=== PATIENT | female | born 1960 | race Caucasian/White ===

== ENCOUNTER 2020-06-23 07:55 | Outpatient (RCR) | payer OTHER, SELFPAY ==
--- NOTE | 2020-06-24 09:29 | MHC.PT.DC ---
[facility] [place] Office [place] Office [place] Office [address] Abelardo Orozco [address] [phone] F: [phone] F: [phone] F: [phone] F: [phone] Physical Therapy Discharge Report Diagnosis: Patellofemoral arthritis of R knee Date of Surgery: NA Date of Evaluation: 04/29/20 Date of Discharge: 06/23/20 Treatments to Date: 9 Cancellations to Date: 1 No Shows to Date: 0 Discharge Status: Achieved Goals Independent with HEP Discharge Summary: 06/23/20- Pt presented with no pain. She has improved and is independent with all HEPS. Pt requested d/c today. As pt has improved and is independent with all HEPS pt discharged today. All her exercises were reviewed with her. Pt educated on continuing with HEP and prevent recurrence of pain. No adverse response noted to any exercise. Please sign and return to therapist. Thank you for your referral.
== END 2020-07-07 15:22 | disposition other institution (70) ==
LOC: HO.PT 07:55
PROVIDERS: PCP Internal Medicine; Visit Provider Physician Assistant
DX: M17.10 Unilateral primary osteoarthritis, unspecified knee (principal)
CPT/HCPCS: 97110

== ENCOUNTER 2020-07-21 14:03 | Outpatient (REF) | payer OTHER, SELFPAY | END 2020-07-21 14:04 | disposition home or self-care (01) | LOC: HO.LAB 14:03 | PROVIDERS: PCP Internal Medicine; Visit Provider Internal Medicine | DX: Z20.828 Contact with and (suspected) exposure to other viral communicable diseases (principal) | CPT/HCPCS: U0003 ==

== ENCOUNTER → 2020-08-22 08:39 | Outpatient (BNVA) | payer OTHER, SELFPAY | PROVIDERS: PCP Internal Medicine; Referring Provider Internal Medicine; Visit Provider Internal Medicine Gastroenterology | DX: Z76.89 Persons encountering health services in other specified circumstances (principal) ==

== ENCOUNTER → 2020-11-28 08:21 | Outpatient (BNVA) | payer OTHER, SELFPAY | PROVIDERS: PCP Internal Medicine; Visit Provider Internal Medicine Gastroenterology ==

== ENCOUNTER 2021-02-03 08:37 | Outpatient (REF) | payer OTHER, SELFPAY ==
[2021-02-03 09:31] LABS: MANUAL DIFF FLAG NO
[2021-02-03 09:42] LABS: Basophils Percent Auto 0.4 % (0-2); Eosinophils Absolute Auto 0.2 X10*3/uL (0.0-0.4); Hematocrit 40.2 % (37-47); Hemoglobin 13.1 g/dl (12.0-16.0); Imm Gran Abs Auto 0.03 X10*3/uL (0.00-0.03); Imm Gran Pct Auto 0.4 % (0.0-0.4); Lymphocytes Absolute Auto 2.8 X10*3/uL (1.2-4.9); Lymphocytes Percent Auto 35.8 % (20-40); Mean Corpuscular HGB Conc 32.6 g/dl (31.0-35.0); Mean Corpuscular Hemoglobin 28.4 pg (27.0-33.0); Mean Platelet Volume 10.2 fL (9.4-12.3); Monocytes Absolute Auto 0.6 X10*3/uL (0.1-1.2); Monocytes Percent Auto 7.7 % (2-11); Neutrophils Absolute Auto 4.1 X10*3/uL (2.0-8.3); Neutrophils Percent Auto 53.7 % (45-73); Platelet Count 240 X10*3/uL (160-400); Red Blood Count 4.62 X10*6/uL (4.20-5.50); Red Cell Distribution Width 13.2 % (11.0-16.0); White Blood Count 7.7 X10*3/uL (4.8-10.8)
[2021-02-03 09:48] LABS: Estimated Average Glucose 137 mg/dL; Hemoglobin A1c % 6.4 %
[2021-02-03 09:54] LABS: Alanine Aminotransferase 22 U/L (0-31); Albumin Level 4.2 g/dL (3.5-5.0); Alkaline Phosphatase 135 U/L (39-117); Anion Gap 14 (12-20); Aspartate Amino Transferase 16 U/L (5-31); Bilirubin Total 0.4 mg/dL (0.0-1.0); Blood Urea Nitrogen 17 mg/dL (9-16); Carbon Dioxide 23 mmol/L (22-29); Chloride 108 mmol/L (96-108); Cholesterol 188 mg/dL; Estimated Glomerular Filt Rate > 60; Glucose Fasting 134 mg/dL (60-99); HDL Cholesterol 65 mg/dL; LDL Cholesterol Calculated 97 mg/dl; Potassium 3.1 mmol/L (3.3-5.1); Sodium 142 mmol/L (135-145); Total Protein 7.3 g/dL (6.5-8.0); Triglycerides 134 mg/dL
[2021-02-03 10:01] LABS: Glucose Urine UA NEG (NEG); Leukocyte Esterase Urine NEG (NEG); Nitrite Urine NEG (NEG); Specific Gravity - Urine 1.025 (1.005-1.025); Urine Blood NEG (NEG); Urine Ketones NEG (NEG); Urine Protein NEG (NEG-TRACE)
[2021-02-03 10:03] LABS: Appearance Urine CLEAR; Color Urine YELLOW
[2021-02-03 10:17] LABS: TSH reflex Free T4 3.22 uIU/mL (0.32-4.0); Vitamin D 25-OH Total 48.5 ng/mL (>30)
[2021-02-03 10:43] LABS: Erythrocyte Sedimentation Rate 22 MM/HR (0-20)
[2021-02-03 10:46] LABS: Microalbum/Creatinine Ratio Ur 4.9 ug/mg cr
[2021-02-03 11:56] LABS: Folate > 20.0 ng/mL (> or = 4.0); Vitamin B12 272 pg/mL (200-900)
== END 2021-02-03 08:38 | disposition home or self-care (01) ==
LOC: HO.LAB 08:37
PROVIDERS: PCP Internal Medicine; Visit Provider Internal Medicine
DX: E11.9 Type 2 diabetes mellitus without complications (principal); E78.00 Pure hypercholesterolemia, unspecified; I10 Essential (primary) hypertension; E53.8 Deficiency of other specified B group vitamins; G40.909 Epilepsy, unspecified, not intractable, without status epilepticus; E66.01 Morbid (severe) obesity due to excess calories; Z68.43 Body mass index [BMI] 50.0-59.9, adult; D64.9 Anemia, unspecified; K21.9 Gastro-esophageal reflux disease without esophagitis; M79.7 Fibromyalgia; E55.9 Vitamin D deficiency, unspecified
CPT/HCPCS: 36415; 80053; 80061; 80184; 81003; 82043; 82306; 82607; 82746; 83036; 84443; 85025; 85652

== ENCOUNTER → 2021-03-30 08:48 | Outpatient (BNVA) | payer OTHER, SELFPAY | PROVIDERS: PCP Internal Medicine; Referring Provider Internal Medicine; Visit Provider Internal Medicine Gastroenterology | DX: K76.0 Fatty (change of) liver, not elsewhere classified (principal) | CPT/HCPCS: 99212 ==

== ENCOUNTER 2021-04-22 09:51 | Outpatient (REF) | payer OTHER, SELFPAY ==
--- NOTE | ~2021-04-22 | US_ITS ---
EXAMINATION: US ABDOMEN LIMITED WITH LIVER ELASTOGRAPHY CLINICAL INFORMATION: Fatty liver COMPARISON: Previous abdominal ultrasound June 2019 TECHNIQUE: Real-time imaging of the abdominal viscera. Noninvasive ultrasound liver fibrosis assessment is performed using Allen ElastPQ point quantification shear wave elastography (pSWE) with a C5-2 MHz transducer. Multiple elastography samples are obtained. FINDINGS: PANCREAS: Normal. LIVER: The liver demonstrates normal size and contour. Liver echotexture is increased.. No focal lesion or intrahepatic biliary duct dilatation. The right lobe measures 18 cm in length. The left lobe measures 12 cm in length. Portal flow is normal/hepatopedal Shear wave liver elastography median stiffness is 1.56 m/s (reference: normal median stiffness is 1.3 m/s or less). IQR/median stiffness to assess sampling precision is 0.32 (reference: good quality data set is IQR/median stiffness of 0.15 or less). GALLBLADDER: The gallbladder is normal in size. There is echogenic material seen dependently in the gallbladder that does not shadow suggestive of sludge. COMMON BILE DUCT: Normal in caliber measuring 0.3 cm in diameter. RIGHT KIDNEY: Normal. No hydronephrosis. No renal calculi or focal parenchymal lesions. The kidney measures 10.2 cm in maximum dimension. FREE FLUID: None. US/US abdomen regalado w elastography IMPRESSION: 1. Impression: Echogenic liver probably representing fatty infiltration. Sludge in the gallbladder. 2. Liver elastography: Slightly limited due to sampling error. In the absence of other known clinical signs, rules out compensated advanced chronic liver disease. REFERENCE: Society of Radiologists in Ultrasound Liver Stiffness Thresholds (2020): LIVER STIFFNESS THRESHOLDS: *Liver Stiffness equal or less than 1.3 m/s: High probability of being normal. *Liver Stiffness less than 1.7 m/s: In the absence of other known clinical signs, rules out compensated advanced chronic liver disease. *Liver Stiffness 1.7-2.1 m/s: Suggestive of compensated advanced chronic liver disease but need further test for confirmation. *Liver Stiffness over 2.1 m/s: Rules in compensated advanced chronic liver disease. *Liver Stiffness over 2.4 m/s: Suggestive of clinically significant portal hypertension. QUALITY OF DATA SET: *IQR/Median value equal or less than 0.15 implies a quality data set. *IQR/Median value over 0.15 implies a poor quality data set. SIGNIFICANT CHANGE FROM PRIOR EXAM: Significant change if liver stiffness measurement is 10% or greater from prior exam. OTHER CONSIDERATIONS: The stage of liver fibrosis may be overestimated in the setting of acute hepatitis, liver inflammation, elevated liver function tests, hepatic vascular congestion, obstructive cholestasis, non-fasting state, and infiltrative diseases such as amyloidosis and lymphoma. In some patients with NAFLD, the liver stiffness thresholds for compensated advanced chronic liver disease may be lower. In causes other than viral hepatitis and NAFLD, liver stiffness thresholds are not well established.
== END 2021-04-22 09:52 | disposition home or self-care (01) ==
LOC: HO.US 09:51
PROVIDERS: Visit Provider Internal Medicine Gastroenterology
DX: K76.0 Fatty (change of) liver, not elsewhere classified (principal)
CPT/HCPCS: 76705; 76981

== ENCOUNTER 2021-06-25 14:47 | Outpatient (REF) | payer OTHER, SELFPAY ==
[2021-06-25 15:55] LABS: MANUAL DIFF FLAG NO
[2021-06-25 17:00] LABS: Basophils Percent Auto 0.4 % (0-2); Eosinophils Absolute Auto 0.1 X10*3/uL (0.0-0.4); Hematocrit 38.2 % (37-47); Hemoglobin 12.6 g/dl (12.0-16.0); Imm Gran Abs Auto 0.03 X10*3/uL (0.00-0.03); Imm Gran Pct Auto 0.4 % (0.0-0.4); Lymphocytes Absolute Auto 2.7 X10*3/uL (1.2-4.9); Lymphocytes Percent Auto 35.2 % (20-40); Mean Platelet Volume 10.7 fL (9.4-12.3); Monocytes Absolute Auto 0.5 X10*3/uL (0.1-1.2); Neutrophils Absolute Auto 4.4 X10*3/uL (2.0-8.3); Platelet Count 271 X10*3/uL (160-400); Red Blood Count 4.34 X10*6/uL (4.20-5.50); Red Cell Distribution Width 13.2 % (11.0-16.0); White Blood Count 7.7 X10*3/uL (4.8-10.8)
== END 2021-06-25 14:48 | disposition home or self-care (01) ==
LOC: HO.LAB 14:47
PROVIDERS: PCP Internal Medicine; Visit Provider Internal Medicine Pulmonary Disease
DX: Z91.09 Other allergy status, other than to drugs and biological substances (principal)
CPT/HCPCS: 36415; 82785; 85025; 86003; 99202

== ENCOUNTER → 2021-07-08 14:09 | Outpatient (BNVA) | payer OTHER, SELFPAY | PROVIDERS: PCP Internal Medicine; Visit Provider Internal Medicine Pulmonary Disease | DX: J45.909 Unspecified asthma, uncomplicated (principal); Z91.09 Other allergy status, other than to drugs and biological substances | CPT/HCPCS: 99212 ==

== ENCOUNTER 2021-07-24 09:27 | Outpatient (REF) | payer OTHER, SELFPAY | END 2021-07-24 09:28 | disposition home or self-care (01) | LOC: HO.MDS 09:27 | PROVIDERS: PCP Internal Medicine; Visit Provider Internal Medicine Pulmonary Disease | DX: J45.50 Severe persistent asthma, uncomplicated (principal) | CPT/HCPCS: 96372; J2357 ==

== ENCOUNTER 2021-08-18 09:57 | Outpatient (REF) | payer OTHER, SELFPAY ==
[2021-08-18 10:27] LABS: MANUAL DIFF FLAG NO
[2021-08-18 10:43] LABS: Basophils Percent Auto 0.3 % (0-2); Eosinophils Absolute Auto 0.1 X10*3/uL (0.0-0.4); Eosinophils Percent Auto 1.4 % (0-4); Hematocrit 42.6 % (37.0-47.0); Hemoglobin 13.7 g/dl (12.0-16.0); Imm Gran Abs Auto 0.03 X10*3/uL (0.00-0.03); Imm Gran Pct Auto 0.5 % (0.0-0.4); Lymphocytes Percent Auto 29.6 % (20-40); Mean Corpuscular HGB Conc 32.2 g/dl (31.0-35.0); Mean Corpuscular Hemoglobin 28.5 pg (27.0-33.0); Mean Corpuscular Volume 88.6 fL (80.0-98.0); Mean Platelet Volume 10.4 fL (9.4-12.3); Monocytes Absolute Auto 0.5 X10*3/uL (0.1-1.2); Monocytes Percent Auto 6.8 % (2-11); Neutrophils Absolute Auto 4.1 x10*3/uL (2.0-8.3); Neutrophils Percent Auto 61.4 % (45-73); Platelet Count 255 X10*3/uL (160-400); Red Blood Count 4.81 X10*6/uL (4.20-5.50); Red Cell Distribution Width 13.4 % (11.0-16.0); White Blood Count 6.7 X10*3/uL (4.8-10.8)
[2021-08-18 10:55] LABS: Estimated Average Glucose 140 mg/dL; Hemoglobin A1c % 6.5 %
[2021-08-18 11:13] LABS: Alanine Aminotransferase 16 U/L (0-31); Albumin Level 4.2 g/dL (3.5-5.0); Alkaline Phosphatase 127 U/L (39-117); Anion Gap 13 (12-20); Aspartate Amino Transferase 14 U/L (5-31); Bilirubin Total 0.3 mg/dL (0.0-1.0); Blood Urea Nitrogen 14 mg/dL (9-16); Calcium 9.4 mg/dL (8.4-10.2); Carbon Dioxide 26 mmol/L (22-29); Chloride 106 mmol/L (96-108); Cholesterol 187 mg/dL; Estimated Glomerular Filt Rate > 60; Glucose Fasting 137 mg/dL (60-99); HDL Cholesterol 65 mg/dL; LDL Cholesterol Calculated 102 mg/dl; Potassium 3.4 mmol/L (3.3-5.1); Sodium 142 mmol/L (135-145); Total Protein 7.2 g/dL (6.5-8.0); Triglycerides 101 mg/dL
[2021-08-18 11:28] LABS: Vitamin D 25-OH Total 44.8 ng/mL (>30)
[2021-08-18 11:46] LABS: Appearance Urine CLEAR; Color Urine YELLOW; Glucose Urine UA NEG (NEG); Leukocyte Esterase Urine NEG (NEG); Nitrite Urine NEG (NEG); PH 6.5 (5.0-8.0); Urine Blood NEG (NEG); Urine Ketones NEG (NEG); Urine Protein NEG (NEG-TRACE)
[2021-08-18 11:59] LABS: Folate > 20.0 ng/mL (> or = 4.0); Vitamin B12 302 pg/mL (200-900)
[2021-08-18 12:11] LABS: Creatinine Urine 110.16 mg/dL; Microalbum/Creatinine Ratio Ur 4.5 ug/mg cr
[2021-08-20 22:46] LABS: Immunoglobulin E 6 kU/L (<OR=114)
== END 2021-08-18 09:58 | disposition home or self-care (01) ==
LOC: HO.LAB 09:57
PROVIDERS: Internal Medicine Pulmonary Disease; PCP Internal Medicine; Visit Provider Internal Medicine
DX: E11.9 Type 2 diabetes mellitus without complications (principal); I10 Essential (primary) hypertension; K21.9 Gastro-esophageal reflux disease without esophagitis; M79.7 Fibromyalgia; D64.9 Anemia, unspecified; E53.8 Deficiency of other specified B group vitamins; E78.00 Pure hypercholesterolemia, unspecified; G40.909 Epilepsy, unspecified, not intractable, without status epilepticus; E55.9 Vitamin D deficiency, unspecified; E66.01 Morbid (severe) obesity due to excess calories; Z68.43 Body mass index [BMI] 50.0-59.9, adult; Z91.09 Other allergy status, other than to drugs and biological substances
CPT/HCPCS: 36415; 80053; 80061; 80184; 81003; 82043; 82306; 82607; 82746; 82785; 83036; 84443; 85025

== ENCOUNTER 2021-08-21 08:53 | Outpatient (REF) | payer OTHER, SELFPAY | END 2021-08-21 08:54 | disposition home or self-care (01) | LOC: HO.MDS 08:53 | PROVIDERS: PCP Internal Medicine; Visit Provider Internal Medicine Pulmonary Disease | DX: J45.50 Severe persistent asthma, uncomplicated (principal) | CPT/HCPCS: 96372; J2357 ==

== ENCOUNTER → 2021-09-03 14:11 | Outpatient (BNVA) | payer OTHER, SELFPAY | PROVIDERS: PCP Internal Medicine; Visit Provider Internal Medicine Pulmonary Disease | DX: J45.909 Unspecified asthma, uncomplicated (principal); Z91.09 Other allergy status, other than to drugs and biological substances | CPT/HCPCS: 99212 ==

== ENCOUNTER → 2021-10-02 09:10 | Outpatient (BNVA) | payer OTHER, SELFPAY | PROVIDERS: PCP Internal Medicine; Visit Provider Internal Medicine Gastroenterology ==

== ENCOUNTER 2021-10-06 08:25 | Outpatient (REF) | payer OTHER, SELFPAY | END 2021-10-06 08:26 | disposition home or self-care (01) | LOC: HO.MDS 08:25 | PROVIDERS: PCP Internal Medicine; Visit Provider Internal Medicine Pulmonary Disease | DX: J45.50 Severe persistent asthma, uncomplicated (principal) | CPT/HCPCS: 96372; J2357 ==

== ENCOUNTER 2021-11-02 08:52 | Outpatient (REF) | payer OTHER, SELFPAY | END 2021-11-02 08:53 | disposition home or self-care (01) | LOC: HO.MDS 08:52 | PROVIDERS: PCP Internal Medicine; Visit Provider Internal Medicine Pulmonary Disease | DX: J45.50 Severe persistent asthma, uncomplicated (principal) | CPT/HCPCS: 96372 ==

== ENCOUNTER 2021-11-20 09:45 | Outpatient (REF) | payer OTHER, SELFPAY ==
--- NOTE | 2021-11-20 15:46 | MHC.AU.AHA ---
Adult Audiological Evaluation Date of Visit: 11/20/21 Reason for Appointment: Ms. Ga was seen for an audiological re-evaluation to monitor the status of her hearing loss. He has a known asymmetrical, mixed hearing loss bilaterally. Patient reports a perceived decline in hearing thresholds and aural fullness bilaterally. She states that she has noticed an increase in tinnitus on the right side. She reports a history of cerumen blockages and has not been able to remove cerumen from her ears in the past month. She notes that her primary care physician recently told her her ears were clear and free of cerumen. Ms. Ga is currently wearing custom CROS hearing aids, right hearing aid and left CROS. Previous Hearing Test Results: [place] 01/29/2015- Right ear: Moderate to moderately severe mixed hearing loss from 250-8000 Hz. Left ear: Profound mixed hearing loss from 250-8000 Hz. Ear History: Previous Ear Surgery: left side in 1989 Ear used on the phone: Right Ear Blocked/Full Sensation in Ear(s): Both Ears Medical History: Medical History: Headache, Seizure Disorder Allergies: Asprin, peanut, tree nut, calcium, magnesium, gabapentin, benadryl, zinc Medication List: Breo, Phenobarbital, Topamax, atorvastatin, amitriptyline, gaspatastin, folic acid, vitamin D, metformin Hearing Instrument History- Right Ear: Chemical Applicator: Phonak Model: Virto V50-312 Serial Number: [id number] Battery Size: 312 Repair Warranty: Loss and Damage Warranty: Dispensed By: [facility] Date of Fitt[place]02/25/2015 Hearing Instrument History- Left Ear: Chemical Applicator: Phonak Model: CROS II-312 custom Serial Number: [id number] Battery Size: 312 Warranty: Loss and Damage Warranty: Dispensed By: [facility] Date of Fitt[place]02/25/2015 Otoscopy: Right Ear: Completely occluding wax. Wax removal performed. Part of TM was visualized. Could not completely remove cerumen due to depth in ear canal. Left Ear: Completely occluding wax. Wax removal performed. Part of TM was visualized. Could not completely remove cerumen due to depth in ear canal. Tympanometry: Tympanometry performed due to: History of allergies/congestion Right Ear: Reduced Middle Ear Compliance (Type As) Left Ear: Normal Middle Ear System (Type A) Hearing Evaluation: Transducer(s) Used: Circumaural Headphones, Bone Conduction Method: Conventional Audiometry Stimuli Used: Pure Tones Right Ear: Description of Hearing: Mild hearing loss at 250 Hz, sloping to a moderately severe mixed hearing loss at 1000 Hz, rising to mild at 4000 Hz, sloping back down to a moderate hearing loss at 8000 Hz. Left Ear: Description of Hearing: Profound mixed hearing loss from 250-8000 Hz. Speech Recognition Threshold (SRT): Method Used: Monitored Live Voice Stimuli Used: Spondee Words Right Ear: 45 dB HL Left Ear: Did not test due to degree of hearing loss. Word Discrimination: Method: Recorded Lists Word Lists Used: NU-6 Right Ear: 92% at 85 dB HL Left Ear: Did not test due to degree of hearing loss. Comparison: Compared to the most recent evaluation: Hearing is stable with no significant changes in hearing when compared to 2015 audiogram. Interpretation of Results: Stable significant mixed hearing loss in the right ear and a profound mixed hearing loss in the left ear. Good word recognition in the right ear when presented at a level to compensate for the hearing loss. Recommendations: Audiological re-evaluation in one year. Based on the age and condition of her current hearing aids, updated amplification is recommended to help facilitate improved communication. Recommend patient returns for a hearing aid evaluation to discuss updated amplification options. Patient was recommended to use ear wax softening drops for the next few weeks, prior to returning for her hearing aid evaluation, to improve ability to clean out residual cerumen in this office. Patient should continue consistent use of amplification. Basic hearing aid maintenance and cleaning was performed at today's appointment as well. Patient should return as needed for hearing aid maintenance in the future. Diagnosis: Primary Diagnosis: H90.6 Mixed Hearing Loss, Bilateral Secondary Diagnosis: H61.23 Impacted Cerumen, Bilateral Services Performed: Comprehensive Audiological Evaluation (CPT 15231) Tympanometry (CPT 05159) Signature: Student/Clinical Fellow: Yes: Kenia Caro B.A., [place] Graduated Student I have reviewed/agreed with student/fellow documentation: Yes Provider: Chandler Duke, [facility]
--- NOTE | 2021-11-20 15:54 | MHC.AU.MED ---
Medical Clearance for Hearing Instrumentation Date: 11/20/21 Patient Name: Brenda Ga Date of : 1960 Referring Provider: Delmar Sylvester MD We have seen your patient on 11/20/21 and have determined that they are a candidate for amplification (See accompanying report). Specifically, they would benefit from: Hearing aid use in both ears - BiCROS hearing aid system There is a statute that addresses Medical Evaluation Requirements prior to fitting a patient with a hearing aid. According to [place] statute 265 CMR:6.03(1), (a) General. Except as provided in 265 CMR 6.03(1)(b), a hearing screen coordinator shall not sell a hearing aid unless the prospective user has presented to the hearing screen coordinator a written statement signed by a licensed physician that states that the patient's hearing loss has been medically evaluated and the patient may be considered a candidate for a hearing aid. The medical evaluation must have taken place within the preceding six months. Please note: Due to the [place] Statute referenced above, we cannot accept a signature other than that of a licensed physician. CLIP BAKER and PA signatures cannot be accepted. I am in agreement with the above recommendation. There is no medical contraindication for hearing instrumentation. Physician Signature Date Physician Name (Printed)
== END 2021-11-20 09:46 | disposition home or self-care (01) ==
LOC: HO.SH 09:45
PROVIDERS: Visit Provider Internal Medicine
DX: Z01.118 Encounter for examination of ears and hearing with other abnormal findings (principal); Z46.1 Encounter for fitting and adjustment of hearing aid; H90.6 Mixed conductive and sensorineural hearing loss, bilateral
CPT/HCPCS: 92557; 92567; 92593

== ENCOUNTER 2021-11-30 09:18 | Outpatient (REF) | payer OTHER, SELFPAY | END 2021-11-30 09:19 | disposition home or self-care (01) | LOC: HO.MDS 09:18 | PROVIDERS: PCP Internal Medicine; Visit Provider Internal Medicine Pulmonary Disease | DX: J45.50 Severe persistent asthma, uncomplicated (principal) | CPT/HCPCS: 96372; J2357 ==

== ENCOUNTER 2021-12-04 13:57 | Outpatient (REF) | payer OTHER, SELFPAY ==
--- NOTE | 2021-12-04 16:01 | MHC.AU.HAS ---
Hearing Aid Evaluation Date of Visit: 12/04/21 Historical Information: Description of Hearing: Mild to moderately-severe mixed hearing loss in the right ear. Severe to profound mixed hearing loss in the left ear. Current personal amplification information, if applicable: 2014 Phonak Virto V50 canal aid and CROS II Summary: Brenda was seen today for cerumen removal and for an HAE. She was found to have occluding wax at her last visit, which was partially removed at that time. She has been using ear wax drops since. Used suction to remove the remaining wax from both ears without incident. Given the age of her current hearing devices, updated amplification is recommended to help facilitate improved communication. She was advised that there are no updated versions of the ITE style CROS system anymore and all the manufacturers we work with have done away with that style for CROS aids. Discussed other options, such as the Silk CROS from [employer] and SLADE style CROS systems. She feels the Silk CROS aids are too small. She is hesitant to try the SLADE style as she tried a BTE style previous to her current aids and did not like them. However, she is interested in the added features of SLADE aids such as Bluetooth connectivity and rechargeability. She chose to go with a Phonak SLADE style CROS hearing aid system coupled with domes. Hearing Aid Prescription: Based on the individual?s shared listening needs, communication environments, dexterity, desire for connectivity, and personal preferences, the following prescription for amplification has been made: Right ear: Harness Placer: PhonThink Gaming Model: Audeo P70-R Battery Size: Rechargeable Color: H0- Beige Merchandiser Retail Representative: Size 1 M Type of Dome: Vented Left ear: Harness Placer: Phonak Model: CROS P-R Battery Size: Rechargeable Color: H0- Beige Merchandiser Retail Representative: Size 1 CROS wire Type of Dome: Open Plan of Care: Medical clearance was already obtained from her PCP Dr. Sylvester. Hearing aids ordered. Patient will be called to schedule a MARTIN fitting when materials arrive. Primary Diagnosis: H90.6 Mixed Hearing Loss, Bilateral, Secondary Diagnosis: H61.23 Impacted Cerumen, Bilateral Signature: Provider: Chandler Duke, CCC-A
== END 2021-12-04 13:58 | disposition home or self-care (01) ==
LOC: HO.HAP 13:57
PROVIDERS: Visit Provider Internal Medicine
DX: Z46.1 Encounter for fitting and adjustment of hearing aid (principal); H90.6 Mixed conductive and sensorineural hearing loss, bilateral
CPT/HCPCS: 92591

== ENCOUNTER 2021-12-08 08:53 | Outpatient (REF) | payer OTHER, SELFPAY ==
[2021-12-08 09:36] LABS: MANUAL DIFF FLAG NO
[2021-12-08 10:02] LABS: Basophils Percent Auto 0.4 % (0-2); Eosinophils Absolute Auto 0.2 X10*3/uL (0.0-0.4); Eosinophils Percent Auto 2.1 % (0-4); Hematocrit 41.1 % (37.0-47.0); Hemoglobin 13.1 g/dl (12.0-16.0); Imm Gran Abs Auto 0.03 X10*3/uL (0.00-0.03); Imm Gran Pct Auto 0.4 % (0.0-0.4); Lymphocytes Absolute Auto 2.7 X10*3/uL (1.2-4.9); Lymphocytes Percent Auto 36.1 % (20-40); Mean Corpuscular HGB Conc 31.9 g/dl (31.0-35.0); Mean Corpuscular Hemoglobin 28.6 pg (27.0-33.0); Mean Corpuscular Volume 89.7 fL (80.0-98.0); Mean Platelet Volume 10.1 fL (9.4-12.3); Monocytes Absolute Auto 0.5 X10*3/uL (0.1-1.2); Neutrophils Absolute Auto 4.1 x10*3/uL (2.0-8.3); Platelet Count 262 X10*3/uL (160-400); Red Blood Count 4.58 X10*6/uL (4.20-5.50); Red Cell Distribution Width 13.4 % (11.0-16.0); White Blood Count 7.5 X10*3/uL (4.8-10.8)
[2021-12-08 10:30] LABS: Estimated Average Glucose 148 mg/dL; Hemoglobin A1c % 6.8 %
[2021-12-08 10:50] LABS: Alanine Aminotransferase 19 U/L (0-31); Albumin Level 4.1 g/dL (3.5-5.0); Alkaline Phosphatase 137 U/L (39-117); Anion Gap 14 (12-20); Aspartate Amino Transferase 14 U/L (5-31); Bilirubin Total 0.4 mg/dL (0.0-1.0); Blood Urea Nitrogen 16 mg/dL (9-16); Calcium 9.4 mg/dL (8.4-10.2); Carbon Dioxide 27 mmol/L (22-29); Chloride 104 mmol/L (96-108); Cholesterol 188 mg/dL; Estimated Glomerular Filt Rate > 60; Glucose Fasting 148 mg/dL (60-99); HDL Cholesterol 62 mg/dL; LDL Cholesterol Calculated 105 mg/dl; Potassium 3.4 mmol/L (3.3-5.1); Sodium 142 mmol/L (135-145); Total Protein 7.1 g/dL (6.5-8.0); Triglycerides 109 mg/dL
[2021-12-08 11:00] LABS: Appearance Urine HAZY; Color Urine YELLOW; Glucose Urine UA NEG (NEG); Leukocyte Esterase Urine NEG (NEG); Nitrite Urine NEG (NEG); Specific Gravity - Urine 1.015 (1.005-1.025); Urine Blood NEG (NEG); Urine Ketones NEG (NEG); Urine Protein NEG (NEG-TRACE)
[2021-12-08 11:16] LABS: TSH reflex Free T4 4.73 uIU/mL (0.32-4.0)
[2021-12-08 11:59] LABS: Free T4 (Free Thyroxine) 1.12 ng/dL (0.71-1.85)
[2021-12-08 12:25] LABS: Creatinine Urine 160.46 mg/dL; Microalbum/Creatinine Ratio Ur 3.7 ug/mg cr
[2021-12-10 14:09] LABS: Vitamin D 25-OH Total 48.3 ng/mL (>30)
== END 2021-12-08 08:54 | disposition home or self-care (01) ==
LOC: HO.LAB 08:53
PROVIDERS: PCP Internal Medicine; Visit Provider Internal Medicine
DX: D64.9 Anemia, unspecified (principal); E78.00 Pure hypercholesterolemia, unspecified; K59.00 Constipation, unspecified; I10 Essential (primary) hypertension; E55.9 Vitamin D deficiency, unspecified; E11.9 Type 2 diabetes mellitus without complications
CPT/HCPCS: 36415; 80053; 80061; 81003; 82043; 82306; 83036; 84439; 84443; 85025

== ENCOUNTER 2021-12-30 14:17 | Outpatient (REF) | payer OTHER, SELFPAY | END 2021-12-30 14:18 | disposition home or self-care (01) | LOC: HO.HAP 14:17 | PROVIDERS: Visit Provider Internal Medicine | DX: Z46.1 Encounter for fitting and adjustment of hearing aid (principal); H90.6 Mixed conductive and sensorineural hearing loss, bilateral | CPT/HCPCS: V5011; V5020; V5221; V5240 ==

== ENCOUNTER 2022-01-08 09:46 | Outpatient (REF) | payer OTHER, SELFPAY | END 2022-01-08 09:47 | disposition home or self-care (01) | LOC: HO.MDS 09:46 | PROVIDERS: Visit Provider Internal Medicine Pulmonary Disease | DX: J45.50 Severe persistent asthma, uncomplicated (principal) | CPT/HCPCS: 96372; J2357 ==

== ENCOUNTER 2022-01-13 13:47 | Outpatient (REF) | payer OTHER, SELFPAY | END 2022-01-13 13:48 | disposition home or self-care (01) | LOC: HO.HAP 13:47 | PROVIDERS: Visit Provider Internal Medicine | DX: Z13.89 Encounter for screening for other disorder (principal) ==

== ENCOUNTER → 2022-01-14 09:20 | Outpatient (BNVA) | payer OTHER, SELFPAY | PROVIDERS: PCP Internal Medicine; Visit Provider Internal Medicine Pulmonary Disease | DX: J45.40 Moderate persistent asthma, uncomplicated (principal); J32.9 Chronic sinusitis, unspecified; Z91.09 Other allergy status, other than to drugs and biological substances; Z79.899 Other long term (current) drug therapy | CPT/HCPCS: 99212 ==

== ENCOUNTER 2022-02-05 09:46 | Outpatient (REF) | payer OTHER, SELFPAY | END 2022-02-05 09:47 | disposition home or self-care (01) | LOC: HO.MDS 09:46 | PROVIDERS: Visit Provider Internal Medicine Pulmonary Disease | DX: J45.50 Severe persistent asthma, uncomplicated (principal) | CPT/HCPCS: 96372; J2357 ==

== ENCOUNTER 2022-03-02 08:37 | Outpatient (REF) | payer OTHER, SELFPAY ==
[2022-03-02 09:15] LABS: MANUAL DIFF FLAG NO
[2022-03-02 09:29] LABS: Basophils Percent Auto 0.4 % (0-2); Eosinophils Absolute Auto 0.2 X10*3/uL (0.0-0.4); Eosinophils Percent Auto 1.9 % (0-4); Hematocrit 41.3 % (37.0-47.0); Hemoglobin 13.4 g/dl (12.0-16.0); Imm Gran Abs Auto 0.04 X10*3/uL (0.00-0.03); Imm Gran Pct Auto 0.5 % (0.0-0.4); Lymphocytes Absolute Auto 2.7 X10*3/uL (1.2-4.9); Lymphocytes Percent Auto 33.5 % (20-40); Mean Corpuscular HGB Conc 32.4 g/dl (31.0-35.0); Mean Corpuscular Volume 89.4 fL (80.0-98.0); Mean Platelet Volume 10.3 fL (9.4-12.3); Monocytes Absolute Auto 0.6 X10*3/uL (0.1-1.2); Neutrophils Absolute Auto 4.6 x10*3/uL (2.0-8.3); Neutrophils Percent Auto 56.7 % (45-73); Platelet Count 260 X10*3/uL (160-400); Red Blood Count 4.62 X10*6/uL (4.20-5.50); Red Cell Distribution Width 13.4 % (11.0-16.0)
[2022-03-02 09:49] LABS: Estimated Average Glucose 154 mg/dL
[2022-03-02 09:59] LABS: Alanine Aminotransferase 17 U/L (0-31); Albumin Level 4.1 g/dL (3.5-5.0); Alkaline Phosphatase 141 U/L (39-117); Anion Gap 13 (12-20); Aspartate Amino Transferase 16 U/L (5-31); Bilirubin Total 0.3 mg/dL (0.0-1.0); Blood Urea Nitrogen 13 mg/dL (9-16); Calcium 8.8 mg/dL (8.4-10.2); Carbon Dioxide 25 mmol/L (22-29); Chloride 106 mmol/L (96-108); Cholesterol 176 mg/dL; Estimated Glomerular Filt Rate > 60; Glucose Fasting 136 mg/dL (60-99); HDL Cholesterol 59 mg/dL; LDL Cholesterol Calculated 92 mg/dl; Potassium 3.2 mmol/L (3.3-5.1); Sodium 141 mmol/L (135-145); Total Protein 7.3 g/dL (6.5-8.0); Triglycerides 127 mg/dL
[2022-03-02 10:19] LABS: TSH reflex Free T4 1.93 uIU/mL (0.32-4.0)
[2022-03-02 10:39] LABS: Appearance Urine HAZY; Color Urine YELLOW; Glucose Urine UA NEG (NEG); Leukocyte Esterase Urine NEG (NEG); Nitrite Urine NEG (NEG); Urine Blood NEG (NEG); Urine Ketones NEG (NEG); Urine Protein NEG (NEG-TRACE)
[2022-03-02 11:32] LABS: Creatinine Urine 122.64 mg/dL; Microalbumin Urine < 5.0 mg/L
[2022-03-04 23:11] LABS: TS Negative Control Passed; TS Panel A 0; TS Panel B 0; TS Positive Control Passed; TSpotTB Negative (Negative)
== END 2022-03-02 08:38 | disposition home or self-care (01) ==
LOC: HO.LAB 08:37
PROVIDERS: PCP Internal Medicine; Visit Provider Internal Medicine
DX: Z01.84 Encounter for antibody response examination (principal); G40.909 Epilepsy, unspecified, not intractable, without status epilepticus; E55.9 Vitamin D deficiency, unspecified; I10 Essential (primary) hypertension; E78.00 Pure hypercholesterolemia, unspecified; E11.9 Type 2 diabetes mellitus without complications; Z11.1 Encounter for screening for respiratory tuberculosis
CPT/HCPCS: 36415; 80053; 80061; 80184; 81003; 82043; 82306; 83036; 84443; 85025; 86481

== ENCOUNTER 2022-03-08 09:28 | Outpatient (REF) | payer OTHER, SELFPAY | END 2022-03-08 09:29 | disposition home or self-care (01) | LOC: HO.MDS 09:28 | PROVIDERS: Visit Provider Internal Medicine Pulmonary Disease | DX: J45.50 Severe persistent asthma, uncomplicated (principal) | CPT/HCPCS: 96372; J2357 ==

== ENCOUNTER → 2022-05-19 08:42 | Outpatient (BNVA) | payer OTHER, SELFPAY | PROVIDERS: PCP Internal Medicine; Visit Provider Internal Medicine Pulmonary Disease | DX: J45.909 Unspecified asthma, uncomplicated (principal); Z91.09 Other allergy status, other than to drugs and biological substances; Z79.899 Other long term (current) drug therapy | CPT/HCPCS: 99212 ==

== ENCOUNTER → 2022-07-14 09:29 | Outpatient (BNVA) | payer OTHER, SELFPAY | PROVIDERS: PCP Internal Medicine; Visit Provider Internal Medicine Pulmonary Disease | DX: J45.909 Unspecified asthma, uncomplicated (principal); Z91.09 Other allergy status, other than to drugs and biological substances | CPT/HCPCS: 99212 ==

== ENCOUNTER → 2022-07-23 12:32 | Outpatient (BNVA) | payer OTHER, SELFPAY | PROVIDERS: PCP Internal Medicine; Referring Provider Internal Medicine; Visit Provider Internal Medicine Gastroenterology | DX: K59.00 Constipation, unspecified (principal) | CPT/HCPCS: 99212 ==

== ENCOUNTER 2022-07-26 09:39 | Outpatient (REF) | payer OTHER, SELFPAY | END 2022-07-26 09:40 | disposition home or self-care (01) | LOC: HO.MDS 09:39 | PROVIDERS: PCP Internal Medicine; Visit Provider Internal Medicine Pulmonary Disease | DX: J45.50 Severe persistent asthma, uncomplicated (principal) | CPT/HCPCS: 96372; J2357 ==

== ENCOUNTER 2022-08-16 08:37 | Outpatient (REF) | payer OTHER, SELFPAY ==
--- NOTE | ~2022-08-16 | MM_ITS ---
EXAMINATION: MM SCREENING DIGITAL BREAST TOMOSYNTHESIS, BILATERAL CLINICAL INFORMATION: Screening. Asymptomatic. The lifetime risk of breast cancer based on the Tyrer-Cuzick Model is 4%. COMPARISON: Mammography: 11/09/2017, 09/15/2016 TECHNIQUE: Digital breast tomosynthesis is performed in both the craniocaudal and mediolateral oblique views along with computer-aided detection (CAD). Synthesized 2D images are generated from the tomosynthesis. Additional left MLO view is provided. FINDINGS: There are scattered areas of fibroglandular density (ACR BI-RADS breast composition Category b). There are no significant masses, abnormal calcifications, or other abnormalities. Minor parenchymal asymmetries are similar to prior exams. No developing density. The axilla and skin contours are unremarkable. MM/MM tomosynthesis screening BI IMPRESSION: No mammographic evidence of malignancy. ASSESSMENT: BI-RADS 1: Negative RECOMMENDATION: Routine annual mammography screening. This patient's information was entered into a reminder system with a target due date for their next mammogram.
== END 2022-08-16 08:38 | disposition home or self-care (01) ==
LOC: HO.MAMMO 08:37
PROVIDERS: PCP Internal Medicine; Visit Provider Internal Medicine
DX: Z12.31 Encounter for screening mammogram for malignant neoplasm of breast (principal)
CPT/HCPCS: 77063; 77067

== ENCOUNTER 2022-08-23 09:34 | Outpatient (REF) | payer OTHER, SELFPAY | END 2022-08-23 09:35 | disposition home or self-care (01) | LOC: HO.MDS 09:34 | PROVIDERS: Visit Provider Internal Medicine Pulmonary Disease | DX: J45.50 Severe persistent asthma, uncomplicated (principal) | CPT/HCPCS: 96372; J2357 ==

== ENCOUNTER 2022-09-20 10:36 | Emergency (ER) | payer OTHER, SELFPAY ==
[2022-09-20 11:07] VITALS: BP 139/69; PULSE 69; RESP 18; TEMP 36.3; O2SAT 100; BMI 42.9
--- NOTE | 2022-09-20 12:13 | ED_ITS ---
HPI - Ear Problem General Chief complaint: Ear Problems Stated complaint: ear pain Time Seen by Provider: 09/20/22 12:01 Source: patient Mode of arrival: ambulatory Limitations: no limitations History of Present Illness HPI Narrative: 61-year-old female with a history of kjk-rpkbewt-ragpzouyb diabetes, fibromyalgia, migraine, anemia, asthma presents with right ear pain, right ear drainage, right ear itching since Tuesday. No fevers, chills, URI symptoms. No hearing change. Patient uses hearing aids at baseline Related Data Home Medications Medication Instructions Recorded Confirmed lansoprazole 30 mg capsule,delayed 30 mg PO DAILY 08/06/20 07/05/22 release phenobarbital 97.2 mg tablet 97.2 mg PO DAILY 08/06/20 07/05/22 topiramate 100 mg tablet 100 mg PO ONCE 08/06/20 07/05/22 amitriptyline 50 mg tablet 50 mg PO BEDTIME 11/25/20 07/05/22 gabapentin 100 mg capsule 100 mg PO DAILY 10/02/21 07/05/22 Previous Rx's Medication Instructions Recorded omalizumab 150 mg subcutaneous 300 mg subcut Q4W 28 days #4 ea 07/09/21 solution (Xolair) lubiprostone 24 mcg capsule 24 mcg PO BID #60 caps 10/02/21 (Amitiza) lancets 28 gauge (FreeStyle #100 ea 03/15/22 Lancets) metformin 500 mg tablet,extended 500 mg PO QPM #30 tabs 04/06/22 release 24 hr [id number]-yngdculfw-omqnrlpdq 3.5 4 drp otic (ears) Q8H #10 mL 04/23/22 mg-10,000 unit/mL-1 % ear drops,susp capsaicin 0.025 % topical cream 1 appl topical TID #50 grams 05/13/22 blood sugar diagnostic (FreeStyle #100 ea 06/14/22 Lite Strips) folic acid 1 mg tablet 1 mg PO DAILY #90 caps 07/11/22 Breo Ellipta 200 mcg-25 mcg/dose 1 ea PO DAILY #60 ea 08/23/22 powder for inhalation (fluticasone furoate-vilanterol) albuterol sulfate 90 mcg/actuation 2 puff inhalation Q6H PRN for 08/23/22 aerosol inhaler (ProAir HFA) wheezing #8.5 ea famotidine 40 mg tablet 40 mg PO BEDTIME #30 tabs 08/24/22 lidocaine 5 % topical ointment 1 appl topical TID skin irritation 08/24/22 #120 grams linaclotide 290 mcg capsule 290 mcg PO DAILY #90 caps 08/24/22 (Linzess) atorvastatin 20 mg tablet 20 mg PO DAILY #90 tabs 09/15/22 cholecalciferol (vitamin D3) 25 25 mcg PO DAILY #90 caps 09/15/22 mcg (1,000 unit) capsule (Vitamin D3) hydrochlorothiazide 25 mg tablet 25 mg PO DAILY #30 tabs 09/15/22 montelukast 10 mg tablet 10 mg PO DAILY #30 tabs 09/15/22 amoxicillin 500 mg capsule 500 mg PO Q12H #20 caps 09/20/22 ofloxacin 0.3 % ear drops 10 drp otic (ears) DAILY 7 days 09/20/22 #10 mL Allergies Allergy/AdvReac Type Severity Reaction Status Date / Time aspirin [Aspirin] Allergy Severe HIVES/SWELL Verified 07/23/22 12:36 ING peanut [PEANUTS] Allergy Severe ITCHING/SWE Verified 07/23/22 12:36 LLING tree nut [TREE NUT] Allergy Severe ITCHING/SWE Verified 07/23/22 12:36 LLING Benadryl Allergy Unknown Unknown Verified 07/23/22 12:36 calcium Allergy Unknown Unknown Verified 07/23/22 12:36 magnesium Allergy Unknown Unknown Verified 07/23/22 12:36 gabapentin AdvReac Intermediate somnolence Verified 07/23/22 12:36 Zinc Allergy Unknown Unknown Uncoded 07/05/22 14:22 Review of Systems Review of Systems: Yes all other systems are reviewed and are negative Constitutional: Constitutional: Reports no additional constitutional complaints, Denies body ache(s), Denies chills, Denies fever(s), Denies headache(s) and Denies weakness Eyes: Eyes: Reports no additional eye complaints and Denies change in vision ENT: Reports system reviewed and no additional complaints, except as documented, Denies dizziness, Reports ear discharge, Reports otalgia, Denies headache(s), Denies hearing loss, Denies nasal congestion, Denies nasal discharge and Denies neck pain Cardiovascular: Cardiovascular: Reports no additional cardiovascular complaints, Denies chest pain, Denies leg edema and Denies dyspnea Respiratory: Respiratory: Reports no additional respiratory complaints, Denies cough and Denies dyspnea Gastrointestinal: Gastrointestinal: Reports no additional gastrointestinal complaints, Denies abdominal pain, Denies diarrhea, Denies nausea and Denies vomiting Genitourinary: Genitourinary: Reports no additional female genitourinary complaints and Denies urinary incontinence Musculoskeletal: Musculoskeletal: Reports no additional musculoskeletal complaints, Denies back pain, Denies arthralgias, Denies joint swelling, Denies neck pain, Denies numbness and Denies tingling Integumentary/Breasts: Skin/Breast: Reports system reviewed and no additional complaints, except as docu and Denies rash Neurologic: Reports system reviewed and no additional complaints, except as documented, Denies Abnormal speech present, Denies dizziness, Denies headache(s ), Denies numbness, Denies tingling and Denies weakness PMFSH Past Medical History Attestation statement: The following information was validated with the patient. Source: old records reviewed and nursing notes reviewed Medical History Anemia, unspecified Benign essential hypertension Constipation, unspecified Fibromyalgia GERD without esophagitis Migraine without status migrainosus, not intractable Moderate persistent asthma without complication Morbid obesity with BMI of 50.0-59.9, adult Nonintractable epilepsy without status epilepticus Pure hypercholesterolemia Type 2 diabetes mellitus without complication, without long-term current use of insulin Vitamin B12 deficiency Vitamin D deficiency Surgical History H/O gastric bypass History of colonoscopy History of removal of laparoscopic gastric banding device Hx of endoscopy Family History Family History Father No problems noted. Mother No problems noted. Social History Social History Household Members: Significant Other and Family Housing: Apartment Alcohol intake: current Alcohol intake frequency: holidays/special occasions only Alcohol type: wine Patient Tobacco Use Status: Never used Tobacco Second Hand Smoke Exposure: Yes Advance Directives: No Advance Directives Information Provided: No service: No Current occupational status: retired Cognitive needs: No Hearing needs: Yes Vision needs: Yes Physical Exam Vital Signs: Vital Signs: Last Vital Signs Temp 97.4 F 09/20/22 11:07 Pulse 69 09/20/22 11:07 Resp 18 09/20/22 11:07 BP 139/69 09/20/22 11:07 Pulse Ox 100 09/20/22 11:07 O2 Del Method 09/20/22 11:07 BMI result Body Mass Index 42.9 Const: General: cooperative, healthy appearing, comfortable and no acute distress Orientation/consciousness: patient oriented x3 Limitations: no limitations HEENT: Head: Yes normal to inspection Ears: hearing grossly normal bilaterally, TM normal on the left, mastoids normal, Abnormal EAC present (Right-side) erythema, edema, EAC tenderness and otic discharge, periauricular adenopathy on the right and TM abnormal bulging and wth effusion; not erythematous General nose exam: Normal external nose present Face and sinus: Yes normal facial exam Mouth: Normal oral and palatal mucosa present Throat: Yes posterior oropharynx normal, Yes tonsils normal and Yes uvula midline Eyes: General: appearance normal, both eyes and all related structures Pupils: Equal, round and reactive pupils present Neck: Neck: Yes normal visual inspection, Yes full ROM, Yes no lymphadenopathy and Yes no meningeal signs Chest: Chest palpation & inspection: normal inspection of the chest Resp: Effort & Inspection: normal respiratory effort Auscultation: clear to auscultation bilaterally Cardio: Rate: regular rate Rhythm: regular rhythm Peripheral pulses: Peripheral pulses 2+ throughout GI: Inspection: Yes normal to inspection Palpation (GI): Soft to palpation and nontender Auscultation: normal bowel sounds Back/Spine/Pelvis: Thoracic/Lumbar Spine: thoracic and lumbar spine normal to inspection Skin: General skin exam: no rashes or lesions noted Neuro: General: patient oriented x3, no meningeal signs, no focal motor deficits and normal sensation to monofilament Cranial nerves: Yes Equal, round and reactive pupils present Cognition (Neuro): normal cognition Speech: No Abnormal speech present Gait exam (Neuro): Normal gait present Motor exam (neuro): 5/5 motor strength present throughout Extrem: General: Yes normal to inspection Medical Decision Making Medical Decision Making MDM Narrative: 61-year-old female here with right ear pain, itching, discharge since Tuesday. Exam consistent with otitis externa and otitis media No evidence of mastoiditis, malignant otitis externa Patient treated with antibiotics drops and oral Differential Diagnosis Differential Diagnoses: The differential diagnosis associated with the presentation includes Mastoiditis, malignant otitis externa Lab Data MDM Lab Attestation statement: I reviewed the patient's lab results. Prescription Management I considered prescription management with: Antibiotic Patient be treated but both oral and drop antibiotic Chronic Conditions Patient?s care impacted by: Diabetes Discharge Plan Discharge Clinical Impression: Otitis externa, Otitis media Patient Disposition: Home, Self-Care Instructions: Otitis Externa (ED), How to Use Ear Drops (ED), Ear Infection (ED) Prescriptions: New ofloxacin 0.3 % drops 10 drp otic (ears) DAILY 7 Days Qty: 10 0RF amoxicillin 500 mg capsule 500 mg PO Q12H Qty: 20 0RF No Action Xolair 150 mg recon soln 300 mg subcut Q4W 28 Days Qty: 4 12RF Rx Instructions: requires multiple injection sites; do not exceed 150 mg per injection site (DME) lancets [FreeStyle Lancets] 28 gauge misc See Rx Instructions .ROUTE .MEDSUPPLY Qty: 100 0RF Rx Instructions: TEST ONCE DAILY metformin 500 mg tablet extended release 24 hr 500 mg PO QPM Qty: 30 5RF capsaicin 0.025 % cream 1 appl topical TID Qty: 50 1RF Rx Instructions: do not wash area for at least 30 min after application (DME) FreeStyle Lite Strips Strip See Rx Instructions .ROUTE .MEDSUPPLY Qty: 100 0RF Rx Instructions: TEST ONCE DAILY folic acid 1 mg tablet 1 mg PO DAILY Qty: 90 3RF albuterol sulfate [ProAir HFA] 90 mcg/actuation HFA aerosol inhaler 2 puff inhalation Q6H PRN (Reason: for wheezing) Qty: 8.5 4RF fluticasone furoate-vilanterol [Breo Ellipta] 200-25 mcg/dose blister with device 1 ea PO DAILY Qty: 60 1RF famotidine 40 mg tablet 40 mg PO BEDTIME Qty: 30 3RF lidocaine 5 % ointment 1 appl topical TID Qty: 120 3RF Linzess 290 mcg capsule 290 mcg PO DAILY Qty: 90 3RF atorvastatin 20 mg tablet 20 mg PO DAILY Qty: 90 0RF cholecalciferol (vitamin D3) [Vitamin D3] 25 mcg (1,000 unit) capsule 25 mcg PO DAILY Qty: 90 3RF hydrochlorothiazide 25 mg tablet 25 mg PO DAILY Qty: 30 0RF montelukast 10 mg tablet 10 mg PO DAILY Qty: 30 3RF phenobarbital 97.2 mg tablet 97.2 mg PO DAILY topiramate 100 mg tablet 100 mg PO ONCE lansoprazole 30 mg capsule,delayed release(DR/EC) 30 mg PO DAILY amitriptyline 50 mg tablet 50 mg PO BEDTIME [id number] 3.5-10,000-1 mg/mL-unit/mL-% drops,suspension 4 drp otic (ears) Q8H Qty: 10 0RF gabapentin 100 mg capsule 100 mg PO DAILY lubiprostone [Amitiza] 24 mcg capsule 24 mcg PO BID Qty: 60 2RF Referrals: Delmar Sylvester MD [Primary Care Provider] - 1 week
== END 2022-09-20 12:38 | disposition home or self-care (01) ==
PROVIDERS: Emergency Provider Student in an Organized Health Care Education/Training Program; PCP Internal Medicine
DX: H66.91 Otitis media, unspecified, right ear (principal); H60.91 Unspecified otitis externa, right ear; E11.9 Type 2 diabetes mellitus without complications; I10 Essential (primary) hypertension; E78.00 Pure hypercholesterolemia, unspecified; E66.9 Obesity, unspecified; Z68.41 Body mass index [BMI] 40.0-44.9, adult; Z79.84 Long term (current) use of oral hypoglycemic drugs; Z79.02 Long term (current) use of antithrombotics/antiplatelets; Z79.899 Other long term (current) drug therapy
CPT/HCPCS: 99282; 99283

== ENCOUNTER 2022-09-22 09:28 | Outpatient (REF) | payer OTHER, SELFPAY | END 2022-09-22 09:29 | disposition home or self-care (01) | LOC: HO.MDS 09:28 | PROVIDERS: Visit Provider Internal Medicine Pulmonary Disease | DX: J45.50 Severe persistent asthma, uncomplicated (principal) | CPT/HCPCS: 96372; J2357 ==

== ENCOUNTER 2022-10-14 08:31 | Outpatient (REF) | payer OTHER, SELFPAY ==
[2022-10-14 08:46] LABS: MANUAL DIFF FLAG NO
[2022-10-14 09:29] LABS: Basophils Percent Auto 0.4 % (0-2); Eosinophils Absolute Auto 0.1 X10*3/uL (0.0-0.4); Eosinophils Percent Auto 1.7 % (0-4); Hematocrit 40.6 % (37.0-47.0); Hemoglobin 12.9 g/dl (12.0-16.0); Imm Gran Abs Auto 0.03 X10*3/uL (0.00-0.03); Imm Gran Pct Auto 0.4 % (0.0-0.4); Lymphocytes Absolute Auto 2.3 X10*3/uL (1.2-4.9); Lymphocytes Percent Auto 32.8 % (20-40); Mean Corpuscular HGB Conc 31.8 g/dl (31.0-35.0); Mean Corpuscular Hemoglobin 28.2 pg (27.0-33.0); Mean Corpuscular Volume 88.8 fL (80.0-98.0); Mean Platelet Volume 10.4 fL (9.4-12.3); Monocytes Absolute Auto 0.5 X10*3/uL (0.1-1.2); Monocytes Percent Auto 7.3 % (2-11); Neutrophils Absolute Auto 4.1 x10*3/uL (2.0-8.3); Neutrophils Percent Auto 57.4 % (45-73); Platelet Count 252 X10*3/uL (160-400); Red Blood Count 4.57 X10*6/uL (4.20-5.50); Red Cell Distribution Width 13.1 % (11.0-16.0); White Blood Count 7.1 X10*3/uL (4.8-10.8)
[2022-10-14 09:33] LABS: Appearance Urine Clear; Color Urine Yellow; Glucose Urine UA Negative (Negative); Leukocyte Esterase Urine Small (1+) (Negative); Nitrite Urine Negative (Negative); Specific Gravity - Urine 1.025 (1.005-1.025); UMIC TRIGGER UACC YES; Urine Blood Negative (Negative); Urine Ketones Trace mg/dL (Negative); Urine Protein Trace mg/dL (Neg-Trace)
[2022-10-14 09:42] LABS: Estimated Average Glucose 154 mg/dL
[2022-10-14 09:44] LABS: Bacteria Urine Trace (None Seen); Hyaline Casts Urine 0-2 /LPF (0-2); RBC Urine 0-2 /HPF (0-2); Squamous Epithelial Cell Urine 0-2 /HPF (0-2); UACC Culture Trigger YES; WBC Urine 0-5 /HPF (0-5)
[2022-10-14 10:20] LABS: Alanine Aminotransferase 21 U/L (0-31); Albumin Level 3.9 g/dL (3.5-5.0); Alkaline Phosphatase 133 U/L (39-117); Anion Gap 14 (12-20); Aspartate Amino Transferase 16 U/L (5-31); Bilirubin Total 0.3 mg/dL (0.0-1.0); Blood Urea Nitrogen 14 mg/dL (9-16); Carbon Dioxide 26 mmol/L (22-29); Chloride 107 mmol/L (96-108); Cholesterol 193 mg/dL; Estimated Glomerular Filt Rate > 60; Glucose Fasting 152 mg/dL (60-99); HDL Cholesterol 55 mg/dL; LDL Cholesterol Calculated 107 mg/dl; Potassium 3.5 mmol/L (3.3-5.1); Sodium 143 mmol/L (135-145); Total Protein 6.9 g/dL (6.5-8.0); Triglycerides 156 mg/dL
[2022-10-14 10:24] LABS: TSH reflex Free T4 4.41 uIU/mL (0.32-4.0); Vitamin D 25-OH Total 42.4 ng/mL (>30)
== END 2022-10-14 08:32 | disposition home or self-care (01) ==
LOC: HO.LAB 08:31
PROVIDERS: PCP Internal Medicine; Visit Provider Internal Medicine
DX: I10 Essential (primary) hypertension (principal); E55.9 Vitamin D deficiency, unspecified; G40.909 Epilepsy, unspecified, not intractable, without status epilepticus; E11.9 Type 2 diabetes mellitus without complications; E78.00 Pure hypercholesterolemia, unspecified; J45.909 Unspecified asthma, uncomplicated; Z91.09 Other allergy status, other than to drugs and biological substances
CPT/HCPCS: 36415; 80053; 80061; 80184; 81001; 82306; 83036; 84443; 85025; 87086; 99212

== ENCOUNTER 2022-10-20 08:52 | Outpatient (REF) | payer OTHER, SELFPAY | END 2022-10-20 08:53 | disposition home or self-care (01) | LOC: HO.MDS 08:52 | PROVIDERS: Visit Provider Internal Medicine Pulmonary Disease | DX: J45.50 Severe persistent asthma, uncomplicated (principal) | CPT/HCPCS: 96372; J2357 ==

== ENCOUNTER 2022-11-26 09:45 | Outpatient (REF) | payer OTHER, SELFPAY | END 2022-11-26 09:46 | disposition home or self-care (01) | LOC: HO.MDS 09:45 | PROVIDERS: Visit Provider Internal Medicine Pulmonary Disease | DX: J45.50 Severe persistent asthma, uncomplicated (principal) | CPT/HCPCS: 96372; J2357 ==

== ENCOUNTER 2023-01-07 08:36 | Outpatient (REF) | payer OTHER, SELFPAY | END 2023-01-07 08:37 | disposition home or self-care (01) | LOC: HO.MDS 08:36 | PROVIDERS: Visit Provider Internal Medicine Pulmonary Disease | DX: J45.50 Severe persistent asthma, uncomplicated (principal) | CPT/HCPCS: 96372; J2357 ==

== ENCOUNTER 2023-03-16 08:32 | Outpatient (REF) | payer OTHER, SELFPAY | END 2023-03-16 08:33 | disposition home or self-care (01) | LOC: HO.MDS 08:32 | PROVIDERS: Visit Provider Internal Medicine Pulmonary Disease | DX: J45.50 Severe persistent asthma, uncomplicated (principal) | CPT/HCPCS: 96372; J2357 ==

== ENCOUNTER 2023-03-30 08:34 | Outpatient (AMB) | payer OTHER, SELFPAY ==
[2023-03-30 08:56] VITALS: BP 128/80; PULSE 76; O2SAT 98; BMI 41.9
--- NOTE | 2023-03-30 08:56 | MHC.OFFVIS ---
Intake Vital Signs 03/30/23 08:56 Height 5 ft 4 in Weight 244 lb BMI 41.9 BP 128/80 Pulse 76 Pulse Oximetry (%) 98 Intake Visit Reasons: Asthma Intake Note: pt says her insurance does not want to cover proair, she feel breo isnt doing much either. pt still continues xolair injections. Allergies aspirin [Aspirin] Allergy (Severe, Verified 03/30/23 08:56) HIVES/SWELLING peanut [PEANUTS] Allergy (Severe, Verified 03/30/23 08:56) ITCHING/SWELLING tree nut [TREE NUT] Allergy (Severe, Verified 03/30/23 08:56) ITCHING/SWELLING Benadryl Allergy (Unknown, Verified 03/30/23 08:56) Unknown calcium Allergy (Unknown, Verified 03/30/23 08:56) Unknown magnesium Allergy (Unknown, Verified 03/30/23 08:56) Unknown gabapentin Adverse Reaction (Intermediate, Verified 03/30/23 08:56) somnolence Zinc Allergy (Unknown, Uncoded 01/17/23 15:06) Unknown HPI Asthma HPI Details 62-year-old lady followed for underlying moderate to severe persistent asthma and environmental allergies.? Patient has been using Xolair, Breo, and albuterol MDI, previously with good control of his symptoms, until hot and humid weather cause her symptoms to get worse. Though, she denies an acute exacerbation. Patient stated she can not tolerate Ventolin secondary to significant shaking, but she does not get this with ProAir. [facility] Medical History Anemia, unspecified Benign essential hypertension Constipation, unspecified Fibromyalgia GERD without esophagitis Migraine without status migrainosus, not intractable Moderate persistent asthma without complication Morbid obesity with BMI of 50.0-59.9, adult Nonintractable epilepsy without status epilepticus Pure hypercholesterolemia Type 2 diabetes mellitus without complication, without long-term current use of insulin Vitamin B12 deficiency Vitamin D deficiency Surgical History H/O gastric bypass History of colonoscopy History of removal of laparoscopic gastric banding device Hx of endoscopy Family History Father No problems noted. Mother No problems noted. Social History Household Members: Significant Other and Family Housing: Apartment Alcohol intake: current Alcohol intake frequency: holidays/special occasions only Alcohol type: wine Patient Tobacco Use Status: Never used Tobacco Second Hand Smoke Exposure: Yes service: No Current occupational status: retired Cognitive needs: No Hearing needs: Yes Vision needs: Yes Review of Systems Const Denies daytime sleepiness, Denies excessive sweating, Denies fatigue, Denies fever(s), Denies lethargy, Denies malaise, Denies night sweats, Denies snoring and Denies weight loss Eyes Denies blurry vision and Denies itchy eyes ENT Denies nasal congestion, Denies post nasal drip, Denies sinus pain, Denies sinus pressure and Denies other ( Thrush) Card Denies chest pain, Denies pedal edema, Denies dyspnea, Reports dyspnea on exertion, Denies orthopnea and Denies paroxysmal nocturnal dyspnea Resp Denies cough, Denies hemoptysis, Denies excessive phlegm production, Denies dyspnea, Reports dyspnea on exertion, Denies snoring and Denies wheezing GI Denies abdominal pain and Denies heartburn Musc Denies myalgias, Denies arthralgias and Denies joint swelling Skin/Breast Denies rash Neuro Denies memory loss and Denies seizure-like activity Psych Denies abnormal sleep pattern, Denies anxiety and Denies memory loss Endo Denies excessive sweating, Denies fatigue and Denies heat intolerance Harsha/Lymph Denies easy bruising Aller/Immun Denies itchy eyes, Denies seasonal rhinorrhea and Denies wheezing Physical Exam Vital Signs: Last Vital Signs Pulse 76 03/30/23 08:56 BP 128/80 03/30/23 08:56 Pulse Ox 98 03/30/23 08:56 BMI result Body Mass Index 41.9 Const General: no acute distress and alert Nutritional Appearance: obese Orientation/consciousness: Other orientation findings ( oriented) HEENT Head: Yes atraumatic Eyes General: appearance normal, both eyes and all related structures Sclerae: sclerae normal EOM: EOMs intact bilaterally Neck Neck: Yes supple Lymphatic: no lymphadenopathy noted Resp Effort & Inspection: normal respiratory effort and no use of accessory muscles Auscultation: clear to auscultation bilaterally Cardio Rate: regular rate Rhythm: regular rhythm Heart sounds: no gallops, no murmurs and no rubs Skin General skin exam: other ( warm) Extrem General: No clubbing, No cyanosis and No edema Assessment & Plan Assessment & Plan (1) Asthma: Code(s): J45.909 - Unspecified asthma, uncomplicated Plan: Previously well controlled on Xolair, Breo, and albuterol MDI. Now with worsening control secondary to him EDT in heat, will switch Breo to Trelegy. (2) Environmental allergies: Code(s): Z91.09 - Other allergy status, other than to drugs and biological substances Plan: Well controlled on Xolair. Continue current regimen. Medications: New nmrpvhhieta-ngnnhyeqo-ucpjaoio 200-62.5-25 mcg (Trelegy Ellipta) 1 inh inhalation DAILY 1 ea 6RF 30 days Discontinued Breo Ellipta 200-25 mcg/dose (fluticasone furoate-vilanterol) Discontinued Reason: Doctor's Order 1 ea PO DAILY 60 ea 1RF NS Z91.09 - Other allergy status, other than to drugs and biological substances Coding Level of Care Code Est Pt Level 4 (87160) Diagnoses Asthma J45.909 Environmental allergies Z91.09
== END 2023-03-30 09:13 | disposition home or self-care (01) ==
PROVIDERS: PCP Internal Medicine; Visit Provider Internal Medicine Pulmonary Disease
DX: J45.909 Unspecified asthma, uncomplicated (principal); Z91.09 Other allergy status, other than to drugs and biological substances
CPT/HCPCS: 99214

== ENCOUNTER → 2023-03-30 08:34 | Outpatient (BNVA) | payer OTHER, SELFPAY | PROVIDERS: PCP Internal Medicine; Visit Provider Internal Medicine Pulmonary Disease | DX: J45.909 Unspecified asthma, uncomplicated (principal); Z91.09 Other allergy status, other than to drugs and biological substances | CPT/HCPCS: 99212 ==

== ENCOUNTER 2023-04-13 08:30 | Outpatient (REF) | payer OTHER, SELFPAY | END 2023-04-13 08:31 | disposition home or self-care (01) | LOC: HO.MDS 08:30 | PROVIDERS: Visit Provider Internal Medicine Pulmonary Disease | DX: J45.50 Severe persistent asthma, uncomplicated (principal) | CPT/HCPCS: 96372; J2357 ==

== ENCOUNTER 2023-04-18 09:24 | Outpatient (REF) | payer OTHER, SELFPAY ==
[2023-04-18 09:41] LABS: MANUAL DIFF FLAG NO
[2023-04-18 10:15] LABS: Basophils Percent Auto 0.4 % (0-2); Eosinophils Absolute Auto 0.1 X10*3/uL (0.0-0.4); Eosinophils Percent Auto 1.2 % (0-4); Hematocrit 41.4 % (37.0-47.0); Hemoglobin 13.3 g/dl (12.0-16.0); Imm Gran Abs Auto 0.05 X10*3/uL (0.00-0.03); Imm Gran Pct Auto 0.5 % (0.0-0.4); Lymphocytes Absolute Auto 2.7 X10*3/uL (1.2-4.9); Lymphocytes Percent Auto 28.7 % (20-40); Mean Corpuscular HGB Conc 32.1 g/dl (31.0-35.0); Mean Corpuscular Hemoglobin 28.6 pg (27.0-33.0); Mean Platelet Volume 10.6 fL (9.4-12.3); Monocytes Absolute Auto 0.6 X10*3/uL (0.1-1.2); Monocytes Percent Auto 5.9 % (2-11); Neutrophils Absolute Auto 5.9 x10*3/uL (2.0-8.3); Neutrophils Percent Auto 63.3 % (45-73); Platelet Count 255 X10*3/uL (160-400); Red Blood Count 4.65 X10*6/uL (4.20-5.50); Red Cell Distribution Width 13.5 % (11.0-16.0); White Blood Count 9.4 X10*3/uL (4.8-10.8)
[2023-04-18 11:10] LABS: Estimated Average Glucose 163 mg/dL; Hemoglobin A1c % 7.3 %
[2023-04-18 11:11] LABS: Alanine Aminotransferase 25 U/L (0-31); Alkaline Phosphatase 131 U/L (39-117); Anion Gap 17 (12-20); Aspartate Amino Transferase 16 U/L (5-31); Bilirubin Total 0.3 mg/dL (0.0-1.0); Blood Urea Nitrogen 15 mg/dL (9-16); Calcium 9.4 mg/dL (8.4-10.2); Carbon Dioxide 22 mmol/L (22-29); Chloride 106 mmol/L (96-108); Cholesterol 177 mg/dL; Estimated Glomerular Filt Rate > 60; Glucose Fasting 165 mg/dL (60-99); HDL Cholesterol 60 mg/dL; LDL Cholesterol Calculated 95 mg/dl; Potassium 3.2 mmol/L (3.3-5.1); Sodium 142 mmol/L (135-145); Total Protein 7.5 g/dL (6.5-8.0); Triglycerides 112 mg/dL; Vitamin D 25-OH Total 60.7 ng/mL (>30)
== END 2023-04-18 09:25 | disposition home or self-care (01) ==
LOC: HO.LAB 09:24
PROVIDERS: PCP Internal Medicine; Visit Provider Internal Medicine
DX: E11.9 Type 2 diabetes mellitus without complications (principal); I10 Essential (primary) hypertension; E78.00 Pure hypercholesterolemia, unspecified; E55.9 Vitamin D deficiency, unspecified; G40.909 Epilepsy, unspecified, not intractable, without status epilepticus; R30.0 Dysuria
CPT/HCPCS: 36415; 80053; 80061; 80184; 82306; 83036; 84439; 84443; 85025

== ENCOUNTER 2023-04-27 14:47 | Outpatient (AMB) | payer OTHER, SELFPAY ==
[2023-04-27 14:44] VITALS: BP 122/78; PULSE 84; O2SAT 96; BMI 42.0
--- NOTE | 2023-04-27 14:44 | MHC.PC.OV ---
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 Accompanied by: Self / Same As Patient Allergies aspirin [Aspirin] Allergy (Severe, Verified 04/27/23 18:33) HIVES/SWELLING peanut [PEANUTS] Allergy (Severe, Verified 04/27/23 18:33) ITCHING/SWELLING tree nut [TREE NUT] Allergy (Severe, Verified 04/27/23 18:33) ITCHING/SWELLING Benadryl Allergy (Unknown, Verified 04/27/23 18:33) Unknown calcium Allergy (Unknown, Verified 04/27/23 18:33) Unknown magnesium Allergy (Unknown, Verified 04/27/23 18:33) Unknown gabapentin Adverse Reaction (Intermediate, Verified 04/27/23 18:33) somnolence Zinc Allergy (Unknown, Uncoded 04/27/23 18:33) Unknown Medication List - Last Reconciled 04/27/23 by Delmar Sylvester MD albuterol sulfate 90 mcg/actuation (ProAir HFA) 2 puffs inhalation Q6H PRN amitriptyline 50 mg PO BEDTIME amoxicillin-pot clavulanate 875-125 mg 1 tab PO BID 10 days atorvastatin 40 mg PO DAILY 90 days blood sugar diagnostic (FreeStyle Lite Strips) TEST ONCE DAILY capsaicin 0.025% 1 appl topical TID cholecalciferol (vitamin D3) (Vitamin D3) 25 mcg PO DAILY famotidine 40 mg PO BEDTIME wrbjllhdewg-otrrarkjm-emzgapjb 200-62.5-25 mcg (Trelegy Ellipta) 1 inh inhalation DAILY 30 days folic acid 1 mg PO DAILY gabapentin 100 mg PO DAILY hydrochlorothiazide 25 mg PO DAILY lancets (FreeStyle Lancets) TEST ONCE DAILY lansoprazole 30 mg PO DAILY lidocaine 5% 1 appl topical TID linaclotide (Linzess) 290 mcg PO DAILY lubiprostone (Amitiza) 24 mcg PO BID metformin ER 500 mg PO QPM 90 days montelukast 10 mg PO DAILY omalizumab (Xolair) 300 mg subcut Q4W 28 days phenobarbital 97.2 mg PO DAILY sertraline 50 mg PO DAILY 30 days sitagliptin phosphate (Januvia) 50 mg PO DAILY 30 days topiramate 100 mg PO ONCE Tobacco use date assessed: 04/27/23 Dental Screening Dental Screen Date: 04/27/23 Did you have a dental visit in the last 12 months?: No Did you have a dental problem in the last 6 months where you did not have access to dental care?: No Was dental information given to patient?: No HPI 3mth f/u HPI Details Patient comes in today for her follow up visit States that she has been experiencing increased pain and discomfort in her right ear for a few weeks now Relates (+) Hx of recurrent ear problems over the years and states that she's had multiple surgeries and procedures done in both ears Is requesting for a referral to see ENT so they can help manage and address her numerous and ongoing ear issues Feels that her current right ear symptoms were brought about when the hearing center cleaned out and irrigated her ear a few weeks ago when they were fitting her for hearing aid, which she is currently using Has tried applying some antibiotic ear drops in her ear for almost a week now with little relief She denies any fever or sore throat; denies any headaches or dizziness Denies any chest pains, no SOB No nausea/vomiting, no abdominal pain No change in bowel habits noted Had her follow up labs done last week - to discuss her results [facility] Medical History Anemia, unspecified Benign essential hypertension Constipation, unspecified Fibromyalgia GERD without esophagitis Migraine without status migrainosus, not intractable Moderate persistent asthma without complication Morbid obesity with BMI of 50.0-59.9, adult Nonintractable epilepsy without status epilepticus Pure hypercholesterolemia Type 2 diabetes mellitus without complication, without long-term current use of insulin Vitamin B12 deficiency Vitamin D deficiency Surgical History H/O gastric bypass History of colonoscopy History of removal of laparoscopic gastric banding device Hx of endoscopy Family History Father No problems noted. Mother No problems noted. Social History Household Members: Significant Other and Family Housing: Apartment Alcohol intake: current Alcohol intake frequency: holidays/special occasions only Alcohol type: wine Patient Tobacco Use Status: Never used Tobacco e-Cigarette/Vaping Use: Never Used Second Hand Smoke Exposure: Yes service: No Current occupational status: retired Cognitive needs: No Hearing needs: Yes Vision needs: Yes Questionnaire PHQ-9 Over the last 2 weeks, how often have you been bothered by any of the following problems? 1. Little interest or pleasure in doing things: not at all 2. Feeling down, depressed, or hopeless: nearly every day 3. Trouble falling or staying asleep, or sleeping too much: nearly every day 4. Feeling tired or having little energy: not at all 5. Poor appetite or overeating: more than half the days 6. Feeling bad about yourself - or that you are a failure or have let yourself or your family down: not at all 7. Trouble concentrating on things, such as reading the newspaper or watching television: not at all 8. Moving or speaking so slowly that other people could have noticed. Or the opposite - being so fidgety or restless that you have been moving around a lot more than usual: not at all 9. Thoughts that you would be better off or of hurting yourself in some way: not at all Total score: 8 Depression Screening Interpretation: Positive Depression Screening Follow-up: Existing condition and In treatment 82000 - PHQ-9 Billing: Yes Source: Developed by Drs. Lázaro Tsai, Lara Madden, Wallace Cornejo and colleagues, with an educational emmett from [employer]. Thrive Questionnaire Date Thrive assessed: 04/27/23 I am a: Patient What is your living situation today?: I have a steady place to live Within the past 12 months, did the food you bought not last and you didn't have the money to get more?: Never true Within the past 12 months, did you worry whether your food would run out before you got money to buy more?: Never true Do you have trouble paying for medicines?: No Do you have trouble getting transportation to medical appointments?: No Do you have trouble paying your heating and electricity bill?: No Do you have trouble taking care of your child, family member or friend?: No Do you have trouble with day-to-day activities such as bathing, preparing meals, shopping, managing finances, etc.?: No Are you currently unemployed and looking for a job?: No Are you interested in more education?: No Please select the resources that you would like help with: None Currently or been in a relationship where the following occur: no concerns reported AUDIT C Alcohol Use Questionnaire (AUDIT-C) 1. How often do you have a drink containing alcohol?: Monthly or less 2. How many drinks containing alcohol do you have on a typical day when you are drinking?: 1 or 2 3. How often do you have six or more drinks on one occasion?: Never Total Score: 1 Score Reviewed/Action Taken: Yes ABHINAV-7 AMB Questionnaire ABHINAV-7 Date ABHINAV - 7 assessed: 04/27/23 Feeling nervous, anxious, or on edge: 0 = Not at all Not being able to stop or control worryin = Not at all Worrying too much about different things: 0 = Not at all Trouble relaxin = Not at all Being so restless that it is hard to sit still: 0 = Not at all Becoming easily annoyed or irritable: 0 = Not at all Feeling afraid as if something awful might happen: 0 = Not at all Total ABHINAV-7 score (0-4 normal; 5-9 mild; 10-14 moderate; 15-21 severe): 0 Source: Developed by Drs. Lázaro Tsai, Lara Madden, Wallace Cornejo and colleagues, with an educational emmett from [employer]. Review of Systems Const Reports difficulty sleeping, Reports fatigue, Denies fever(s) and Denies headache(s) ENT Denies dysphagia, Denies dizziness, Reports ear discharge (right ear), Reports otalgia (on and off in both ears but increased in the right ear lately), Denies headache(s), Denies nasal congestion, Denies neck pain, Denies odynophagia and Denies sore throat Card Denies chest pain, Denies palpitations and Denies dyspnea Resp Denies cough, Denies dyspnea and Denies wheezing GI Denies abdominal pain, Denies constipation, Denies dysphagia, Denies heartburn, Denies diarrhea, Denies nausea, Denies odynophagia and Denies vomiting Denies difficulty voiding, Denies nocturia and Denies dysuria Musc Denies neck pain Neuro Denies dizziness and Denies headache(s) Psych Reports anxiety and Reports depression (Rx helping now) Endo Reports fatigue and Denies palpitations Aller/Immun Denies wheezing Physical exam (Primary Care) Vital Signs: Last Vital Signs Pulse 84 04/27/23 14:44 BP 122/78 04/27/23 14:44 Pulse Ox 96 04/27/23 14:44 Oxygen Delivery Method Room Air 04/27/23 14:44 BMI result Body Mass Index 42.0 Tobacco/Smoking Status: Tobacco use Status Tobacco use date assessed 04/27/23 04/27/23 14:55 Patient Tobacco Use Status Never used Tobacco 04/27/23 14:45 e-Cigarette/Vaping Use Never Used 04/27/23 14:55 PHQ-9: PHQ-9 Score PHQ-9: Total score 8 04/27/23 14:55 Depression Screening Interpretation: Positive Depression Screening Follow-up: Existing condition and In treatment Thrive Assessment: Date of Thrive Assessment Date Thrive assessed 04/27/23 04/27/23 14:55 Currently or been in a relationship where the following occur: no concerns reported Const General: no acute distress and alert HENMT Ears: TM normal on the left, EAC's normal (in the left ear), Abnormal EAC present erythema, EAC tenderness and otic discharge clear on the right and TM abnormal wth effusion serous on the right Throat: Yes posterior oropharynx normal and Yes tonsils normal (no TP congestion noted) Neck Neck: Yes no lymphadenopathy and Yes supple Resp Auscultation: clear to auscultation bilaterally, no rales and no wheezes Cardio Rate: regular rate Rhythm: regular rhythm Heart sounds: no murmurs GI Palpation (GI): Soft to palpation and nontender Auscultation: normal bowel sounds Skin Rashes: no rashes Extrem General: Yes no clubbing, cyanosis or edema Results Reviewed Results Reviewed: Laboratory Tests 04/18/23 04/18/23 04/18/23 09:39 09:39 09:39 WBC 9.4 Hgb 13.3 Hct 41.4 Plt Count 255 Sodium 142 Potassium 3.2 L Creatinine 0.88 Estimated GFR > 60 Fasting Glucose 165 H Hemoglobin A1c % 7.3 Calcium 9.4 AST 16 ALT 25 Triglycerides 112 Cholesterol 177 LDL Cholesterol, Calc 95 HDL Cholesterol 60 25-OH Vitamin D Total 60.7 TSH 8.40 H Free T4 0.90 Assessment and Plan Assessment & Plan (1) Type 2 diabetes mellitus without complication, without long-term current use of insulin: Code(s): E11.9 - Type 2 diabetes mellitus without complications Plan: HgbA1c was at 7.3% on her labs done last week (in-office HgbA1c was at 7.0% a few months ago) - goal is <7.0% Reinforced diabetic diet Continue Metformin 500 mg QD; will add Januvia 50 mg QD now (2) Pure hypercholesterolemia: Code(s): E78.00 - Pure hypercholesterolemia, unspecified Plan: Results of her labs done last week reviewed and discussed with patient Reinforced low cholesterol diet Continue Atorvastatin 40 mg QD Will recheck her labs in 3 months for follow-up (3) Benign essential hypertension: Code(s): I10 - Essential (primary) hypertension Plan: Reinforced low-sodium diet -? goal is systolic BP of around 120 mm or less Continue Hydrochlorothiazide 25 mg QD in AM (4) Moderate persistent asthma without complication: Code(s): J45.40 - Moderate persistent asthma, uncomplicated Plan: Symptoms appear well-controlled on present meds - continue Breo Ellipta 200 mcg QD, Montelukast 10 mg QD, ProAir HFA 1 to 2 puffs every 6 hours as needed and Xolair 300 mg SQ every 4 weeks Follow up with pulmonary as scheduled (5) Nonintractable epilepsy without status epilepticus: Code(s): G40.909 - Epilepsy, unspecified, not intractable, without status epilepticus Qualifiers: Epilepsy type: unspecified Qualified Code(s): G40.909 - Epilepsy, unspecified, not intractable, without status epilepticus Plan: Stable with no recent seizures Continue Phenobarbital 97.2 mg 1 tablet twice a day Will continue to monitor serum phenobarbital level Follow-up with neurology as scheduled (6) Migraine without status migrainosus, not intractable: Code(s): G43.909 - Migraine, unspecified, not intractable, without status migrainosus Qualifiers: Migraine type: unspecified Qualified Code(s): G43.909 - Migraine, unspecified, not intractable, without status migrainosus Plan: Stable on prophylactic Rx Continue Topiramate 100 mg Q HS Follow-up with neurology as scheduled (7) GERD without esophagitis: Code(s): K21.9 - Gastro-esophageal reflux disease without esophagitis Plan: Dietary restrictions reinforced Continue Prevacid 30 mg once a day (8) Constipation, unspecified: Code(s): K59.00 - Constipation, unspecified Qualifiers: Constipation type: unspecified constipation type Qualified Code(s): K59.00 - Constipation, unspecified Plan: Encouraged increased oral fluids and dietary fiber Continue Linzess capsule 290 mcg 1 capsule once a day 30 minutes before the 1st meal of the day on an empty stomach (9) Acute otitis media: Code(s): H66.90 - Otitis media, unspecified, unspecified ear Qualifiers: Otitis media type: serous Laterality: right Recurrence: non-recurrent Qualified Code(s): H65.01 - Acute serous otitis media, right ear Plan: Will start her on Augmentin 875 mg BID x 10 days Per request, will also refer her to ENT (Dr. Naidu) for further evaluation and management of her recurrent ear issues (10) Fibromyalgia: Code(s): M79.7 - Fibromyalgia Plan: Patient encouraged again on regular exercise and physical activity to help manage her fibromyalgia symptoms Continue Amitriptyline 50 mg once a day at bedtime (11) Elevated TSH: Code(s): R79.89 - Other specified abnormal findings of blood chemistry Plan: Advised that her serum TSH was elevated on her recent labs; free T4 level was normal Discussed that this may indicate the possibility of evolving hypothyroidism although patient is currently still clinically euthyroid Will recheck her TFTs in 3 months for follow up (12) Vitamin D deficiency: Code(s): E55.9 - Vitamin D deficiency, unspecified Plan: Corrected -?continue Vitamin D3 1000 units QD Will continue to monitor her vitamin D level regularly (13) Anemia, unspecified: Code(s): D64.9 - Anemia, unspecified Qualifiers: Anemia type: unspecified type Qualified Code(s): D64.9 - Anemia, unspecified Plan: Corrected on her recent labs done in September 2022 and her H/H have remained normal since Will continue to monitor her CBC regularly (14) Vitamin B12 deficiency: Code(s): E53.8 - Deficiency of other specified B group vitamins Plan: Corrected - will continue to monitor B12 level regularly (15) Depression: Code(s): F32.A - Depression, unspecified Qualifiers: Depression Type: reactive depression Qualified Code(s): F32.9 - Major depressive disorder, single episode, unspecified Plan: Is most likely grief reaction / reactive depression, which should ease up over time Continue Sertraline 50 mg QD (16) Morbid obesity with BMI of 50.0-59.9, adult: Comment: S/P gastric bypass surgery in 2016 Code(s): E66.01 - Morbid (severe) obesity due to excess calories; Z68.43 - Body mass index [BMI] 50.0-59.9, adult Plan: Reinforced diet/exercise as tolerated/lose weight Plan Follow up in 3 months Orders: Orders Hemoglobin A1c 3 Months E11.9 - Type 2 diabetes mellitus without complications Lipid Panel 3 Months E78.00 - Pure hypercholesterolemia, unspecified Complete Blood Count Auto Diff 3 Months I10 - Essential (primary) hypertension Comprehensive [place]. Panel Fast 3 Months E78.00 - Pure hypercholesterolemia, unspecified Microalbumin, Random (w Creat) 3 Months E11.9 - Type 2 diabetes mellitus without complications Vitamin B12 and Folate 3 Months E53.8 - Deficiency of other specified B group vitamins Vitamin D 25-OH Total 3 Months E55.9 - Vitamin D deficiency, unspecified UA CC w/rflx Micro + Cult 3 Months R30.0 - Dysuria Phenobarbital 3 Months G40.909 - Epilepsy, unspecified, not intractable, without status epilepticus Free T4 (Free Thyroxine) 3 Months R79.89 - Other specified abnormal findings of blood chemistry Thyroid Stimulating Hormone 3 Months R79.89 - Other specified abnormal findings of blood chemistry Referrals Ear/Nose/Throat Referral H92.09 - Otalgia, unspecified ear Medications: New amoxicillin-pot clavulanate 875-125 mg 1 tab PO BID 10 days 20 tabs 0RF sitagliptin phosphate (Januvia) 50 mg PO DAILY 30 days 30 tabs 3RF Discontinued ofloxacin 0.3% Discontinued Reason: Patient Completed Course 10 drps otic (ears) DAILY 7 days 10 mL 0RF flyrcrdz-cmpzbmbvx-SB 3.5-10,000-1 mg/mL-unit/mL-% Discontinued Reason: Patient Completed Course 4 drps otic (ears) Q8H 10 mL 0RF Coding Level of Care Code Est Pt Level 4 (24236) Diagnoses Type 2 diabetes mellitus without complication, without long-term current use of insulin E11.9 Pure hypercholesterolemia E78.00 Benign essential hypertension I10 Moderate persistent asthma without complication J45.40 Nonintractable epilepsy without status epilepticus G40.909 Epilepsy type: unspecified Migraine without status migrainosus, not intractable G43.909 Migraine type: unspecified GERD without esophagitis K21.9 Constipation, unspecified K59.00 Constipation type: unspecified constipation type Acute otitis media H65.01 Otitis media type: serous Laterality: right Recurrence: non-recurrent Fibromyalgia M79.7 Elevated TSH R79.89 Vitamin D deficiency E55.9 Anemia, unspecified D64.9 Anemia type: unspecified type Vitamin B12 deficiency E53.8 Depression F32.9 Depression Type: reactive depression Morbid obesity with BMI of 50.0-59.9, adult E66.01; Z68.43
== END 2023-04-27 15:41 | disposition home or self-care (01) ==
LOC: HO.HMGH 14:47
PROVIDERS: PCP Internal Medicine; Visit Provider Internal Medicine
DX: E11.9 Type 2 diabetes mellitus without complications (principal); I10 Essential (primary) hypertension; J45.40 Moderate persistent asthma, uncomplicated; G40.909 Epilepsy, unspecified, not intractable, without status epilepticus; E78.00 Pure hypercholesterolemia, unspecified; G43.909 Migraine, unspecified, not intractable, without status migrainosus; K21.9 Gastro-esophageal reflux disease without esophagitis; K59.00 Constipation, unspecified; H65.01 Acute serous otitis media, right ear; M79.7 Fibromyalgia; R79.89 Other specified abnormal findings of blood chemistry; E55.9 Vitamin D deficiency, unspecified
CPT/HCPCS: 99214

== ENCOUNTER 2023-05-11 08:28 | Outpatient (REF) | payer OTHER, SELFPAY | END 2023-05-11 08:29 | disposition home or self-care (01) | LOC: HO.MDS 08:28 | PROVIDERS: Visit Provider Internal Medicine Pulmonary Disease | DX: J45.50 Severe persistent asthma, uncomplicated (principal) | CPT/HCPCS: 96372; J2357 ==

== ENCOUNTER 2023-06-02 16:45 | Emergency (ER) | payer OTHER, SELFPAY ==
--- NOTE | ~2023-06-02 | CT_ITS ---
EXAMINATION: CT INNER EAR TEMPORAL BONES CLINICAL INFORMATION: Mastoid pain. COMPARISON: None. TECHNIQUE: Multidetector helical was performed in the axial plane with generation of oblique axial and coronal reformatted projections. This CT examination was performed using dose optimization techniques as appropriate, variously including the following: *Automated exposure control *Adjustment of mA and/or kV according to patient size (this includes techniques or standardized protocols for targeted exams where dose is matched to indication/reason for exam; i.e. extremities or head) *Use of iterative reconstruction technique DLP: 322 mGy-cm. FINDINGS: Right: There is soft tissue thickening within the deep aspect of the internal auditory canal is associated thickening of the tympanic membrane. The middle ear cavity is well-aerated. The scutum is sharp. Prussak's space is clear. The tegmen is intact. The ossicular chain is intact. The facial nerve has a normal course. The inner ear structures are normally formed. The internal auditory canal is normal in size. The mastoid air cells are normally pneumatized and well-aerated. The carotid canal and jugular bulb appear normal. No bony erosion or destruction is seen. Left: A minimal amount of cerumen is seen within the external auditory canal. The tympanic membrane is not thickened. The middle ear cavity is well-aerated. The scutum is sharp. Prussak's space is clear. The tegmen is intact. The ossicular chain is intact. The facial nerve has a normal course. The inner ear structures are normally formed. The internal auditory canal is normal in size. The mastoid air cells are normally pneumatized and well-aerated. The carotid canal and jugular bulb appear normal. No bony erosion or destruction is seen. Additional findings: The imaged intracranial contents are unremarkable. The paranasal sinuses are clear. No inflammatory stranding is seen within the soft tissues. CT/CT mastoid IMPRESSION: Bilateral mastoids and middle ear cavities are clear. No inflammation is seen adjacent to the mastoid bones. Soft tissue attenuation opacifies the right external auditory canal, likely cerumen.
[2023-06-02 17:51] VITALS: BP 151/83; PULSE 73; TEMP 36.4; O2SAT 100; BMI 42.0
--- NOTE | 2023-06-02 17:54 | ED_ITS ---
HPI - General Adult General Chief complaint: Ear Problems Stated complaint: Right ear bleeding Time Seen by Provider: 06/02/23 20:32 Source: patient Mode of arrival: ambulatory History of Present Illness HPI narrative: 62-year-old female who is had chronic right ear difficulties since July and has been on multiple courses of antibiotics but states that she continues to have ear pain with purulence drainage. Patient is currently on a course of antibiotics. She is frustrated though because she continues to have loss of hearing and she is tired of being on the courses of antibiotics. Related Data Home Medications Medication Instructions Recorded Confirmed lansoprazole 30 mg capsule,delayed 30 mg PO DAILY 08/06/20 04/27/23 release phenobarbital 97.2 mg tablet 97.2 mg PO DAILY 08/06/20 04/27/23 topiramate 100 mg tablet 100 mg PO ONCE 08/06/20 04/27/23 amitriptyline 50 mg tablet 50 mg PO BEDTIME 11/25/20 04/27/23 gabapentin 100 mg capsule 100 mg PO DAILY 10/02/21 04/27/23 Previous Rx's Medication Instructions Recorded omalizumab 150 mg subcutaneous 300 mg subcut Q4W 28 days #4 ea 07/09/21 solution (Xolair) lubiprostone 24 mcg capsule 24 mcg PO BID #60 caps 10/02/21 (Amitiza) capsaicin 0.025 % topical cream 1 appl topical TID #50 grams 05/13/22 albuterol sulfate 90 mcg/actuation 2 puff inhalation Q6H PRN for 08/23/22 aerosol inhaler (ProAir HFA) wheezing #8.5 ea cholecalciferol (vitamin D3) 25 25 mcg PO DAILY #90 caps 09/15/22 mcg (1,000 unit) capsule (Vitamin D3) folic acid 1 mg tablet 1 mg PO DAILY #90 caps 11/16/22 linaclotide 290 mcg capsule 290 mcg PO DAILY #90 caps 01/11/23 (Linzess) hydrochlorothiazide 25 mg tablet 25 mg PO DAILY #90 tabs 02/15/23 montelukast 10 mg tablet 10 mg PO DAILY #30 tabs 02/16/23 fluticasone fur. 200 mcg-umeclid 1 inh inhalation DAILY 30 days #1 03/30/23 62.5 mcg-vilant 25 mcg ea inhalat.powder (Trelegy Ellipta) amoxicillin 875 mg-potassium 1 tab PO BID 10 days #20 tabs 04/27/23 clavulanate 125 mg tablet sitagliptin phosphate 50 mg tablet 50 mg PO DAILY 30 days #30 tabs 04/27/23 (Januvia) famotidine 40 mg tablet 40 mg PO BEDTIME #30 tabs 05/06/23 amoxicillin 875 mg-potassium 1 tab PO BID 10 days #20 tabs 05/11/23 clavulanate 125 mg tablet atorvastatin 40 mg tablet 40 mg PO DAILY 90 days #90 tabs 05/11/23 metformin 500 mg tablet,extended 500 mg PO QPM 90 days #90 tabs 05/11/23 release 24 hr blood sugar diagnostic (FreeStyle #100 ea 05/16/23 Lite Strips) lancets 28 gauge (FreeStyle #100 ea 05/16/23 Lancets) sertraline 50 mg tablet 50 mg PO DAILY 30 days #30 tabs 05/16/23 lidocaine 5 % topical ointment 1 appl topical TID skin irritation 05/20/23 #120 grams Allergies Allergy/AdvReac Type Severity Reaction Status Date / Time aspirin [Aspirin] Allergy Severe HIVES/SWELL Verified 04/27/23 18:33 ING peanut [PEANUTS] Allergy Severe ITCHING/SWE Verified 04/27/23 18:33 LLING tree nut [TREE NUT] Allergy Severe ITCHING/SWE Verified 04/27/23 18:33 LLING Benadryl Allergy Unknown Unknown Verified 04/27/23 18:33 calcium Allergy Unknown Unknown Verified 04/27/23 18:33 magnesium Allergy Unknown Unknown Verified 04/27/23 18:33 gabapentin AdvReac Intermediate somnolence Verified 04/27/23 18:33 Zinc Allergy Unknown Unknown Uncoded 04/27/23 18:33 Review of Systems 2 Review of Systems: Pertinent positives and negatives as stated in HPI [facility] Past Medical History Source: nursing notes reviewed Medical History Anemia, unspecified Benign essential hypertension Constipation, unspecified Fibromyalgia GERD without esophagitis Migraine without status migrainosus, not intractable Moderate persistent asthma without complication Morbid obesity with BMI of 50.0-59.9, adult Nonintractable epilepsy without status epilepticus Pure hypercholesterolemia Type 2 diabetes mellitus without complication, without long-term current use of insulin Vitamin B12 deficiency Vitamin D deficiency Surgical History H/O gastric bypass History of colonoscopy History of removal of laparoscopic gastric banding device Hx of endoscopy Family History Family History Father No problems noted. Mother No problems noted. Social History Social History Household Members: Significant Other and Family Housing: Apartment Alcohol intake: current Alcohol intake frequency: holidays/special occasions only Alcohol type: wine Patient Tobacco Use Status: Never used Tobacco e-Cigarette/Vaping Use: Never Used Second Hand Smoke Exposure: Yes Advance Directives: No Advance Directives Information Provided: No service: No Current occupational status: retired Cognitive needs: No Hearing needs: Yes Vision needs: Yes Physical Exam ED Vital Signs: Vital Signs - 24 hr 06/02/23 17:51 06/02/23 20:37 06/02/23 21:52 Temperature 97.6 F 97.9 F 98.2 F Pulse Rate 73 66 62 Respiratory Rate 16 16 Blood Pressure 151/83 H 165/89 H 145/76 H Pulse Oximetry 100 96 98 Oxygen Delivery Method Room Air Room Air BMI result Body Mass Index 42.0 VITAL SIGNS: Reviewed. GENERAL: Well developed, well nourished, in no acute distress. HEAD: Normocephalic/atraumatic EYES: PERRLA, EOMI EARS: RIGHT: There is a hearing aid in place, Ext canals with serous fluid in the ear canal, TMs opaque and thickened, LEFT: Ext canal without abnormality but narrowed, TMs non-bulging and non-erythematous NOSE: Nares patent bilateral OROPHARYNX: no oral lesions noted, posterior pharynx clear NECK: Supple, no adenopathy LUNGS: Normal breath sounds. No adventitious sounds or accessory muscle use. SpO2<98> CARDIOVASCULAR: Regular rate and rhythm without noted murmurs ABDOMEN: Soft, non-tender, non-distended with bowel sounds. MUSCULOSKELETAL: No tenderness, deformities, or effusions noted on gross inspection. EXTREMITIES: No cyanosis, clubbing or edema. SKIN: Inspection of the skin reveals no rashes NEUROLOGIC: Alert and oriented x 4. Strength and sensation to light touch were grossly intact x 4. Course Course Course Narrative: This is an RME: Additional HPI, ROS, PE not included below will be deferred to primary provider. This is a 62-year-old female, who is hard of hearing, presenting to the emergency department with complaints of right ear pain. Patient states that over the last year she has had intermittent right ear infections. She states that she has been on multiple doses of antibiotics, states that she was on 2 courses of antibiotics in April for ear infections. She states that today while she was cleaning her right ear she noticed blood on the Q-tip. She states that she has pain behind her ear, and radiating into her face. Endorsing subjective fevers and chills. Also reporting headaches. She is very careful as she is unable to hear from her left ear is at baseline and now her right ear is causing her problems. Right TM is exudative, with canal erythema noted. Patient has exquisite tenderness to the mastoid bone. Plan: Labs, mastoid CT Medications Administered Discontinued Medications Generic Name Dose Route Start Last Admin Trade Name Aidee PRN Reason Stop Dose Admin Acetaminophen 975 mg 06/02/23 21:50 06/02/23 21:57 Acetaminophen 325 Mg Tablet PO 06/02/23 21:51 975 mg ONCE ONE Administration Medical Decision Making Medical Decision Making [facility] Narrative: This is a 62-year-old female with progressive hearing loss and requiring multiple courses of antibiotics for what she reports is continued your infections on the right side after several surgeries in the for which she now has to wear a hearing aid. She denies any fevers or chills, I did review all previous lab work and documentation, she also reports some jaw discomfort and I do consider that this patient may suffer from TMJ or grinding her teeth at night that may be contributing to the underlying otalgia. I did review previous ESR which is not in the range to suggest a giant cell arteritis. I reviewed all investigations, hematologic indices are grossly within normal limits without leukocytosis/left shift, there is no anemia or thrombocytopenia. Chemistry indices are stable without SAMANTHA, no electrolyte abnormalities. I reviewed head/mastoid CT which was negative for any evidence to suggest mastoiditis or middle ear abnormalities. There was no inflammation appreciated adjacent to the mastoid bones. I did give patient's some pain medication and she will reach out her primary care doctor in the morning for more pain medication and also contact the your specialist. She is otherwise discharged home in stable condition. Differential Diagnosis Differential Diagnoses: The differential diagnosis associated with the presentation includes Please see the discussion above Admission/Observation Consideration of admission/observation: Escalation of care including admission/observation considered Please see the discussion above Lab Data MDM Lab Attestation statement: I reviewed the patient's lab results. Please see the discussion above 06/02/23 18:14 06/02/23 18:14 Labs: Lab Results 06/02/23 Range/Units 18:14 WBC 8.4 (4.8-10.8) X10*3/uL RBC 4.51 (4.20-5.50) X10*6/uL Hgb 13.3 (12.0-16.0) g/dl Hct 40.0 (37.0-47.0) % MCV 88.7 (80.0-98.0) fL MCH 29.5 (27.0-33.0) pg MCHC 33.3 (31.0-35.0) g/dl RDW 13.2 (11.0-16.0) % Plt Count 240 (160-400) X10*3/uL MPV 10.5 (9.4-12.3) fL Immature Gran % (Auto) 0.4 (0.0-0.4) % Neut % (Auto) 56.3 (45-73) % Lymph % (Auto) 34.3 (20-40) % Brooks % (Auto) 6.8 (2-11) % Eos % (Auto) 1.6 (0-4) % Baso % (Auto) 0.6 (0-2) % Lymph # (Auto) 2.9 (1.2-4.9) X10*3/uL Brooks # (Auto) 0.6 (0.1-1.2) X10*3/uL Eos # (Auto) 0.1 (0.0-0.4) X10*3/uL Baso # (Auto) 0.1 (0.0-0.2) X10*3/uL Abs Immat Gran (auto) 0.03 (0.00-0.03) X10*3/uL Absolute Neuts (auto) 4.7 (2.0-8.3) x10*3/uL Absolute Nucleated RBC 0.000 (0.0-0.012) X10*3/uL Nucleated RBC % (auto) 0.0 (0.0-0.2) /100WBC Sodium 143 (135-145) mmol/L Potassium 4.0 D (3.3-5.1) mmol/L Chloride 109 H (96-108) mmol/L Carbon Dioxide 24 (22-29) mmol/L Anion Gap 14 (12-20) BUN 15 (9-16) mg/dL Creatinine 0.77 (0.5-1.4) mg/dL Estim Creat Clear Calc 94.8 Estimated GFR > 60 Random Glucose 95 (60-115) mg/dL Calcium 9.5 (8.4-10.2) mg/dL Radiology Impression Discussion of test interpretation with radiology: I have reviewed the radiologist's reading. Radiologist Impression: Please see the discussion above External Record Review External record reviewed: Outpatient record, Prior outpatient labs and Prior outpatient radiology Chronic Conditions Patient?s care impacted by: Diabetes Discharge Plan Discharge Clinical Impression: Chronic left ear pain Patient Disposition: Home, Self-Care Instructions: Earache (ED), Atypical Facial Pain (ED) Additional Instructions: 1. Please keep your appointment with your current your doctor, but I highly recommend that you call them 1st thing in the morning and see if they can move your appointment up. 2. Please complete the entire course of antibiotics that you have been prescribed. 3. I have provided you with a referral to our Ear, Nose, and Throat specialist locally. Return to the ER for any worsening symptoms. Prescriptions: No Action Xolair 150 mg recon soln 300 mg subcut Q4W 28 Days Qty: 4 12RF Rx Instructions: requires multiple injection sites; do not exceed 150 mg per injection site capsaicin 0.025 % cream 1 appl topical TID Qty: 50 1RF Rx Instructions: do not wash area for at least 30 min after application albuterol sulfate [ProAir HFA] 90 mcg/actuation HFA aerosol inhaler 2 puff inhalation Q6H PRN (Reason: for wheezing) Qty: 8.5 4RF cholecalciferol (vitamin D3) [Vitamin D3] 25 mcg (1,000 unit) capsule 25 mcg PO DAILY Qty: 90 3RF folic acid 1 mg tablet 1 mg PO DAILY Qty: 90 3RF Linzess 290 mcg capsule 290 mcg PO DAILY Qty: 90 3RF hydrochlorothiazide 25 mg tablet 25 mg PO DAILY Qty: 90 0RF montelukast 10 mg tablet 10 mg PO DAILY Qty: 30 3RF famotidine 40 mg tablet 40 mg PO BEDTIME Qty: 30 3RF atorvastatin 40 mg tablet 40 mg PO DAILY 90 Days Qty: 90 1RF metformin 500 mg tablet extended release 24 hr 500 mg PO QPM 90 Days Qty: 90 1RF amoxicillin-pot clavulanate 875-125 mg tablet 1 tab PO BID 10 Days Qty: 20 0RF (DME) FreeStyle Lite Strips Strip See Rx Instructions .ROUTE .MEDSUPPLY Qty: 100 0RF Rx Instructions: TEST ONCE DAILY (DME) lancets [FreeStyle Lancets] 28 gauge misc See Rx Instructions .ROUTE .MEDSUPPLY Qty: 100 0RF Rx Instructions: TEST ONCE DAILY sertraline 50 mg tablet 50 mg PO DAILY 30 Days Qty: 30 3RF lidocaine 5 % ointment 1 appl topical TID Qty: 120 3RF phenobarbital 97.2 mg tablet 97.2 mg PO DAILY topiramate 100 mg tablet 100 mg PO ONCE lansoprazole 30 mg capsule,delayed release(DR/EC) 30 mg PO DAILY amitriptyline 50 mg tablet 50 mg PO BEDTIME amoxicillin-pot clavulanate 875-125 mg tablet 1 tab PO BID 10 Days Qty: 20 0RF Januvia 50 mg tablet 50 mg PO DAILY 30 Days Qty: 30 3RF gabapentin 100 mg capsule 100 mg PO DAILY lubiprostone [Amitiza] 24 mcg capsule 24 mcg PO BID Qty: 60 2RF Trelegy Ellipta 200-62.5-25 mcg blister with device 1 inh inhalation DAILY 30 Days Qty: 1 6RF Referrals: Delmar Sylvester MD [Primary Care Provider] - Jose Antonio Naidu [Physician] -
[2023-06-02 18:18] LABS: MANUAL DIFF FLAG NO
[2023-06-02 18:22] LABS: Basophils Absolute Auto 0.1 X10*3/uL (0.0-0.2); Basophils Percent Auto 0.6 % (0-2); Eosinophils Absolute Auto 0.1 X10*3/uL (0.0-0.4); Eosinophils Percent Auto 1.6 % (0-4); Hemoglobin 13.3 g/dl (12.0-16.0); Imm Gran Abs Auto 0.03 X10*3/uL (0.00-0.03); Imm Gran Pct Auto 0.4 % (0.0-0.4); Lymphocytes Absolute Auto 2.9 X10*3/uL (1.2-4.9); Lymphocytes Percent Auto 34.3 % (20-40); Mean Corpuscular HGB Conc 33.3 g/dl (31.0-35.0); Mean Corpuscular Hemoglobin 29.5 pg (27.0-33.0); Mean Corpuscular Volume 88.7 fL (80.0-98.0); Mean Platelet Volume 10.5 fL (9.4-12.3); Monocytes Absolute Auto 0.6 X10*3/uL (0.1-1.2); Monocytes Percent Auto 6.8 % (2-11); Neutrophils Absolute Auto 4.7 x10*3/uL (2.0-8.3); Neutrophils Percent Auto 56.3 % (45-73); Platelet Count 240 X10*3/uL (160-400); Red Blood Count 4.51 X10*6/uL (4.20-5.50); Red Cell Distribution Width 13.2 % (11.0-16.0); White Blood Count 8.4 X10*3/uL (4.8-10.8)
[2023-06-02 18:32] LABS: Anion Gap 14 (12-20); Blood Urea Nitrogen 15 mg/dL (9-16); Calcium 9.5 mg/dL (8.4-10.2); Carbon Dioxide 24 mmol/L (22-29); Chloride 109 mmol/L (96-108); Creatinine Clr Calc Pharmacy 94.8; Estimated Glomerular Filt Rate > 60; Glucose Random 95 mg/dL (60-115); Sodium 143 mmol/L (135-145)
[2023-06-02 20:37] VITALS: BP 165/89; PULSE 66; RESP 16; TEMP 36.6; O2SAT 96
[2023-06-02 21:52] VITALS: BP 145/76; PULSE 62; RESP 16; TEMP 36.8; O2SAT 98
[2023-06-02] MEDS: Acetaminophen 325 MG TABLET 975 MG PO (21:57)
== END 2023-06-02 22:21 | disposition home or self-care (01) ==
PROVIDERS: Physician Assistant Medical; Emergency Provider Student in an Organized Health Care Education/Training Program; PCP Internal Medicine
DX: G89.29 Other chronic pain (principal); H92.01 Otalgia, right ear; E11.9 Type 2 diabetes mellitus without complications; I10 Essential (primary) hypertension; E78.00 Pure hypercholesterolemia, unspecified; E66.9 Obesity, unspecified; Z68.41 Body mass index [BMI] 40.0-44.9, adult; Z79.899 Other long term (current) drug therapy
CPT/HCPCS: 36415; 70481; 80048; 85025; 99284

== ENCOUNTER 2023-06-08 08:31 | Outpatient (REF) | payer OTHER, SELFPAY | END 2023-06-08 08:32 | disposition home or self-care (01) | LOC: HO.MDS 08:31 | PROVIDERS: Visit Provider Internal Medicine Pulmonary Disease | DX: J45.50 Severe persistent asthma, uncomplicated (principal) | CPT/HCPCS: 96372; J2357 ==

== ENCOUNTER 2023-06-22 08:34 | Outpatient (AMB) | payer OTHER, SELFPAY ==
--- NOTE | 2023-06-22 08:51 | MHC.OFFVIS ---
Intake Vital Signs 06/22/23 08:52 Height 5 ft 4 in Weight 253 lb 8.505 oz BMI 43.5 BP 106/64 Blood Pressure Location Lt brachial Position Sitting Pulse 73 Pulse Source Doppler Pulse Oximetry (%) 100 Oxygen Delivery Method Room Air Intake Visit Reasons: Asthma Allergies aspirin [Aspirin] Allergy (Severe, Verified 06/22/23 08:57) HIVES/SWELLING peanut [PEANUTS] Allergy (Severe, Verified 06/22/23 08:57) ITCHING/SWELLING tree nut [TREE NUT] Allergy (Severe, Verified 06/22/23 08:57) ITCHING/SWELLING Benadryl Allergy (Unknown, Verified 06/22/23 08:57) Unknown calcium Allergy (Unknown, Verified 06/22/23 08:57) Unknown magnesium Allergy (Unknown, Verified 06/22/23 08:57) Unknown gabapentin Adverse Reaction (Intermediate, Verified 06/22/23 08:57) somnolence Zinc Allergy (Unknown, Uncoded 04/27/23 18:33) Unknown HPI Asthma HPI Details 62-year-old lady followed for underlying moderate to severe persistent asthma and environmental allergies.? Patient has been using Xolair, Breo, and albuterol MDI, previously with good control of her symptoms. She does complain of several episodes of the last week of what appears to be paroxysmal nocturnal dyspnea/pulmonary edema. Patient denies recent exacerbations. [facility] Medical History Anemia, unspecified Benign essential hypertension Constipation, unspecified Fibromyalgia GERD without esophagitis Migraine without status migrainosus, not intractable Moderate persistent asthma without complication Morbid obesity with BMI of 50.0-59.9, adult Nonintractable epilepsy without status epilepticus Pure hypercholesterolemia Type 2 diabetes mellitus without complication, without long-term current use of insulin Vitamin B12 deficiency Vitamin D deficiency Surgical History H/O gastric bypass History of colonoscopy History of removal of laparoscopic gastric banding device Hx of endoscopy Family History Father No problems noted. Mother No problems noted. Social History Household Members: Significant Other and Family Housing: Apartment Alcohol intake: current Alcohol intake frequency: holidays/special occasions only Alcohol type: wine Patient Tobacco Use Status: Never used Tobacco e-Cigarette/Vaping Use: Never Used Second Hand Smoke Exposure: Yes service: No Current occupational status: retired Cognitive needs: No Hearing needs: Yes Vision needs: Yes Review of Systems Const Denies daytime sleepiness, Denies excessive sweating, Denies fatigue, Denies fever(s), Denies lethargy, Denies malaise, Denies night sweats, Denies snoring and Denies weight loss Eyes Denies blurry vision and Denies itchy eyes ENT Denies nasal congestion, Denies post nasal drip, Denies sinus pain, Denies sinus pressure and Denies other ( Thrush) Card Denies chest pain, Reports pedal edema, Denies dyspnea, Denies orthopnea and Reports paroxysmal nocturnal dyspnea Resp Denies cough, Denies hemoptysis, Denies excessive phlegm production, Denies dyspnea, Denies snoring and Denies wheezing GI Denies abdominal pain and Denies heartburn Musc Denies myalgias, Denies arthralgias and Denies joint swelling Skin/Breast Denies rash Neuro Denies memory loss and Denies seizure-like activity Psych Denies abnormal sleep pattern, Denies anxiety and Denies memory loss Endo Denies excessive sweating, Denies fatigue and Denies heat intolerance Harsha/Lymph Denies easy bruising Aller/Immun Denies itchy eyes, Denies seasonal rhinorrhea and Denies wheezing Physical Exam Vital Signs: Last Vital Signs Pulse 73 06/22/23 08:52 BP 106/64 06/22/23 08:52 Pulse Ox 100 06/22/23 08:52 Oxygen Delivery Method Room Air 06/22/23 08:52 BMI result Body Mass Index 43.5 Const General: no acute distress and alert Nutritional Appearance: not obese Orientation/consciousness: Other orientation findings ( oriented) HEENT Head: Yes atraumatic Eyes General: appearance normal, both eyes and all related structures Sclerae: sclerae normal EOM: EOMs intact bilaterally Neck Neck: Yes supple Lymphatic: no lymphadenopathy noted Resp Effort & Inspection: normal respiratory effort and no use of accessory muscles Auscultation: clear to auscultation bilaterally Cardio Rate: regular rate Rhythm: regular rhythm Heart sounds: no gallops, no murmurs and no rubs Skin General skin exam: other ( warm) Extrem General: No clubbing, No cyanosis and Yes edema (3+ bilateral) Assessment & Plan Assessment & Plan (1) Asthma: Code(s): J45.909 - Unspecified asthma, uncomplicated Plan: Will controlled on current regimen of Xolair, Breo, albuterol MDI. Continue current regimen. (2) Environmental allergies: Code(s): Z91.09 - Other allergy status, other than to drugs and biological substances Plan: Will controlled on Xolair. Continue current regimen. (3) Paroxysmal nocturnal dyspnea: Code(s): R06.00 - Dyspnea, unspecified Plan: Will switch hydrochlorothiazide to furosemide 60 mg daily. Medications: New furosemide 60 mg (1.5 x 40 mg) PO QAM 30 days 45 tabs 6RF Discontinued hydrochlorothiazide Discontinued Reason: Doctor's Order 25 mg PO DAILY 90 tabs 0RF Coding Level of Care Code Est Pt Level 4 (73988) Diagnoses Asthma J45.909 Environmental allergies Z91.09 Paroxysmal nocturnal dyspnea R06.00
[2023-06-22 08:52] VITALS: BP 106/64; PULSE 73; O2SAT 100; BMI 43.5
== END 2023-06-22 09:24 | disposition home or self-care (01) ==
PROVIDERS: PCP Internal Medicine; Visit Provider Internal Medicine Pulmonary Disease
DX: J45.909 Unspecified asthma, uncomplicated (principal); Z91.09 Other allergy status, other than to drugs and biological substances; R06.00 Dyspnea, unspecified
CPT/HCPCS: 99214

== ENCOUNTER → 2023-06-22 08:34 | Outpatient (BNVA) | payer OTHER, SELFPAY | PROVIDERS: PCP Internal Medicine; Visit Provider Internal Medicine Pulmonary Disease | DX: J45.909 Unspecified asthma, uncomplicated (principal); R06.00 Dyspnea, unspecified; Z91.09 Other allergy status, other than to drugs and biological substances; Z79.899 Other long term (current) drug therapy | CPT/HCPCS: 99212 ==

== ENCOUNTER 2023-07-07 08:30 | Outpatient (REF) | payer OTHER, SELFPAY | END 2023-07-07 08:31 | disposition home or self-care (01) | LOC: HO.MDS 08:30 | PROVIDERS: Visit Provider Internal Medicine Pulmonary Disease | DX: J45.50 Severe persistent asthma, uncomplicated (principal) | CPT/HCPCS: 96372; J2357 ==

== ENCOUNTER 2023-07-13 09:31 | Outpatient (AMB) | payer OTHER, SELFPAY ==
--- NOTE | 2023-07-13 09:32 | A.OFFVIS_ITS ---
Intake Vital Signs 07/13/23 09:33 Height 5 ft 4 in Weight 244 lb 11.41 oz BMI 42.0 BP 118/77 Blood Pressure Location Lt brachial Position Sitting Pulse 74 Pulse Source Doppler Pulse Oximetry (%) 99 Oxygen Delivery Method Room Air Intake Visit Reasons: Asthma Allergies aspirin [Aspirin] Allergy (Severe, Verified 07/13/23 09:38) HIVES/SWELLING peanut [PEANUTS] Allergy (Severe, Verified 07/13/23 09:38) ITCHING/SWELLING tree nut [TREE NUT] Allergy (Severe, Verified 07/13/23 09:38) ITCHING/SWELLING Benadryl Allergy (Unknown, Verified 07/13/23 09:38) Unknown calcium Allergy (Unknown, Verified 07/13/23 09:38) Unknown magnesium Allergy (Unknown, Verified 07/13/23:38) Unknown gabapentin Adverse Reaction (Intermediate, Verified 07/13/23 09:38) somnolence Zinc Allergy (Unknown, Uncoded 04/27/23 18:33) Unknown HPI Asthma HPI Details 62-year-old lady followed for underlying moderate to severe persistent asthma and environmental allergies.? Patient has been using Xolair, Breo, and albuterol MDI, previously with good control of her symptoms. After the last office visit she has been switched from hydrochlorothiazide to furosemide 60 mg daily secondary to significant lower extremity edema and orthopnea. Today she states that she lost approximately 10 lb of water weight with significant improvement in her symptoms. She denies recent acute exacerbations. [facility] Medical History Anemia, unspecified Benign essential hypertension Constipation, unspecified Fibromyalgia GERD without esophagitis Migraine without status migrainosus, not intractable Moderate persistent asthma without complication Morbid obesity with BMI of 50.0-59.9, adult Nonintractable epilepsy without status epilepticus Pure hypercholesterolemia Type 2 diabetes mellitus without complication, without long-term current use of insulin Vitamin B12 deficiency Vitamin D deficiency Surgical History H/O gastric bypass History of colonoscopy History of removal of laparoscopic gastric banding device Hx of endoscopy Family History Father No problems noted. Mother No problems noted. Social History (Reviewed 07/13/23 @ 09:38 by Kenia Gilliam COUNTS INCLUDE 234 BEDS AT THE [facility]) Household Members: Significant Other and Family Housing: Apartment Alcohol intake: current Alcohol intake frequency: holidays/special occasions only Alcohol type: wine Patient Tobacco Use Status: Never used Tobacco e-Cigarette/Vaping Use: Never Used Second Hand Smoke Exposure: Yes service: No Current occupational status: retired Cognitive needs: No Hearing needs: Yes Vision needs: Yes Review of Systems Const Denies daytime sleepiness, Denies excessive sweating, Denies fatigue, Denies fever(s), Denies lethargy, Denies malaise, Denies night sweats, Denies snoring and Denies weight loss Eyes Denies blurry vision and Denies itchy eyes ENT Denies nasal congestion, Denies post nasal drip, Denies sinus pain, Denies sinus pressure and Denies other ( Thrush) Card Denies chest pain, Denies pedal edema, Denies dyspnea, Denies orthopnea and Denies paroxysmal nocturnal dyspnea Resp Denies cough, Denies hemoptysis, Denies excessive phlegm production, Denies dyspnea, Denies snoring and Denies wheezing GI Denies abdominal pain and Denies heartburn Musc Denies myalgias, Denies arthralgias and Denies joint swelling Skin/Breast Denies rash Neuro Denies memory loss and Denies seizure-like activity Psych Denies abnormal sleep pattern, Denies anxiety and Denies memory loss Endo Denies excessive sweating, Denies fatigue and Denies heat intolerance Harsha/Lymph Denies easy bruising Aller/Immun Denies itchy eyes, Denies seasonal rhinorrhea and Denies wheezing Physical Exam Vital Signs: Last Vital Signs Pulse 74 07/13/23 09:33 BP 118/77 07/13/23 09:33 Pulse Ox 99 07/13/23 09:33 Oxygen Delivery Method Room Air 07/13/23 09:33 BMI result Body Mass Index 42.0 Const General: no acute distress and alert Nutritional Appearance: obese Orientation/consciousness: Other orientation findings ( oriented) HEENT Head: Yes atraumatic Eyes General: appearance normal, both eyes and all related structures Sclerae: sclerae normal EOM: EOMs intact bilaterally Neck Neck: Yes supple Lymphatic: no lymphadenopathy noted Resp Effort & Inspection: normal respiratory effort and no use of accessory muscles Auscultation: clear to auscultation bilaterally Cardio Rate: regular rate Rhythm: regular rhythm Heart sounds: no gallops, no murmurs and no rubs Skin General skin exam: other ( warm) Extrem General: No clubbing, No cyanosis and No edema Assessment & Plan Assessment & Plan (1) Paroxysmal nocturnal dyspnea: Code(s): R06.00 - Dyspnea, unspecified Plan: Significant improvement after changing diuretic to furosemide 60 mg daily. Continue current regimen. (2) Asthma: Code(s): J45.909 - Unspecified asthma, uncomplicated Plan: Well controlled current regimen of Xolair, Trelegy, and albuterol MDI. Continue current regimen. (3) Environmental allergies: Code(s): Z91.09 - Other allergy status, other than to drugs and biological substances Plan: Well controlled on Xolair. Continue current regimen. Coding Level of Care Code Est Pt Level 4 (02056) Diagnoses Paroxysmal nocturnal dyspnea R06.00 Asthma J45.909 Environmental allergies Z91.09
[2023-07-13 09:33] VITALS: BP 118/77; PULSE 74; O2SAT 99; BMI 42.0
== END 2023-07-13 09:48 | disposition home or self-care (01) ==
PROVIDERS: PCP Internal Medicine; Visit Provider Internal Medicine Pulmonary Disease
DX: R06.00 Dyspnea, unspecified (principal); J45.909 Unspecified asthma, uncomplicated; Z91.09 Other allergy status, other than to drugs and biological substances
CPT/HCPCS: 99214

== ENCOUNTER → 2023-07-13 09:31 | Outpatient (BNVA) | payer OTHER, SELFPAY | PROVIDERS: PCP Internal Medicine; Visit Provider Internal Medicine Pulmonary Disease | DX: J45.909 Unspecified asthma, uncomplicated (principal); R06.00 Dyspnea, unspecified; Z91.09 Other allergy status, other than to drugs and biological substances | CPT/HCPCS: 99212 ==

== ENCOUNTER 2023-07-25 10:08 | Outpatient (AMB) | payer OTHER, SELFPAY ==
--- NOTE | 2023-07-25 10:09 | MHC.OFFVIS ---
Intake Intake Visit Reasons: Follow Up Ultrasound Intake Note: Everette presents as a video call for her and her mother. CC: She states that she was unable to get her US done but she is not having any concerns today. Allergies aspirin [Aspirin] Allergy (Severe, Verified 07/25/23 10:09) HIVES/SWELLING peanut [PEANUTS] Allergy (Severe, Verified 07/25/23 10:09) ITCHING/SWELLING tree nut [TREE NUT] Allergy (Severe, Verified 07/25/23 10:09) ITCHING/SWELLING Benadryl Allergy (Unknown, Verified 07/25/23 10:09) Unknown calcium Allergy (Unknown, Verified 07/25/23 10:09) Unknown magnesium Allergy (Unknown, Verified 07/25/23 10:09) Unknown gabapentin Adverse Reaction (Intermediate, Verified 07/25/23 10:09) somnolence Zinc Allergy (Unknown, Uncoded 07/25/23 10:09) Unknown HPI Follow Up Ultrasound HPI Details 62 yr old f with hx of chely en y bypass being called for f/u?? ? RECAP: ? She was c/o right sided abdominal pain, ? sometimes v bad, ? affected her ability to go to gym ? not associated with food, like a burning sensation, she also has mid back pain ? she also has tingling in right thigh, has to keep moving leg to feel better ? constipation good with linszess ? occ alcohol use sometimes makes her feel worse ? I thought it was musculoskeletal pain and was given gabapentin ? she took neurontin as given 100 mg and seems to have helped her pain a lot ? was increased she had covid pos test 07/2020 she was having RUQ pain and I gave her capsaicin ? TEST: ? last egd 2012-unremarkable ? h pylori serology was neg. ? u/s 06/2019-- fatty liver, F2-3 fibrosure us 04/2020--improved metavir score, fatty liver, no masses ? EGD--07/2019--retained marcus, removed, slight ulceration, esophagitis, mild ? bx;chronic GEJ inflammation, mild gastritis ?? ? US 04/2021-- fatty liver, no masses INTERIM: she has issues with RUq pain and discomfort, she never went for the repeat US pain can be there for days can be worse wt neftali denies nausea or vomiting she has constipation, and linaclotide which helps still recovering she was told by her pulmonolgist she might have bad GERD EXAM: GENERAL: The patient is relaxed, obese, breathing easily Assessment & Plan (1) NAFLD (nonalcoholic fatty liver disease): (2) chronic constipation, prob related to DM, meds and colonic inertia, stable ? Plan: ? ? 1/ cont with linaclotide since helping 2/ colonoscopy is due, will order --screening--suprep --can add egd if ongoing concern for GERD 3/ restart lansoprazole 4/ US as ordered before [facility] Medical History Anemia, unspecified Benign essential hypertension Constipation, unspecified Fibromyalgia GERD without esophagitis Migraine without status migrainosus, not intractable Moderate persistent asthma without complication Morbid obesity with BMI of 50.0-59.9, adult Nonintractable epilepsy without status epilepticus Pure hypercholesterolemia Type 2 diabetes mellitus without complication, without long-term current use of insulin Vitamin B12 deficiency Vitamin D deficiency Surgical History H/O gastric bypass History of colonoscopy History of removal of laparoscopic gastric banding device Hx of endoscopy Family History Father No problems noted. Mother No problems noted. Social History Household Members: Significant Other and Family Housing: Apartment Alcohol intake: current Alcohol intake frequency: holidays/special occasions only Alcohol type: wine Patient Tobacco Use Status: Never used Tobacco e-Cigarette/Vaping Use: Never Used Second Hand Smoke Exposure: Yes service: No Current occupational status: retired Cognitive needs: No Hearing needs: Yes Vision needs: Yes Assessment & Plan Assessment & Plan (1) RUQ abdominal pain: Code(s): R10.11 - Right upper quadrant pain (2) Constipation, unspecified: Code(s): K59.00 - Constipation, unspecified Qualifiers: Constipation type: unspecified constipation type Qualified Code(s): K59.00 - Constipation, unspecified Medications: New lansoprazole 30 mg PO DAILY 30 caps 2RF Telehealth Telehealth Location of provider rendering services: practice address Location of patient: address on file Patient Identification confirmed using: Name, : Yes Telehealth method: video Patient verbally consented to treatment: Yes Patient verbally consented to billing insurance company: Yes Patient informed of any privacy concerns related to visit: Yes Minutes spent on Phone/Video with Pt.: 20 Coding Level of Care Code Tele Est Pt Level 4 (10617) Diagnoses RUQ abdominal pain R10.11 Constipation, unspecified constipation type K59.00 Constipation type: unspecified constipation type
== END 2023-07-25 12:22 | disposition home or self-care (01) ==
LOC: HO.HGI 10:08
PROVIDERS: PCP Internal Medicine; Visit Provider Internal Medicine Gastroenterology
DX: R10.11 Right upper quadrant pain (principal); K59.00 Constipation, unspecified
CPT/HCPCS: 99214

== ENCOUNTER → 2023-07-25 10:08 | Outpatient (BNVA) | payer OTHER, SELFPAY | PROVIDERS: PCP Internal Medicine; Visit Provider Internal Medicine Gastroenterology ==

== ENCOUNTER 2023-08-04 08:33 | Outpatient (REF) | payer OTHER, SELFPAY | END 2023-08-04 08:34 | disposition home or self-care (01) | LOC: HO.MDS 08:33 | PROVIDERS: Visit Provider Internal Medicine Pulmonary Disease | DX: J45.50 Severe persistent asthma, uncomplicated (principal) | CPT/HCPCS: 96372; J2357 ==

== ENCOUNTER 2023-08-04 08:49 | Outpatient (REF) | payer OTHER, SELFPAY ==
[2023-08-04 09:21] LABS: MANUAL DIFF FLAG NO
[2023-08-04 10:26] LABS: Basophils Absolute Auto 0.1 X10*3/uL (0.0-0.2); Basophils Percent Auto 0.6 % (0-2); Eosinophils Absolute Auto 0.1 X10*3/uL (0.0-0.4); Eosinophils Percent Auto 1.7 % (0-4); Hemoglobin 11.9 g/dl (12.0-16.0); Imm Gran Abs Auto 0.05 X10*3/uL (0.00-0.03); Imm Gran Pct Auto 0.6 % (0.0-0.4); Lymphocytes Absolute Auto 2.3 X10*3/uL (1.2-4.9); Lymphocytes Percent Auto 28.3 % (20-40); Mean Corpuscular HGB Conc 32.2 g/dl (31.0-35.0); Mean Corpuscular Hemoglobin 28.1 pg (27.0-33.0); Mean Corpuscular Volume 87.3 fL (80.0-98.0); Mean Platelet Volume 10.9 fL (9.4-12.3); Monocytes Absolute Auto 0.6 X10*3/uL (0.1-1.2); Monocytes Percent Auto 6.9 % (2-11); Neutrophils Percent Auto 61.9 % (45-73); Platelet Count 261 X10*3/uL (160-400); Red Blood Count 4.24 X10*6/uL (4.20-5.50); Red Cell Distribution Width 13.5 % (11.0-16.0); White Blood Count 8.1 X10*3/uL (4.8-10.8)
[2023-08-04 10:27] LABS: Appearance Urine Clear; Color Urine Yellow; Glucose Urine UA Negative (Negative); Leukocyte Esterase Urine Small (1+) (Negative); Nitrite Urine Negative (Negative); PH 5.5 (5.0-9.0); Specific Gravity - Urine 1.025 (1.005-1.025); UMIC TRIGGER UACC YES; Urine Blood Negative (Negative); Urine Ketones Negative (Negative); Urine Protein Negative (Neg-Trace)
[2023-08-04 10:44] LABS: Bacteria Urine None Seen (None Seen); Hyaline Casts Urine 0-2 /LPF (0-2); RBC Urine 0-2 /HPF (0-2); UACC Culture Trigger YES; WBC Urine 0-5 /HPF (0-5)
[2023-08-04 10:45] LABS: Estimated Average Glucose 143 mg/dL; Hemoglobin A1C 150.2118 umol/L; Hemoglobin A1c % 6.6 % (<6.0)
[2023-08-04 10:56] LABS: Creatinine Urine 211.16 mg/dL; Microalbum/Creatinine Ratio Ur 4.2 ug/mg cr (<30)
[2023-08-04 11:04] LABS: Alanine Aminotransferase 18 U/L (0-31); Albumin Level 3.9 g/dL (3.5-5.0); Alkaline Phosphatase 135 U/L (39-117); Anion Gap 11 (12-20); Aspartate Amino Transferase 18 U/L (5-31); Bilirubin Total 0.2 mg/dL (0.0-1.0); Blood Urea Nitrogen 17 mg/dL (9-16); Calcium 9.3 mg/dL (8.4-10.2); Carbon Dioxide 25 mmol/L (22-29); Chloride 110 mmol/L (96-108); Cholesterol 161 mg/dL (<200); Estimated Glomerular Filt Rate > 60; Glucose Fasting 122 mg/dL (60-99); HDL Cholesterol 54 mg/dL (>40); LDL Cholesterol Calculated 86 mg/dL (<100); Potassium 3.1 mmol/L (3.3-5.1); Sodium 143 mmol/L (135-145); Total Protein 7.1 g/dL (6.5-8.0); Triglycerides 105 mg/dL (<150)
[2023-08-04 11:22] LABS: Thyroid Stimulating Hormone 4.78 uIU/mL (0.32-4.0); Vitamin D 25-OH Total 52.6 ng/mL (>30)
[2023-08-04 11:24] LABS: Folate 16.7 ng/mL (> or = 4.0); Vitamin B12 228 pg/mL (200-900)
== END 2023-08-04 08:50 | disposition home or self-care (01) ==
LOC: HO.LAB 08:49
PROVIDERS: PCP Internal Medicine; Visit Provider Internal Medicine
DX: E11.9 Type 2 diabetes mellitus without complications (principal); E53.8 Deficiency of other specified B group vitamins; R79.89 Other specified abnormal findings of blood chemistry; E78.00 Pure hypercholesterolemia, unspecified; I10 Essential (primary) hypertension; G40.909 Epilepsy, unspecified, not intractable, without status epilepticus; E55.9 Vitamin D deficiency, unspecified; Z79.899 Other long term (current) drug therapy
CPT/HCPCS: 36415; 80053; 80061; 80184; 81001; 82043; 82306; 82570; 82607; 82746; 83036; 84439; 84443; 85025; 87086

== ENCOUNTER 2023-08-08 13:48 | Outpatient (AMB) | payer OTHER, SELFPAY ==
[2023-08-08 13:54] VITALS: BP 128/88; PULSE 81; O2SAT 98; BMI 41.9
--- NOTE | 2023-08-08 13:54 | A.OFFPC_ITS ---
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 Accompanied by: Self / Same As Patient Allergies aspirin [Aspirin] Allergy (Severe, Verified 08/08/23 14:33) HIVES/SWELLING peanut [PEANUTS] Allergy (Severe, Verified 08/08/23 14:33) ITCHING/SWELLING tree nut [TREE NUT] Allergy (Severe, Verified 08/08/23 14:33) ITCHING/SWELLING Benadryl Allergy (Unknown, Verified 08/08/23 14:33) Unknown calcium Allergy (Unknown, Verified 08/08/23 14:33) Unknown magnesium Allergy (Unknown, Verified 08/08/23 14:33) Unknown gabapentin Adverse Reaction (Intermediate, Verified 08/08/23 14:33) somnolence Zinc Allergy (Unknown, Uncoded 08/08/23 14:33) Unknown Medication List - Last Reconciled 08/08/23 by Delmar Sylvester MD albuterol sulfate 90 mcg/actuation (ProAir HFA) 2 puffs inhalation Q6H PRN amitriptyline 50 mg PO BEDTIME atorvastatin 40 mg PO DAILY 90 days blood sugar diagnostic (FreeStyle Lite Strips) TEST ONCE DAILY capsaicin 0.025% 1 appl topical TID cholecalciferol (vitamin D3) (Vitamin D3) 25 mcg PO DAILY famotidine 40 mg PO BEDTIME frsvirtdzmn-kpmzbxgql-yfiplblw 200-62.5-25 mcg (Trelegy Ellipta) 1 inh inhalation DAILY 30 days folic acid 1 mg PO DAILY furosemide 60 mg (1.5 x 40 mg) PO QAM 30 days gabapentin 100 mg PO DAILY lancets (FreeStyle Lancets) TEST ONCE DAILY lansoprazole 30 mg PO DAILY lidocaine 5% 1 appl topical TID linaclotide (Linzess) 290 mcg PO DAILY lubiprostone (Amitiza) 24 mcg PO BID metformin ER 500 mg PO QPM 90 days montelukast 10 mg PO DAILY omalizumab (Xolair) 300 mg subcut Q4W 28 days phenobarbital 97.2 mg PO DAILY sertraline 50 mg PO DAILY 30 days sitagliptin phosphate (Januvia) 50 mg PO DAILY 30 days topiramate 100 mg PO ONCE Tobacco use date assessed: 08/08/23 Dental Screening Dental Screen Date: 08/08/23 Did you have a dental visit in the last 12 months?: No Did you have a dental problem in the last 6 months where you did not have access to dental care?: No Was dental information given to patient?: Patient has dentist HPI 3 month f/u HPI Details Patient comes in today for her follow up visit States that she has been experiencing recurrent dizziness lately and she apparently suffered a syncopal episode at home a couple of hours ago and sustained some abrasions on her left upper arm - thinks that she passed out for a few minutes before regaining consciousness States that she did not recall experiencing any palpitations or tachycardia just before she passed out and is getting concerned now about her recent recurrent dizzy spells She denies any headaches but states that she is still experiencing frequent discomfort in both ears States that she still has not been seen by ENT or by Speech and Hearing yet and is wondering what happened to the referrals we placed for her a few months ago Denies any chest pains, no SOB No nausea/vomiting, no abdominal pain No change in bowel habits noted Had her follow up labs done a few days ago - to discuss her results [facility] Medical History Morbid obesity with BMI of 50.0-59.9, adult Constipation, unspecified Vitamin B12 deficiency Anemia, unspecified Vitamin D deficiency Fibromyalgia Migraine without status migrainosus, not intractable GERD without esophagitis Nonintractable epilepsy without status epilepticus Moderate persistent asthma without complication Benign essential hypertension Type 2 diabetes mellitus without complication, without long-term current use of insulin Pure hypercholesterolemia Surgical History Hx of endoscopy History of colonoscopy History of removal of laparoscopic gastric banding device H/O gastric bypass Family History Father No problems noted. Mother No problems noted. Social History Household Members: Significant Other and Family Housing: Apartment Alcohol intake: current Alcohol intake frequency: holidays/special occasions only Alcohol type: wine Patient Tobacco Use Status: Never used Tobacco e-Cigarette/Vaping Use: Never Used Second Hand Smoke Exposure: Yes service: No Current occupational status: retired Cognitive needs: No Hearing needs: Yes Vision needs: Yes Questionnaire PHQ-9 Over the last 2 weeks, how often have you been bothered by any of the following problems? 1. Little interest or pleasure in doing things: not at all 2. Feeling down, depressed, or hopeless: nearly every day 3. Trouble falling or staying asleep, or sleeping too much: nearly every day 4. Feeling tired or having little energy: not at all 5. Poor appetite or overeating: more than half the days 6. Feeling bad about yourself - or that you are a failure or have let yourself or your family down: not at all 7. Trouble concentrating on things, such as reading the newspaper or watching television: not at all 8. Moving or speaking so slowly that other people could have noticed. Or the opposite - being so fidgety or restless that you have been moving around a lot more than usual: not at all 9. Thoughts that you would be better off or of hurting yourself in some way: not at all Total score: 8 Depression Screening Interpretation: Positive Depression Screening Follow-up: Existing condition and In treatment Depression Screening Done: Yes 82319 - PHQ-9 Billing: Yes Source: Developed by Drs. Lázaro Tsai, Lara Madden, Wallace Cornejo and colleagues, with an educational emmett from [employer]. Thrive Questionnaire Date Thrive assessed: 08/08/23 I am a: Patient What is your living situation today?: I have a steady place to live Within the past 12 months, did the food you bought not last and you didn't have the money to get more?: Never true Within the past 12 months, did you worry whether your food would run out before you got money to buy more?: Never true Do you have trouble paying for medicines?: No Do you have trouble getting transportation to medical appointments?: No Do you have trouble paying your heating and electricity bill?: No Do you have trouble taking care of your child, family member or friend?: No Do you have trouble with day-to-day activities such as bathing, preparing meals, shopping, managing finances, etc.?: No Are you currently unemployed and looking for a job?: No Are you interested in more education?: No Please select the resources that you would like help with: None Currently or been in a relationship where the following occur: no concerns reported AUDIT C Alcohol Use Questionnaire (AUDIT-C) 1. How often do you have a drink containing alcohol?: Monthly or less 2. How many drinks containing alcohol do you have on a typical day when you are drinking?: 1 or 2 3. How often do you have six or more drinks on one occasion?: Never Total Score: 1 Score Reviewed/Action Taken: Yes ABHINAV-7 AMB Questionnaire ABHINAV-7 Date ABHINAV - 7 assessed: 08/08/23 Feeling nervous, anxious, or on edge: 0 = Not at all Not being able to stop or control worryin = Not at all Worrying too much about different things: 0 = Not at all Trouble relaxin = Not at all Being so restless that it is hard to sit still: 0 = Not at all Becoming easily annoyed or irritable: 0 = Not at all Feeling afraid as if something awful might happen: 0 = Not at all Total ABHINAV-7 score (0-4 normal; 5-9 mild; 10-14 moderate; 15-21 severe): 0 Source: Developed by Drs. Lázaro Tsai, Lara Madden, Wallace Cornejo and colleagues, with an educational emmett from [employer]. Review of Systems Const Reports difficulty sleeping, Reports fatigue, Denies fever(s) and Denies headache(s) ENT Denies dysphagia, Reports dizziness (recurrent lately), Reports otalgia (on and off in both ears, increased in the right ear), Denies headache(s), Denies nasal congestion, Denies neck pain, Denies odynophagia and Denies sore throat Card Denies chest pain, Reports syncope (earlier today - see HPI), Denies palpitations and Denies dyspnea Resp Denies cough, Denies dyspnea and Denies wheezing GI Denies abdominal pain, Denies constipation, Denies dysphagia, Denies heartburn, Denies diarrhea, Denies nausea, Denies odynophagia and Denies vomiting Denies difficulty voiding, Denies nocturia and Denies dysuria Musc Denies neck pain Skin/Breast Details: (+) abrasions on the left upper arm Neuro Reports dizziness (recurrent lately), Reports syncope (earlier today - see HPI) and Denies headache(s) Psych Reports anxiety and Reports depression (Rx helping now) Endo Reports fatigue and Denies palpitations Aller/Immun Denies wheezing Physical exam (Primary Care) Vital Signs: Last Vital Signs Pulse 81 08/08/23 13:54 BP 128/88 08/08/23 13:54 Pulse Ox 98 08/08/23 13:54 Oxygen Delivery Method Room Air 08/08/23 13:54 BMI result Body Mass Index 41.9 Tobacco/Smoking Status: Tobacco use Status Tobacco use date assessed 08/08/23 08/08/23 13:58 Patient Tobacco Use Status Never used Tobacco 08/08/23 13:58 e-Cigarette/Vaping Use Never Used 08/08/23 13:58 PHQ-9: PHQ-9 Score PHQ-9: Total score 8 08/08/23 14:08 Depression Screening Interpretation: Positive Depression Screening Follow-up: Existing condition and In treatment Thrive Assessment: Date of Thrive Assessment Date Thrive assessed 08/08/23 08/08/23 13:58 Currently or been in a relationship where the following occur: no concerns reported Const General: no acute distress and alert HENMT Ears: TM's normal bilaterally and EAC's normal Throat: Yes posterior oropharynx normal and Yes tonsils normal (no TP congestion noted) Neck Neck: Yes no lymphadenopathy and Yes supple Thyroid: Thyroid normal Carotids: no bruits Resp Auscultation: clear to auscultation bilaterally, no rales and no wheezes Cardio Rate: regular rate Rhythm: regular rhythm Heart sounds: no murmurs GI Palpation (GI): Soft to palpation and nontender Auscultation: normal bowel sounds Skin Other: (+) few abrasions over the dorsal aspect of the left upper arm Rashes: no rashes Extrem General: Yes no clubbing, cyanosis or edema Results Reviewed Results Reviewed: Laboratory Tests 08/04/23 08/04/23 08/04/23 09:10 09:13 09:13 WBC 8.1 Hgb 11.9 L Hct 37.0 Plt Count 261 Sodium 143 Potassium 3.1 L D Creatinine 0.80 Estimated GFR > 60 Fasting Glucose 122 H Hemoglobin A1c % 6.6 H Calcium 9.3 AST 18 ALT 18 Triglycerides 105 Cholesterol 161 LDL Cholesterol, Calc 86 HDL Cholesterol 54 Vitamin B12 228 25-OH Vitamin D Total 52.6 TSH 4.78 H Free T4 0.90 Ur Specific [place] 1.025 Urine Protein Negative Urine Glucose (UA) Negative Urine Blood Negative Microalb/Creat Ratio 4.2 Phenobarbital 15.4 Assessment and Plan Assessment & Plan (1) Type 2 diabetes mellitus without complication, without long-term current use of insulin: Code(s): E11.9 - Type 2 diabetes mellitus without complications Plan: HgbA1c was at 6.6% on her labs done a few days ago (was at 7.3% previously) - goal is <7.0% Reinforced diabetic diet Continue Metformin 500 mg QD and Januvia 50 mg QD (2) Pure hypercholesterolemia: Code(s): E78.00 - Pure hypercholesterolemia, unspecified Plan: Results of her labs done a few days ago reviewed and discussed with patient Reinforced low cholesterol diet Continue Atorvastatin 40 mg QD Will recheck her labs and fasting lipids in 3 months for follow-up (3) Benign essential hypertension: Code(s): I10 - Essential (primary) hypertension Plan: Reinforced low-sodium diet -? goal is systolic BP of around 120 mm or less Is currently on Furosemide 60 mg QD in AM but advised to try cutting this back to 40 mg Q AM as this may potentially be the reason for her recent dizziness and syncopal episode earlier today (4) Moderate persistent asthma without complication: Code(s): J45.40 - Moderate persistent asthma, uncomplicated Plan: Symptoms appear well-controlled still on her current meds - continue Breo E llipta 200 mcg QD, Montelukast 10 mg QD, Ventolin HFA 1 to 2 puffs every 6 hours as needed and Xolair 300 mg SQ every 4 weeks Follow up with pulmonary as scheduled (5) Nonintractable epilepsy without status epilepticus: Code(s): G40.909 - Epilepsy, unspecified, not intractable, without status epilepticus Qualifiers: Epilepsy type: unspecified Qualified Code(s): G40.909 - Epilepsy, unspecified, not intractable, without status epilepticus Plan: Stable with no recent seizures although her syncopal episode today may need to be evaluated further if the dose reduction of her Furosemide does not address her symptoms Continue Phenobarbital 97.2 mg 1 tablet BID Will continue to monitor her serum phenobarbital level regularly Follow-up with neurology as scheduled (6) Episode of syncope: Code(s): R55 - Syncope and collapse Qualifiers: Syncope type: unspecified Qualified Code(s): R55 - Syncope and collapse Plan: Single/isolated episode occurring earlier today although patient has reported experiencing recurrent dizziness lately Discussed that her symptoms may be due to vasovagal reaction or due to orthostasis brought about by her high dose diuretic Rx in the morning Her labs done a few days ago are all within normal limits Will have her try cutting back on her Furosemide to 40 mg (from 60 mg) Q AM Advised that if this does not help clear up and resolve her symptoms, then we will also need to consider seizure as a potential differential diagnosis for her syncopal episode earlier today (7) Migraine without status migrainosus, not intractable: Code(s): G43.909 - Migraine, unspecified, not intractable, without status migrainosus Qualifiers: Migraine type: unspecified Qualified Code(s): G43.909 - Migraine, unspecified, not intractable, without status migrainosus Plan: Stable on prophylactic Rx Continue Topiramate 100 mg Q HS Follow-up with neurology as scheduled (8) GERD without esophagitis: Code(s): K21.9 - Gastro-esophageal reflux disease without esophagitis Plan: Dietary restrictions reinforced Continue Prevacid 30 mg QD (9) Constipation, unspecified: Code(s): K59.00 - Constipation, unspecified Qualifiers: Constipation type: unspecified constipation type Qualified Code(s): K59.00 - Constipation, unspecified Plan: Encouraged increased oral fluids and dietary fiber Continue Linzess capsule 290 mcg 1 capsule QD 30 minutes before the 1st meal of the day on an empty stomach (10) Fibromyalgia: Code(s): M79.7 - Fibromyalgia Plan: Patient encouraged again on regular exercise and physical activity to help manage her fibromyalgia symptoms Continue Amitriptyline 50 mg Q HS (11) Elevated TSH: Code(s): R79.89 - Other specified abnormal findings of blood chemistry Plan: She is advised that her serum TSH was still slightly elevated on her recent labs but it has improved from previous; free T4 level remains normal Will continue to monitor her TFTs regularly and recheck her TFTs in 3 months for follow up (12) Vitamin D deficiency: Code(s): E55.9 - Vitamin D deficiency, unspecified Plan: Corrected -?continue Vitamin D3 1000 units QD Will continue to monitor her vitamin D level regularly (13) Anemia, unspecified: Code(s): D64.9 - Anemia, unspecified Qualifiers: Anemia type: unspecified type Qualified Code(s): D64.9 - Anemia, unspecified Plan: Corrected and her H/H have remained normal since September 2022 Will continue to monitor her CBC regularly (14) Vitamin B12 deficiency: Code(s): E53.8 - Deficiency of other specified B group vitamins Plan: Corrected - will continue to monitor her B12 level regularly (15) Discomfort of both ears: Code(s): H92.03 - Otalgia, bilateral Plan: Patient has been referred to ENT a few months ago for further evaluation and management and she is upset that they have not yet been able to schedule an appointment for her Have advised patient to discuss this with the staff at the checkout line and have them alert the referral department to look into this and see what else the ENT office requires as patient is reportedly being told that we have not yet sent them all of the requested info (16) Depression: Code(s): F32.A - Depression, unspecified Qualifiers: Depression Type: reactive depression Qualified Code(s): F32.9 - Major depressive disorder, single episode, unspecified Plan: Continue Sertraline 50 mg QD (17) Morbid obesity with BMI of 50.0-59.9, adult: Comment: S/P gastric bypass surgery in 2016 Code(s): E66.01 - Morbid (severe) obesity due to excess calories; Z68.43 - Body mass index [BMI] 50.0-59.9, adult Plan: Reinforced diet/exercise as tolerated/lose weight Plan Follow up in 3 months Orders: Orders Comprehensive [place]. Panel Fast 3 Months E78.00 - Pure hypercholesterolemia, unspecified Lipid Panel 3 Months E78.00 - Pure hypercholesterolemia, unspecified Hemoglobin A1c 3 Months E11.9 - Type 2 diabetes mellitus without complications UA CC w/rflx Micro + Cult 3 Months R30.0 - Dysuria Vitamin D 25-OH Total 3 Months E55.9 - Vitamin D deficiency, unspecified Thyroid Stimulating Hormone 3 Months R79.89 - Other specified abnormal findings of blood chemistry Free T4 (Free Thyroxine) 3 Months R79.89 - Other specified abnormal findings of blood chemistry Complete Blood Count Auto Diff 3 Months I10 - Essential (primary) hypertension Microalbumin, Random (w Creat) 3 Months E11.9 - Type 2 diabetes mellitus without complications Phenobarbital 3 Months G40.909 - Epilepsy, unspecified, not intractable, without status epilepticus Medications: Changed From furosemide 60 mg (1.5 x 40 mg) PO QAM 30 days 45 tabs 6RF To furosemide 40 mg PO QAM 30 tabs 6RF 30 days Coding Level of Care Code Est Pt Level 4 (15858) Diagnoses Type 2 diabetes mellitus without complication, without long-term current use of insulin E11.9 Pure hypercholesterolemia E78.00 Benign essential hypertension I10 Moderate persistent asthma without complication J45.40 Nonintractable epilepsy without status epilepticus, unspecified epilepsy type G40.909 Epilepsy type: unspecified Syncope, unspecified syncope type R55 Syncope type: unspecified Migraine without status migrainosus, not intractable, unspecified migraine type G43.909 Migraine type: unspecified GERD without esophagitis K21.9 Constipation, unspecified constipation type K59.00 Constipation type: unspecified constipation type Fibromyalgia M79.7 Elevated TSH R79.89 Vitamin D deficiency E55.9 Anemia, unspecified type D64.9 Anemia type: unspecified type Vitamin B12 deficiency E53.8 Discomfort of both ears H92.03 Reactive depression F32.9 Depression Type: reactive depression Morbid obesity with BMI of 50.0-59.9, adult E66.01; Z68.43
== END 2023-08-08 15:15 | disposition home or self-care (01) ==
PROVIDERS: PCP Internal Medicine; Visit Provider Internal Medicine
DX: R55 Syncope and collapse (principal); H92.03 Otalgia, bilateral; E11.9 Type 2 diabetes mellitus without complications; G40.909 Epilepsy, unspecified, not intractable, without status epilepticus
CPT/HCPCS: 99214

== ENCOUNTER 2023-08-22 08:33 | Outpatient (REF) | payer OTHER, SELFPAY ==
--- NOTE | ~2023-08-22 | MM_ITS ---
EXAMINATION: MM SCREENING DIGITAL BREAST TOMOSYNTHESIS, BILATERAL CLINICAL INFORMATION: Screening. Asymptomatic. COMPARISON: Mammography: This study is compared with prior exams dating back to 2016. TECHNIQUE: Digital breast tomosynthesis is performed in both the craniocaudal and mediolateral oblique views along with computer-aided detection (CAD). Synthesized 2D images are generated from the tomosynthesis. FINDINGS: There are scattered areas of fibroglandular density (ACR BI-RADS breast composition Category b). There are no significant masses, abnormal calcifications, or other abnormalities. MM/MM tomosynthesis screening BI IMPRESSION: No mammographic evidence of malignancy. ASSESSMENT: BI-RADS BI-RADS 1 - Negative RECOMMENDATION: Routine annual mammography screening. 1 year F/U This examination should not preclude the clinical evaluation of a suspicious palpable abnormality. This patient's information was entered into a reminder system with a target due date for their next mammogram.
== END 2023-08-22 08:34 | disposition home or self-care (01) ==
LOC: HO.MAMMO 08:33
PROVIDERS: PCP Internal Medicine; Visit Provider Internal Medicine
DX: Z12.31 Encounter for screening mammogram for malignant neoplasm of breast (principal)
CPT/HCPCS: 77063; 77067

== ENCOUNTER → 2023-08-22 09:00 | Outpatient (BNV) | payer OTHER, SELFPAY | PROVIDERS: PCP Internal Medicine; Visit Provider Radiology Diagnostic Radiology | DX: Z12.31 Encounter for screening mammogram for malignant neoplasm of breast (principal) | CPT/HCPCS: 77063; 77067 ==

== ENCOUNTER 2023-08-22 09:18 | Outpatient (REF) | payer OTHER, SELFPAY | END 2023-08-22 09:19 | disposition home or self-care (01) | LOC: HO.HAP 09:18 | PROVIDERS: Visit Provider Internal Medicine | DX: Z46.1 Encounter for fitting and adjustment of hearing aid (principal); H90.3 Sensorineural hearing loss, bilateral | CPT/HCPCS: 92593; 99499 ==

== ENCOUNTER 2023-10-03 09:30 | Outpatient (REF) | payer OTHER, SELFPAY | END 2023-10-03 09:31 | disposition home or self-care (01) | LOC: HO.MDS 09:30 | PROVIDERS: Visit Provider Internal Medicine Pulmonary Disease | DX: J45.50 Severe persistent asthma, uncomplicated (principal) | CPT/HCPCS: 96372; J2357 ==

== ENCOUNTER 2023-10-07 08:35 | Outpatient (REF) | payer OTHER, SELFPAY ==
--- NOTE | 2023-10-07 13:05 | MHC.AU.HA3 ---
Hearing Instrument Follow-Up- Binaural Date of Visit: 10/07/23 Right Ear: Geogres, Model, Color, Serial Number: Chelle Moyero P70-R Beige SN [id number] Stator Tester Repair Warranty: 03/10/2025 Stator Tester Loss and Damage Warranty: 03/10/2025 [facility] Service Plan: Battery Size: Rechargeable Sales Operations Associate/Slim Tube: Size 1 M Earmold/Dome/CShell/SlimTip:Small Power Type of Wax Guard: Cerushield Dispensed By: [facility] Date of Fittin12/30/2021 Left Ear: Georges, Model, Color, Serial Number: Chelle Arellano Cros P-R Beige SN [id number] Stator Tester Repair Warranty: 03/10/2025 Stator Tester Loss and Damage Warranty: 03/10/2025 [facility] Service Plan: Battery Size: Rechargeable Sales Operations Associate/Slim Tube: Size 1 CROS wire Earmold/Dome/CShell/SlimTip: Medium Open Type of Wax Guard: Cerushield Dispensed By: 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 She reports she had her ears cleaned here in 2021 and has had an ear infection in the right ear ever since--she reports she has been given oral antibiotics by her PCP and is currently on a dose, and is scheduled to see ENT 11/02/23. She reports significant pain as well as drainage that is sometimes clear and sometimes green. She also reports decreased hearing in that ear. Otoscopy shows a very red eardrum on the right side. Did not perform tymp due to patient discomfort. Pure tone audiometry shows a significant change in air conduction thresholds of the right ear. Re-prescribed settings for that hearing aid and increased gain per pt request. Attempted to call ENT to try to move her appointment earlier without success. Brenda will return for updated audiogram/hearing aid adjustment after seeing ENT. Recommendations: Recommendations: Return for updated audiogram and hearing aid adjustment after ENT. Diagnosis Code(s): Primary Diagnosis: H90.6 Mixed Hearing Loss, Bilateral Signature: Provider: Chandler Ivey, [facility]
== END 2023-10-07 08:36 | disposition home or self-care (01) ==
LOC: HO.SH 08:35
PROVIDERS: Visit Provider Internal Medicine
DX: Z01.118 Encounter for examination of ears and hearing with other abnormal findings (principal); Z46.1 Encounter for fitting and adjustment of hearing aid; H90.6 Mixed conductive and sensorineural hearing loss, bilateral
CPT/HCPCS: 92553; 92593; 99499

== ENCOUNTER 2023-11-10 13:52 | Outpatient (AMB) | payer OTHER, SELFPAY ==
--- NOTE | 2023-11-10 13:59 | A.OFFVIS_ITS ---
Intake Vital Signs 11/10/23 14:01 Height 5 ft 4 in Weight 246 lb BMI 42.2 BP 122/76 Blood Pressure Location Lt brachial Position Sitting Pulse 80 Pulse Source Doppler Pulse Oximetry (%) 100 Oxygen Delivery Method Room Air Intake Visit Reasons: Asthma Allergies aspirin [Aspirin] Allergy (Severe, Verified 11/10/23 14:04) HIVES/SWELLING peanut [PEANUTS] Allergy (Severe, Verified 11/10/23 14:04) ITCHING/SWELLING tree nut [TREE NUT] Allergy (Severe, Verified 11/10/23 14:04) ITCHING/SWELLING Benadryl Allergy (Unknown, Verified 11/10/23 14:04) Unknown calcium Allergy (Unknown, Verified 11/10/23 14:04) Unknown magnesium Allergy (Unknown, Verified 11/10/23 14:04) Unknown gabapentin Adverse Reaction (Intermediate, Verified 11/10/23 14:04) somnolence Zinc Allergy (Unknown, Uncoded 08/08/23 14:33) Unknown HPI Asthma HPI Details 63-year-old lady followed for underlying moderate to severe persistent asthma and environmental allergies.? Patient has been using Xolair, Breo, and albuterol MDI, with good control of her underlying symptoms until she developed COVID approximately 1 months prior, now followed by what appears to be bronchitic bacterial superinfection and had to pause her Xolair. She continues on Lasix 60 mg daily with good control of her lower extremity edema. [facility] Medical History Morbid obesity with BMI of 50.0-59.9, adult Constipation, unspecified Vitamin B12 deficiency Anemia, unspecified Vitamin D deficiency Fibromyalgia Migraine without status migrainosus, not intractable GERD without esophagitis Nonintractable epilepsy without status epilepticus Moderate persistent asthma without complication Benign essential hypertension Type 2 diabetes mellitus without complication, without long-term current use of insulin Pure hypercholesterolemia Surgical History Hx of endoscopy History of colonoscopy History of removal of laparoscopic gastric banding device H/O gastric bypass Family History Father No problems noted. Mother No problems noted. Social History Household Members: Significant Other and Family Housing: Apartment Alcohol intake: current Alcohol intake frequency: holidays/special occasions only Alcohol type: wine Patient Tobacco Use Status: Never used Tobacco e-Cigarette/Vaping Use: Never Used Second Hand Smoke Exposure: Yes service: No Current occupational status: retired Cognitive needs: No Hearing needs: Yes Vision needs: Yes Review of Systems Const Denies daytime sleepiness, Denies excessive sweating, Denies fatigue, Denies f ever(s), Denies lethargy, Denies malaise, Denies night sweats, Denies snoring and Denies weight loss Eyes Denies blurry vision and Denies itchy eyes ENT Denies nasal congestion, Denies post nasal drip, Denies sinus pain, Denies sinus pressure and Denies other ( Thrush) Card Denies chest pain, Denies pedal edema, Denies dyspnea, Denies orthopnea and Denies paroxysmal nocturnal dyspnea Resp Reports cough, Denies hemoptysis, Reports excessive phlegm production, Denies dyspnea, Denies snoring and Denies wheezing GI Denies abdominal pain and Denies heartburn Musc Denies myalgias, Denies arthralgias and Denies joint swelling Skin/Breast Denies rash Neuro Denies memory loss and Denies seizure-like activity Psych Denies abnormal sleep pattern, Denies anxiety and Denies memory loss Endo Denies excessive sweating, Denies fatigue and Denies heat intolerance Harsha/Lymph Denies easy bruising Aller/Immun Denies itchy eyes, Denies seasonal rhinorrhea and Denies wheezing Physical Exam Vital Signs: Last Vital Signs Pulse 80 11/10/23 14:01 BP 122/76 11/10/23 14:01 Pulse Ox 100 11/10/23 14:01 Oxygen Delivery Method Room Air 11/10/23 14:01 BMI result Body Mass Index 42.2 Const General: no acute distress and alert Nutritional Appearance: obese Orientation/consciousness: Other orientation findings ( oriented) HEENT Head: Yes atraumatic Eyes General: appearance normal, both eyes and all related structures Sclerae: sclerae normal EOM: EOMs intact bilaterally Neck Neck: Yes supple Lymphatic: no lymphadenopathy noted Resp Effort & Inspection: normal respiratory effort and no use of accessory muscles Auscultation: clear to auscultation bilaterally Cardio Rate: regular rate Rhythm: regular rhythm Heart sounds: no gallops, no murmurs and no rubs Skin General skin exam: other ( warm) Extrem General: No clubbing, No cyanosis and No edema Assessment & Plan Assessment & Plan (1) Asthma: Code(s): J45.909 - Unspecified asthma, uncomplicated Plan: Suboptimal control as patient has missed several Xolair injection secondary to COVID and post COVID bronchitis. Restart Xolair, continue Trelegy. Will treat bronchitic exacerbation with a course of doxycycline. (2) Environmental allergies: Code(s): Z91.09 - Other allergy status, other than to drugs and biological substances Plan: Expect to improve with restarting Xolair. (3) Orthopnea: Code(s): R06.01 - Orthopnea Plan: Well controlled on current Lasix regimen of 60 mg daily. Continue current regimen. Medications: New doxycycline monohydrate 100 mg PO BID 28 caps 0RF 14 days Discontinued amoxicillin Discontinued Reason: Doctor's Order 875 mg PO BID 10 days 20 tabs 0RF Coding Level of Care Code Est Pt Level 4 (88012) Diagnoses Asthma J45.909 Environmental allergies Z91.09 Orthopnea R06.01
[2023-11-10 14:01] VITALS: BP 122/76; PULSE 80; O2SAT 100; BMI 42.2
== END 2023-11-10 14:17 | disposition home or self-care (01) ==
PROVIDERS: PCP Internal Medicine; Visit Provider Internal Medicine Pulmonary Disease
DX: J45.909 Unspecified asthma, uncomplicated (principal); Z91.09 Other allergy status, other than to drugs and biological substances; R06.01 Orthopnea
CPT/HCPCS: 99214

== ENCOUNTER → 2023-11-10 13:52 | Outpatient (BNVA) | payer OTHER, SELFPAY | PROVIDERS: PCP Internal Medicine; Visit Provider Internal Medicine Pulmonary Disease | DX: J45.909 Unspecified asthma, uncomplicated (principal); Z91.09 Other allergy status, other than to drugs and biological substances; R06.01 Orthopnea | CPT/HCPCS: 99212 ==

== ENCOUNTER 2023-11-15 08:20 | Outpatient (REF) | payer OTHER, SELFPAY ==
[2023-11-15 08:45] LABS: MANUAL DIFF FLAG NO
[2023-11-15 09:30] LABS: Basophils Absolute Auto 0.1 X10*3/uL (0.0-0.2); Basophils Percent Auto 0.7 % (0-2); Eosinophils Absolute Auto 0.1 X10*3/uL (0.0-0.4); Eosinophils Percent Auto 1.4 % (0-4); Hematocrit 37.6 % (37.0-47.0); Hemoglobin 12.2 g/dl (12.0-16.0); Imm Gran Abs Auto 0.04 X10*3/uL (0.00-0.03); Imm Gran Pct Auto 0.6 % (0.0-0.4); Lymphocytes Absolute Auto 2.2 X10*3/uL (1.2-4.9); Lymphocytes Percent Auto 30.7 % (20-40); Mean Corpuscular HGB Conc 32.4 g/dl (31.0-35.0); Mean Corpuscular Hemoglobin 27.6 pg (27.0-33.0); Mean Corpuscular Volume 85.1 fL (80.0-98.0); Mean Platelet Volume 10.6 fL (9.4-12.3); Monocytes Absolute Auto 0.5 X10*3/uL (0.1-1.2); Monocytes Percent Auto 6.4 % (2-11); Neutrophils Absolute Auto 4.3 x10*3/uL (2.0-8.3); Neutrophils Percent Auto 60.2 % (45-73); Platelet Count 241 X10*3/uL (160-400); Red Blood Count 4.42 X10*6/uL (4.20-5.50); Red Cell Distribution Width 14.5 % (11.0-16.0); White Blood Count 7.2 X10*3/uL (4.8-10.8)
[2023-11-15 09:34] LABS: Appearance Urine Cloudy; Color Urine Yellow; Glucose Urine UA Negative (Negative); Leukocyte Esterase Urine Moderate (2+) (Negative); Nitrite Urine Negative (Negative); PH 5.5 (5.0-9.0); Specific Gravity - Urine >= 1.030 (1.005-1.025); UMIC TRIGGER UACC YES; Urine Blood Negative (Negative); Urine Ketones Negative (Negative); Urine Protein Negative (Neg-Trace)
[2023-11-15 09:43] LABS: Estimated Average Glucose 131 mg/dL; Hemoglobin A1c % 6.2 % (<6.0)
[2023-11-15 09:50] LABS: Bacteria Urine None Seen (None Seen); Calcium Oxalate Crystals Urine Present; Hyaline Casts Urine 0-2 /LPF (0-2); RBC Urine 0-2 /HPF (0-2); UACC Culture Trigger YES
[2023-11-15 10:38] LABS: Creatinine Urine 212.68 mg/dL; Microalbum/Creatinine Ratio Ur 5.6 ug/mg cr (<30)
[2023-11-15 11:41] LABS: Alanine Aminotransferase 17 U/L (0-31); Albumin Level 3.8 g/dL (3.5-5.0); Alkaline Phosphatase 160 U/L (39-117); Anion Gap 11 (12-20); Aspartate Amino Transferase 14 U/L (5-31); Bilirubin Total 0.3 mg/dL (0.0-1.0); Blood Urea Nitrogen 21 mg/dL (9-16); Calcium 9.3 mg/dL (8.4-10.2); Carbon Dioxide 23 mmol/L (22-29); Chloride 113 mmol/L (96-108); Cholesterol 157 mg/dL (<200); Estimated Glomerular Filt Rate > 60; Free T4 (Free Thyroxine) 0.91 ng/dL (0.71-1.85); Glucose Fasting 120 mg/dL (60-99); HDL Cholesterol 61 mg/dL (>40); LDL Cholesterol Calculated 79 mg/dL (<100); Potassium 3.5 mmol/L (3.3-5.1); Sodium 143 mmol/L (135-145); Thyroid Stimulating Hormone 3.66 uIU/mL (0.32-4.0); Total Protein 6.9 g/dL (6.5-8.0); Triglycerides 88 mg/dL (<150); Vitamin D 25-OH Total 48.2 ng/mL (>30)
== END 2023-11-15 08:21 | disposition home or self-care (01) ==
LOC: HO.LAB 08:20
PROVIDERS: PCP Internal Medicine; Visit Provider Internal Medicine
DX: R79.89 Other specified abnormal findings of blood chemistry (principal); G40.909 Epilepsy, unspecified, not intractable, without status epilepticus; E78.00 Pure hypercholesterolemia, unspecified; E11.9 Type 2 diabetes mellitus without complications; E55.9 Vitamin D deficiency, unspecified; I10 Essential (primary) hypertension; Z79.899 Other long term (current) drug therapy
CPT/HCPCS: 36415; 80053; 80061; 80184; 81001; 82043; 82306; 82570; 83036; 84439; 84443; 85025; 87086; 87088; 87186

== ENCOUNTER 2023-11-21 13:52 | Outpatient (AMB) | payer OTHER, SELFPAY ==
--- NOTE | 2023-11-21 14:39 | MHC.PC.OV ---
Vital Signs 11/21/23 14:40 Height 5 ft 4 in Weight 243 lb 6.245 oz BMI 41.8 BP 122/78 Blood Pressure Location Lt brachial Position Sitting Pulse 79 Pulse Source Pulse Oximeter Pulse Oximetry (%) 100 Oxygen Delivery Method Room Air Intake Visit Reasons: hyperlipidemia, DM, asthma, migraine Intake Note: Patient is here to follow up on hyperlipidemia, DM, asthma, migraine [employer] Required: No Allergies aspirin [Aspirin] Allergy (Severe, Verified 11/21/23 15:10) HIVES/SWELLING peanut [PEANUTS] Allergy (Severe, Verified 11/21/23 15:10) ITCHING/SWELLING tree nut [TREE NUT] Allergy (Severe, Verified 11/21/23 15:10) ITCHING/SWELLING Benadryl Allergy (Unknown, Verified 11/21/23 15:10) Unknown calcium Allergy (Unknown, Verified 11/21/23 15:10) Unknown magnesium Allergy (Unknown, Verified 11/21/23 15:10) Unknown gabapentin Adverse Reaction (Intermediate, Verified 11/21/23 15:10) somnolence Zinc Allergy (Unknown, Uncoded 11/21/23 15:10) Unknown Medication List - Last Reconciled 11/21/23 by Delmar Sylvester MD albuterol sulfate 90 mcg/actuation (ProAir HFA) 2 puffs inhalation Q6H PRN amitriptyline 50 mg PO BEDTIME atorvastatin 40 mg PO DAILY 90 days blood sugar diagnostic (FreeStyle Lite Strips) TEST ONCE DAILY capsaicin 0.025% 1 appl topical TID cholecalciferol (vitamin D3) (Vitamin D3) 25 mcg PO DAILY famotidine 40 mg PO BEDTIME [id number] 200-62.5-25 mcg (Trelegy Ellipta) 1 inh inhalation DAILY 30 days folic acid 1 mg PO DAILY furosemide 20 mg PO QAM gabapentin 100 mg PO DAILY lancets (FreeStyle Lancets) TEST ONCE DAILY lansoprazole 30 mg PO DAILY lidocaine 5% 1 appl topical TID linaclotide (Linzess) 290 mcg PO DAILY lubiprostone (Amitiza) 24 mcg PO BID metformin ER 500 mg PO QPM 90 days montelukast 10 mg PO DAILY ofloxacin 0.3% 10 drps otic (ears) DAILY 7 days omalizumab (Xolair) 300 mg subcut Q4W 28 days phenobarbital 97.2 mg PO DAILY sertraline 50 mg PO DAILY 30 days sitagliptin phosphate (Januvia) 50 mg PO DAILY 30 days topiramate 100 mg PO ONCE Tobacco use date assessed: 11/21/23 Dental Screening Dental Screen Date: 11/21/23 HPI hyperlipidemia, DM, asthma, migraine HPI Details Patient comes in today for her follow up visit States that she feels okay She denies any headaches but still has on and off dizziness although these have been mostly mild and she has not had any syncopal episodes since her last visit a few months ago Denies any chest pains, no SOB No nausea/vomiting, no abdominal pain No change in bowel habits noted Had her follow up labs done last week - to discuss her results She would also like to have a T spot (TB test) done again when she goes for her next follow up labs in a few months [facility] Medical History Morbid obesity with BMI of 50.0-59.9, adult Constipation, unspecified Vitamin B12 deficiency Anemia, unspecified Vitamin D deficiency Fibromyalgia Migraine without status migrainosus, not intractable GERD without esophagitis Nonintractable epilepsy without status epilepticus Moderate persistent asthma without complication Benign essential hypertension Type 2 diabetes mellitus without complication, without long-term current use of insulin Pure hypercholesterolemia Surgical History Hx of endoscopy History of colonoscopy History of removal of laparoscopic gastric banding device H/O gastric bypass Family History Father No problems noted. Mother No problems noted. Social History Household Members: Significant Other and Family Housing: Apartment Alcohol intake: current Alcohol intake frequency: holidays/special occasions only Alcohol type: wine Patient Tobacco Use Status: Never used Tobacco e-Cigarette/Vaping Use: Never Used Second Hand Smoke Exposure: Yes service: No Current occupational status: retired Cognitive needs: No Hearing needs: Yes Vision needs: Yes Questionnaire PHQ-9 Over the last 2 weeks, how often have you been bothered by any of the following problems? 1. Little interest or pleasure in doing things: not at all 2. Feeling down, depressed, or hopeless: nearly every day 3. Trouble falling or staying asleep, or sleeping too much: nearly every day 4. Feeling tired or having little energy: not at all 5. Poor appetite or overeating: more than half the days 6. Feeling bad about yourself - or that you are a failure or have let yourself or your family down: not at all 7. Trouble concentrating on things, such as reading the newspaper or watching television: not at all 8. Moving or speaking so slowly that other people could have noticed. Or the opposite - being so fidgety or restless that you have been moving around a lot more than usual: not at all 9. Thoughts that you would be better off or of hurting yourself in some way: not at all Total score: 8 Depression Screening Interpretation: Positive Depression Screening Follow-up: Existing condition and In treatment Depression Screening Done: Yes 70441 - PHQ-9 Billing: Yes Source: Developed by Drs. Lázaro Tsia, Lara Madden, Wallace Cornejo and colleagues, with an educational emmett from [employer]. Thrive Questionnaire Date Thrive assessed: 11/21/23 I am a: Patient What is your living situation today?: I have a steady place to live Within the past 12 months, did the food you bought not last and you didn't have the money to get more?: Never true Within the past 12 months, did you worry whether your food would run out before you got money to buy more?: Never true Do you have trouble paying for medicines?: No Do you have trouble getting transportation to medical appointments?: No Do you have trouble paying your heating and electricity bill?: No Do you have trouble taking care of your child, family member or friend?: No Do you have trouble with day-to-day activities such as bathing, preparing meals, shopping, managing finances, etc.?: No Are you currently unemployed and looking for a job?: No Are you interested in more education?: No Please select the resources that you would like help with: None Currently or been in a relationship where the following occur: no concerns reported THRIVE Score: 0 AUDIT C Alcohol Use Questionnaire (AUDIT-C) 1. How often do you have a drink containing alcohol?: Monthly or less 2. How many drinks containing alcohol do you have on a typical day when you are drinking?: 1 or 2 3. How often do you have six or more drinks on one occasion?: Never Total Score: 1 Score Reviewed/Action Taken: Yes ABHINAV-7 AMB Questionnaire ABHINAV-7 Date ABHINAV - 7 assessed: 11/21/23 Source: Developed by Drs. Lázaro Tsai, Lara Madden, Wallace Cornejo and colleagues, with an educational emmett from [employer]. Review of Systems Const Reports difficulty sleeping, Reports fatigue, Denies fever(s) and Denies headache(s) ENT Denies dysphagia, Reports dizziness (on and off), Denies otalgia, Denies headache(s), Denies neck pain, Denies odynophagia and Denies sore throat Card Denies chest pain, Denies syncope, Denies palpitations and Denies dyspnea Resp Denies chest congestion, Denies cough, Denies dyspnea and Denies wheezing GI Denies abdominal pain, Denies constipation, Denies dysphagia, Denies heartburn, Denies diarrhea, Denies nausea, Denies odynophagia and Denies vomiting Denies difficulty voiding, Denies nocturia, Denies dysuria and Denies urinary urgency Musc Denies back pain and Denies neck pain Skin/Breast Denies rash Neuro Reports dizziness (on and off), Denies syncope and Denies headache(s) Psych Reports anxiety and Reports depression (Rx helping now) Endo Reports fatigue and Denies palpitations Aller/Immun Denies wheezing Physical exam (Primary Care) Vital Signs: Last Vital Signs Pulse 79 11/21/23 14:40 BP 122/78 11/21/23 14:40 Pulse Ox 100 11/21/23 14:40 Oxygen Delivery Method Room Air 11/21/23 14:40 BMI result Body Mass Index 41.8 Tobacco/Smoking Status: Tobacco use Status Tobacco use date assessed 11/21/23 11/21/23 14:41 Patient Tobacco Use Status Never used Tobacco 11/21/23 14:41 e-Cigarette/Vaping Use Never Used 11/21/23 14:41 PHQ-9: PHQ-9 Score PHQ-9: Total score 8 11/21/23 15:13 Depression Screening Interpretation: Positive Depression Screening Follow-up: Existing condition and In treatment Thrive Assessment: Date of Thrive Assessment Date Thrive assessed 11/21/23 11/21/23 14:41 Currently or been in a relationship where the following occur: no concerns reported Const General: no acute distress and alert HENMT Ears: TM's normal bilaterally and EAC's normal Throat: Yes posterior oropharynx normal and Yes tonsils normal (no TP congestion noted) Neck Neck: Yes no lymphadenopathy and Yes supple Thyroid: Thyroid normal Carotids: no bruits Resp Auscultation: clear to auscultation bilaterally, no rales and no wheezes Cardio Rate: regular rate Rhythm: regular rhythm Heart sounds: no murmurs GI Palpation (GI): Soft to palpation and nontender Auscultation: normal bowel sounds Skin Rashes: no rashes Extrem General: Yes no clubbing, cyanosis or edema Results Reviewed Results Reviewed: Laboratory Tests 11/15/23 11/15/23 11/15/23 08:35 08:35 08:37 WBC Hgb Hct Plt Count Sodium Potassium Creatinine Estimated GFR Fasting Glucose Hemoglobin A1c % Calcium AST ALT Triglycerides Cholesterol LDL Cholesterol, Calc HDL Cholesterol 25-OH Vitamin D Total TSH Free T4 0.91 Ur Specific [place] >= 1.030 H Urine Protein Negative Urine Glucose (UA) Negative Urine Blood Negative Urine Nitrite Negative Ur Leukocyte Esterase Moderate (2+) H Microalb/Creat Ratio 5.6 Phenobarbital 11/15/23 11/15/23 08:37 08:37 WBC 7.2 Hgb 12.2 Hct 37.6 Plt Count 241 Sodium 143 Potassium 3.5 Creatinine 0.84 Estimated GFR > 60 Fasting Glucose 120 H Hemoglobin A1c % 6.2 H Calcium 9.3 AST 14 ALT 17 Triglycerides 88 Cholesterol 157 LDL Cholesterol, Calc 79 HDL Cholesterol 61 25-OH Vitamin D Total 48.2 TSH 3.66 Free T4 Ur Specific [place] Urine Protein Urine Glucose (UA) Urine Blood Urine Nitrite Ur Leukocyte Esterase Microalb/Creat Ratio Phenobarbital 13.7 Assessment and Plan Assessment & Plan (1) Type 2 diabetes mellitus without complication, without long-term current use of insulin: Code(s): E11.9 - Type 2 diabetes mellitus without complications Plan: Her HgbA1c was at 6.2% on her labs done last week (was previously at 6.6% a few months ago ) - goal is <7.0% Reinforced diabetic diet Continue Metformin 500 mg QD and Januvia 50 mg QD (2) Pure hypercholesterolemia: Code(s): E78.00 - Pure hypercholesterolemia, unspecified Plan: Results of her labs done last week reviewed and discussed with patient Reinforced low cholesterol diet Continue Atorvastatin 40 mg QD Will recheck her labs and fasting lipids in 3 months for follow-up (3) Benign essential hypertension: Code(s): I10 - Essential (primary) hypertension Plan: Reinforced low-sodium diet -? goal is systolic BP of around 120 mm or less Patient states that she has not had any syncopal episodes since her Furosemide dose was lowered from 60 mg to 40 mg daily at her last visit but she still has on and off dizziness and would like to try having her dose lowered further Will lower her Furosemide now from 40 mg to 20 mg Q AM She is reminded to continue monitoring her blood pressure regularly (4) Moderate persistent asthma without complication: Code(s): J45.40 - Moderate persistent asthma, uncomplicated Plan: Symptoms appear to be well-controlled on her current meds Continue Breo Ellipta 200 mcg QD, Montelukast 10 mg QD, Ventolin HFA 1 to 2 puffs Q 6 hours as needed and Xolair 300 mg SQ every 4 weeks Follow up with pulmonary as scheduled (5) Nonintractable epilepsy without status epilepticus: Code(s): G40.909 - Epilepsy, unspecified, not intractable, without status epilepticus Qualifiers: Epilepsy type: unspecified Qualified Code(s): G40.909 - Epilepsy, unspecified, not intractable, without status epilepticus Plan: Stable with no recent seizures Continue Phenobarbital 97.2 mg 1 tablet QD Will continue to monitor her serum phenobarbital level regularly Follow-up with neurology as scheduled (6) Migraine without status migrainosus, not intractable: Code(s): G43.909 - Migraine, unspecified, not intractable, without status migrainosus Qualifiers: Migraine type: unspecified Qualified Code(s): G43.909 - Migraine, unspecified, not intractable, without status migrainosus Plan: Stable on prophylactic Rx Continue Topiramate 100 mg Q HS Follow-up with neurology as scheduled (7) GERD without esophagitis: Code(s): K21.9 - Gastro-esophageal reflux disease without esophagitis Plan: Dietary restrictions reinforced Continue Prevacid 30 mg QD (8) Constipation, unspecified: Code(s): K59.00 - Constipation, unspecified Qualifiers: Constipation type: unspecified constipation type Qualified Code(s): K59.00 - Constipation, unspecified Plan: Encouraged increased oral fluids and dietary fiber Continue Linzess capsule 290 mcg 1 capsule QD 30 minutes before the 1st meal of the day on an empty stomach (9) Fibromyalgia: Code(s): M79.7 - Fibromyalgia Plan: Patient encouraged again on regular exercise and physical activity to help manage her fibromyalgia symptoms Continue Amitriptyline 50 mg Q HS (10) Elevated TSH: Code(s): R79.89 - Other specified abnormal findings of blood chemistry Plan: Her serum TSH was normal on her labs done last week; free T4 level remains normal Will continue to monitor her TFTs regularly (11) Vitamin D deficiency: Code(s): E55.9 - Vitamin D deficiency, unspecified Plan: Corrected -?continue Vitamin D3 1000 units QD (12) Anemia, unspecified: Code(s): D64.9 - Anemia, unspecified Qualifiers: Anemia type: unspecified type Qualified Code(s): D64.9 - Anemia, unspecified Plan: Corrected and her H/H have remained normal since September 2022 Will continue to monitor her CBC regularly (13) Vitamin B12 deficiency: Code(s): E53.8 - Deficiency of other specified B group vitamins Plan: Corrected - will continue to monitor her B12 level regularly (14) Depression: Code(s): F32.A - Depression, unspecified Qualifiers: Depression Type: reactive depression Qualified Code(s): F32.9 - Major depressive disorder, single episode, unspecified Plan: Continue Sertraline 50 mg QD (15) Morbid obesity with BMI of 50.0-59.9, adult: Comment: S/P gastric bypass surgery in 2016 Code(s): E66.01 - Morbid (severe) obesity due to excess calories; Z68.43 - Body mass index [BMI] 50.0-59.9, adult Plan: Reinforced diet/exercise as tolerated/lose weight Plan Follow up in 3 months Orders: Orders Complete Blood Count Auto Diff 3 Months D64.9 - Anemia, unspecified Comprehensive [place]. Panel Fast 3 Months E78.00 - Pure hypercholesterolemia, unspecified TSH reflex Free T4 3 Months E78.00 - Pure hypercholesterolemia, unspecified UA CC w/rflx Micro + Cult 3 Months R30.0 - Dysuria Vitamin D 25-OH Total 3 Months E55.9 - Vitamin D deficiency, unspecified Hemoglobin A1c 3 Months E11.9 - Type 2 diabetes mellitus without complications Microalbumin, Random (w Creat) 3 Months E11.9 - Type 2 diabetes mellitus without complications T Spot TB 3 Months Z11.1 - Encounter for screening for respiratory tuberculosis Lipid Panel 3 Months E78.00 - Pure hypercholesterolemia, unspecified Medications: Changed From furosemide 40 mg PO QAM 30 days 30 tabs 6RF To furosemide 20 mg PO QAM Coding Level of Care Code Est Pt Level 4 (88362) Diagnoses Type 2 diabetes mellitus without complication, without long-term current use of insulin E11.9 Pure hypercholesterolemia E78.00 Benign essential hypertension I10 Moderate persistent asthma without complication J45.40 Nonintractable epilepsy without status epilepticus, unspecified epilepsy type G40.909 Epilepsy type: unspecified Migraine without status migrainosus, not intractable, unspecified migraine type G43.909 Migraine type: unspecified GERD without esophagitis K21.9 Constipation, unspecified constipation type K59.00 Constipation type: unspecified constipation type Fibromyalgia M79.7 Elevated TSH R79.89 Vitamin D deficiency E55.9 Anemia, unspecified type D64.9 Anemia type: unspecified type Vitamin B12 deficiency E53.8 Reactive depression F32.9 Depression Type: reactive depression Morbid obesity with BMI of 50.0-59.9, adult E66.01; Z68.43
[2023-11-21 14:40] VITALS: BP 122/78; PULSE 79; O2SAT 100; BMI 41.8
== END 2023-11-21 15:53 | disposition home or self-care (01) ==
PROVIDERS: PCP Internal Medicine; Visit Provider Internal Medicine
DX: E11.9 Type 2 diabetes mellitus without complications (principal); G40.909 Epilepsy, unspecified, not intractable, without status epilepticus; Z68.43 Body mass index [BMI] 50.0-59.9, adult; E66.01 Morbid (severe) obesity due to excess calories; E78.00 Pure hypercholesterolemia, unspecified; I10 Essential (primary) hypertension; J45.40 Moderate persistent asthma, uncomplicated; G43.909 Migraine, unspecified, not intractable, without status migrainosus; K21.9 Gastro-esophageal reflux disease without esophagitis; K59.00 Constipation, unspecified; M79.7 Fibromyalgia; R79.89 Other specified abnormal findings of blood chemistry
CPT/HCPCS: 99214

== ENCOUNTER 2023-11-25 09:33 | Outpatient (REF) | payer OTHER, SELFPAY ==
[2023-11-25 09:39] VITALS: BP 121/62; PULSE 72; RESP 18; TEMP 36.4; O2SAT 100; BMI 41.7
[2023-11-25] MEDS: Omalizumab 150 MG/ML SYRINGE 300 MG SUBCUT (09:47)
--- NOTE | 2023-11-25 09:49 | HO.INF ---
second sq injection given to patients right upper arm.
== END 2023-11-25 09:34 | disposition home or self-care (01) ==
LOC: HO.MDS 09:33
PROVIDERS: Visit Provider Internal Medicine Pulmonary Disease
DX: J45.50 Severe persistent asthma, uncomplicated (principal)
CPT/HCPCS: 96372; J2357

== ENCOUNTER 2024-01-23 09:42 | Outpatient (AMB) | payer OTHER, SELFPAY ==
--- NOTE | 2024-01-23 09:51 | MHC.OFFVIS ---
Vital Signs 01/23/24 10:04 Height 5 ft 4 in Weight 243 lb BMI 41.7 BP 114/56 L Blood Pressure Location Lt brachial Position Sitting Pulse 81 Intake Visit Reasons: 6 month follow up Intake Note: Brenda presents in the office as a 6 month follow up. CC: Account Classification Clerk Required: No Allergies aspirin [Aspirin] Allergy (Severe, Verified 01/23/24 10:03) HIVES/SWELLING peanut [PEANUTS] Allergy (Severe, Verified 01/23/24 10:03) ITCHING/SWELLING tree nut [TREE NUT] Allergy (Severe, Verified 01/23/24 10:03) ITCHING/SWELLING Benadryl Allergy (Unknown, Verified 01/23/24 10:03) Unknown calcium Allergy (Unknown, Verified 01/23/24 10:03) Unknown Zinc Allergy (Unknown, Uncoded 01/23/24 10:03) Unknown HPI HPI 6 month follow up: Details: 62 yr old f with hx of chely en y bypass being called for f/u RECAP: She was c/o right sided abdominal pain, sometimes v bad, affected her ability to go to gym not associated with food, like a burning sensation, she also has mid back pain she also has tingling in right thigh, has to keep moving leg to feel better constipation good with linszess occ alcohol use sometimes makes her feel worse I thought it was musculoskeletal pain and was given gabapentin she took neurontin as given 100 mg and seems to have helped her pain a lot was increased she had covid pos test 07/2020 she was having RUQ pain and I gave her capsaicin TEST: last egd 2011-unremarkable h pylori serology was neg. u/s 06/2019-- fatty liver, F2-3 fibrosure us 04/2020--improved metavir score, fatty liver, no masses EGD--07/2019--retained marcus, removed, slight ulceration, esophagitis, mild bx;chronic GEJ inflammation, mild gastritis US 04/2021-- fatty liver, no masses INTERIM: she is still happy with linaclotide--conts to help her constipation she needs to schedule egd and colonoscopy she had one bout of RUQ pain while back denies nausea or vomiting she still has reflux symptoms -still taking lansoprazole and it helps asthma, helped --takes omalizumab, EXAM: GENERAL: The patient is well developed and nontoxic. VITAL SIGNS:see workflow HEENT: Nonicteric sclerae, PERRLA, EOMI. Oropharynx clear. Moist mucous membranes. Conjunctivae appear well perfused. No thyroid mass. CHEST: Chest wall is nontender. HEART: Regular rate and rhythm without murmurs. LUNGS: Clear to auscultation bilaterally. ABDOMEN: Soft, positive bowel sounds, RUQ tender, no organomegaly.no flank tenderness SKIN: No rash, no excessive bruising, petechiae, or purpura. NEUROLOGIC: Cranial nerves II-XII intact without motor/sensory deficit. Psych: normal affect Assessment & Plan (1) NAFLD (nonalcoholic fatty liver disease): (2) chronic constipation, prob related to DM, meds and colonic inertia, stable --better with linaclotide 3/ RUQ pain, r/o gallstones Plan: 1/ cont with linaclotide since helping 2/ colonoscopy is due, will order --screening--suprep --also EGD due to GERD 3/ cont lansoprazole 4/ as ordered before [facility] Medical History Morbid obesity with BMI of 50.0-59.9, adult Constipation, unspecified Vitamin B12 deficiency Anemia, unspecified Vitamin D deficiency Fibromyalgia Migraine without status migrainosus, not intractable GERD without esophagitis Nonintractable epilepsy without status epilepticus Moderate persistent asthma without complication Benign essential hypertension Type 2 diabetes mellitus without complication, without long-term current use of insulin Pure hypercholesterolemia Surgical History Hx of endoscopy History of colonoscopy History of removal of laparoscopic gastric banding device H/O gastric bypass Family History Father No problems noted. Mother No problems noted. Social History Household Members: Significant Other and Family Housing: Apartment Alcohol intake: current Alcohol intake frequency: holidays/special occasions only Alcohol type: wine Patient Tobacco Use Status: Never used Tobacco e-Cigarette/Vaping Use: Never Used Second Hand Smoke Exposure: Yes service: No Current occupational status: retired Cognitive needs: No Hearing needs: Yes Vision needs: Yes Physical Exam Vital Signs: Last Vital Signs Pulse 81 01/23/24 10:04 BP 114/56 L 01/23/24 10:04 BMI result Body Mass Index 41.7 Assessment & Plan Assessment & Plan (1) RUQ abdominal pain: Code(s): R10.11 - Right upper quadrant pain Category: Medical Plan: 1/ cont with linaclotide since helping 2/ colonoscopy is due, will order --screening--suprep --also EGD due to GERD 3/ cont lansoprazole 4/ US as ordered before Coding Level of Care Code Est Pt Level 3 (29630) Diagnoses RUQ abdominal pain R10.11
[2024-01-23 10:04] VITALS: BP 114/56; PULSE 81; BMI 41.7
== END 2024-01-23 10:43 | disposition home or self-care (01) ==
PROVIDERS: PCP Internal Medicine; Visit Provider Internal Medicine Gastroenterology
DX: R10.11 Right upper quadrant pain (principal)
CPT/HCPCS: 99213

== ENCOUNTER → 2024-01-23 09:42 | Outpatient (BNVA) | payer OTHER, SELFPAY | PROVIDERS: PCP Internal Medicine; Visit Provider Internal Medicine Gastroenterology | DX: R10.11 Right upper quadrant pain (principal) | CPT/HCPCS: 99212 ==

== ENCOUNTER 2024-02-15 08:07 | Outpatient (REF) | payer OTHER, SELFPAY ==
--- NOTE | ~2024-02-15 | US_ITS ---
EXAMINATION: US ABDOMEN LIMITED WITH LIVER ELASTOGRAPHY CLINICAL INFORMATION: Fatty liver. COMPARISON: None available. TECHNIQUE: Real-time imaging of the abdominal viscera. Noninvasive ultrasound liver fibrosis assessment is performed using Allen ElastPQ point quantification shear wave elastography (2D-SWE) with a C5-2 MHz transducer. Multiple elastography samples are obtained. FINDINGS: PANCREAS: The visualized pancreatic head and body are normal in appearance. The remainder of the pancreas is obscured from visualization by the overlying bowel gas. LIVER: The liver is enlarged measuring at least 19 cm in greatest length with increased echogenicity consistent with hepatic cyst. No focal lesion or intrahepatic biliary duct dilatation. The right lobe measures 19.0 cm in length. The left lobe measures 10.5 cm in length. Portal flow is hepatopedal. Shear wave liver elastography median stiffness is 1.30 m/s (reference: normal median stiffness is 1.3 m/s or less). Previously, this value was 1.56 m/s. IQR/median stiffness to assess sampling precision is 0.10 (reference: good quality data set is IQR/median stiffness of 0.15 or less). GALLBLADDER: Normal. The gallbladder is physiologically distended without evidence of stones, sludge, polyps, wall thickening or pericholecystic fluid. COMMON BILE DUCT: Normal in caliber measuring 0.7 cm in diameter. RIGHT KIDNEY: Normal. No hydronephrosis. No renal calculi or focal parenchymal lesions. The kidney measures 11.2 cm in maximum dimension. FREE FLUID: None. US/US abdomen regalado w elastography IMPRESSION: 1. Enlarged liver with increased echogenicity suggesting steatosis. 2. Liver Elastography: In the absence of other known clinical signs, measurements rule out compensated advanced chronic liver disease. If there are known clinical signs, further testing may be needed for confirmation. When compared with prior exam, there is a statistically significant decrease in liver stiffness (decrease at least 10%). REFERENCE: Society of Radiologists in Ultrasound Liver Stiffness Thresholds (2020): LIVER STIFFNESS THRESHOLDS: *Liver Stiffness equal or less than 1.3 m/s: High probability of being normal. *Liver Stiffness less than 1.7 m/s: In the absence of other known clinical signs, rules out compensated advanced chronic liver disease. *Liver Stiffness 1.7-2.1 m/s: Suggestive of compensated advanced chronic liver disease but need further test for confirmation. *Liver Stiffness over 2.1 m/s: Rules in compensated advanced chronic liver disease. *Liver Stiffness over 2.4 m/s: Suggestive of clinically significant portal hypertension. QUALITY OF DATA SET: *IQR/Median value equal or less than 0.15 implies a quality data set. *IQR/Median value over 0.15 implies a poor quality data set. SIGNIFICANT CHANGE FROM PRIOR EXAM: Significant change if liver stiffness measurement is 10% or greater from prior exam. OTHER CONSIDERATIONS: The stage of liver fibrosis may be overestimated in the setting of acute hepatitis, liver inflammation, elevated liver function tests, hepatic vascular congestion, obstructive cholestasis, non-fasting state, and infiltrative diseases such as amyloidosis and lymphoma. In some patients with NAFLD, the liver stiffness thresholds for compensated advanced chronic liver disease may be lower. In causes other than viral hepatitis and NAFLD, liver stiffness thresholds are not well established.
== END 2024-02-15 08:08 | disposition home or self-care (01) ==
LOC: HO.US 08:07
PROVIDERS: PCP Internal Medicine; Visit Provider Internal Medicine Gastroenterology
DX: K76.0 Fatty (change of) liver, not elsewhere classified (principal)
CPT/HCPCS: 76705; 76981

== ENCOUNTER 2024-02-23 09:34 | Outpatient (REF) | payer OTHER, SELFPAY ==
[2024-02-23 10:00] LABS: MANUAL DIFF FLAG NO
[2024-02-23 10:19] LABS: Basophils Percent Auto 0.6 % (0-2); Eosinophils Absolute Auto 0.1 X10*3/uL (0.0-0.4); Eosinophils Percent Auto 1.5 % (0-4); Hematocrit 36.7 % (37.0-47.0); Hemoglobin 11.7 g/dl (12.0-16.0); Imm Gran Abs Auto 0.02 X10*3/uL (0.00-0.03); Imm Gran Pct Auto 0.3 % (0.0-0.4); Lymphocytes Absolute Auto 2.4 X10*3/uL (1.2-4.9); Lymphocytes Percent Auto 35.4 % (20-40); Mean Corpuscular HGB Conc 31.9 g/dl (31.0-35.0); Mean Corpuscular Hemoglobin 27.6 pg (27.0-33.0); Mean Corpuscular Volume 86.6 fL (80.0-98.0); Mean Platelet Volume 10.3 fL (9.4-12.3); Monocytes Absolute Auto 0.4 X10*3/uL (0.1-1.2); Neutrophils Absolute Auto 3.8 x10*3/uL (2.0-8.3); Neutrophils Percent Auto 56.2 % (45-73); Platelet Count 261 X10*3/uL (160-400); Red Blood Count 4.24 X10*6/uL (4.20-5.50); Red Cell Distribution Width 14.6 % (11.0-16.0); White Blood Count 6.7 X10*3/uL (4.8-10.8)
[2024-02-23 10:22] LABS: Estimated Average Glucose 131 mg/dL; Hemoglobin A1c % 6.2 % (<6.0)
[2024-02-23 10:43] LABS: Appearance Urine Cloudy; Color Urine Yellow; Glucose Urine UA Negative (Negative); Leukocyte Esterase Urine Moderate (2+) (Negative); Nitrite Urine Negative (Negative); PH 5.5 (5.0-9.0); Specific Gravity - Urine 1.025 (1.005-1.025); UMIC TRIGGER UACC YES; Urine Blood Negative (Negative); Urine Ketones Negative (Negative); Urine Protein Trace mg/dL (Neg-Trace)
[2024-02-23 10:55] LABS: Alanine Aminotransferase 19 U/L (0-31); Albumin Level 3.9 g/dL (3.5-5.0); Alkaline Phosphatase 149 U/L (39-117); Anion Gap 10 (12-20); Aspartate Amino Transferase 15 U/L (5-31); Bilirubin Total 0.2 mg/dL (0.0-1.0); Blood Urea Nitrogen 19 mg/dL (9-16); Calcium 9.2 mg/dL (8.4-10.2); Carbon Dioxide 25 mmol/L (22-29); Chloride 112 mmol/L (96-108); Cholesterol 163 mg/dL (<200); Estimated Glomerular Filt Rate > 60; Glucose Fasting 118 mg/dL (60-99); HDL Cholesterol 57 mg/dL (>40); LDL Cholesterol Calculated 91 mg/dL (<100); Potassium 3.6 mmol/L (3.3-5.1); Sodium 143 mmol/L (135-145); Total Protein 7.2 g/dL (6.5-8.0); Triglycerides 77 mg/dL (<150)
[2024-02-23 10:56] LABS: Bacteria Urine Trace (None Seen); Calcium Oxalate Crystals Urine Present; Hyaline Casts Urine 0-2 /LPF (0-2); RBC Urine 0-2 /HPF (0-2); UACC Culture Trigger YES
[2024-02-23 11:15] LABS: Creatinine Urine 183.32 mg/dL; Microalbum/Creatinine Ratio Ur 8.7 ug/mg cr (<30)
[2024-02-23 11:21] LABS: TSH reflex Free T4 4.34 uIU/mL (0.32-4.0); Vitamin D 25-OH Total 44.9 ng/mL (>30)
[2024-02-23 12:11] LABS: Free T4 (Free Thyroxine) 0.86 ng/dL (0.71-1.85)
[2024-02-26 09:48] LABS: TS Negative Control Passed; TS Panel A 0; TS Panel B 0; TS Positive Control Passed; TSpotTB Negative (Negative)
== END 2024-02-23 09:35 | disposition home or self-care (01) ==
LOC: HO.LAB 09:34
PROVIDERS: PCP Internal Medicine; Visit Provider Internal Medicine
DX: E11.9 Type 2 diabetes mellitus without complications (principal); Z11.1 Encounter for screening for respiratory tuberculosis; E78.00 Pure hypercholesterolemia, unspecified; D64.9 Anemia, unspecified; E55.9 Vitamin D deficiency, unspecified
CPT/HCPCS: 36415; 80053; 80061; 81001; 82043; 82306; 82570; 83036; 84439; 84443; 85025; 86481; 87086

== ENCOUNTER 2024-02-28 14:28 | Outpatient (AMB) | payer OTHER, SELFPAY ==
[2024-02-28 14:29] VITALS: BP 116/62; PULSE 67; O2SAT 98; BMI 42.4
--- NOTE | 2024-02-28 14:29 | MHC.PC.OV ---
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 Allergies aspirin [Aspirin] Allergy (Severe, Verified 02/28/24 15:11) HIVES/SWELLING peanut [PEANUTS] Allergy (Severe, Verified 02/28/24 15:11) ITCHING/SWELLING tree nut [TREE NUT] Allergy (Severe, Verified 02/28/24 15:11) ITCHING/SWELLING Benadryl Allergy (Unknown, Verified 02/28/24 15:11) Unknown calcium Allergy (Unknown, Verified 02/28/24 15:11) Unknown Zinc Allergy (Unknown, Uncoded 02/28/24 15:11) Unknown Medication List - Last Reconciled 02/28/24 by Delmar Sylvester MD albuterol sulfate 90 mcg/actuation (ProAir HFA) 2 puffs inhalation Q6H PRN amitriptyline 50 mg PO BEDTIME atorvastatin 40 mg PO DAILY 90 days blood sugar diagnostic (FreeStyle Lite Strips) TEST ONCE DAILY capsaicin 0.025% 1 appl topical TID cholecalciferol (vitamin D3) (Vitamin D3) 25 mcg PO DAILY famotidine 40 mg PO BEDTIME dchflensmqz-okljlmonv-nadtunkk 200-62.5-25 mcg (Trelegy Ellipta) 1 inh inhalation DAILY 30 days folic acid 1 mg PO DAILY furosemide 20 mg PO QAM gabapentin 100 mg PO DAILY lancets (FreeStyle Lancets) TEST ONCE DAILY lansoprazole 30 mg PO DAILY lidocaine 5% 1 appl topical TID linaclotide (Linzess) 290 mcg PO DAILY lubiprostone (Amitiza) 24 mcg PO BID metformin ER 500 mg PO QPM 90 days montelukast 10 mg PO DAILY ofloxacin 0.3% 10 drps otic (ears) DAILY 7 days omalizumab (Xolair) 300 mg subcut Q4W 28 days phenobarbital 97.2 mg PO DAILY sertraline 50 mg PO DAILY 30 days sitagliptin phosphate (Januvia) 50 mg PO DAILY 30 days sodium,potassium,mag sulfates 17.5-3.13-1.6 gram (Suprep Bowel Prep Kit) DILUTE; drink 1/2 at 6-8 pm and half at 11 PM- 1AM tobramycin-dexamethasone 0.3-0.1 % drps ophthalmic (eye) topiramate 100 mg PO ONCE Tobacco use date assessed: 02/28/24 Dental Screening Dental Screen Date: 11/21/23 HPI 3mth f/u HPI Details Patient comes in today for her follow up visit States that she feels okay She denies any headaches or dizziness Denies any chest pains, no SOB No nausea/vomiting, no abdominal pain No change in bowel habits noted Had her follow up labs done a few days ago - to discuss her results [facility] Medical History (Updated 02/28/24 @ 15:50 by Delmar Sylvester MD) Morbid obesity with BMI of 40.0-44.9, adult Morbid obesity with BMI of 50.0-59.9, adult Constipation, unspecified Vitamin B12 deficiency Anemia, unspecified Vitamin D deficiency Fibromyalgia Migraine without status migrainosus, not intractable GERD without esophagitis Nonintractable epilepsy without status epilepticus Moderate persistent asthma without complication Benign essential hypertension Type 2 diabetes mellitus without complication, without long-term current use of insulin Pure hypercholesterolemia Surgical History Hx of endoscopy History of colonoscopy History of removal of laparoscopic gastric banding device H/O gastric bypass Family History Father No problems noted. Mother No problems noted. Social History Household Members: Significant Other and Family Housing: Apartment Alcohol intake: current Alcohol intake frequency: holidays/special occasions only Alcohol type: wine Patient Tobacco Use Status: Never used Tobacco e-Cigarette/Vaping Use: Never Used Second Hand Smoke Exposure: Yes service: No Current occupational status: retired Cognitive needs: No Hearing needs: Yes Vision needs: Yes Questionnaire Thrive Questionnaire Date Thrive assessed: 11/21/23 AUDIT C Alcohol Use Questionnaire (AUDIT-C) 1. How often do you have a drink containing alcohol?: Monthly or less 2. How many drinks containing alcohol do you have on a typical day when you are drinking?: 1 or 2 3. How often do you have six or more drinks on one occasion?: Never Total Score: 1 Score Reviewed/Action Taken: Yes ABHINAV-7 AMB Questionnaire ABHINAV-7 Date ABHINAV - 7 assessed: 11/21/23 Source: Developed by Drs. Lázaro Tsai, Lara Madden, Wallace Cornejo and colleagues, with an educational emmett from [email or web address]. Review of Systems Const Denies chills, Reports difficulty sleeping, Reports fatigue, Denies fever(s) and Denies headache(s) ENT Denies dysphagia, Denies dizziness, Denies otalgia, Denies headache(s), Denies neck pain, Denies odynophagia and Denies sore throat Card Denies chest pain, Denies palpitations and Denies dyspnea Resp Denies chest congestion, Denies cough, Denies dyspnea and Denies wheezing GI Denies abdominal pain, Denies constipation, Denies dysphagia, Denies heartburn, Denies diarrhea, Denies nausea, Denies odynophagia and Denies vomiting Denies difficulty voiding, Denies nocturia, Denies dysuria and Denies urinary urgency Musc Denies back pain and Denies neck pain Skin/Breast Denies rash Neuro Denies dizziness and Denies headache(s) Psych Reports anxiety and Reports depression (Rx helping ) Endo Reports fatigue and Denies palpitations Aller/Immun Denies wheezing Physical exam (Primary Care) Vital Signs: Last Vital Signs Pulse 67 02/28/24 14:29 BP 116/62 02/28/24 14:29 Pulse Ox 98 02/28/24 14:29 Oxygen Delivery Method Room Air 02/28/24 14:29 BMI result Body Mass Index 42.4 Tobacco/Smoking Status: Tobacco use Status Tobacco use date assessed 02/28/24 02/28/24 14:30 Patient Tobacco Use Status Never used Tobacco 02/28/24 14:30 e-Cigarette/Vaping Use Never Used 02/28/24 14:30 Thrive Assessment: Date of Thrive Assessment Date Thrive assessed 11/21/23 02/28/24 14:30 Const General: no acute distress and alert HENMT Ears: TM's normal bilaterally and EAC's normal Throat: Yes posterior oropharynx normal and Yes tonsils normal (no TP congestion noted) Neck Neck: Yes no lymphadenopathy and Yes supple Thyroid: Thyroid normal Resp Auscultation: clear to auscultation bilaterally, no rales and no wheezes Cardio Rate: regular rate Rhythm: regular rhythm Heart sounds: no murmurs GI Palpation (GI): Soft to palpation and nontender Auscultation: normal bowel sounds General: Yes no CVA tenderness Back/Spine/Pelvis Back: no CVA tenderness Thoracic/Lumbar Spine: No lumbar spinal tenderness Skin Rashes: no rashes Extrem General: Yes no clubbing, cyanosis or edema Results Reviewed Results Reviewed: Laboratory Tests 02/23/24 02/23/24 09:55 09:59 WBC 6.7 Hgb 11.7 L Hct 36.7 L Plt Count 261 Sodium 143 Potassium 3.6 Creatinine 0.80 Estimated GFR > 60 Fasting Glucose 118 H Hemoglobin A1c % 6.2 H Calcium 9.2 AST 15 ALT 19 Triglycerides 77 Cholesterol 163 LDL Cholesterol, Calc 91 HDL Cholesterol 57 25-OH Vitamin D Total 44.9 TSH 4.34 H Free T4 0.86 Ur Specific [place] 1.025 Urine Protein Trace Urine Glucose (UA) Negative Urine Blood Negative Urine Nitrite Negative Ur Leukocyte Esterase Moderate (2+) H Microalb/Creat Ratio 8.7 Assessment and Plan Assessment & Plan (1) Type 2 diabetes mellitus without complication, without long-term current use of insulin: Code(s): E11.9 - Type 2 diabetes mellitus without complications Plan: Her HgbA1c was unchanged from previous at 6.2% on her labs done a few days ago - goal is <7.0% Reinforced diabetic diet Continue Metformin 500 mg QD and Januvia 50 mg QD (2) Pure hypercholesterolemia: Code(s): E78.00 - Pure hypercholesterolemia, unspecified Plan: Results of her labs done a few days ago reviewed and discussed with patient Reinforced low cholesterol diet Continue Atorvastatin 40 mg QD Will recheck her labs and fasting lipids in 3 months for follow-up (3) Benign essential hypertension: Code(s): I10 - Essential (primary) hypertension Plan: Reinforced low-sodium diet -? goal is systolic BP of around 120 mm or less Patient states that she has not had any syncopal episodes or dizziness since her Furosemide dose was lowered from 60 mg to 40 mg then to 20 mg daily a few months ago She is reminded to continue monitoring her blood pressure regularly (4) Moderate persistent asthma without complication: Code(s): J45.40 - Moderate persistent asthma, uncomplicated Plan: Her asthma symptoms appear to be well-controlled on her current meds Continue Breo Ellipta 200 mcg QD, Montelukast 10 mg QD, Ventolin HFA 1 to 2 puffs Q 6 hours as needed and Xolair 300 mg SQ every 4 weeks Follow up with pulmonary as scheduled (5) Nonintractable epilepsy without status epilepticus: Code(s): G40.909 - Epilepsy, unspecified, not intractable, without status epilepticus Qualifiers: Epilepsy type: unspecified Qualified Code(s): G40.909 - Epilepsy, unspecified, not intractable, without status epilepticus Plan: Stable with no recent seizures Continue Phenobarbital 97.2 mg 1 tablet QD Will continue to monitor her serum phenobarbital level regularly Follow-up with neurology as scheduled (6) Migraine without status migrainosus, not intractable: Code(s): G43.909 - Migraine, unspecified, not intractable, without status migrainosus Qualifiers: Migraine type: unspecified Qualified Code(s): G43.909 - Migraine, unspecified, not intractable, without status migrainosus Plan: Stable on prophylactic Rx Continue Topiramate 100 mg Q HS Follow-up with neurology as scheduled (7) GERD without esophagitis: Code(s): K21.9 - Gastro-esophageal reflux disease without esophagitis Plan: Dietary restrictions reinforced Continue Prevacid 30 mg QD (8) Constipation, unspecified: Code(s): K59.00 - Constipation, unspecified Qualifiers: Constipation type: unspecified constipation type Qualified Code(s): K59.00 - Constipation, unspecified Plan: Encouraged increased oral fluids and dietary fiber Continue Linzess capsule 290 mcg 1 capsule QD 30 minutes before the 1st meal of the day on an empty stomach (9) Fibromyalgia: Code(s): M79.7 - Fibromyalgia Plan: Patient encouraged again on regular exercise and physical activity to help manage her fibromyalgia symptoms Continue Amitriptyline 50 mg Q HS (10) Elevated TSH: Code(s): R79.89 - Other specified abnormal findings of blood chemistry Plan: Her serum TSH is again slightly elevated on her labs done a few days ago; her free T4 level remains normal Will continue to monitor her TFTs regularly (11) Vitamin D deficiency: Code(s): E55.9 - Vitamin D deficiency, unspecified Plan: Corrected -?continue Vitamin D3 1000 units QD (12) Anemia, unspecified: Code(s): D64.9 - Anemia, unspecified Qualifiers: Anemia type: unspecified type Qualified Code(s): D64.9 - Anemia, unspecified Plan: Her H/H have been normal since September 2022 but is again slightly low on her recent labs Will continue to monitor her CBC regularly (13) Vitamin B12 deficiency: Code(s): E53.8 - Deficiency of other specified B group vitamins Plan: Corrected - will continue to monitor her B12 level regularly (14) Depression: Code(s): F32.A - Depression, unspecified Qualifiers: Depression Type: reactive depression Qualified Code(s): F32.9 - Major depressive disorder, single episode, unspecified Plan: Continue Sertraline 50 mg QD (15) Morbid obesity with BMI of 40.0-44.9, adult: Comment: S/P gastric bypass surgery in 2016 Code(s): E66.01 - Morbid (severe) obesity due to excess calories; Z68.41 - Body mass index [BMI] 40.0-44.9, adult Plan: Reinforced diet/exercise as tolerated/lose weight Plan Follow up in 3 months Orders: Orders Lipid Panel 3 Months E78.00 - Pure hypercholesterolemia, unspecified Comprehensive [place]. Panel Fast 3 Months E78.00 - Pure hypercholesterolemia, unspecified Vitamin D 25-OH Total 3 Months E55.9 - Vitamin D deficiency, unspecified Microalbumin, Random (w Creat) 3 Months E11.9 - Type 2 diabetes mellitus without complications Hemoglobin A1c 3 Months E11.9 - Type 2 diabetes mellitus without complications Complete Blood Count Auto Diff 3 Months D64.9 - Anemia, unspecified TSH reflex Free T4 3 Months E78.00 - Pure hypercholesterolemia, unspecified UA CC w/rflx Micro + Cult 3 Months R30.0 - Dysuria Coding Level of Care Code Est Pt Level 4 (12383) Complex EM visit Add On G2211 Diagnoses Type 2 diabetes mellitus without complication, without long-term current use of insulin E11.9 Pure hypercholesterolemia E78.00 Benign essential hypertension I10 Moderate persistent asthma without complication J45.40 Nonintractable epilepsy without status epilepticus, unspecified epilepsy type G40.909 Epilepsy type: unspecified Migraine without status migrainosus, not intractable, unspecified migraine type G43.909 Migraine type: unspecified GERD without esophagitis K21.9 Constipation, unspecified constipation type K59.00 Constipation type: unspecified constipation type Fibromyalgia M79.7 Elevated TSH R79.89 Vitamin D deficiency E55.9 Anemia, unspecified type D64.9 Anemia type: unspecified type Vitamin B12 deficiency E53.8 Reactive depression F32.9 Depression Type: reactive depression Morbid obesity with BMI of 40.0-44.9, adult E66.01; Z68.41
== END 2024-02-28 15:32 | disposition home or self-care (01) ==
PROVIDERS: PCP Internal Medicine; Visit Provider Internal Medicine
DX: E11.9 Type 2 diabetes mellitus without complications (principal); G40.909 Epilepsy, unspecified, not intractable, without status epilepticus; E66.01 Morbid (severe) obesity due to excess calories; Z68.41 Body mass index [BMI] 40.0-44.9, adult; E78.00 Pure hypercholesterolemia, unspecified; I10 Essential (primary) hypertension; E55.9 Vitamin D deficiency, unspecified; J45.40 Moderate persistent asthma, uncomplicated; G43.909 Migraine, unspecified, not intractable, without status migrainosus; K21.9 Gastro-esophageal reflux disease without esophagitis; K59.00 Constipation, unspecified; M79.7 Fibromyalgia
CPT/HCPCS: 99214; G2211

== ENCOUNTER 2024-03-14 08:31 | Outpatient (AMB) | payer OTHER, SELFPAY ==
[2024-03-14 08:50] VITALS: BP 112/72; PULSE 75; O2SAT 99; BMI 42.6
--- NOTE | 2024-03-14 08:50 | MHC.OFFVIS ---
Vital Signs 03/14/24 08:50 Height 5 ft 4 in Weight 248 lb 0.321 oz BMI 42.6 BP 112/72 Blood Pressure Location Rt radial Position Sitting Pulse 75 Pulse Source Doppler Pulse Oximetry (%) 99 Oxygen Delivery Method Room Air Intake Visit Reasons: Asthma Allergies aspirin [Aspirin] Allergy (Severe, Verified 02/28/24 15:11) HIVES/SWELLING peanut [PEANUTS] Allergy (Severe, Verified 02/28/24 15:11) ITCHING/SWELLING tree nut [TREE NUT] Allergy (Severe, Verified 02/28/24 15:11) ITCHING/SWELLING Benadryl Allergy (Unknown, Verified 02/28/24 15:11) Unknown calcium Allergy (Unknown, Verified 02/28/24 15:11) Unknown Zinc Allergy (Unknown, Uncoded 02/28/24 15:11) Unknown HPI HPI Asthma: Details: 63-year-old lady followed for underlying moderate to severe persistent asthma and environmental allergies.? Patient has been using Xolair, Breo, and albuterol MDI, with good control of her underlying symptoms. She continues on Lasix with good control of her lower extremity edema. She denies recent exacerbations. [facility] Medical History (Updated 02/28/24 @ 15:50 by Delmar Sylvester MD) Morbid obesity with BMI of 40.0-44.9, adult Morbid obesity with BMI of 50.0-59.9, adult Constipation, unspecified Vitamin B12 deficiency Anemia, unspecified Vitamin D deficiency Fibromyalgia Migraine without status migrainosus, not intractable GERD without esophagitis Nonintractable epilepsy without status epilepticus Moderate persistent asthma without complication Benign essential hypertension Type 2 diabetes mellitus without complication, without long-term current use of insulin Pure hypercholesterolemia Surgical History Hx of endoscopy History of colonoscopy History of removal of laparoscopic gastric banding device H/O gastric bypass Family History Father No problems noted. Mother No problems noted. Social History Household Members: Significant Other and Family Housing: Apartment Alcohol intake: current Alcohol intake frequency: holidays/special occasions only Alcohol type: wine Patient Tobacco Use Status: Never used Tobacco e-Cigarette/Vaping Use: Never Used Second Hand Smoke Exposure: Yes service: No Current occupational status: retired Cognitive needs: No Hearing needs: Yes Vision needs: Yes Review of Systems Const Denies daytime sleepiness, Denies excessive sweating, Denies fatigue, Denies fever(s), Denies lethargy, Denies malaise, Denies night sweats, Denies snoring and Denies weight loss Eyes Denies blurry vision and Denies itchy eyes ENT Denies nasal congestion, Denies post nasal drip, Denies sinus pain, Denies sinus pressure and Denies other ( Thrush) Card Denies chest pain, Denies pedal edema, Denies dyspnea, Denies orthopnea and Denies paroxysmal nocturnal dyspnea Resp Denies cough, Denies hemoptysis, Denies excessive phlegm production, Denies dyspnea, Denies snoring and Denies wheezing GI Denies abdominal pain and Denies heartburn Musc Denies myalgias, Denies arthralgias and Denies joint swelling Skin/Breast Denies rash Neuro Denies memory loss and Denies seizure-like activity Psych Denies abnormal sleep pattern, Denies anxiety and Denies memory loss Endo Denies excessive sweating, Denies fatigue and Denies heat intolerance Harsha/Lymph Denies easy bruising Aller/Immun Denies itchy eyes, Denies seasonal rhinorrhea and Denies wheezing Physical Exam Vital Signs: Last Vital Signs Pulse 75 03/14/24 08:50 BP 112/72 03/14/24 08:50 Pulse Ox 99 03/14/24 08:50 Oxygen Delivery Method Room Air 03/14/24 08:50 BMI result Body Mass Index 42.6 Const General: no acute distress and alert Nutritional Appearance: obese Orientation/consciousness: Other orientation findings ( oriented) HEENT Head: Yes atraumatic Eyes General: appearance normal, both eyes and all related structures Sclerae: sclerae normal EOM: EOMs intact bilaterally Neck Neck: Yes supple Lymphatic: no lymphadenopathy noted Resp Effort & Inspection: normal respiratory effort and no use of accessory muscles Auscultation: clear to auscultation bilaterally Cardio Rate: regular rate Rhythm: regular rhythm Heart sounds: no gallops, no murmurs and no rubs Skin General skin exam: other ( warm) Extrem General: No clubbing, No cyanosis and No edema Assessment & Plan Assessment & Plan (1) Asthma: Code(s): J45.909 - Unspecified asthma, uncomplicated Category: Medical Plan: Well controlled on current regimen of Xolair, Breo, and albuterol MDI. Unfortunately, patient can not tolerate powder inhaler, will switch Breo to Symbicort. (2) Environmental allergies: Code(s): Z91.09 - Other allergy status, other than to drugs and biological substances Category: Medical Plan: Well controlled on Xolair. Continue current regimen. Medications: New budesonide-formoterol 160-4.5 mcg/actuation (Symbicort) 2 puffs inhalation BID 10.2 grams 6RF Coding Level of Care Code Est Pt Level 4 (62989) Diagnoses Asthma J45.909 Environmental allergies Z91.09
== END 2024-03-14 09:18 | disposition home or self-care (01) ==
PROVIDERS: PCP Internal Medicine; Visit Provider Internal Medicine Pulmonary Disease
DX: J45.909 Unspecified asthma, uncomplicated (principal); Z91.09 Other allergy status, other than to drugs and biological substances
CPT/HCPCS: 99214

== ENCOUNTER → 2024-03-14 08:31 | Outpatient (BNVA) | payer OTHER, SELFPAY | PROVIDERS: PCP Internal Medicine; Visit Provider Internal Medicine Pulmonary Disease | DX: J45.50 Severe persistent asthma, uncomplicated (principal); Z91.09 Other allergy status, other than to drugs and biological substances | CPT/HCPCS: 99212 ==

== ENCOUNTER 2024-05-25 09:53 | Outpatient (REF) | payer OTHER, SELFPAY ==
[2024-05-25 10:18] LABS: MANUAL DIFF FLAG NO
[2024-05-25 11:42] LABS: Basophils Percent Auto 0.4 % (0-2); Eosinophils Absolute Auto 0.1 X10*3/uL (0.0-0.4); Eosinophils Percent Auto 1.6 % (0-4); Hematocrit 37.6 % (37.0-47.0); Hemoglobin 11.6 g/dl (12.0-16.0); Imm Gran Abs Auto 0.03 X10*3/uL (0.00-0.03); Imm Gran Pct Auto 0.4 % (0.0-0.4); Lymphocytes Absolute Auto 2.5 X10*3/uL (1.2-4.9); Mean Corpuscular HGB Conc 30.9 g/dl (31.0-35.0); Mean Corpuscular Hemoglobin 26.5 pg (27.0-33.0); Mean Corpuscular Volume 85.8 fL (80.0-98.0); Mean Platelet Volume 10.9 fL (9.4-12.3); Monocytes Absolute Auto 0.4 X10*3/uL (0.1-1.2); Monocytes Percent Auto 6.1 % (2-11); Neutrophils Absolute Auto 3.6 x10*3/uL (2.0-8.3); Neutrophils Percent Auto 54.5 % (45-73); Platelet Count 233 X10*3/uL (160-400); Red Blood Count 4.38 X10*6/uL (4.20-5.50); Red Cell Distribution Width 15.4 % (11.0-16.0); White Blood Count 6.7 X10*3/uL (4.8-10.8)
[2024-05-25 11:48] LABS: Appearance Urine Clear; Color Urine Yellow; Glucose Urine UA Negative (Negative); Leukocyte Esterase Urine Trace (Negative); Nitrite Urine Negative (Negative); PH 5.5 (5.0-9.0); Specific Gravity - Urine >= 1.030 (1.005-1.025); UMIC TRIGGER UACC YES; Urine Blood Negative (Negative); Urine Ketones Negative (Negative); Urine Protein Negative (Neg-Trace)
[2024-05-25 11:54] LABS: Bacteria Urine None Seen (None Seen); Hyaline Casts Urine 0-2 /LPF (0-2); RBC Urine 0-2 /HPF (0-2); Squamous Epithelial Cell Urine 0-2 /HPF (0-2); WBC Urine 0-5 /HPF (0-5)
[2024-05-25 12:08] LABS: Creatinine Urine 192.69 mg/dL; Microalbum/Creatinine Ratio Ur 4.1 ug/mg cr (<30)
[2024-05-25 12:24] LABS: Alanine Aminotransferase 18 U/L (0-31); Alkaline Phosphatase 145 U/L (39-117); Anion Gap 12 (12-20); Aspartate Amino Transferase 14 U/L (5-31); Bilirubin Total 0.3 mg/dL (0.0-1.0); Blood Urea Nitrogen 19 mg/dL (9-16); Calcium 9.3 mg/dL (8.4-10.2); Carbon Dioxide 24 mmol/L (22-29); Chloride 111 mmol/L (96-108); Cholesterol 165 mg/dL (<200); Estimated Glomerular Filt Rate > 60; Glucose Fasting 114 mg/dL (60-99); HDL Cholesterol 58 mg/dL (>40); LDL Cholesterol Calculated 87 mg/dL (<100); Potassium 3.7 mmol/L (3.3-5.1); Sodium 143 mmol/L (135-145); Total Protein 7.1 g/dL (6.5-8.0); Triglycerides 101 mg/dL (<150)
[2024-05-25 12:38] LABS: Estimated Average Glucose 131 mg/dL; Hemoglobin A1c % 6.2 % (<6.0)
[2024-05-25 12:43] LABS: TSH reflex Free T4 3.32 uIU/mL (0.32-4.0); Vitamin D 25-OH Total 45.9 ng/mL (>30)
== END 2024-05-25 09:54 | disposition home or self-care (01) ==
LOC: HO.LAB 09:53
PROVIDERS: PCP Internal Medicine; Visit Provider Internal Medicine
DX: D64.9 Anemia, unspecified (principal); E78.00 Pure hypercholesterolemia, unspecified; E55.9 Vitamin D deficiency, unspecified; E11.9 Type 2 diabetes mellitus without complications
CPT/HCPCS: 36415; 80053; 80061; 81001; 82043; 82306; 82570; 83036; 84443; 85025

== ENCOUNTER 2024-06-13 14:49 | Outpatient (AMB) | payer OTHER, SELFPAY ==
--- NOTE | 2024-06-13 14:52 | MHC.PC.OV ---
Vital Signs 06/13/24 14:56 Height 5 ft 4 in Weight 247 lb 6 oz BMI 42.5 BP 120/72 Blood Pressure Location Lt brachial Position Sitting Pulse 83 Pulse Source Pulse Oximeter Pulse Oximetry (%) 99 Oxygen Delivery Method Room Air Intake Visit Reasons: HTN, DM, hyperlipidemia Duct Installer Required: No Accompanied by: Mother Allergies aspirin [Aspirin] Allergy (Severe, Verified 06/13/24 15:06) HIVES/SWELLING peanut [PEANUTS] Allergy (Severe, Verified 06/13/24 15:06) ITCHING/SWELLING tree nut [TREE NUT] Allergy (Severe, Verified 06/13/24 15:06) ITCHING/SWELLING Benadryl Allergy (Unknown, Verified 06/13/24 15:06) Unknown calcium Allergy (Unknown, Verified 06/13/24 15:06) Unknown Zinc Allergy (Unknown, Uncoded 06/13/24 15:06) Unknown Medication List - Last Reconciled 06/13/24 by Delmar Sylvester MD albuterol sulfate 90 mcg/actuation (ProAir HFA) 2 puffs inhalation Q6H PRN amitriptyline 50 mg PO BEDTIME atorvastatin 40 mg PO DAILY 90 days blood sugar diagnostic (FreeStyle Lite Strips) TEST ONCE DAILY budesonide-formoterol 160-4.5 mcg/actuation (Symbicort) 2 puffs inhalation BID capsaicin 0.025% 1 appl topical TID cholecalciferol (vitamin D3) (Vitamin D3) 25 mcg PO DAILY famotidine 40 mg PO BEDTIME folic acid 1 mg PO DAILY furosemide 20 mg (1/2 x 40 mg) PO QAM 30 days gabapentin 100 mg PO DAILY lancets (FreeStyle Lancets) TEST ONCE DAILY lansoprazole 30 mg PO DAILY lidocaine 5% 1 appl topical TID linaclotide (Linzess) 290 mcg PO DAILY lubiprostone (Amitiza) 24 mcg PO BID metformin ER 500 mg PO QPM 90 days montelukast 10 mg PO DAILY omalizumab (Xolair) 300 mg subcut Q4W 28 days phenobarbital 97.2 mg PO DAILY sertraline 50 mg PO DAILY 30 days sitagliptin phosphate (Januvia) 50 mg PO DAILY 30 days sodium,potassium,mag sulfates 17.5-3.13-1.6 gram (Suprep Bowel Prep Kit) DILUTE; drink 1/2 at 6-8 pm and half at 11 PM- 1AM topiramate 100 mg PO BEDTIME Tobacco use date assessed: 06/13/24 Dental Screening Dental Screen Date: 06/13/24 Did you have a dental visit in the last 12 months?: Yes Did you have a dental problem in the last 6 months where you did not have access to dental care?: No Was dental information given to patient?: Patient has dentist HPI HTN, DM, hyperlipidemia HPI Details Patient comes in today for her follow up visit States that she feels okay She denies any headaches or dizziness Denies any chest pains, no SOB No nausea/vomiting, no abdominal pain No change in bowel habits noted She had her follow up labs done a couple of weeks ago - to discuss her results [facility] Medical History Morbid obesity with BMI of 40.0-44.9, adult Morbid obesity with BMI of 50.0-59.9, adult Constipation, unspecified Vitamin B12 deficiency Anemia, unspecified Vitamin D deficiency Fibromyalgia Migraine without status migrainosus, not intractable GERD without esophagitis Nonintractable epilepsy without status epilepticus Moderate persistent asthma without complication Benign essential hypertension Type 2 diabetes mellitus without complication, without long-term current use of insulin Pure hypercholesterolemia Surgical History Hx of endoscopy History of colonoscopy History of removal of laparoscopic gastric banding device H/O gastric bypass Family History Father No problems noted. Mother No problems noted. Social History Household Members: Significant Other and Family Housing: Apartment Alcohol intake: current Alcohol intake frequency: holidays/special occasions only Alcohol type: wine Patient Tobacco Use Status: Never used Tobacco e-Cigarette/Vaping Use: Never Used Second Hand Smoke Exposure: Yes service: No Current occupational status: retired Cognitive needs: No Hearing needs: Yes Vision needs: Yes Questionnaire PHQ-9 Over the last 2 weeks, how often have you been bothered by any of the following problems? 1. Little interest or pleasure in doing things: not at all 2. Feeling down, depressed, or hopeless: nearly every day 3. Trouble falling or staying asleep, or sleeping too much: nearly every day 4. Feeling tired or having little energy: not at all 5. Poor appetite or overeating: more than half the days 6. Feeling bad about yourself - or that you are a failure or have let yourself or your family down: not at all 7. Trouble concentrating on things, such as reading the newspaper or watching television: not at all 8. Moving or speaking so slowly that other people could have noticed. Or the opposite - being so fidgety or restless that you have been moving around a lot more than usual: not at all 9. Thoughts that you would be better off or of hurting yourself in some way: not at all Total score: 8 Depression Screening Interpretation: Positive Depression Screening Follow-up: Existing condition and In treatment Depression Screening Done: Yes [id number] - PHQ-9 Billing: Yes Source: Developed by Drs. Lázaro Tsai, Lara Madden, Wallace Cornejo and colleagues, with an educational emmett from [employer]. Thrive Questionnaire Date Thrive assessed: 06/13/24 I am a: Patient What is your living situation today?: I have a steady place to live Within the past 12 months, did the food you bought not last and you didn't have the money to get more?: Never true Within the past 12 months, did you worry whether your food would run out before you got money to buy more?: Never true Do you have trouble paying for medicines?: No Do you have trouble getting transportation to medical appointments?: No Do you have trouble paying your heating and electricity bill?: No Do you have trouble taking care of your child, family member or friend?: No Do you have trouble with day-to-day activities such as bathing, preparing meals, shopping, managing finances, etc.?: No Are you currently unemployed and looking for a job?: No Are you interested in more education?: No Please select the resources that you would like help with: None Currently or been in a relationship where the following occur: No concerns reported THRIVE Score: 0 AUDIT C Alcohol Use Questionnaire (AUDIT-C) 1. How often do you have a drink containing alcohol?: Monthly or less 2. How many drinks containing alcohol do you have on a typical day when you are drinking?: 1 or 2 3. How often do you have six or more drinks on one occasion?: Never Total Score: 1 Score Reviewed/Action Taken: Yes ABHINAV-7 AMB Questionnaire ABHINAV-7 Date ABHINAV - 7 assessed: 06/13/24 Feeling nervous, anxious, or on edge: 0 = Not at all Not being able to stop or control worryin = Not at all Worrying too much about different things: 0 = Not at all Trouble relaxin = Not at all Being so restless that it is hard to sit still: 0 = Not at all Becoming easily annoyed or irritable: 0 = Not at all Feeling afraid as if something awful might happen: 0 = Not at all Total ABHINAV-7 score (0-4 normal; 5-9 mild; 10-14 moderate; 15-21 severe): 0 Source: Developed by Drs. Lázaro Tsai, Lara Madden, Wallace Cornejo and colleagues, with an educational emmett from [employer]. Review of Systems Const Reports difficulty sleeping, Reports fatigue, Denies fever(s) and Denies headache(s) ENT Denies dysphagia, Denies dizziness, Denies otalgia, Denies headache(s), Denies neck pain, Denies odynophagia and Denies sore throat Card Denies chest pain, Denies palpitations and Denies dyspnea Resp Denies chest congestion, Denies cough and Denies dyspnea GI Denies abdominal pain, Denies constipation, Denies dysphagia, Denies heartburn, Denies diarrhea, Denies nausea, Denies odynophagia and Denies vomiting Denies difficulty voiding, Denies nocturia, Denies dysuria and Denies urinary urgency Musc Denies back pain and Denies neck pain Skin/Breast Denies rash Neuro Denies dizziness and Denies headache(s) Psych Reports anxiety and Reports depression (Rx helping ) Endo Reports fatigue and Denies palpitations Physical exam (Primary Care) Vital Signs: Last Vital Signs Pulse 83 06/13/24 14:56 BP 120/72 06/13/24 14:56 Pulse Ox 99 06/13/24 14:56 Oxygen Delivery Method Room Air 06/13/24 14:56 BMI result Body Mass Index 42.5 Tobacco/Smoking Status: Tobacco use Status Tobacco use date assessed 06/13/24 06/13/24 15:01 Patient Tobacco Use Status Never used Tobacco 06/13/24 14:52 e-Cigarette/Vaping Use Never Used 06/13/24 14:52 PHQ-9: PHQ-9 Score PHQ-9: Total score 8 06/13/24 15:09 Depression Screening Interpretation: Positive Depression Screening Follow-up: Existing condition and In treatment Thrive Assessment: Date of Thrive Assessment Date Thrive assessed 06/13/24 06/13/24 15:01 Currently or been in a relationship where the following occur: No concerns reported Const General: no acute distress and alert HENMT Ears: TM's normal bilaterally and EAC's normal Throat: Yes posterior oropharynx normal and Yes tonsils normal (no TP congestion noted) Neck Neck: Yes no lymphadenopathy and Yes supple Thyroid: Thyroid normal Resp Auscultation: clear to auscultation bilaterally, no rales and no wheezes Cardio Rate: regular rate Rhythm: regular rhythm Heart sounds: no murmurs GI Palpation (GI): Soft to palpation and nontender Auscultation: normal bowel sounds General: Yes no CVA tenderness Back/Spine/Pelvis Back: no CVA tenderness Thoracic/Lumbar Spine: No lumbar spinal tenderness Skin Rashes: no rashes Extrem General: Yes no clubbing, cyanosis or edema Results Reviewed Results Reviewed: Laboratory Tests 02/23/24 05/25/24 05/25/24 09:59 10:10 10:16 WBC 6.7 Hgb 11.6 L Hct 37.6 Plt Count 233 Sodium 143 Potassium 3.7 Creatinine 0.88 Estimated GFR > 60 Hemoglobin A1c % 6.2 H Calcium 9.3 AST 14 ALT 18 Triglycerides 101 Cholesterol 165 LDL Cholesterol, Calc 87 HDL Cholesterol 58 25-OH Vitamin D Total 45.9 TSH 3.32 Free T4 0.86 Ur Specific [place] >= 1.030 H Urine Protein Negative Urine Glucose (UA) Negative Urine Blood Negative Urine Nitrite Negative Ur Leukocyte Esterase Trace H Microalb/Creat Ratio 4.1 Assessment and Plan Assessment & Plan (1) Type 2 diabetes mellitus without complication, without long-term current use of insulin: Code(s): E11.9 - Type 2 diabetes mellitus without complications Plan: Her HgbA1c was unchanged from previous at 6.2% on her labs done a couple of weeks ago - goal is <7.0% Patient's HgbA1c has been consistently at 6.2% for the past year Reinforced diabetic diet Continue Metformin 500 mg QD and Januvia 50 mg QD (2) Pure hypercholesterolemia: Code(s): E78.00 - Pure hypercholesterolemia, unspecified Plan: Results of her labs done a couple of weeks ago reviewed and discussed with patient Reinforced low cholesterol diet Continue Atorvastatin 40 mg QD Will recheck her labs and fasting lipids in 3 months for follow-up (3) Benign essential hypertension: Code(s): I10 - Essential (primary) hypertension Plan: Reinforced low-sodium diet -? goal is systolic BP of around 120 mm or less Continue Furosemide 20 mg QD Patient states that she has not had any syncopal episodes or dizziness since her Furosemide dose was lowered to 20 mg QD a few months ago She is reminded to continue monitoring her blood pressure regularly (4) Moderate persistent asthma without complication: Code(s): J45.40 - Moderate persistent asthma, uncomplicated Plan: Her asthma symptoms have been well-controlled on her current meds Continue Breo Ellipta 200 mcg QD, Montelukast 10 mg QD, Ventolin HFA 1 to 2 puffs Q 6 hours as needed and Xolair 300 mg SQ every 4 weeks Follow up with pulmonary as scheduled (5) Nonintractable epilepsy without status epilepticus: Code(s): G40.909 - Epilepsy, unspecified, not intractable, without status epilepticus Qualifiers: Epilepsy type: unspecified Qualified Code(s): G40.909 - Epilepsy, unspecified, not intractable, without status epilepticus Plan: Stable with no recent seizures Continue Phenobarbital 97.2 mg 1 tablet QD Will continue to monitor her serum phenobarbital level regularly Follow-up with neurology as scheduled (6) Migraine without status migrainosus, not intractable: Code(s): G43.909 - Migraine, unspecified, not intractable, without status migrainosus Qualifiers: Migraine type: unspecified Qualified Code(s): G43.909 - Migraine, unspecified, not intractable, without status migrainosus Plan: Stable on prophylactic Rx Continue Topiramate 100 mg Q HS Follow-up with neurology as scheduled (7) GERD without esophagitis: Code(s): K21.9 - Gastro-esophageal reflux disease without esophagitis Plan: Dietary restrictions reinforced Continue Prevacid 30 mg QD (8) Constipation, unspecified: Code(s): K59.00 - Constipation, unspecified Qualifiers: Constipation type: unspecified constipation type Qualified Code(s): K59.00 - Constipation, unspecified Plan: Encouraged again on increased oral fluids and dietary fiber Continue Linzess capsule 290 mcg 1 capsule QD 30 minutes before the 1st meal of the day on an empty stomach (9) Fibromyalgia: Code(s): M79.7 - Fibromyalgia Plan: Patient encouraged again on regular exercise and physical activity to help manage her fibromyalgia symptoms better Continue Amitriptyline 50 mg Q HS (10) Elevated TSH: Code(s): R79.89 - Other specified abnormal findings of blood chemistry Plan: Her serum TSH is normal on her labs done a couple of weeks ago; her free T4 level remains normal Will continue to monitor her TFTs regularly (11) Vitamin D deficiency: Code(s): E55.9 - Vitamin D deficiency, unspecified Plan: Continue Vitamin D3 1000 units QD (12) Anemia, unspecified: Code(s): D64.9 - Anemia, unspecified Qualifiers: Anemia type: unspecified type Qualified Code(s): D64.9 - Anemia, unspecified Plan: Her H/H have been normal since September 2022 but her Hgb is again slightly low on her recent labs at 11.6; Hct is normal Will continue to monitor her CBC regularly (13) Vitamin B12 deficiency: Code(s): E53.8 - Deficiency of other specified B group vitamins Plan: Corrected - will continue to monitor her B12 level regularly (14) Depression: Code(s): F32.A - Depression, unspecified Qualifiers: Depression Type: reactive depression Qualified Code(s): F32.9 - Major depressive disorder, single episode, unspecified Plan: Continue Sertraline 50 mg QD (15) Morbid obesity with BMI of 40.0-44.9, adult: Comment: S/P gastric bypass surgery in 2016 Code(s): E66.01 - Morbid (severe) obesity due to excess calories; Z68.41 - Body mass index [BMI] 40.0-44.9, adult Plan: Reinforced diet/exercise as tolerated/lose weight Plan Follow up in 3 months Orders: Orders Complete Blood Count Auto Diff 3 Months D64.9 - Anemia, unspecified Comprehensive [facility]. Panel Fast 3 Months E78.00 - Pure hypercholesterolemia, unspecified Hemoglobin A1c 3 Months E11.9 - Type 2 diabetes mellitus without complications UA CC w/rflx Micro + Cult 3 Months R30.0 - Dysuria Vitamin B12 and Folate 3 Months E53.8 - Deficiency of other specified B group vitamins Lipid Panel 3 Months E78.00 - Pure hypercholesterolemia, unspecified Microalbumin, Random (w Creat) 3 Months E11.9 - Type 2 diabetes mellitus without complications Vitamin D 25-OH Total 3 Months E55.9 - Vitamin D deficiency, unspecified Free T4 (Free Thyroxine) 3 Months R79.89 - Other specified abnormal findings of blood chemistry Thyroid Stimulating Hormone 3 Months R79.89 - Other specified abnormal findings of blood chemistry Coding Level of Care Code Est Pt Level 4 (04579) Diagnoses Type 2 diabetes mellitus without complication, without long-term current use of insulin E11.9 Pure hypercholesterolemia E78.00 Benign essential hypertension I10 Moderate persistent asthma without complication J45.40 Nonintractable epilepsy without status epilepticus, unspecified epilepsy type G40.909 Epilepsy type: unspecified Migraine without status migrainosus, not intractable, unspecified migraine type G43.909 Migraine type: unspecified GERD without esophagitis K21.9 Constipation, unspecified constipation type K59.00 Constipation type: unspecified constipation type Fibromyalgia M79.7 Elevated TSH R79.89 Vitamin D deficiency E55.9 Anemia, unspecified type D64.9 Anemia type: unspecified type Vitamin B12 deficiency E53.8 Reactive depression F32.9 Depression Type: reactive depression Morbid obesity with BMI of 40.0-44.9, adult E66.01; Z68.41
[2024-06-13 14:56] VITALS: BP 120/72; PULSE 83; O2SAT 99; BMI 42.5
== END 2024-06-13 15:41 | disposition home or self-care (01) ==
PROVIDERS: PCP Internal Medicine; Visit Provider Internal Medicine
DX: E11.9 Type 2 diabetes mellitus without complications (principal); G40.909 Epilepsy, unspecified, not intractable, without status epilepticus; Z68.41 Body mass index [BMI] 40.0-44.9, adult; E66.01 Morbid (severe) obesity due to excess calories; E78.00 Pure hypercholesterolemia, unspecified; I10 Essential (primary) hypertension; J45.40 Moderate persistent asthma, uncomplicated; G43.909 Migraine, unspecified, not intractable, without status migrainosus; K21.9 Gastro-esophageal reflux disease without esophagitis; K59.00 Constipation, unspecified; M79.7 Fibromyalgia; R79.89 Other specified abnormal findings of blood chemistry

== ENCOUNTER → 2024-06-13 14:49 | Outpatient (BNVA) | payer OTHER, SELFPAY | PROVIDERS: PCP Internal Medicine; Visit Provider Internal Medicine | DX: E11.9 Type 2 diabetes mellitus without complications (principal); E78.00 Pure hypercholesterolemia, unspecified; I10 Essential (primary) hypertension; J45.40 Moderate persistent asthma, uncomplicated; G40.909 Epilepsy, unspecified, not intractable, without status epilepticus; G43.909 Migraine, unspecified, not intractable, without status migrainosus; K21.9 Gastro-esophageal reflux disease without esophagitis; M79.7 Fibromyalgia; R79.89 Other specified abnormal findings of blood chemistry; E55.9 Vitamin D deficiency, unspecified; D64.9 Anemia, unspecified; F32.9 Major depressive disorder, single episode, unspecified; E66.01 Morbid (severe) obesity due to excess calories; Z68.41 Body mass index [BMI] 40.0-44.9, adult; Z71.3 Dietary counseling and surveillance | CPT/HCPCS: 99212 ==

== ENCOUNTER 2024-08-27 08:17 | Outpatient (REF) | payer OTHER, SELFPAY ==
--- NOTE | ~2024-08-27 | MM_ITS ---
EXAMINATION: MM SCREENING DIGITAL BREAST TOMOSYNTHESIS, BILATERAL CLINICAL INFORMATION: Screening. Asymptomatic. COMPARISON: Mammography: Comparison is made with available priors TECHNIQUE: Digital breast mammography with tomosynthesis is performed in both the craniocaudal and mediolateral oblique views along with computer-aided detection (CAD). FINDINGS: There are scattered areas of fibroglandular density (ACR BI-RADS breast composition Category b). Left: There are no significant masses, abnormal calcifications, or other abnormalities. Right: Focal asymmetry upper outer breast middle depth. No suspicious calcifications or other abnormal findings. MM/MM tomosynthesis screening BI IMPRESSION: Additional imaging is recommended ASSESSMENT: BI-RADS BI-RADS 0 - Incomplete: Needs additional Imaging. RECOMMENDATION: 1. Additional views of the right breast 2. Targeted ultrasound if warranted after review of the additional views. 3. Radiology department staff will contact the patient for additional imaging. Additional Imaging required This examination should not preclude the clinical evaluation of a suspicious palpable abnormality. This patient's information was entered into a reminder system with a target due date for their next mammogram. Electronically signed by: Bhavani Blank DO 08/31/2024 01:19 PM [facility]
== END 2024-08-27 08:18 | disposition home or self-care (01) ==
LOC: HO.MAMMO 08:17
PROVIDERS: PCP Internal Medicine; Visit Provider Internal Medicine
DX: Z12.31 Encounter for screening mammogram for malignant neoplasm of breast (principal)
CPT/HCPCS: 77063; 77067

== ENCOUNTER → 2024-08-27 08:45 | Outpatient (BNV) | payer OTHER, SELFPAY | PROVIDERS: PCP Internal Medicine; Visit Provider Internal Medicine | DX: Z12.31 Encounter for screening mammogram for malignant neoplasm of breast (principal) | CPT/HCPCS: 77063; 77067 ==

== ENCOUNTER 2024-09-06 08:12 | Outpatient (REF) | payer OTHER, SELFPAY ==
[2024-09-06 08:41] LABS: MANUAL DIFF FLAG NO
[2024-09-06 08:56] LABS: Basophils Percent Auto 0.5 % (0-2); Eosinophils Absolute Auto 0.1 X10*3/uL (0.0-0.4); Eosinophils Percent Auto 1.3 % (0-4); Hematocrit 38.2 % (37.0-47.0); Hemoglobin 12.4 g/dl (12.0-16.0); Imm Gran Abs Auto 0.02 X10*3/uL (0.00-0.03); Imm Gran Pct Auto 0.3 % (0.0-0.4); Lymphocytes Absolute Auto 2.7 X10*3/uL (1.2-4.9); Lymphocytes Percent Auto 34.8 % (20-40); Mean Corpuscular HGB Conc 32.5 g/dl (31.0-35.0); Mean Corpuscular Hemoglobin 26.9 pg (27.0-33.0); Mean Corpuscular Volume 82.9 fL (80.0-98.0); Mean Platelet Volume 10.4 fL (9.4-12.3); Monocytes Absolute Auto 0.5 X10*3/uL (0.1-1.2); Monocytes Percent Auto 6.1 % (2-11); Neutrophils Absolute Auto 4.4 x10*3/uL (2.0-8.3); Platelet Count 225 X10*3/uL (160-400); Red Blood Count 4.61 X10*6/uL (4.20-5.50); Red Cell Distribution Width 15.1 % (11.0-16.0); White Blood Count 7.7 X10*3/uL (4.8-10.8)
[2024-09-06 09:00] LABS: Estimated Average Glucose 137 mg/dL; Hemoglobin A1C 142.5785 umol/L; Hemoglobin A1c % 6.4 % (<6.0); Total Hemoglobin (HGBA1C) 3089.4129 umol/L
[2024-09-06 09:08] LABS: Appearance Urine Clear; Color Urine Yellow; Glucose Urine UA Negative (Negative); Leukocyte Esterase Urine Small (1+) (Negative); Nitrite Urine Negative (Negative); Specific Gravity - Urine 1.025 (1.005-1.025); UMIC TRIGGER UACC YES; Urine Blood Negative (Negative); Urine Ketones Trace mg/dL (Negative); Urine Protein Trace mg/dL (Neg-Trace)
[2024-09-06 09:32] LABS: Creatinine Urine 270.49 mg/dL; Microalbum/Creatinine Ratio Ur 5.5 ug/mg cr (<30)
[2024-09-06 09:39] LABS: Alanine Aminotransferase 25 U/L (0-31); Albumin Level 3.9 g/dL (3.5-5.0); Alkaline Phosphatase 160 U/L (39-117); Anion Gap 10 (12-20); Aspartate Amino Transferase 20 U/L (5-31); Bilirubin Total 0.2 mg/dL (0.0-1.0); Blood Urea Nitrogen 19 mg/dL (9-16); Calcium 8.7 mg/dL (8.4-10.2); Carbon Dioxide 22 mmol/L (22-29); Chloride 115 mmol/L (96-108); Cholesterol 152 mg/dL (<200); Estimated Glomerular Filt Rate > 60; Glucose Fasting 142 mg/dL (60-99); HDL Cholesterol 57 mg/dL (>40); LDL Cholesterol Calculated 75 mg/dL (<100); Potassium 3.6 mmol/L (3.3-5.1); Sodium 143 mmol/L (135-145); Total Protein 7.2 g/dL (6.5-8.0); Triglycerides 101 mg/dL (<150)
[2024-09-06 09:52] LABS: Bacteria Urine 1+ (None Seen); Calcium Oxalate Crystals Urine Present; Hyaline Casts Urine 0-2 /LPF (0-2); UACC Culture Trigger YES
[2024-09-06 09:54] LABS: Free T4 (Free Thyroxine) 0.99 ng/dL (0.71-1.85); Thyroid Stimulating Hormone 5.62 uIU/mL (0.32-4.0); Vitamin D 25-OH Total 43.9 ng/mL (>30)
[2024-09-06 10:09] LABS: Folate 17.8 ng/mL (> or = 4.0); Vitamin B12 242 pg/mL (200-900)
== END 2024-09-06 08:13 | disposition home or self-care (01) ==
LOC: HO.LAB 08:12
PROVIDERS: PCP Internal Medicine; Visit Provider Internal Medicine
DX: J45.50 Severe persistent asthma, uncomplicated (principal); E11.9 Type 2 diabetes mellitus without complications; E78.00 Pure hypercholesterolemia, unspecified; R79.89 Other specified abnormal findings of blood chemistry; D64.9 Anemia, unspecified; E53.8 Deficiency of other specified B group vitamins; E55.9 Vitamin D deficiency, unspecified; Z91.09 Other allergy status, other than to drugs and biological substances; R06.01 Orthopnea
CPT/HCPCS: 36415; 80053; 80061; 81001; 81003; 82043; 82306; 82570; 82607; 82746; 83036; 84439; 84443; 85025; 87086; 99212

== ENCOUNTER 2024-09-06 08:52 | Outpatient (AMB) | payer OTHER, SELFPAY ==
[2024-09-06 09:04] VITALS: BP 106/77; PULSE 78; O2SAT 100; BMI 41.9
--- NOTE | 2024-09-06 09:04 | MHC.OFFVIS ---
Vital Signs 09/06/24 09:04 Height 5 ft 4 in Weight 244 lb BMI 41.9 BP 106/77 Blood Pressure Location Lt brachial Position Sitting Pulse 78 Pulse Source Doppler Pulse Oximetry (%) 100 Oxygen Delivery Method Room Air Intake Visit Reasons: Asthma Allergies aspirin [Aspirin] Allergy (Severe, Verified 09/06/24 09:08) HIVES/SWELLING peanut [PEANUTS] Allergy (Severe, Verified 09/06/24 09:08) ITCHING/SWELLING tree nut [TREE NUT] Allergy (Severe, Verified 09/06/24 09:08) ITCHING/SWELLING Benadryl Allergy (Unknown, Verified 09/06/24 09:08) Unknown calcium Allergy (Unknown, Verified 09/06/24 09:08) Unknown Zinc Allergy (Unknown, Uncoded 06/13/24 15:06) Unknown HPI HPI Asthma: Details: 63-year-old lady followed for underlying moderate to severe persistent asthma and environmental allergies.? Patient has been using Xolair, Symbicort, and albuterol MDI, with good control of her underlying symptoms. She continues on Lasix with good control of her lower extremity edema. She denies recent exacerbations. [facility] Medical History Morbid obesity with BMI of 40.0-44.9, adult Morbid obesity with BMI of 50.0-59.9, adult Constipation, unspecified Vitamin B12 deficiency Anemia, unspecified Vitamin D deficiency Fibromyalgia Migraine without status migrainosus, not intractable GERD without esophagitis Nonintractable epilepsy without status epilepticus Moderate persistent asthma without complication Benign essential hypertension Type 2 diabetes mellitus without complication, without long-term current use of insulin Pure hypercholesterolemia Surgical History Hx of endoscopy History of colonoscopy History of removal of laparoscopic gastric banding device H/O gastric bypass Family History Father No problems noted. Mother No problems noted. Social History Household Members: Significant Other and Family Housing: Apartment Alcohol intake: current Alcohol intake frequency: holidays/special occasions only Alcohol type: wine Patient Tobacco Use Status: Never used Tobacco e-Cigarette/Vaping Use: Never Used Second Hand Smoke Exposure: Yes service: No Current occupational status: retired Cognitive needs: No Hearing needs: Yes Vision needs: Yes Review of Systems Const Denies daytime sleepiness, Denies excessive sweating, Denies fatigue, Denies fever(s), Denies lethargy, Denies malaise, Denies night sweats, Denies snoring and Denies weight loss Eyes Denies blurry vision and Denies itchy eyes ENT Denies nasal congestion, Denies post nasal drip, Denies sinus pain, Denies sinus pressure and Denies other ( Thrush) Card Denies chest pain, Denies pedal edema, Denies dyspnea, Denies orthopnea and Denies paroxysmal nocturnal dyspnea Resp Denies cough, Denies hemoptysis, Denies excessive phlegm production, Denies dyspnea, Denies snoring and Denies wheezing GI Denies abdominal pain and Denies heartburn Musc Denies myalgias, Denies arthralgias and Denies joint swelling Skin/Breast Denies rash Neuro Denies memory loss and Denies seizure-like activity Psych Denies abnormal sleep pattern, Denies anxiety and Denies memory loss Endo Denies excessive sweating, Denies fatigue and Denies heat intolerance Harsha/Lymph Denies easy bruising Aller/Immun Denies itchy eyes, Denies seasonal rhinorrhea and Denies wheezing Physical Exam Vital Signs: Last Vital Signs Pulse 78 09/06/24 09:04 BP 106/77 09/06/24 09:04 Pulse Ox 100 09/06/24 09:04 Oxygen Delivery Method Room Air 09/06/24 09:04 BMI result Body Mass Index 41.9 Const General: no acute distress and alert Nutritional Appearance: obese Orientation/consciousness: Other orientation findings ( oriented) HEENT Head: Yes atraumatic Eyes General: appearance normal, both eyes and all related structures Sclerae: sclerae normal EOM: EOMs intact bilaterally Neck Neck: Yes supple Lymphatic: no lymphadenopathy noted Resp Effort & Inspection: normal respiratory effort and no use of accessory muscles Auscultation: clear to auscultation bilaterally Cardio Rate: regular rate Rhythm: regular rhythm Heart sounds: no gallops, no murmurs and no rubs Skin General skin exam: other ( warm) Extrem General: No clubbing, No cyanosis and No edema Assessment & Plan Assessment & Plan (1) Severe persistent asthma: Code(s): J45.50 - Severe persistent asthma, uncomplicated Category: Medical Plan: Well current regimen of Xolair, Symbicort, and albuterol MDI. Continue current regimen. (2) Environmental allergies: Code(s): Z91.09 - Other allergy status, other than to drugs and biological substances Category: Medical Plan: Well controlled on Xolair. Continue current regimen. (3) Orthopnea: Code(s): R06.01 - Orthopnea Category: Medical Plan: Well controlled on current diuretic regimen of Lasix 20 mg daily. Continue current regimen. Coding Level of Care Code Est Pt Level 4 (75417) Complex EM visit Add On G2211 Diagnoses Severe persistent asthma J45.50 Environmental allergies Z91.09 Orthopnea R06.01
== END 2024-09-06 09:18 | disposition home or self-care (01) ==
PROVIDERS: PCP Internal Medicine; Visit Provider Internal Medicine Pulmonary Disease
DX: J45.50 Severe persistent asthma, uncomplicated (principal); Z91.09 Other allergy status, other than to drugs and biological substances; R06.01 Orthopnea
CPT/HCPCS: 99214; G2211

== ENCOUNTER 2024-09-17 14:09 | Outpatient (AMB) | payer OTHER, SELFPAY ==
[2024-09-17 14:15] VITALS: BP 110/62; PULSE 81; O2SAT 97; BMI 41.9
--- NOTE | 2024-09-17 14:15 | MHC.PC.OV ---
Vital Signs 09/17/24 14:15 Height 5 ft 4 in Weight 244 lb 6 oz BMI 41.9 BP 110/62 Blood Pressure Location Lt brachial Position Sitting Pulse 81 Pulse Source Pulse Oximeter Pulse Oximetry (%) 97 Oxygen Delivery Method Room Air Intake Visit Reasons: DM, hyperlipidemia, HTN, asthma - see comment Knife Grinder Required: No Accompanied by: Self / Same As Patient Allergies aspirin [Aspirin] Allergy (Severe, Verified 09/17/24 14:57) HIVES/SWELLING peanut [PEANUTS] Allergy (Severe, Verified 09/17/24 14:57) ITCHING/SWELLING tree nut [TREE NUT] Allergy (Severe, Verified 09/17/24 14:57) ITCHING/SWELLING Benadryl Allergy (Unknown, Verified 09/17/24 14:57) Unknown calcium Allergy (Unknown, Verified 09/17/24 14:57) Unknown Zinc Allergy (Unknown, Uncoded 09/17/24 14:57) Unknown Medication List - Last Reconciled 09/17/24 by Delmar Sylvester MD albuterol sulfate 90 mcg/actuation (ProAir HFA) 2 puffs inhalation Q6H PRN amitriptyline 50 mg PO BEDTIME atorvastatin 40 mg PO DAILY 90 days blood sugar diagnostic (FreeStyle Lite Strips) TEST ONCE DAILY budesonide-formoterol 160-4.5 mcg/actuation (Symbicort) 2 puffs inhalation BID capsaicin 0.025% 1 appl topical TID cholecalciferol (vitamin D3) (Vitamin D3) 25 mcg PO DAILY famotidine 40 mg PO BEDTIME folic acid 1 mg PO DAILY furosemide 20 mg (1/2 x 40 mg) PO QAM 30 days gabapentin 100 mg PO BID lancets (FreeStyle Lancets) TEST ONCE DAILY lansoprazole 30 mg PO DAILY lidocaine 5% 1 appl topical TID linaclotide (Linzess) 290 mcg PO DAILY lubiprostone (Amitiza) 24 mcg PO BID metformin ER 500 mg PO QPM 90 days montelukast 10 mg PO DAILY omalizumab (Xolair) 300 mg subcut Q4W 28 days phenobarbital 97.2 mg PO DAILY sertraline 50 mg PO DAILY 30 days sitagliptin phosphate (Januvia) 50 mg PO DAILY 30 days sodium,potassium,mag sulfates 17.5-3.13-1.6 gram (Suprep Bowel Prep Kit) DILUTE; drink 1/2 at 6-8 pm and half at 11 PM- 1AM topiramate 100 mg PO BEDTIME Tobacco use date assessed: 09/17/24 Dental Screening Dental Screen Date: 09/17/24 Did you have a dental visit in the last 12 months?: Yes Did you have a dental problem in the last 6 months where you did not have access to dental care?: No Was dental information given to patient?: Patient has dentist HPI DM, hyperlipidemia, HTN, asthma - see comment HPI Details Patient comes in today for her follow up visit States that she has been sick with nausea, occasional vomiting, and diarrhea for the past couple of weeks and that her symptoms are just not starting to subside Still has occasional nausea but she has not thrown up in a few days now Notes that her loose stools/diarrhea is also starting to slow down She denies any fever, headaches or dizziness Denies any chest pains, no increased SOB No abdominal pain noted and she denies any acute urinary symptoms She had her follow up labs done a couple of weeks ago - to discuss her results [facility] Medical History Morbid obesity with BMI of 40.0-44.9, adult Morbid obesity with BMI of 50.0-59.9, adult Constipation, unspecified Vitamin B12 deficiency Anemia, unspecified Vitamin D deficiency Fibromyalgia Migraine without status migrainosus, not intractable GERD without esophagitis Nonintractable epilepsy without status epilepticus Moderate persistent asthma without complication Benign essential hypertension Type 2 diabetes mellitus without complication, without long-term current use of insulin Pure hypercholesterolemia Surgical History Hx of endoscopy History of colonoscopy History of removal of laparoscopic gastric banding device H/O gastric bypass Family History Father No problems noted. Mother No problems noted. Social History Household Members: Significant Other and Family Housing: Apartment Alcohol intake: current Alcohol intake frequency: holidays/special occasions only Alcohol type: wine Patient Tobacco Use Status: Never used Tobacco e-Cigarette/Vaping Use: Never Used Second Hand Smoke Exposure: Yes service: No Current occupational status: retired Cognitive needs: No Hearing needs: Yes Vision needs: Yes Questionnaire PHQ-9 Over the last 2 weeks, how often have you been bothered by any of the following problems? 1. Little interest or pleasure in doing things: not at all 2. Feeling down, depressed, or hopeless: nearly every day 3. Trouble falling or staying asleep, or sleeping too much: nearly every day 4. Feeling tired or having little energy: not at all 5. Poor appetite or overeating: more than half the days 6. Feeling bad about yourself - or that you are a failure or have let yourself or your family down: not at all 7. Trouble concentrating on things, such as reading the newspaper or watching television: not at all 8. Moving or speaking so slowly that other people could have noticed. Or the opposite - being so fidgety or restless that you have been moving around a lot more than usual: not at all 9. Thoughts that you would be better off or of hurting yourself in some way: not at all Total score: 8 Depression Screening Interpretation: Positive Depression Screening Follow-up: Existing condition and In treatment Depression Screening Done: Yes 63075 - PHQ-9 Billing: Yes Source: Developed by Drs. Lázaro Tsai, Lara Madden, Wallace Cornejo and colleagues, with an educational emmett from [employer]. Thrive Questionnaire Date Thrive assessed: 09/17/24 I am a: Patient What is your living situation today?: I have a steady place to live Within the past 12 months, did the food you bought not last and you didn't have the money to get more?: Never true Within the past 12 months, did you worry whether your food would run out before you got money to buy more?: Never true Do you have trouble paying for medicines?: No Do you have trouble getting transportation to medical appointments?: No Do you have trouble paying your heating and electricity bill?: No Do you have trouble taking care of your child, family member or friend?: No Do you have trouble with day-to-day activities such as bathing, preparing meals, shopping, managing finances, etc.?: No Are you currently unemployed and looking for a job?: No Are you interested in more education?: No Please select the resources that you would like help with: None Currently or been in a relationship where the following occur: No concerns reported THRIVE Score: 0 AUDIT C Alcohol Use Questionnaire (AUDIT-C) 1. How often do you have a drink containing alcohol?: Monthly or less 2. How many drinks containing alcohol do you have on a typical day when you are drinking?: 1 or 2 3. How often do you have six or more drinks on one occasion?: Never Total Score: 1 Score Reviewed/Action Taken: Yes ABHINAV-7 AMB Questionnaire ABHINAV-7 Date ABHINAV - 7 assessed: 09/17/24 Feeling nervous, anxious, or on edge: 0 = Not at all Not being able to stop or control worryin = Not at all Worrying too much about different things: 0 = Not at all Trouble relaxin = Not at all Being so restless that it is hard to sit still: 0 = Not at all Becoming easily annoyed or irritable: 0 = Not at all Feeling afraid as if something awful might happen: 0 = Not at all Total ABHINAV-7 score (0-4 normal; 5-9 mild; 10-14 moderate; 15-21 severe): 0 Source: Developed by Drs. Lázaro Tsai, Lara Madden, Wallace Cornejo and colleagues, with an educational emmett from [employer]. Review of Systems Const Denies chills, Reports difficulty sleeping, Reports fatigue, Denies fever(s) and Denies headache(s) ENT Denies dysphagia, Denies dizziness, Denies otalgia, Denies headache(s), Denies neck pain, Denies odynophagia and Denies sore throat Card Denies chest pain, Denies palpitations and Denies dyspnea Resp Denies chest congestion, Denies cough and Denies dyspnea GI Denies abdominal pain, Denies constipation, Denies dysphagia, Denies heartburn, Reports diarrhea, Reports nausea (occasional), Denies odynophagia and Denies vomiting Denies difficulty voiding, Denies nocturia, Denies dysuria and Denies urinary urgency Musc Denies back pain and Denies neck pain Skin/Breast Denies rash Neuro Denies dizziness and Denies headache(s) Psych Reports anxiety and Reports depression (Rx helping ) Endo Reports fatigue and Denies palpitations Physical exam (Primary Care) Vital Signs: Last Vital Signs Pulse 81 09/17/24 14:15 BP 110/62 09/17/24 14:15 Pulse Ox 97 09/17/24 14:15 Oxygen Delivery Method Room Air 09/17/24 14:15 BMI result Body Mass Index 41.9 Tobacco/Smoking Status: Tobacco use Status Tobacco use date assessed 09/17/24 09/17/24 14:18 Patient Tobacco Use Status Never used Tobacco 09/17/24 14:18 e-Cigarette/Vaping Use Never Used 09/17/24 14:18 PHQ-9: PHQ-9 Score PHQ-9: Total score 8 09/17/24 15:12 Depression Screening Interpretation: Positive Depression Screening Follow-up: Existing condition and In treatment Thrive Assessment: Date of Thrive Assessment Date Thrive assessed 09/17/24 09/17/24 14:18 Currently or been in a relationship where the following occur: No concerns reported Const General: no acute distress and alert HENMT Ears: TM's normal bilaterally and EAC's normal Throat: Yes posterior oropharynx normal and Yes tonsils normal (no TP congestion noted) Neck Neck: Yes no lymphadenopathy and Yes supple Thyroid: Thyroid normal Resp Auscultation: clear to auscultation bilaterally, no rales and no wheezes Cardio Rate: regular rate Rhythm: regular rhythm Heart sounds: no murmurs GI Palpation (GI): Soft to palpation and nontender Auscultation: normal bowel sounds General: Yes no CVA tenderness Back/Spine/Pelvis Back: no CVA tenderness Thoracic/Lumbar Spine: No lumbar spinal tenderness Skin Rashes: no rashes Extrem General: Yes no clubbing, cyanosis or edema Results Reviewed Results Reviewed: Laboratory Tests 09/06/24 09/06/24 08:29 08:38 WBC 7.7 Hgb 12.4 Hct 38.2 Plt Count 225 Sodium 143 Potassium 3.6 Creatinine 0.86 Estimated GFR > 60 Fasting Glucose 142 H Hemoglobin A1c % 6.4 H Calcium 8.7 D AST 20 ALT 25 Triglycerides 101 Cholesterol 152 LDL Cholesterol, Calc 75 HDL Cholesterol 57 Vitamin B12 242 25-OH Vitamin D Total 43.9 TSH 5.62 H Free T4 0.99 Ur Specific [place] 1.025 Urine Protein Trace Urine Glucose (UA) Negative Urine Blood Negative Urine Nitrite Negative Ur Leukocyte Esterase Small (1+) H Microalb/Creat Ratio 5.5 Coding Level of Care Code Est Pt Level 4 (42720) Diagnoses Type 2 diabetes mellitus without complication, without long-term current use of insulin E11.9 Pure hypercholesterolemia E78.00 Benign essential hypertension I10 Moderate persistent asthma without complication J45.40 Nonintractable epilepsy without status epilepticus, unspecified epilepsy type G40.909 Epilepsy type: unspecified Migraine without status migrainosus, not intractable, unspecified migraine type G43.909 Migraine type: unspecified GERD without esophagitis K21.9 Constipation, unspecified constipation type K59.00 Constipation type: unspecified constipation type Fibromyalgia M79.7 Elevated TSH R79.89 Vitamin D deficiency E55.9 Anemia, unspecified type D64.9 Anemia type: unspecified type Vitamin B12 deficiency E53.8 Reactive depression F32.9 Depression Type: reactive depression Morbid obesity with BMI of 40.0-44.9, adult E66.01; Z68.41 Additional Codes PHQ-9 - 91897 - PHQ-9 Billing: Yes ([id number]) Assessment & Plan Assessment & Plan (1) Type 2 diabetes mellitus without complication, without long-term current use of insulin: Code(s): E11.9 - Type 2 diabetes mellitus without complications Category: Medical Plan: Her HgbA1c was at 6.4% on her labs done a couple of weeks ago (HgbA1c has been consistently at 6.2% over the past year or so) - goal is at least <7.0% but ideally <6.5% Reinforced diabetic diet Continue Metformin 500 mg QD and Januvia 50 mg QD (2) Pure hypercholesterolemia: Code(s): E78.00 - Pure hypercholesterolemia, unspecified Category: Medical Plan: Results of her labs done a couple of weeks ago reviewed and discussed with patient Reinforced low cholesterol diet Continue Atorvastatin 40 mg QD Will recheck her labs and fasting lipids in 3 months for follow-up (3) Benign essential hypertension: Code(s): I10 - Essential (primary) hypertension Category: Medical Plan: Reinforced low-sodium diet -? goal is systolic BP of around 120 mm or less Continue Furosemide 20 mg QD Patient states that she has not had any syncopal episodes or dizziness since her Furosemide dose was lowered to 20 mg QD a few months ago She is reminded to continue monitoring her blood pressure regularly (4) Moderate persistent asthma without complication: Code(s): J45.40 - Moderate persistent asthma, uncomplicated Category: Medical Plan: Her asthma symptoms have been well-controlled on her current meds Continue Breo Ellipta 200 mcg QD, Montelukast 10 mg QD, Ventolin HFA 1 to 2 puffs Q 6 hours as needed and Xolair 300 mg SQ every 4 weeks Follow up with pulmonary as scheduled (5) Nonintractable epilepsy without status epilepticus: Code(s): G40.909 - Epilepsy, unspecified, not intractable, without status epilepticus Category: Medical Qualifiers: Epilepsy type: unspecified Qualified Code(s): G40.909 - Epilepsy, unspecified, not intractable, without status epilepticus Plan: Stable with no recent seizures Continue Phenobarbital 97.2 mg 1 tablet QD Will continue to monitor her serum phenobarbital level regularly Follow-up with neurology as scheduled (6) Migraine without status migrainosus, not intractable: Code(s): G43.909 - Migraine, unspecified, not intractable, without status migrainosus Category: Medical Qualifiers: Migraine type: unspecified Qualified Code(s): G43.909 - Migraine, unspecified, not intractable, without status migrainosus Plan: Stable on prophylactic Rx Continue Topiramate 100 mg Q HS Follow-up with neurology as scheduled (7) GERD without esophagitis: Code(s): K21.9 - Gastro-esophageal reflux disease without esophagitis Category: Medical Plan: Dietary restrictions reinforced Continue Prevacid 30 mg QD (8) Constipation, unspecified: Code(s): K59.00 - Constipation, unspecified Category: Medical Qualifiers: Constipation type: unspecified constipation type Qualified Code(s): K59.00 - Constipation, unspecified Plan: Patient is encouraged again on increased oral fluids and dietary fiber Continue Linzess capsule 290 mcg 1 capsule QD 30 minutes before the 1st meal of the day on an empty stomach (9) Fibromyalgia: Code(s): M79.7 - Fibromyalgia Category: Medical Plan: Patient is again also encouraged on regular exercise and physical activity to help manage her fibromyalgia symptoms better Continue Amitriptyline 50 mg Q HS (10) Elevated TSH: Code(s): R79.89 - Other specified abnormal findings of blood chemistry Category: Medical Plan: Her serum TSH is again slightly elevated on her labs done a couple of weeks ago; her free T4 level remains normal Will continue to monitor her TFTs regularly (11) Vitamin D deficiency: Code(s): E55.9 - Vitamin D deficiency, unspecified Category: Medical Plan: Continue Vitamin D3 1000 units QD (12) Anemia, unspecified: Code(s): D64.9 - Anemia, unspecified Category: Medical Qualifiers: Anemia type: unspecified type Qualified Code(s): D64.9 - Anemia, unspecified Plan: Her H/H is again normal on her recent labs Will continue to monitor her CBC regularly (13) Vitamin B12 deficiency: Code(s): E53.8 - Deficiency of other specified B group vitamins Category: Medical Plan: Corrected - will continue to monitor her B12 level regularly (14) Depression: Code(s): F32.A - Depression, unspecified Category: Medical Qualifiers: Depression Type: reactive depression Qualified Code(s): F32.9 - Major depressive disorder, single episode, unspecified Plan: Continue Sertraline 50 mg QD (15) Morbid obesity with BMI of 40.0-44.9, adult: Comment: S/P gastric bypass surgery in 2016 Code(s): E66.01 - Morbid (severe) obesity due to excess calories; Z68.41 - Body mass index [BMI] 40.0-44.9, adult Category: Medical Plan: Reinforced diet/exercise as tolerated/lose weight Plan Follow up in 3 months Orders: Orders TSH reflex Free T4 3 Months E78.00 - Pure hypercholesterolemia, unspecified Phenobarbital 3 Months G40.909 - Epilepsy, unspecified, not intractable, without status epilepticus Hemoglobin A1c 3 Months E11.9 - Type 2 diabetes mellitus without complications Complete Blood Count Auto Diff 3 Months D64.9 - Anemia, unspecified Comprehensive [place]. Panel Fast 3 Months E78.00 - Pure hypercholesterolemia, unspecified Lipid Panel 3 Months E78.00 - Pure hypercholesterolemia, unspecified Microalbumin, Random (w Creat) 3 Months E11.9 - Type 2 diabetes mellitus without complications
== END 2024-09-17 15:05 | disposition home or self-care (01) ==
PROVIDERS: PCP Internal Medicine; Visit Provider Internal Medicine
DX: E11.9 Type 2 diabetes mellitus without complications (principal); G40.909 Epilepsy, unspecified, not intractable, without status epilepticus; E66.01 Morbid (severe) obesity due to excess calories; Z68.41 Body mass index [BMI] 40.0-44.9, adult; E78.00 Pure hypercholesterolemia, unspecified; I10 Essential (primary) hypertension; J45.40 Moderate persistent asthma, uncomplicated; G43.909 Migraine, unspecified, not intractable, without status migrainosus; K21.9 Gastro-esophageal reflux disease without esophagitis; K59.00 Constipation, unspecified; R79.89 Other specified abnormal findings of blood chemistry; M79.7 Fibromyalgia

== ENCOUNTER → 2024-09-17 14:09 | Outpatient (BNVA) | payer OTHER, SELFPAY | PROVIDERS: PCP Internal Medicine; Visit Provider Internal Medicine | DX: E11.9 Type 2 diabetes mellitus without complications (principal); E78.00 Pure hypercholesterolemia, unspecified; I10 Essential (primary) hypertension; J45.40 Moderate persistent asthma, uncomplicated; G40.909 Epilepsy, unspecified, not intractable, without status epilepticus; G43.909 Migraine, unspecified, not intractable, without status migrainosus; K21.9 Gastro-esophageal reflux disease without esophagitis; K59.00 Constipation, unspecified; M79.7 Fibromyalgia; R79.89 Other specified abnormal findings of blood chemistry; E55.9 Vitamin D deficiency, unspecified; E53.8 Deficiency of other specified B group vitamins; F32.9 Major depressive disorder, single episode, unspecified; E66.01 Morbid (severe) obesity due to excess calories; Z68.41 Body mass index [BMI] 40.0-44.9, adult; Z71.3 Dietary counseling and surveillance | CPT/HCPCS: 96127; 99212 ==

== ENCOUNTER 2024-09-18 09:30 | Outpatient (REF) | payer OTHER, SELFPAY ==
--- NOTE | ~2024-09-18 | MM_ITS ---
EXAMINATION: MM DIAGNOSTIC DIGITAL BREAST TOMOSYNTHESIS, RIGHT Limited right breast ultrasound. CLINICAL INFORMATION: Call back from screening for focal asymmetry in the upper outer right breast. COMPARISON: Mammography: Comparison is made with prior examinations. TECHNIQUE: Digital breast tomosynthesis is performed in both the craniocaudal and mediolateral oblique views along with computer-aided detection (CAD). Synthesized 2D images are generated from the tomosynthesis. Limited right breast ultrasound. FINDINGS: The breasts are heterogeneously dense, which may obscure small masses (ACR BI-RADS breast composition Category c). Focal asymmetry in the upper outer breast partially effaces on additional imaging projections. No suspicious calcifications or other abnormal findings. Targeted color Doppler ultrasound scanning in the upper outer quadrant of the right breast demonstrates normal fibronodular breast tissue. There is no sonographic abnormality. MM/MM tomosynthesis added views R IMPRESSION: Focal asymmetry in the upper outer breast middle depth without sonographic correlate which partially effaces. Recommend 6 month follow-up right breast mammogram for further evaluation of stability. ASSESSMENT: BI-RADS BI-RADS 3 - Probably benign finding(s) - 6 month follow-up suggested RECOMMENDATION: 6 Month F/U Results were provided to the patient at time of visit by the technologist. This patient's information was entered into a reminder system with a target due date for their next mammogram. Electronically signed by: Bhavani Blank DO 09/18/2024 10:41 AM [facility]
== END 2024-09-18 09:31 | disposition home or self-care (01) ==
LOC: HO.MAMMO 09:30
PROVIDERS: PCP Internal Medicine; Visit Provider Internal Medicine
DX: N64.89 Other specified disorders of breast (principal)
CPT/HCPCS: 76642; 77061; 77065

== ENCOUNTER → 2024-09-18 09:45 | Outpatient (BNV) | payer OTHER, SELFPAY | PROVIDERS: PCP Internal Medicine; Visit Provider Internal Medicine | DX: N63.11 Unspecified lump in the right breast, upper outer quadrant (principal); R92.331 Mammographic heterogeneous density, right breast | CPT/HCPCS: 76642; 77061; 77065 ==

== ENCOUNTER 2024-10-03 07:29 | Day surgery (SDC) | payer OTHER, SELFPAY ==
[2024-10-01 07:50] VITALS: BMI 41.7
--- NOTE | 2024-10-02 11:00 | HO.ANESPROP2 ---
Documented by User: Ana Maria Keane NP 10/02/24 11:00 HPI - Anesthesia Eval Consult details Narrative: 63yo F for Upper Endoscopy and Colonoscopy BMI 41 Anesthesia Pre-Procedure Meds Is the patient on any of the following meds?: GLP1/DPP4 PMFSH Active Problems Active Problems: All Active Problems Severe persistent asthma (Acute) Morbid obesity with BMI of 40.0-44.9, adult (Acute) Orthopnea (Acute) Episode of syncope (Acute) Discomfort of both ears (Acute) Paroxysmal nocturnal dyspnea (Acute) Elevated TSH (Acute) Ear pain (Acute) Depression (Acute) Acute otitis media (Acute) Sinusitis (Acute) Hearing impairment (Acute) Environmental allergies (Acute) Asthma (Acute) RUQ abdominal pain (Acute) NAFLD (nonalcoholic fatty liver disease) (Acute) Morbid obesity with BMI of 50.0-59.9, adult (Acute) Constipation, unspecified (Acute) Vitamin B12 deficiency (Acute) Anemia, unspecified (Acute) Vitamin D deficiency (Acute) Fibromyalgia (Acute) Migraine without status migrainosus, not intractable (Acute) GERD without esophagitis (Acute) Nonintractable epilepsy without status epilepticus (Acute) Moderate persistent asthma without complication (Acute) Benign essential hypertension (Acute) Type 2 diabetes mellitus without complication, without long-term current use of insulin (Acute) Pure hypercholesterolemia (Acute) COVID-19 (Acute) Past Medical History Medical History Morbid obesity with BMI of 40.0-44.9, adult Morbid obesity with BMI of 50.0-59.9, adult Constipation, unspecified Vitamin B12 deficiency Anemia, unspecified Vitamin D deficiency Fibromyalgia Migraine without status migrainosus, not intractable GERD without esophagitis Nonintractable epilepsy without status epilepticus Moderate persistent asthma without complication Benign essential hypertension Type 2 diabetes mellitus without complication, without long-term current use of insulin Pure hypercholesterolemia Family History Family History Father No problems noted. Mother No problems noted. Surgical History Surgical History Hx of endoscopy History of colonoscopy History of removal of laparoscopic gastric banding device H/O gastric bypass Social History Social History Household Members: Significant Other and Family Housing: Apartment Alcohol intake: current Alcohol intake frequency: holidays/special occasions only Alcohol type: wine Patient Tobacco Use Status: Never used Tobacco e-Cigarette/Vaping Use: Never Used Second Hand Smoke Exposure: Yes Use of substances other than those prescribed or required for medical reasons: No Advance Directives: No Advance Directives Information Provided: Yes service: No Current occupational status: retired Cognitive needs: No Hearing needs: Yes Vision needs: Yes Meds Allergies Allergy/AdvReac Type Severity Reaction Status Date / Time aspirin [Aspirin] Allergy Severe HIVES/SWELL Verified 10/03/24 08:01 ING peanut [PEANUTS] Allergy Severe ITCHING/SWE Verified 10/03/24 08:01 LLING tree nut [TREE NUT] Allergy Severe ITCHING/SWE Verified 10/03/24 08:01 LLING Benadryl Allergy Unknown Unknown Verified 10/03/24 08:01 calcium Allergy Unknown Unknown Verified 10/03/24 08:01 Zinc Allergy Unknown Unknown Uncoded 10/03/24 08:01 Home Medications ?Medication ?Instructions ?Recorded ?Confirmed ?Last Taken ?Type phenobarbital 97.2 mg tablet 97.2 mg PO DAILY 08/06/20 10/03/24 Unknown History amitriptyline 50 mg tablet 50 mg PO BEDTIME 11/25/20 10/03/24 Unknown History topiramate 100 mg tablet 100 mg PO BEDTIME 06/13/24 10/03/24 Unknown History gabapentin 100 mg capsule 100 mg PO BID 09/17/24 10/03/24 Unknown History Exam Height,Weight and Vital Signs: Height 5 ft 4 in Weight 110.223 kg Assessment and Plan Assessment Anesthesia Assessment: Chart Reviewed Documented by User: Alexia Chandra MD 10/03/24 08:34 [facility] Past Medical History Medical History Morbid obesity with BMI of 40.0-44.9, adult Morbid obesity with BMI of 50.0-59.9, adult Constipation, unspecified Vitamin B12 deficiency Anemia, unspecified Vitamin D deficiency Fibromyalgia Migraine without status migrainosus, not intractable GERD without esophagitis Nonintractable epilepsy without status epilepticus Moderate persistent asthma without complication Benign essential hypertension Type 2 diabetes mellitus without complication, without long-term current use of insulin Pure hypercholesterolemia Family History Family History Father No problems noted. Mother No problems noted. Family history of problems with anesthesia: No Surgical History Surgical History Hx of endoscopy History of colonoscopy History of removal of laparoscopic gastric banding device H/O gastric bypass History of Problems with Anesthesia: No Social History Social History Household Members: Significant Other and Family Housing: Apartment Alcohol intake: current Alcohol intake frequency: holidays/special occasions only Alcohol type: wine Patient Tobacco Use Status: Never used Tobacco e-Cigarette/Vaping Use: Never Used Second Hand Smoke Exposure: Yes Use of substances other than those prescribed or required for medical reasons: No Advance Directives: No Advance Directives Information Provided: Yes service: No Current occupational status: retired Cognitive needs: No Hearing needs: Yes Vision needs: Yes Meds Allergies Allergy/AdvReac Type Severity Reaction Status Date / Time aspirin [Aspirin] Allergy Severe HIVES/SWELL Verified 10/03/24 08:01 ING peanut [PEANUTS] Allergy Severe ITCHING/SWE Verified 10/03/24 08:01 LLING tree nut [TREE NUT] Allergy Severe ITCHING/SWE Verified 10/03/24 08:01 LLING Benadryl Allergy Unknown Unknown Verified 10/03/24 08:01 calcium Allergy Unknown Unknown Verified 10/03/24 08:01 Zinc Allergy Unknown Unknown Uncoded 10/03/24 08:01 Home Medications ?Medication ?Instructions ?Recorded ?Confirmed ?Last Taken ?Type phenobarbital 97.2 mg tablet 97.2 mg PO DAILY 08/06/20 10/03/24 Unknown History amitriptyline 50 mg tablet 50 mg PO BEDTIME 11/25/20 10/03/24 Unknown History topiramate 100 mg tablet 100 mg PO BEDTIME 06/13/24 10/03/24 Unknown History gabapentin 100 mg capsule 100 mg PO BID 09/17/24 10/03/24 Unknown History Exam Airway Mallampati Class: II TM Dist: >3cm Neck ROM: Full Heart: rrr Lungs: cta Assessment and Plan Assessment Anesthesia Assessment: Anesthesia Plan Discussed Final Anesthetic Review Family History of Problems with Anesthesia: No History of Problems with Anesthesia: No NPO: Yes ASA Class: III Final Preanesthetic Review: No Changes in Pt Med Stat, Meds/Allgs Chart Reviewed, Consent Obtained/Reviewed and Anes Risks/Benef Reviewed Patient Risk: Intermediate Anesthetic Plan Anesthetic Plan: MAC: Disposition: Standard PACU
[2024-10-03 08:04] VITALS: BMI 41.0
[2024-10-03 08:06] VITALS: BP 137/67; PULSE 79; RESP 16; TEMP 36.1; O2SAT 100
[2024-10-03 08:17] LABS: Glucose, Whole Blood 126 mg/dL (60-115)
[2024-10-03] MEDS: Lactated Ringers 1,000 ML 100 ML IVCONT (08:31)
--- NOTE | 2024-10-03 09:05 | MHC.SHP ---
Pre-Procedural Eval Section A - 24 Hr Update-Section A only Date of Service: 10/03/24 Section B - Complete if H&P > 30 days Chief Complaint: gerd,screening Relevant Family History (Specify if Yes): No Relevant Social History: None Present Medications: see Short Stay Collaborative assessment Medical History: Significant History (Morbid obesity with BMI of 50.0-59.9, adult Constipation, unspecified Vitamin B12 deficiency Anemia, unspecified Vitamin D deficiency Fibromyalgia Migraine without status migrainosus, not intractable GERD without esophagitis Nonintractable epilepsy without status epilepticus Moderate persistent asth) History of Previous Operations: Relevant previous surgery/procedure and date(s) (Hx of endoscopy History of colonoscopy History of removal of laparoscopic gastric banding device H/O gastric bypass) Allergies: Allergies Allergy/AdvReac Type Severity Reaction Status Date / Time aspirin [Aspirin] Allergy Severe HIVES/SWELL Verified 10/03/24 08:01 ING peanut [PEANUTS] Allergy Severe ITCHING/SWE Verified 10/03/24 08:01 LLING tree nut [TREE NUT] Allergy Severe ITCHING/SWE Verified 10/03/24 08:01 LLING Benadryl Allergy Unknown Unknown Verified 10/03/24 08:01 calcium Allergy Unknown Unknown Verified 10/03/24 08:01 Zinc Allergy Unknown Unknown Uncoded 10/03/24 08:01 Review of Systems Sugical H&P ROS: Negative: Constitution, Cardiovascular, Respiratory, Neurological, Psychiatric, Hem-Onc, Allergic/Immunologic, Gastrointestinal, Genitourinary, Musculoskeletal, Integumentary, Endocrine and Eyes/Ears/Nose/Throat Exam Surgical H&P Exam: Normal: HEENT, Normal: Heart, Normal: Lungs, Normal: Extremities, Normal: Abdomen, Normal: Skin and Normal: Neurological Exam Comment: obese Plan Diagnosis/Plan: Unchanged I have reviewed the history and physical and performed a pertinent physical examination on my patient. No changes have occurred unless specified. Time Spent With Patient Time: Total time managing care of this patient today ____ minutes.
--- NOTE | 2024-10-03 09:46 | HO.OPN-COLON ---
Colonoscopy Operative Note Operative Note Date of Service: 10/03/24 Narrative: Operative Information Procedure Description: EGD, Colonoscopy Indication: GERD and colon screening Anesthesia: [] FLEXIBLE TRANSORAL UPPER GASTROINTESTINAL ENDOSCOPY AND COLONOSCOPY PROCEDURE NOTE UPPER ENDOSCOPY Consent: Indications for the procedure and potential complications of bleeding, perforation, reaction to medications and missed diagnosis were discussed with the patient and informed consent was obtained. Instrument: Olympus GIF H 190 J mid size upper endoscope Monitoring: Vital signs and clinical assessment, continuous EKG monitoring, Pulse oximetry, Carbon Dioxide monitoring and blood pressure monitoring were done throughout the procedure. Procedure: The patient was placed in the left lateral decubitis position and pre-procedure medications were administered and a bite block was placed. The endoscope was inserted into the mouth and advanced under direct vision to the jejunum A careful inspection was made as the upper endoscope was withdrawn including a retroflexed examination of the proximal stomach; Findings and interventions are described below. hx of gastric bypass Findings: Larynx:normal Esophagus: GE junction at 40 cm, diaphragm hiatus at 40 cm, posisble singe tongue of short segment barretts, bx taken, also from distal and proximal esophagus Stomach pouch: Normal mucosa. Biopsies were obtained. Grade 2 flap valve on retroflexed examination of the cardia. LES was slightly patulous. Jejunum: Normal Intervention: Biopsies as noted above, COLONOSCOPY Instrument: Olympus variable stiffness pediatric scope 190L Colonoscopy Monitoring: Vital signs and clinical assessment, continuous EKG monitoring, Pulse oximetry, Carbon Dioxide monitoring and blood pressure monitoring were done throughout the procedure. Colon withdrawal time was 15 minutes. Procedure: The patient was placed in the left lateral decubitis position and pre-procedure medications were administered. After a digital rectal examination of the ano-rectum, the video colonoscope was inserted into the rectum and advanced through the colon to the cecum/TI. The colonoscope was slowly withdrawn in a retrograde panoramic fashion and the colon mucosa was carefully examined including a retroflexed view of the rectum. Findings and interventions are described below. Procedure Difficulty:moderate Findings: Terminal Ileum-normal, random bx taken Cecum: 10 mm sessile polyp lifted with eleview injection and removed with cold snare, mucosa slightly granular appearing bx taken Ascending Colon: normal Transverse Colon - 4-6 mm sessile polyp removed with cold forceps Descending Colon:normal Sigmoid Colon: Rectum: Retroflexion with small internal hemorrhoids, grade I, random bx taken Anorectum - normal Colon preparation: [place] Bowel Preparation Scale Right colon; 2 Transverse colon: 2 Left colon; 2 (0 = Unprepared colon segment with mucosa not seen due to solid stool that cannot be cleared. 1 = Portion of mucosa of the colon segment seen, but other areas of the colon segment not well seen due to staining, residual stool and/or opaque liquid. 2 = Minor amount of residual staining, small fragments of stool and/or opaque liquid, but mucosa of colon segment seen well. 3 = Entire mucosa of colon segment seen well with no residual staining, small fragments of stool or opaque liquid) Impression and Post Procedure Diagnosis: Endoscopy Findings: patulous LES possible barretts Colonoscopy Findings: colon polyps x2 internal hemorrhoids Plan: Await Pathology results Repeat Colonoscopy in 3-4 years due to polyps or earlier if clinically indicated High fiber diet leaflet avoid straining at stool, epsom salts and sitz bath, anusol supps or cream Above findings were reviewed with the patient and relevant handouts were provided if indicated.
[2024-10-03 09:49] VITALS: BP 109/65; PULSE 69; RESP 18; TEMP 36.6; O2SAT 99
[2024-10-03 10:04] VITALS: BP 118/53; PULSE 74; RESP 16; TEMP 36.6; O2SAT 99
== END 2024-10-03 10:37 | disposition home or self-care (01) ==
PROVIDERS: PCP Internal Medicine; Visit Provider Internal Medicine Gastroenterology
PROC: (CPT 45385; principal; 2024-10-03 09:00)
DX: Z12.11 Encounter for screening for malignant neoplasm of colon (principal); D12.0 Benign neoplasm of cecum; D12.3 Benign neoplasm of transverse colon; K64.0 First degree hemorrhoids; K59.00 Constipation, unspecified; K21.9 Gastro-esophageal reflux disease without esophagitis; K29.60 Other gastritis without bleeding; K22.0 Achalasia of cardia; K44.9 Diaphragmatic hernia without obstruction or gangrene; G40.A09 Absence epileptic syndrome, not intractable, without status epilepticus; I10 Essential (primary) hypertension; D64.9 Anemia, unspecified; E78.00 Pure hypercholesterolemia, unspecified; M79.7 Fibromyalgia; J45.40 Moderate persistent asthma, uncomplicated; E55.9 Vitamin D deficiency, unspecified; E11.9 Type 2 diabetes mellitus without complications; E66.01 Morbid (severe) obesity due to excess calories; Z68.43 Body mass index [BMI] 50.0-59.9, adult; Z79.4 Long term (current) use of insulin; Z98.84 Bariatric surgery status; Z88.6 Allergy status to analgesic agent; Z88.8 Allergy status to other drugs, medicaments and biological substances; Z91.018 Allergy to other foods; Z91.010 Allergy to peanuts; Z79.899 Other long term (current) drug therapy
CPT/HCPCS: 45385; 45380; 45381; 43239; 82947; 88305; 88313; 88342; J1596; J2003; J2704

== ENCOUNTER → 2024-10-03 07:29 | Outpatient (BNV) | payer OTHER, SELFPAY | PROVIDERS: PCP Internal Medicine; Visit Provider Internal Medicine Gastroenterology | DX: Z12.11 Encounter for screening for malignant neoplasm of colon (principal); D12.0 Benign neoplasm of cecum; D12.3 Benign neoplasm of transverse colon; K52.9 Noninfective gastroenteritis and colitis, unspecified; K21.9 Gastro-esophageal reflux disease without esophagitis; K29.70 Gastritis, unspecified, without bleeding; K64.8 Other hemorrhoids | CPT/HCPCS: 43239; 45380; 45381; 45385 ==

== ENCOUNTER 2024-10-15 10:20 | Outpatient (AMB) | payer OTHER, SELFPAY ==
--- NOTE | 2024-10-15 10:22 | MHC.OFFVIS ---
Vital Signs 10/15/24 10:24 Height 5 ft 4 in Weight 245 lb 2.464 oz BMI 42.1 BP 129/70 Blood Pressure Location Rt radial Position Sitting Pulse 75 Intake Visit Reasons: S/P double; Dr. Jefferson Intake Note: Patient in office today in follow up s/p colonoscopy and endoscopy. CC: Patient reports black stool the 3rd day after procedure but is now having normal BMs.Denies other GI concerns today. General Activities Therapist Required: No Accompanied by: Self / Same As Patient Allergies aspirin [Aspirin] Allergy (Severe, Verified 10/15/24 10:27) HIVES/SWELLING peanut [PEANUTS] Allergy (Severe, Verified 10/15/24 10:27) ITCHING/SWELLING tree nut [TREE NUT] Allergy (Severe, Verified 10/15/24 10:27) ITCHING/SWELLING Benadryl Allergy (Unknown, Verified 10/15/24 10:27) Unknown calcium Allergy (Unknown, Verified 10/15/24 10:27) Unknown Zinc Allergy (Unknown, Uncoded 10/03/24 08:01) Unknown HPI HPI S/P double; Dr. Jefferson: Details: 63 yr old f with hx of chely en y bypass being called for f/u RECAP: She was c/o right sided abdominal pain, sometimes v bad, affected her ability to go to gym not associated with food, like a burning sensation, she also has mid back pain she also has tingling in right thigh, has to keep moving leg to feel better constipation good with linszess occ alcohol use sometimes makes her feel worse I thought it was musculoskeletal pain and was given gabapentin she took neurontin as given 100 mg and seems to have helped her pain a lot was increased she had covid pos test 07/2020 she was having RUQ pain and I gave her capsaicin TEST: last egd 2011-unremarkable h pylori serology was neg. u/s 06/2019-- fatty liver, F2-3 fibrosure us 04/2020--improved metavir score, fatty liver, no masses EGD--07/2019--retained marcus, removed, slight ulceration, esophagitis, mild bx;chronic GEJ inflammation, mild gastritis US 04/2021-- fatty liver, no masses EGD/[facility]: 10/13 Endoscopy Findings: patulous LES possible barretts Colonoscopy Findings: colon polyps x2 internal hemorrhoids Path: Endoscopy Findings: patulous LES possible barretts Colonoscopy Findings: colon polyps x2 internal hemorrhoids INTERIM: reviewed results with her TA removed and focal colitis she has occasional right LLQ pain and discomfort she denies diarrhea she is worried about her daughter she is still happy with linaclotide EXAM: GENERAL: The patient is well developed and nontoxic. VITAL SIGNS:see workflow HEENT: Nonicteric sclerae, PERRLA, EOMI. Oropharynx clear. Moist mucous membranes. Conjunctivae appear well perfused. No thyroid mass. CHEST: Chest wall is nontender. HEART: Regular rate and rhythm without murmurs. LUNGS: Clear to auscultation bilaterally. ABDOMEN: Soft, positive bowel sounds, RLQ tender mild, no organomegaly.no flank tenderness SKIN: No rash, no excessive bruising, petechiae, or purpura. NEUROLOGIC: Cranial nerves II-XII intact without motor/sensory deficit. Psych: normal affect Assessment (1) NAFLD (nonalcoholic fatty liver disease): (2) chronic constipation, prob related to DM, meds and colonic inertia, stable --better with linaclotide 3/ RLQ pain, mild colitis on bx Plan: 1/ cont with linaclotide since helping 2/ colonoscopy rept 3-4 yrs 3/ cont lansoprazole 4/ trial of apriso for colitis PFSH Medical History Morbid obesity with BMI of 40.0-44.9, adult Morbid obesity with BMI of 50.0-59.9, adult Constipation, unspecified Vitamin B12 deficiency Anemia, unspecified Vitamin D deficiency Fibromyalgia Migraine without status migrainosus, not intractable GERD without esophagitis Nonintractable epilepsy without status epilepticus Moderate persistent asthma without complication Benign essential hypertension Type 2 diabetes mellitus without complication, without long-term current use of insulin Pure hypercholesterolemia Surgical History Hx of endoscopy History of colonoscopy History of removal of laparoscopic gastric banding device H/O gastric bypass Family History Father No problems noted. Mother No problems noted. Social History Household Members: Significant Other and Family Housing: Apartment Alcohol intake: current Alcohol intake frequency: holidays/special occasions only Alcohol type: wine Patient Tobacco Use Status: Never used Tobacco e-Cigarette/Vaping Use: Never Used Second Hand Smoke Exposure: Yes service: No Current occupational status: retired Cognitive needs: No Hearing needs: Yes Vision needs: Yes Physical Exam Vital Signs: Last Vital Signs Pulse 75 10/15/24 10:24 BP 129/70 10/15/24 10:24 BMI result Body Mass Index 42.1 Assessment & Plan Assessment & Plan (1) Colitis: Code(s): K52.9 - Noninfective gastroenteritis and colitis, unspecified Category: Medical Plan as a jorge Medications: New mesalamine ER (Apriso) 1.5 grams (4 x 0.375 gram) PO QAM 30 caps 0RF Coding Level of Care Code Est Pt Level 4 (17179) Diagnoses Colitis K52.9
[2024-10-15 10:24] VITALS: BP 129/70; PULSE 75; BMI 42.1
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
== END 2024-10-15 11:07 | disposition home or self-care (01) ==
PROVIDERS: PCP Internal Medicine; Visit Provider Internal Medicine Gastroenterology
DX: K52.9 Noninfective gastroenteritis and colitis, unspecified (principal)
CPT/HCPCS: 99214

== ENCOUNTER → 2024-10-15 10:20 | Outpatient (BNVA) | payer OTHER, SELFPAY | PROVIDERS: PCP Internal Medicine; Visit Provider Internal Medicine Gastroenterology | DX: K52.9 Noninfective gastroenteritis and colitis, unspecified (principal) | CPT/HCPCS: 99212 ==

== ENCOUNTER 2024-11-08 08:27 | Outpatient (REF) | payer OTHER, SELFPAY ==
[2024-11-08 11:15] LABS: Influenza A PCR POSITIVE (Negative); Influenza B PCR NEGATIVE (Negative); Resp Syncy Virus RNA Qual PCR NEGATIVE (Negative); SARS COV2 PCR INHOUSE NEGATIVE (Negative)
== END 2024-11-08 08:28 | disposition home or self-care (01) ==
LOC: HO.LAB 08:27
PROVIDERS: PCP Internal Medicine; Visit Provider Nurse Practitioner Family
DX: J06.9 Acute upper respiratory infection, unspecified (principal)
CPT/HCPCS: 0241U; 99212

== ENCOUNTER 2024-11-08 08:27 | Outpatient (AMB) | payer OTHER, SELFPAY ==
[2024-11-08 08:46] VITALS: BP 122/80; PULSE 77; TEMP 36.7; O2SAT 98
--- NOTE | 2024-11-08 08:46 | AM.OFFWIN_ITS ---
Intake Vital Signs 11/08/24 08:46 Weight 242 lb BP 122/80 Blood Pressure Location Rt brachial Position Sitting Pulse 77 Pulse Source Pulse Oximeter Temp 98.0 F Temp Source Oral Pulse Oximetry (%) 98 Oxygen Delivery Method Room Air Intake Visit Reasons: EP Sinus congestion, headache, ear, throat Intake Note: Patient here sinus congestion, teeth pain and headache that has been present for about 3 weeks. Patient Tobacco Use Status: Never used Tobacco Allergies aspirin [Aspirin] Allergy (Severe, Verified 11/08/24 08:49) HIVES/SWELLING peanut [PEANUTS] Allergy (Severe, Verified 11/08/24 08:49) ITCHING/SWELLING tree nut [TREE NUT] Allergy (Severe, Verified 11/08/24 08:49) ITCHING/SWELLING Benadryl Allergy (Unknown, Verified 11/08/24 08:49) Unknown calcium Allergy (Unknown, Verified 11/08/24 08:49) Unknown Zinc Allergy (Unknown, Uncoded 11/08/24 08:49) Unknown Do you need a note to return to daycare/school/sports/work: No HPI HPI Comments History of Present Illness Details 64 y/o female patient who presents to [facility] walk in clinic with c/o URI symptoms x 3 weeks. Reports Nasal sinus congestion and headaches. Recent contact with person with RSV and Pneumonia. [facility] Medical History (Updated 11/08/24 @ 09:12 by Abi Steve NP) Acute respiratory disease Morbid obesity with BMI of 40.0-44.9, adult Morbid obesity with BMI of 50.0-59.9, adult Constipation, unspecified Vitamin B12 deficiency Anemia, unspecified Vitamin D deficiency Fibromyalgia Migraine without status migrainosus, not intractable GERD without esophagitis Nonintractable epilepsy without status epilepticus Moderate persistent asthma without complication Benign essential hypertension Type 2 diabetes mellitus without complication, without long-term current use of insulin Pure hypercholesterolemia Surgical History Hx of endoscopy History of colonoscopy History of removal of laparoscopic gastric banding device H/O gastric bypass Family History Father No problems noted. Mother No problems noted. Social History Household Members: Significant Other and Family Housing: Apartment Alcohol intake: current Alcohol intake frequency: holidays/special occasions only Alcohol type: wine Patient Tobacco Use Status: Never used Tobacco e-Cigarette/Vaping Use: Never Used Second Hand Smoke Exposure: Yes service: No Current occupational status: retired Cognitive needs: No Hearing needs: Yes Vision needs: Yes Review of Systems Const All systems reviewed & are unremarkable except as noted in HPI and below Physical Exam Vital Signs: Last Vital Signs Temp 98.0 F 11/08/24 08:46 Pulse 77 11/08/24 08:46 BP 122/80 11/08/24 08:46 Pulse Ox 98 11/08/24 08:46 Oxygen Delivery Method Room Air 11/08/24 08:46 Const General: cooperative and no acute distress Nutritional Appearance: obese Orientation/consciousness: patient oriented x3 HEENT Head: Yes normocephalic Ears: external ears normal and TM abnormal with fluid behind the TM General nose exam: Abnormal mucous membranes and turbinates present boggy and Nasal discharge present Face and sinus: Yes sinus tenderness Mouth: moist mucous membranes Throat: Yes uvula midline Resp Effort & Inspection: normal respiratory effort and able to speak in complete sentences Auscultation: clear to auscultation bilaterally, no crackles, no rales, no rhonchi and no wheezes Cardio Heart sounds: S1 normal heart sound present and S2 normal heart sound present Neuro General: patient oriented x3 Assessment & Plan Assessment & Plan (1) Acute respiratory disease: Code(s): J06.9 - Acute upper respiratory infection, unspecified Plan: Ordered SARs Ordered Abx per Pt's request. Acetaminophen for pain relief. Orders: Orders SARS-CoV2/FLU/RSV Today J06.9 - Acute upper respiratory infection, unspecified Medications: New amoxicillin 500 mg PO Q12H 5 days 10 caps 0RF J06.9 - Acute upper respiratory infection, unspecified Coding Level of Care Code Est Pt Level 4 (80968) Diagnoses Acute respiratory disease J06.9 Time Spent (min) 20
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
== END 2024-11-08 09:18 | disposition home or self-care (01) ==
PROVIDERS: PCP Internal Medicine; Visit Provider Nurse Practitioner Family
DX: J06.9 Acute upper respiratory infection, unspecified (principal)

== ENCOUNTER 2024-11-30 10:50 | Outpatient (AMB) | payer OTHER, SELFPAY ==
[2024-11-30 10:55] VITALS: BP 111/62; PULSE 72; O2SAT 100; BMI 42.4
--- NOTE | 2024-11-30 10:55 | MHC.OFFVIS ---
Vital Signs 11/30/24 10:55 Height 5 ft 4 in Weight 246 lb 14.684 oz BMI 42.4 BP 111/62 Blood Pressure Location Rt radial Position Sitting Pulse 72 Pulse Source Doppler Pulse Oximetry (%) 100 Oxygen Delivery Method Room Air Intake Visit Reasons: asthma Allergies aspirin [Aspirin] Allergy (Severe, Verified 11/08/24 08:49) HIVES/SWELLING peanut [PEANUTS] Allergy (Severe, Verified 11/08/24 08:49) ITCHING/SWELLING tree nut [TREE NUT] Allergy (Severe, Verified 11/08/24 08:49) ITCHING/SWELLING Benadryl Allergy (Unknown, Verified 11/08/24 08:49) Unknown calcium Allergy (Unknown, Verified 11/08/24 08:49) Unknown Zinc Allergy (Unknown, Uncoded 11/08/24 08:49) Unknown HPI HPI asthma: Details: 64-year-old lady followed for underlying moderate to severe persistent asthma and environmental allergies.? Patient has been previously using Xolair, Symbicort, and albuterol MDI, with good control of her underlying symptoms. Unfortunately, she was not able to get Xolair since September of 2024 secondary to scheduling issues and her symptoms are not as well controlled. She continues on Lasix with good control of her lower extremity edema. She denies recent exacerbations. [facility] Medical History (Updated 11/08/24 @ 09:12 by Abi Steve NP) Acute respiratory disease Morbid obesity with BMI of 40.0-44.9, adult Morbid obesity with BMI of 50.0-59.9, adult Constipation, unspecified Vitamin B12 deficiency Anemia, unspecified Vitamin D deficiency Fibromyalgia Migraine without status migrainosus, not intractable GERD without esophagitis Nonintractable epilepsy without status epilepticus Moderate persistent asthma without complication Benign essential hypertension Type 2 diabetes mellitus without complication, without long-term current use of insulin Pure hypercholesterolemia Surgical History Hx of endoscopy History of colonoscopy History of removal of laparoscopic gastric banding device H/O gastric bypass Family History Father No problems noted. Mother No problems noted. Social History Household Members: Significant Other and Family Housing: Apartment Alcohol intake: current Alcohol intake frequency: holidays/special occasions only Alcohol type: wine Patient Tobacco Use Status: Never used Tobacco e-Cigarette/Vaping Use: Never Used Second Hand Smoke Exposure: Yes service: No Current occupational status: retired Cognitive needs: No Hearing needs: Yes Vision needs: Yes Review of Systems Const Denies daytime sleepiness, Denies excessive sweating, Denies fatigue, Denies fever(s), Denies lethargy, Denies malaise, Denies night sweats, Denies snoring and Denies weight loss Eyes Denies blurry vision and Denies itchy eyes ENT Denies nasal congestion, Denies post nasal drip, Denies sinus pain, Denies sinus pressure and Denies other ( Thrush) Card Denies chest pain, Denies pedal edema, Denies dyspnea, Denies orthopnea and Denies paroxysmal nocturnal dyspnea Resp Denies cough, Denies hemoptysis, Denies excessive phlegm production, Denies dyspnea, Denies snoring and Denies wheezing GI Denies abdominal pain and Denies heartburn Musc Denies myalgias, Denies arthralgias and Denies joint swelling Skin/Breast Denies rash Neuro Denies memory loss and Denies seizure-like activity Psych Denies abnormal sleep pattern, Denies anxiety and Denies memory loss Endo Denies excessive sweating, Denies fatigue and Denies heat intolerance Harsha/Lymph Denies easy bruising Aller/Immun Denies itchy eyes, Denies seasonal rhinorrhea and Denies wheezing Physical Exam Vital Signs: Last Vital Signs Pulse 72 11/30/24 10:55 BP 111/62 11/30/24 10:55 Pulse Ox 100 11/30/24 10:55 Oxygen Delivery Method Room Air 11/30/24 10:55 BMI result Body Mass Index 42.4 Const General: no acute distress and alert Nutritional Appearance: obese Orientation/consciousness: Other orientation findings ( oriented) HEENT Head: Yes atraumatic Eyes General: appearance normal, both eyes and all related structures Sclerae: sclerae normal EOM: EOMs intact bilaterally Neck Neck: Yes supple Lymphatic: no lymphadenopathy noted Resp Effort & Inspection: normal respiratory effort and no use of accessory muscles Auscultation: clear to auscultation bilaterally Cardio Rate: regular rate Rhythm: regular rhythm Heart sounds: no gallops, no murmurs and no rubs Skin General skin exam: other ( warm) Extrem General: No clubbing, No cyanosis and No edema Assessment & Plan Assessment & Plan (1) Severe persistent asthma: Code(s): J45.50 - Severe persistent asthma, uncomplicated Category: Medical Plan: Suboptimal control off Xolair. Restart Xolair, continue current regimen of Symbicort and albuterol MDI. (2) Environmental allergies: Code(s): Z91.09 - Other allergy status, other than to drugs and biological substances Category: Medical Plan: Suboptimal control off Xolair, expect to improve on Xolair. (3) Orthopnea: Code(s): R06.01 - Orthopnea Category: Medical Plan: Well controlled on current diuretic regimen of Lasix 20 mg daily. Continue current regimen. Coding Level of Care Code Est Pt Level 4 (17540) Complex EM visit Add On G2211 Diagnoses Severe persistent asthma J45.50 Environmental allergies Z91.09 Orthopnea R06.01
== END 2024-11-30 11:16 | disposition home or self-care (01) ==
LOC: HO.HPS 10:50
PROVIDERS: PCP Internal Medicine; Visit Provider Internal Medicine Pulmonary Disease
DX: J45.50 Severe persistent asthma, uncomplicated (principal); Z91.09 Other allergy status, other than to drugs and biological substances; R06.01 Orthopnea
CPT/HCPCS: 99214; G2211

== ENCOUNTER → 2024-11-30 10:50 | Outpatient (BNVA) | payer OTHER, SELFPAY | PROVIDERS: PCP Internal Medicine; Visit Provider Internal Medicine Pulmonary Disease | DX: J45.50 Severe persistent asthma, uncomplicated (principal); R06.01 Orthopnea; Z91.09 Other allergy status, other than to drugs and biological substances | CPT/HCPCS: 99212 ==

== ENCOUNTER 2024-12-03 13:47 | Outpatient (REF) | payer OTHER, SELFPAY ==
--- NOTE | 2024-12-03 15:18 | MHC.AU.HA3 ---
Hearing Instrument Follow-Up- Binaural Date of Visit: 12/03/24 Right Ear: Georges, Model, Color, Serial Number: Chelle Moyero P70-R Chalo SN [id number] [employer] Warranty: 03/10/2025 [employer] Loss and Damage Warranty: 03/10/2025 [facility] Service Plan: 12/30/22 Battery Size: Rechargeable Senior User Experience Architect/Slim Tube: Size 1 M Earmold/Dome/CShell/SlimTip:Small Power Type of Wax Guard: CeruStop Dispensed By: [facility] Date of Fittin12/30/2021 Left Ear: Georges, Model, Color, Serial Number: Chelle Moyero Cros P-R Chalo SN [id number] [employer] Warranty: 03/10/2025 [employer] Loss and Damage Warranty: 03/10/2025 [facility] Service Plan: 12/30/22 Battery Size: Rechargeable Senior User Experience Architect/Slim Tube: Size 1 CROS wire Earmold/Dome/CShell/SlimTip: Medium Open Type of Wax Guard: Cerushield Dispensed By: [facility] Date of Fittin12/30/2021 Follow-Up Summary: Reports aid not working, no sound from aid or CROS for 1 month. Also notes ear infection Ad, currently being treated with antibiotics. Reports she has been to the ENT and has ENT follow up again in May. Cleaned aid and CROS, replaced wax guard, still not working. Replaced manager transportation right. Listening check positive. Replaced domes and tails. Brenda reports improvement but still not loud enough. Discussed circumstances and it is possible the ear infection which she is currently taking medication for may be impacting hearing. Otoscopy reveals clear canal slightly red TM Ad. Brenda will use the VC on her aid as needed for now. Return if problems persist. Return for adjustment if needed after hearing test at next ENT visit. Recommendations: Recommendations: Hearing instrument follow-up or maintenance as needed. Diagnosis Code(s): Primary Diagnosis: H90.6 Mixed Hearing Loss, Bilateral Signature: Provider: Efra Bond, CCC-A
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
== END 2024-12-03 13:48 | disposition home or self-care (01) ==
LOC: HO.HAP 13:47
PROVIDERS: Visit Provider Internal Medicine
DX: Z46.1 Encounter for fitting and adjustment of hearing aid (principal); H90.6 Mixed conductive and sensorineural hearing loss, bilateral
CPT/HCPCS: 92593; 99499

== ENCOUNTER 2024-12-03 14:19 | Outpatient (REF) | payer SELFPAY | END 2024-12-03 14:20 | disposition home or self-care (01) | LOC: HO.HAP 14:19 | PROVIDERS: Visit Provider Internal Medicine | DX: Z46.1 Encounter for fitting and adjustment of hearing aid (principal) | CPT/HCPCS: V5267 ==

== ENCOUNTER 2024-12-17 09:15 | Outpatient (REF) | payer OTHER, SELFPAY ==
[2024-12-17 09:46] LABS: MANUAL DIFF FLAG NO
[2024-12-17 10:50] LABS: Basophils Percent Auto 0.4 % (0-2); Eosinophils Absolute Auto 0.1 X10*3/uL (0.0-0.4); Eosinophils Percent Auto 1.9 % (0-4); Hematocrit 37.1 % (37.0-47.0); Hemoglobin 11.8 g/dl (12.0-16.0); Imm Gran Abs Auto 0.04 X10*3/uL (0.00-0.03); Imm Gran Pct Auto 0.6 % (0.0-0.4); Lymphocytes Absolute Auto 2.4 X10*3/uL (1.2-4.9); Lymphocytes Percent Auto 32.7 % (20-40); Mean Corpuscular HGB Conc 31.8 g/dl (31.0-35.0); Mean Corpuscular Hemoglobin 27.1 pg (27.0-33.0); Mean Corpuscular Volume 85.3 fL (80.0-98.0); Mean Platelet Volume 10.6 fL (9.4-12.3); Monocytes Absolute Auto 0.4 X10*3/uL (0.1-1.2); Monocytes Percent Auto 6.1 % (2-11); Neutrophils Absolute Auto 4.2 x10*3/uL (2.0-8.3); Neutrophils Percent Auto 58.3 % (45-73); Platelet Count 238 X10*3/uL (160-400); Red Blood Count 4.35 X10*6/uL (4.20-5.50); Red Cell Distribution Width 15.1 % (11.0-16.0); White Blood Count 7.2 X10*3/uL (4.8-10.8)
[2024-12-17 11:17] LABS: Estimated Average Glucose 128 mg/dL; Hemoglobin A1C 138.3897 umol/L; Hemoglobin A1c % 6.1 % (<6.0); Total Hemoglobin (HGBA1C) 3169.5137 umol/L
[2024-12-17 11:28] LABS: Alanine Aminotransferase 13 U/L (0-31); Alkaline Phosphatase 163 U/L (39-117); Anion Gap 12 (12-20); Aspartate Amino Transferase 17 U/L (5-31); Bilirubin Total 0.3 mg/dL (0.0-1.0); Blood Urea Nitrogen 17 mg/dL (9-16); Calcium 9.1 mg/dL (8.4-10.2); Carbon Dioxide 23 mmol/L (22-29); Chloride 112 mmol/L (96-108); Cholesterol 181 mg/dL (<200); Estimated Glomerular Filt Rate > 60; Glucose Fasting 114 mg/dL (60-99); HDL Cholesterol 57 mg/dL (>40); LDL Cholesterol Calculated 95 mg/dL (<100); Potassium 3.5 mmol/L (3.3-5.1); Sodium 143 mmol/L (135-145); Total Protein 7.3 g/dL (6.5-8.0); Triglycerides 145 mg/dL (<150)
[2024-12-17 11:30] LABS: Appearance Urine Turbid; Color Urine Yellow; Glucose Urine UA Negative (Negative); Leukocyte Esterase Urine Large (3+) (Negative); Nitrite Urine Negative (Negative); PH 5.5 (5.0-9.0); UMIC TRIGGER UACC YES; Urine Blood Moderate (2+) (Negative); Urine Ketones Trace mg/dL (Negative); Urine Protein 30 (1+) mg/dL (Neg-Trace)
[2024-12-17 11:34] LABS: TSH reflex Free T4 5.54 uIU/mL (0.32-4.0)
[2024-12-17 11:44] LABS: Bacteria Urine None Seen (None Seen); Calcium Oxalate Crystals Urine Present; Hyaline Casts Urine 0-2 /LPF (0-2); Squamous Epithelial Cell Urine 0-2 /HPF (0-2); UACC Culture Trigger YES; WBC Urine >50 /HPF (0-5)
[2024-12-17 12:13] LABS: Microalbum/Creatinine Ratio Ur 87.2 ug/mg cr (<30)
[2024-12-17 12:40] LABS: Free T4 (Free Thyroxine) 0.88 ng/dL (0.71-1.85)
== END 2024-12-17 09:16 | disposition home or self-care (01) ==
LOC: HO.LAB 09:15
PROVIDERS: PCP Internal Medicine; Visit Provider Internal Medicine
DX: D64.9 Anemia, unspecified (principal); E78.00 Pure hypercholesterolemia, unspecified; E11.9 Type 2 diabetes mellitus without complications; G40.909 Epilepsy, unspecified, not intractable, without status epilepticus; R30.0 Dysuria
CPT/HCPCS: 36415; 80053; 80061; 80184; 81001; 82043; 82570; 83036; 84439; 84443; 85025; 87086; 87088; 87186

== ENCOUNTER 2024-12-18 13:29 | Outpatient (AMB) | payer OTHER, SELFPAY ==
[2024-12-18 13:38] VITALS: BP 116/80; PULSE 78; O2SAT 98; BMI 41.8
--- NOTE | 2024-12-18 13:38 | A.OFFPC_ITS ---
Vital Signs 12/18/24 13:38 Height 5 ft 4 in Weight 243 lb 8 oz BMI 41.8 BP 116/80 Blood Pressure Location Lt brachial Position Sitting Pulse 78 Pulse Source Pulse Oximeter Pulse Oximetry (%) 98 Oxygen Delivery Method Room Air Intake Visit Reasons: 3 Months f/u [employer] Required: No Accompanied by: Self / Same As Patient Allergies aspirin [Aspirin] Allergy (Severe, Verified 12/18/24 14:13) HIVES/SWELLING peanut [PEANUTS] Allergy (Severe, Verified 12/18/24 14:13) ITCHING/SWELLING tree nut [TREE NUT] Allergy (Severe, Verified 12/18/24 14:13) ITCHING/SWELLING Benadryl Allergy (Unknown, Verified 12/18/24 14:13) Unknown calcium Allergy (Unknown, Verified 12/18/24 14:13) Unknown Zinc Allergy (Unknown, Uncoded 12/18/24 14:13) Unknown Medication List - Last Reconciled 12/18/24 by Delmar Sylvester MD albuterol sulfate 90 mcg/actuation (ProAir HFA) 2 puffs inhalation Q6H PRN amitriptyline 50 mg PO BEDTIME amoxicillin-pot clavulanate 875-125 mg 1 tab PO BID atorvastatin 40 mg PO DAILY 90 days blood sugar diagnostic (FreeStyle Lite Strips) TEST ONCE DAILY budesonide DR-ER 9 mg (3 x 3 mg) PO DAILY budesonide-formoterol 160-4.5 mcg/actuation (Symbicort) 2 puffs inhalation BID capsaicin 0.025% 1 appl topical TID cholecalciferol (vitamin D3) (Vitamin D3) 25 mcg PO DAILY famotidine 40 mg PO BEDTIME folic acid 1 mg PO DAILY furosemide 20 mg (1/2 x 40 mg) PO QAM 30 days gabapentin 100 mg PO BID lancets (FreeStyle Lancets) TEST ONCE DAILY lansoprazole 30 mg PO DAILY lidocaine 5% 1 appl topical TID linaclotide (Linzess) 290 mcg PO DAILY lubiprostone (Amitiza) 24 mcg PO BID metformin ER 500 mg PO QPM 90 days montelukast 10 mg PO DAILY omalizumab (Xolair) 300 mg subcut Q4W 28 days phenobarbital 97.2 mg PO DAILY sertraline 50 mg PO DAILY 30 days sitagliptin phosphate (Januvia) 50 mg PO DAILY 30 days topiramate 100 mg PO BEDTIME Tobacco use date assessed: 12/18/24 Dental Screening Dental Screen Date: 12/18/24 Did you have a dental visit in the last 12 months?: Yes Did you have a dental problem in the last 6 months where you did not have access to dental care?: No Was dental information given to patient?: Patient has dentist HPI 3 Months f/u HPI Details Patient comes in today for her follow-up visit States that she feels okay She denies any headaches or dizziness Denies any chest pain, no increased shortness of breath No nausea/vomiting, no abdominal pain No change in bowel habits noted She had her follow-up labs done yesterday - to discuss her results [facility] Medical History Acute respiratory disease Morbid obesity with BMI of 40.0-44.9, adult Morbid obesity with BMI of 50.0-59.9, adult Constipation, unspecified Vitamin B12 deficiency Anemia, unspecified Vitamin D deficiency Fibromyalgia Migraine without status migrainosus, not intractable GERD without esophagitis Nonintractable epilepsy without status epilepticus Moderate persistent asthma without complication Benign essential hypertension Type 2 diabetes mellitus without complication, without long-term current use of insulin Pure hypercholesterolemia Surgical History Hx of endoscopy History of colonoscopy History of removal of laparoscopic gastric banding device H/O gastric bypass Family History Father No problems noted. Mother No problems noted. Social History Household Members: Significant Other and Family Housing: Apartment Alcohol intake: current Alcohol intake frequency: holidays/special occasions only Alcohol type: wine Patient Tobacco Use Status: Never used Tobacco e-Cigarette/Vaping Use: Never Used Second Hand Smoke Exposure: Yes service: No Current occupational status: retired Cognitive needs: No Hearing needs: Yes Vision needs: Yes Questionnaire PHQ-9 Over the last 2 weeks, how often have you been bothered by any of the following problems? 1. Little interest or pleasure in doing things: not at all 2. Feeling down, depressed, or hopeless: nearly every day 3. Trouble falling or staying asleep, or sleeping too much: nearly every day 4. Feeling tired or having little energy: not at all 5. Poor appetite or overeating: more than half the days 6. Feeling bad about yourself - or that you are a failure or have let yourself or your family down: not at all 7. Trouble concentrating on things, such as reading the newspaper or watching television: not at all 8. Moving or speaking so slowly that other people could have noticed. Or the opposite - being so fidgety or restless that you have been moving around a lot more than usual: not at all 9. Thoughts that you would be better off or of hurting yourself in some way: not at all Total score: 8 Depression Screening Interpretation: Positive Depression Screening Follow-up: Existing condition and In treatment Depression Screening Done: Yes 62924 - PHQ-9 Billing: Yes Source: Developed by Drs. Lázaro Tsai, Lara Madden, Wallace Cornejo and colleagues, with an educational emmett from [employer]. Thrive Questionnaire Date Thrive assessed: 12/18/24 I am a: Patient What is your living situation today?: I have a steady place to live Within the past 12 months, did the food you bought not last and you didn't have the money to get more?: Never true Within the past 12 months, did you worry whether your food would run out before you got money to buy more?: Never true Do you have trouble paying for medicines?: No Do you have trouble getting transportation to medical appointments?: No Do you have trouble paying your heating and electricity bill?: No Do you have trouble taking care of your child, family member or friend?: No Do you have trouble with day-to-day activities such as bathing, preparing meals, shopping, managing finances, etc.?: No Are you currently unemployed and looking for a job?: No Are you interested in more education?: No Please select the resources that you would like help with: None Currently or been in a relationship where the following occur: No concerns reported THRIVE Score: 0 AUDIT C Alcohol Use Questionnaire (AUDIT-C) 1. How often do you have a drink containing alcohol?: Monthly or less 2. How many drinks containing alcohol do you have on a typical day when you are drinking?: 1 or 2 3. How often do you have six or more drinks on one occasion?: Never Total Score: 1 Score Reviewed/Action Taken: Yes ABHINAV-7 AMB Questionnaire ABHINAV-7 Date ABHINAV - 7 assessed: 12/18/24 Feeling nervous, anxious, or on edge: 0 = Not at all Not being able to stop or control worryin = Not at all Worrying too much about different things: 0 = Not at all Trouble relaxin = Not at all Being so restless that it is hard to sit still: 0 = Not at all Becoming easily annoyed or irritable: 0 = Not at all Feeling afraid as if something awful might happen: 0 = Not at all Total ABHINAV-7 score (0-4 normal; 5-9 mild; 10-14 moderate; 15-21 severe): 0 Source: Developed by Drs. Lázaro Tsai, Lara Madden, Wallace Cornejo and colleagues, with an educational emmett from [employer]. Review of Systems Const Denies chills, Reports difficulty sleeping, Reports fatigue, Denies fever(s) and Denies headache(s) ENT Denies dysphagia, Denies dizziness, Denies otalgia, Denies headache(s), Denies neck pain, Denies odynophagia and Denies sore throat Card Denies chest pain, Denies palpitations and Denies dyspnea Resp Denies chest congestion, Denies cough and Denies dyspnea GI Denies abdominal pain, Denies constipation, Denies dysphagia, Denies heartburn, Reports diarrhea, Denies nausea, Denies odynophagia and Denies vomiting Denies difficulty voiding, Denies nocturia, Denies dysuria and Denies urinary urgency Musc Denies back pain and Denies neck pain Skin/Breast Denies rash Neuro Denies dizziness and Denies headache(s) Psych Reports anxiety and Reports depression (Rx helping ) Endo Reports fatigue and Denies palpitations Physical exam (Primary Care) Vital Signs: Last Vital Signs Pulse 78 12/18/24 13:38 BP 116/80 12/18/24 13:38 Pulse Ox 98 12/18/24 13:38 Oxygen Delivery Method Room Air 12/18/24 13:38 BMI result Body Mass Index 41.8 Tobacco/Smoking Status: Tobacco use Status Tobacco use date assessed 12/18/24 12/18/24 13:40 Patient Tobacco Use Status Never used Tobacco 12/18/24 13:40 e-Cigarette/Vaping Use Never Used 12/18/24 13:40 PHQ-9: PHQ-9 Score PHQ-9: Total score 8 12/18/24 14:14 Depression Screening Interpretation: Positive Depression Screening Follow-up: Existing condition and In treatment Thrive Assessment: Date of Thrive Assessment Date Thrive assessed 12/18/24 12/18/24 13:40 Currently or been in a relationship where the following occur: No concerns reported Const General: no acute distress and alert HENMT Ears: TM's normal bilaterally and EAC's normal Throat: Yes posterior oropharynx normal and Yes tonsils normal (no TP congestion noted) Neck Neck: Yes supple and No lymphadenopathy Thyroid: Thyroid normal Resp Auscultation: clear to auscultation bilaterally, no rales and no wheezes Cardio Rate: regular rate Rhythm: regular rhythm Heart sounds: no murmurs GI Palpation (GI): Soft to palpation and nontender Auscultation: normal bowel sounds General: Yes no CVA tenderness Back/Spine/Pelvis Back: no CVA tenderness Thoracic/Lumbar Spine: No lumbar spinal tenderness Skin Rashes: no rashes Extrem General: Yes no clubbing, cyanosis or edema Results Reviewed Results Reviewed: Laboratory Tests 12/17/24 12/17/24 09:36 09:44 WBC 7.2 Hgb 11.8 L Hct 37.1 Plt Count 238 Sodium 143 Potassium 3.5 Creatinine 0.82 Estimated GFR > 60 Fasting Glucose 114 H Hemoglobin A1c % 6.1 H Calcium 9.1 AST 17 ALT 13 Triglycerides 145 Cholesterol 181 LDL Cholesterol, Calc 95 HDL Cholesterol 57 TSH 5.54 H Free T4 0.88 Ur Specific [place] 1.020 Urine Protein 30 (1+) H Urine Glucose (UA) Negative Urine Blood Moderate (2+) H Urine Nitrite Negative Ur Leukocyte Esterase Large (3+) H Coding Level of Care Code Est Pt Level 4 (98886) Complex EM visit Add On G2211 Diagnoses Type 2 diabetes mellitus without complication, without long-term current use of insulin E11.9 Pure hypercholesterolemia E78.00 Benign essential hypertension I10 Moderate persistent asthma without complication J45.40 Nonintractable epilepsy without status epilepticus, unspecified epilepsy type G40.909 Epilepsy type: unspecified Migraine without status migrainosus, not intractable, unspecified migraine type G43.909 Migraine type: unspecified GERD without esophagitis K21.9 Constipation, unspecified constipation type K59.00 Constipation type: unspecified constipation type Fibromyalgia M79.7 Elevated TSH R79.89 Vitamin D deficiency E55.9 Anemia, unspecified type D64.9 Anemia type: unspecified type Vitamin B12 deficiency E53.8 Reactive depression F32.9 Depression Type: reactive depression Morbid obesity with BMI of 40.0-44.9, adult E66.01; Z68.41 Additional Codes PHQ-9 - 78275 - PHQ-9 Billing: Yes ([id number]) Assessment & Plan Assessment & Plan (1) Type 2 diabetes mellitus without complication, without long-term current use of insulin: Code(s): E11.9 - Type 2 diabetes mellitus without complications Category: Medical Plan: Her HgbA1c was at 6.1% on her labs done yesterday (it was at 6.4% a few months ago) - goal is at least <7.0% but ideally <6.5% Reinforced diabetic diet Continue Metformin 500 mg QD and Januvia 50 mg QD (2) Pure hypercholesterolemia: Code(s): E78.00 - Pure hypercholesterolemia, unspecified Category: Medical Plan: Results of her labs done yesterday reviewed and discussed with patient Reinforced low cholesterol diet Continue Atorvastatin 40 mg QD Will recheck her labs and fasting lipids in 3 months for follow-up (3) Benign essential hypertension: Code(s): I10 - Essential (primary) hypertension Category: Medical Plan: Reinforced low-sodium diet -? goal is systolic BP of around 120 mm or less Continue Furosemide 20 mg QD Patient states that she has not had any syncopal episodes or dizziness since her Furosemide dose was lowered to 20 mg QD last year She is reminded to continue monitoring her blood pressure regularly (4) Moderate persistent asthma without complication: Code(s): J45.40 - Moderate persistent asthma, uncomplicated Category: Medical Plan: Her asthma symptoms have been well-controlled on her current meds Continue Breo Ellipta 200 mcg QD, Montelukast 10 mg QD, Ventolin HFA 1 to 2 puffs Q 6 hours as needed and Xolair 300 mg SQ every 4 weeks Follow up with pulmonary as scheduled (5) Nonintractable epilepsy without status epilepticus: Code(s): G40.909 - Epilepsy, unspecified, not intractable, without status epilepticus Category: Medical Qualifiers: Epilepsy type: unspecified Qualified Code(s): G40.909 - Epilepsy, unspecified, not intractable, without status epilepticus Plan: Stable with no recent seizures Continue Phenobarbital 97.2 mg 1 tablet QD Will continue to monitor her serum phenobarbital level regularly Follow-up with neurology as scheduled (6) Migraine without status migrainosus, not intractable: Code(s): G43.909 - Migraine, unspecified, not intractable, without status migrainosus Category: Medical Qualifiers: Migraine type: unspecified Qualified Code(s): G43.909 - Migraine, unspecified, not intractable, without status migrainosus Plan: Stable/controlled on prophylactic Rx Continue Topiramate 100 mg Q HS Follow-up with neurology as scheduled (7) GERD without esophagitis: Code(s): K21.9 - Gastro-esophageal reflux disease without esophagitis Category: Medical Plan: Dietary restrictions reinforced Continue Prevacid 30 mg QD (8) Constipation, unspecified: Code(s): K59.00 - Constipation, unspecified Category: Medical Qualifiers: Constipation type: unspecified constipation type Qualified Code(s): K59.00 - Constipation, unspecified Plan: Patient is encouraged again to continue increased oral fluids and dietary fiber Continue Linzess capsule 290 mcg 1 capsule QD 30 minutes before the 1st meal of the day on an empty stomach (9) Fibromyalgia: Code(s): M79.7 - Fibromyalgia Category: Medical Plan: Patient is again also encouraged on regular exercise and physical activity to help manage her fibromyalgia symptoms better Continue Amitriptyline 50 mg Q HS (10) Elevated TSH: Code(s): R79.89 - Other specified abnormal findings of blood chemistry Category: Medical Plan: Her serum TSH is again slightly elevated on her labs done yesterday; her free T4 level remains normal Will continue to monitor her TFTs regularly (11) Vitamin D deficiency: Code(s): E55.9 - Vitamin D deficiency, unspecified Category: Medical Plan: Continue Vitamin D3 1000 units QD (12) Anemia, unspecified: Code(s): D64.9 - Anemia, unspecified Category: Medical Qualifiers: Anemia type: unspecified type Qualified Code(s): D64.9 - Anemia, unspecified Plan: Her Hgb is slightly low at 11.8 on her recent labs; Hct is normal Will continue to monitor her CBC regularly (13) Vitamin B12 deficiency: Code(s): E53.8 - Deficiency of other specified B group vitamins Category: Medical Plan: Corrected - will continue to monitor her B12 level regularly (14) Depression: Code(s): F32.A - Depression, unspecified Category: Medical Qualifiers: Depression Type: reactive depression Qualified Code(s): F32.9 - Major depressive disorder, single episode, unspecified Plan: Continue Sertraline 50 mg QD (15) Morbid obesity with BMI of 40.0-44.9, adult: Comment: S/P gastric bypass surgery in 2016 Code(s): E66.01 - Morbid (severe) obesity due to excess calories; Z68.41 - Body mass index [BMI] 40.0-44.9, adult Category: Medical Plan: Reinforced diet/exercise as tolerated/lose weight Plan Follow up in 3 months Orders: Orders Complete Blood Count Auto Diff 3 Months D64.9 - Anemia, unspecified Lipid Panel 3 Months E78.00 - Pure hypercholesterolemia, unspecified Microalbumin, Random (w Creat) 3 Months E11.9 - Type 2 diabetes mellitus without complications UA CC w/rflx Micro + Cult 3 Months R30.0 - Dysuria Hemoglobin A1c 3 Months E11.9 - Type 2 diabetes mellitus without complications Comprehensive [place]. Panel Fast 3 Months E78.00 - Pure hypercholesterolemia, unspecified TSH reflex Free T4 3 Months E78.00 - Pure hypercholesterolemia, unspecified
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
== END 2024-12-18 14:30 | disposition home or self-care (01) ==
LOC: HO.HMCH 13:29
PROVIDERS: PCP Internal Medicine; Visit Provider Internal Medicine
DX: E11.9 Type 2 diabetes mellitus without complications (principal); E78.00 Pure hypercholesterolemia, unspecified; I10 Essential (primary) hypertension; J45.40 Moderate persistent asthma, uncomplicated; G40.909 Epilepsy, unspecified, not intractable, without status epilepticus; G43.909 Migraine, unspecified, not intractable, without status migrainosus; K21.9 Gastro-esophageal reflux disease without esophagitis; K59.00 Constipation, unspecified; M79.7 Fibromyalgia; R79.89 Other specified abnormal findings of blood chemistry; E66.01 Morbid (severe) obesity due to excess calories; Z68.41 Body mass index [BMI] 40.0-44.9, adult; E55.9 Vitamin D deficiency, unspecified; E53.8 Deficiency of other specified B group vitamins; D64.9 Anemia, unspecified; F32.9 Major depressive disorder, single episode, unspecified

== ENCOUNTER → 2024-12-18 13:29 | Outpatient (BNVA) | payer OTHER, SELFPAY | PROVIDERS: PCP Internal Medicine; Visit Provider Internal Medicine | DX: E11.9 Type 2 diabetes mellitus without complications (principal); E78.00 Pure hypercholesterolemia, unspecified; I10 Essential (primary) hypertension; J45.40 Moderate persistent asthma, uncomplicated; G40.909 Epilepsy, unspecified, not intractable, without status epilepticus; G43.909 Migraine, unspecified, not intractable, without status migrainosus; K21.9 Gastro-esophageal reflux disease without esophagitis; K59.00 Constipation, unspecified; M79.7 Fibromyalgia; R79.89 Other specified abnormal findings of blood chemistry; E55.9 Vitamin D deficiency, unspecified; D64.9 Anemia, unspecified; E53.8 Deficiency of other specified B group vitamins; F32.9 Major depressive disorder, single episode, unspecified; E66.01 Morbid (severe) obesity due to excess calories; R30.0 Dysuria; Z68.41 Body mass index [BMI] 40.0-44.9, adult | CPT/HCPCS: 96127; 99212 ==

== ENCOUNTER 2025-01-21 13:06 | Outpatient (AMB) | payer OTHER, SELFPAY ==
--- NOTE | 2025-01-21 13:19 | MHC.OFFVIS ---
Vital Signs 01/21/25 13:25 Height 5 ft 4 in Weight 246 lb BMI 42.2 BP 120/54 L Blood Pressure Location Lt brachial Position Sitting Pulse 73 Pulse Oximetry (%) 97 Oxygen Delivery Method Room Air Intake Visit Reasons: 4 mo NAFLD chronic constipation Intake Note: Patient follow up for NAFLD Chronic constipation. Patient cc: abdominal pain and chronic constipation. Tv Production Assistant Required: No Accompanied by: Family/Other Allergies aspirin [Aspirin] Allergy (Severe, Verified 01/21/25 13:19) HIVES/SWELLING peanut [PEANUTS] Allergy (Severe, Verified 01/21/25 13:19) ITCHING/SWELLING tree nut [TREE NUT] Allergy (Severe, Verified 01/21/25 13:19) ITCHING/SWELLING Benadryl Allergy (Unknown, Verified 01/21/25 13:19) Unknown calcium Allergy (Unknown, Verified 01/21/25 13:19) Unknown Zinc Allergy (Unknown, Uncoded 12/18/24 14:13) Unknown HPI HPI 4 mo NAFLD chronic constipation: Details: 64 yr old f with hx of chely en y bypass being seen for f/u RECAP: She was c/o right sided abdominal pain, sometimes v bad, affected her ability to go to gym not associated with food, like a burning sensation, she also has mid back pain she also has tingling in right thigh, has to keep moving leg to feel better constipation good with linszess occ alcohol use sometimes makes her feel worse I thought it was musculoskeletal pain and was given gabapentin she took neurontin as given 100 mg and seems to have helped her pain a lot was increased she had covid pos test 07/2020 she was having RUQ pain and I gave her capsaicin TEST: last egd 2011-unremarkable h pylori serology was neg. u/s 06/2019-- fatty liver, F2-3 fibrosure us 04/2020--improved metavir score, fatty liver, no masses EGD--07/2019--retained marcus, removed, slight ulceration, esophagitis, mild bx;chronic GEJ inflammation, mild gastritis US 04/2021-- fatty liver, no masses EGD/[place]: 10/13 Endoscopy Findings: patulous LES possible barretts Colonoscopy Findings: colon polyps x2 internal hemorrhoids Path: Endoscopy Findings: patulous LES possible barretts Colonoscopy Findings: colon polyps x2 internal hemorrhoids Path: TA removed and focal colitis INTERIM: she was given mesalamine--apriso it made her feel weird, still taking linaclotide and it helps she has occasional right LLQ pain and discomfort ongoing, most days no diarrhea EXAM: GENERAL: The patient is well developed and nontoxic. VITAL SIGNS:see workflow HEENT: Nonicteric sclerae, PERRLA, EOMI. Oropharynx clear. Moist mucous membranes. Conjunctivae appear well perfused. No thyroid mass. CHEST: Chest wall is nontender. HEART: Regular rate and rhythm without murmurs. LUNGS: Clear to auscultation bilaterally. ABDOMEN: Soft, positive bowel sounds, RLQ tender mild, no organomegaly.no flank tenderness SKIN: No rash, no excessive bruising, petechiae, or purpura. NEUROLOGIC: Cranial nerves II-XII intact without motor/sensory deficit. Psych: normal affect Assessment (1) NAFLD (nonalcoholic fatty liver disease): (2) chronic constipation, prob related to DM, meds and colonic inertia, stable --better with linaclotide 3/ RLQ pain, mild colitis on bx--unable to tolerate budeosnide or mesalamine Plan: 1/ cont with linaclotide since helping 2/ colonoscopy rept 3-4 yrs 3/ cont lansoprazole 4/ check fecal lactoferrin and if pos then entyvio [facility] Medical History Acute respiratory disease Morbid obesity with BMI of 40.0-44.9, adult Morbid obesity with BMI of 50.0-59.9, adult Constipation, unspecified Vitamin B12 deficiency Anemia, unspecified Vitamin D deficiency Fibromyalgia Migraine without status migrainosus, not intractable GERD without esophagitis Nonintractable epilepsy without status epilepticus Moderate persistent asthma without complication Benign essential hypertension Type 2 diabetes mellitus without complication, without long-term current use of insulin Pure hypercholesterolemia Surgical History Hx of endoscopy History of colonoscopy History of removal of laparoscopic gastric banding device H/O gastric bypass Family History Father No problems noted. Mother No problems noted. Social History Household Members: Significant Other and Family Housing: Apartment Alcohol intake: current Alcohol intake frequency: holidays/special occasions only Alcohol type: wine Patient Tobacco Use Status: Never used Tobacco e-Cigarette/Vaping Use: Never Used Second Hand Smoke Exposure: Yes service: No Current occupational status: retired Cognitive needs: No Hearing needs: Yes Vision needs: Yes Physical Exam Vital Signs: Last Vital Signs Pulse 73 01/21/25 13:25 BP 120/54 L 01/21/25 13:25 Pulse Ox 97 01/21/25 13:25 Oxygen Delivery Method Room Air 01/21/25 13:25 BMI result Body Mass Index 42.2 Assessment & Plan Assessment & Plan (1) Colitis: Code(s): K52.9 - Noninfective gastroenteritis and colitis, unspecified Category: Medical Plan: as above Orders: Orders Lactoferrin, Fecal, Quant. Today K51.50 - Left sided colitis without complications, K52.9 - Noninfective gastroenteritis and colitis, unspecified C Reactive Protein Today K52.9 - Noninfective gastroenteritis and colitis, unspecified Medications: Discontinued budesonide DR-ER Discontinued Reason: Patient Refused 9 mg (3 x 3 mg) PO DAILY 90 ea 0RF Coding Level of Care Code Est Pt Level 3 (68834) Diagnoses Colitis K52.9
[2025-01-21 13:25] VITALS: BP 120/54; PULSE 73; O2SAT 97; BMI 42.2
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
== END 2025-01-21 14:02 | disposition home or self-care (01) ==
LOC: HO.HGI 13:06
PROVIDERS: PCP Internal Medicine; Visit Provider Internal Medicine Gastroenterology
DX: K52.9 Noninfective gastroenteritis and colitis, unspecified (principal)
CPT/HCPCS: 99213

== ENCOUNTER → 2025-01-21 13:06 | Outpatient (BNVA) | payer OTHER, SELFPAY | PROVIDERS: PCP Internal Medicine; Visit Provider Internal Medicine Gastroenterology | DX: K52.9 Noninfective gastroenteritis and colitis, unspecified (principal); K51.50 Left sided colitis without complications | CPT/HCPCS: 99212 ==

== ENCOUNTER 2025-04-05 10:30 | Outpatient (REF) | payer OTHER, SELFPAY ==
--- NOTE | ~2025-04-05 | MM_ITS ---
EXAMINATION: MM DIAGNOSTIC DIGITAL BREAST TOMOSYNTHESIS, RIGHT CLINICAL INFORMATION: 6 month follow-up for right breast focal asymmetry without prior sonographic correlate. COMPARISON: Mammography: Comparison is made with available prior examinations. TECHNIQUE: Digital breast tomosynthesis is performed in both the craniocaudal and mediolateral oblique views along with computer-aided detection (CAD). Synthesized 2D images are generated from the tomosynthesis. FINDINGS: The breasts are heterogeneously dense, which may obscure small masses (ACR BI-RADS breast composition Category c). Previously focal asymmetry in the upper outer quadrant is not significantly changed from priors. No prior sonographic correlate was seen. No suspicious calcifications or other abnormal findings. MM/MM tomosynthesis diagnostic RT IMPRESSION: Right breast focal asymmetry upper outer quadrant not significantly changed from priors. No prior sonographic correlate was seen. Recommend 6 month follow-up for further evaluation of stability. ASSESSMENT: BI-RADS BI-RADS 3 - Probably benign finding(s) - 6 month follow-up suggested RECOMMENDATION: 6 Month F/U Results were provided to the patient at time of visit by the technologist. This patient's information was entered into a reminder system with a target due date for their next mammogram. Electronically signed by: Bhavani Blank DO 04/05/2025 08:44 PM EDT
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
== END 2025-04-05 10:31 | disposition home or self-care (01) ==
LOC: HO.MAMMO 10:30
PROVIDERS: PCP Internal Medicine; Visit Provider Internal Medicine
DX: N64.89 Other specified disorders of breast (principal)
CPT/HCPCS: 77061; 77065

== ENCOUNTER → 2025-04-05 11:00 | Outpatient (BNV) | payer OTHER, SELFPAY | PROVIDERS: PCP Internal Medicine; Visit Provider Internal Medicine | DX: R92.8 Other abnormal and inconclusive findings on diagnostic imaging of breast (principal) | CPT/HCPCS: 77061; 77065 ==

== ENCOUNTER 2025-04-18 14:35 | Outpatient (AMB) | payer OTHER, SELFPAY ==
[2025-04-18 14:42] VITALS: BP 120/78; PULSE 91; O2SAT 97; BMI 43.3
--- NOTE | 2025-04-18 14:42 | MHC.PC.OV ---
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 Accompanied by: Self / Same As Patient Allergies aspirin (Aspirin) Allergy (Severe, Verified 04/18/25 15:04) HIVES/SWELLING peanut (PEANUTS) Allergy (Severe, Verified 04/18/25 15:04) ITCHING/SWELLING tree nut (TREE NUT) Allergy (Severe, Verified 04/18/25 15:04) ITCHING/SWELLING Benadryl Allergy (Unknown, Verified 04/18/25 15:04) Unknown calcium Allergy (Unknown, Verified 04/18/25 15:04) Unknown Zinc Allergy (Unknown, Uncoded 04/18/25 15:04) Unknown Medication List - Last Reconciled 04/18/25 by Delmar Sylvester MD albuterol sulfate 90 mcg/actuation (ProAir HFA) 2 puffs inhalation Q6H PRN amitriptyline 50 mg PO BEDTIME atorvastatin 40 mg PO DAILY 90 days blood sugar diagnostic (FreeStyle Lite Strips) TEST ONCE DAILY budesonide-formoterol 160-4.5 mcg/actuation (Symbicort) 2 puffs inhalation BID capsaicin 0.025% 1 appl topical TID cholecalciferol (vitamin D3) (Vitamin D3) 25 mcg PO DAILY famotidine 40 mg PO BEDTIME folic acid 1 mg PO DAILY furosemide 20 mg (1/2 x 40 mg) PO QAM gabapentin 100 mg PO BID lancets (FreeStyle Lancets) TEST ONCE DAILY lansoprazole 30 mg PO DAILY lidocaine 5% 1 appl topical TID linaclotide (Linzess) 290 mcg PO DAILY lubiprostone (Amitiza) 24 mcg PO BID metformin ER 500 mg PO QPM 90 days montelukast 10 mg PO DAILY omalizumab (Xolair) 300 mg subcut Q4W 28 days phenobarbital 97.2 mg PO DAILY sertraline 50 mg PO DAILY sitagliptin phosphate (Januvia) 50 mg PO DAILY 30 days topiramate 100 mg PO BEDTIME Tobacco use date assessed: 04/18/25 Dental Screening Dental Screen Date: 04/18/25 Did you have a dental visit in the last 12 months?: No Did you have a dental problem in the last 6 months where you did not have access to dental care?: No Was dental information given to patient?: No HPI 3mth f/u HPI Details Patient comes in today for her follow-up visit States that she feels okay She denies any headaches or dizziness Denies any chest pain, no increased shortness of breath No nausea/vomiting, no abdominal pain No change in bowel habits noted She was not able to get her follow-up labs done prior to her appointment today [facility] Medical History Acute respiratory disease Morbid obesity with BMI of 40.0-44.9, adult Morbid obesity with BMI of 50.0-59.9, adult Constipation, unspecified Vitamin B12 deficiency Anemia, unspecified Vitamin D deficiency Fibromyalgia Migraine without status migrainosus, not intractable GERD without esophagitis Nonintractable epilepsy without status epilepticus Moderate persistent asthma without complication Benign essential hypertension Type 2 diabetes mellitus without complication, without long-term current use of insulin Pure hypercholesterolemia Surgical History Hx of endoscopy History of colonoscopy History of removal of laparoscopic gastric banding device H/O gastric bypass Family History Father No problems noted. Mother No problems noted. Social History Household Members: Significant Other and Family Housing: Apartment Alcohol intake: current Alcohol intake frequency: holidays/special occasions only Alcohol type: wine Patient Tobacco Use Status: Never used Tobacco e-Cigarette/Vaping Use: Never Used Second Hand Smoke Exposure: Yes service: No Current occupational status: retired Current occupational exposures/hazards: No Cognitive needs: No Hearing needs: Yes Vision needs: Yes Questionnaire PHQ-9 Over the last 2 weeks, how often have you been bothered by any of the following problems? 1. Little interest or pleasure in doing things: not at all 2. Feeling down, depressed, or hopeless: not at all 3. Trouble falling or staying asleep, or sleeping too much: not at all 4. Feeling tired or having little energy: not at all 5. Poor appetite or overeating: not at all 6. Feeling bad about yourself - or that you are a failure or have let yourself or your family down: not at all 7. Trouble concentrating on things, such as reading the newspaper or watching television: not at all 8. Moving or speaking so slowly that other people could have noticed. Or the opposite - being so fidgety or restless that you have been moving around a lot more than usual: not at all 9. Thoughts that you would be better off or of hurting yourself in some way: not at all Total score: 0 Depression Screening Interpretation: Negative Depression Screening Done: Yes 46558 - PHQ-9 Billing: Yes Source: Developed by Drs. Lázaro Tsai, Lara Madden, Wallace Cornejo and colleagues, with an educational emmett from [employer]. Thrive Questionnaire Date Thrive assessed: 04/18/25 I am a: Patient What is your living situation today?: I have a steady place to live Within the past 12 months, did the food you bought not last and you didn't have the money to get more?: Never true Within the past 12 months, did you worry whether your food would run out before you got money to buy more?: Never true Do you have trouble paying for medicines?: No Do you have trouble getting transportation to medical appointments?: Yes Do you have trouble paying your heating and electricity bill?: No Do you have trouble taking care of your child, family member or friend?: Yes Do you have trouble with day-to-day activities such as bathing, preparing meals, shopping, managing finances, etc.?: No Are you currently unemployed and looking for a job?: No Are you interested in more education?: No Please select the resources that you would like help with: None Currently or been in a relationship where the following occur: No concerns reported THRIVE Score: 1 AUDIT C Alcohol Use Questionnaire (AUDIT-C) 1. How often do you have a drink containing alcohol?: Never 3. How often do you have six or more drinks on one occasion?: Never Total Score: 0 Score Reviewed/Action Taken: Yes ABHINAV-7 AMB Questionnaire ABHINAV-7 Date ABHINAV - 7 assessed: 04/18/25 Feeling nervous, anxious, or on edge: 0 = Not at all Not being able to stop or control worryin = Not at all Worrying too much about different things: 0 = Not at all Trouble relaxin = Not at all Being so restless that it is hard to sit still: 0 = Not at all Becoming easily annoyed or irritable: 0 = Not at all Feeling afraid as if something awful might happen: 0 = Not at all Total ABHINAV-7 score (0-4 normal; 5-9 mild; 10-14 moderate; 15-21 severe): 0 Source: Developed by Drs. Lázaro Tsai, Lara Madden, Wallace Cornejo and colleagues, with an educational emmett from [employer]. Review of Systems Const Denies chills, Reports difficulty sleeping, Reports fatigue, Denies fever(s) and Denies headache(s) ENT Denies dysphagia, Denies dizziness, Denies otalgia, Denies headache(s), Denies neck pain, Denies odynophagia and Denies sore throat Card Denies chest pain, Denies palpitations and Denies dyspnea Resp Denies chest congestion, Denies cough and Denies dyspnea GI Denies abdominal pain, Denies constipation, Denies dysphagia, Denies heartburn, Reports diarrhea, Denies nausea, Denies odynophagia and Denies vomiting Denies difficulty voiding, Denies nocturia, Denies dysuria and Denies urinary urgency Musc Denies back pain and Denies neck pain Skin/Breast Denies rash Neuro Denies dizziness and Denies headache(s) Psych Reports anxiety and Reports depression (Rx helping ) Endo Reports fatigue and Denies palpitations Physical exam (Primary Care) Vital Signs: Last Vital Signs Pulse 91 04/18/25 14:42 BP 120/78 04/18/25 14:42 Pulse Ox 97 04/18/25 14:42 Oxygen Delivery Method Room Air 04/18/25 14:42 BMI result Body Mass Index 43.3 Tobacco/Smoking Status: Tobacco use Status Tobacco use date assessed 04/18/25 04/18/25 14:44 Patient Tobacco Use Status Never used Tobacco 04/18/25 14:44 e-Cigarette/Vaping Use Never Used 04/18/25 14:44 PHQ-9: PHQ-9 Score PHQ-9: Total score 0 04/18/25 15:14 Depression Screening Interpretation: Negative Thrive Assessment: Date of Thrive Assessment Date Thrive assessed 04/18/25 04/18/25 14:44 Currently or been in a relationship where the following occur: No concerns reported Const General: no acute distress and alert HENMT Throat: Yes posterior oropharynx normal and Yes tonsils normal (no TP congestion noted) Neck Neck: Yes supple and No lymphadenopathy Thyroid: Thyroid normal Resp Auscultation: clear to auscultation bilaterally, no rales and no wheezes Cardio Rate: regular rate Rhythm: regular rhythm Heart sounds: no murmurs GI Palpation (GI): Soft to palpation and nontender Auscultation: normal bowel sounds General: Yes no CVA tenderness Back/Spine/Pelvis Back: no CVA tenderness Thoracic/Lumbar Spine: No lumbar spinal tenderness Skin Rashes: no rashes Extrem General: Yes no clubbing, cyanosis or edema Results AMB Hemoglobin A1c AMB Hemoglobin A1c 6.4 % Last Edit by LORI Orr on 04/18/25 15:16 Results Reviewed Results Reviewed: Laboratory Last Values Hgb A1c (Clinic) 6.4 % (4.0-6.0) H 04/18/25 15:15 Coding Level of Care Code Est Pt Level 4 (31752) Diagnoses Type 2 diabetes mellitus without complication, without long-term current use of insulin E11.9 Pure hypercholesterolemia E78.00 Benign essential hypertension I10 Moderate persistent asthma without complication J45.40 Nonintractable epilepsy without status epilepticus, unspecified epilepsy type G40.909 Epilepsy type: unspecified Migraine without status migrainosus, not intractable, unspecified migraine type G43.909 Migraine type: unspecified GERD without esophagitis K21.9 Constipation, unspecified constipation type K59.00 Constipation type: unspecified constipation type Fibromyalgia M79.7 Elevated TSH R79.89 Vitamin D deficiency E55.9 Anemia, unspecified type D64.9 Anemia type: unspecified type Vitamin B12 deficiency E53.8 Reactive depression F32.9 Depression Type: reactive depression Morbid obesity with BMI of 40.0-44.9, adult E66.01; Z68.41 Additional Codes PHQ-9 - 19740 - PHQ-9 Billing: Yes ([id number]) Assessment & Plan Assessment & Plan (1) Type 2 diabetes mellitus without complication, without long-term current use of insulin: Code(s): E11.9 - Type 2 diabetes mellitus without complications Category: Medical Plan: Her in-office HgbA1c today is at 6.4% (HgbA1c was at 6.1% a few months ago) - goal is at least <7.0% but ideally <6.5% Reinforced diabetic diet Per patient's request, will have her stop taking her Metformin 500 mg qd, which she feels is not good for her liver Continue Januvia 50 mg QD Will start her additionally on Lantus 10 units Q HS (2) Pure hypercholesterolemia: Code(s): E78.00 - Pure hypercholesterolemia, unspecified Category: Medical Plan: Patient did not get her follow up labs done prior to her appointment today Reinforced low cholesterol diet Continue Atorvastatin 40 mg QD Will recheck her labs and fasting lipids in 3 months for follow-up (3) Benign essential hypertension: Code(s): I10 - Essential (primary) hypertension Category: Medical Plan: Reinforced low-sodium diet -? goal is systolic BP of around 120 mm or less Continue Furosemide 20 mg QD Patient states that she has not had any syncopal episodes or dizziness since her Furosemide dose was lowered to 20 mg QD last year She is reminded to continue monitoring her blood pressure regularly (4) Moderate persistent asthma without complication: Code(s): J45.40 - Moderate persistent asthma, uncomplicated Category: Medical Plan: Her asthma symptoms continue to be well-controlled on her current meds Continue Breo Ellipta 200 mcg QD, Montelukast 10 mg QD, Ventolin HFA 1 to 2 puffs Q 6 hours as needed and Xolair 300 mg SQ every 4 weeks Follow up with pulmonary as scheduled (5) Nonintractable epilepsy without status epilepticus: Code(s): G40.909 - Epilepsy, unspecified, not intractable, without status epilepticus Category: Medical Qualifiers: Epilepsy type: unspecified Qualified Code(s): G40.909 - Epilepsy, unspecified, not intractable, without status epilepticus Plan: Stable with no recent seizures Continue Phenobarbital 97.2 mg 1 tablet QD Will continue to monitor her serum phenobarbital level regularly Follow-up with neurology as scheduled (6) Migraine without status migrainosus, not intractable: Code(s): G43.909 - Migraine, unspecified, not intractable, without status migrainosus Category: Medical Qualifiers: Migraine type: unspecified Qualified Code(s): G43.909 - Migraine, unspecified, not intractable, without status migrainosus Plan: Stable/controlled on prophylactic Rx Continue Topiramate 100 mg Q HS Follow-up with neurology as scheduled (7) GERD without esophagitis: Code(s): K21.9 - Gastro-esophageal reflux disease without esophagitis Category: Medical Plan: Dietary restrictions reinforced Continue Prevacid 30 mg QD (8) Constipation, unspecified: Code(s): K59.00 - Constipation, unspecified Category: Medical Qualifiers: Constipation type: unspecified constipation type Qualified Code(s): K59.00 - Constipation, unspecified Plan: Patient is encouraged again to continue increased oral fluids and dietary fiber Continue Linzess capsule 290 mcg 1 capsule QD 30 minutes before the 1st meal of the day on an empty stomach (9) Fibromyalgia: Code(s): M79.7 - Fibromyalgia Category: Medical Plan: Patient is again also encouraged on regular exercise and physical activity to help manage her fibromyalgia symptoms better Continue Amitriptyline 50 mg Q HS (10) Elevated TSH: Code(s): R79.89 - Other specified abnormal findings of blood chemistry Category: Medical Plan: Her serum TSH was still slightly elevated on her most recent labs done a few months ago ; her free T4 level remained normal then Will continue to monitor her TFTs regularly (11) Vitamin D deficiency: Code(s): E55.9 - Vitamin D deficiency, unspecified Category: Medical Plan: Continue Vitamin D3 1000 units QD (12) Anemia, unspecified: Code(s): D64.9 - Anemia, unspecified Category: Medical Qualifiers: Anemia type: unspecified type Qualified Code(s): D64.9 - Anemia, unspecified Plan: Her Hgb was slightly low at 11.8 on her most recent labs; Hct was normal Will continue to monitor her CBC regularly (13) Vitamin B12 deficiency: Code(s): E53.8 - Deficiency of other specified B group vitamins Category: Medical Plan: Corrected - will continue to monitor her B12 level regularly (14) Depression: Code(s): F32.A - Depression, unspecified Category: Medical Qualifiers: Depression Type: reactive depression Qualified Code(s): F32.9 - Major depressive disorder, single episode, unspecified Plan: Continue Sertraline 50 mg QD (15) Morbid obesity with BMI of 40.0-44.9, adult: Comment: S/P gastric bypass surgery in 2016 Code(s): E66.01 - Morbid (severe) obesity due to excess calories; Z68.41 - Body mass index [BMI] 40.0-44.9, adult Category: Medical Plan: Reinforced diet/exercise as tolerated/lose weight Plan Follow up in 3 months - will just have patient use her current orders (updated) for her next lab draw Orders: Orders AMB Hemoglobin A1c 04/18/25 Z13.9 - Encounter for screening, unspecified Medications: New insulin glargine (Lantus Solostar U-100 Insulin) 10 units (0.1 mL) subcut QPM 3 mL 5RF 30 days pen needle, diabetic as directed once a day 90 ea 1RF E11.9 - Type 2 diabetes mellitus without complications Discontinued metformin ER Discontinued Reason: Doctor's Order 500 mg PO QPM 90 days 90 tabs 1RF
== END 2025-04-18 15:43 | disposition home or self-care (01) ==
LOC: HO.HMCH 14:35
PROVIDERS: PCP Internal Medicine; Visit Provider Internal Medicine
DX: Z13.9 Encounter for screening, unspecified (principal)

== ENCOUNTER → 2025-04-18 14:35 | Outpatient (BNVA) | payer OTHER, SELFPAY | PROVIDERS: PCP Internal Medicine; Visit Provider Internal Medicine | DX: E11.9 Type 2 diabetes mellitus without complications (principal); E78.00 Pure hypercholesterolemia, unspecified; I10 Essential (primary) hypertension; J45.40 Moderate persistent asthma, uncomplicated; K21.9 Gastro-esophageal reflux disease without esophagitis; K59.00 Constipation, unspecified; M79.7 Fibromyalgia; R79.89 Other specified abnormal findings of blood chemistry; E55.9 Vitamin D deficiency, unspecified; D64.9 Anemia, unspecified; E53.8 Deficiency of other specified B group vitamins; F32.9 Major depressive disorder, single episode, unspecified; E66.01 Morbid (severe) obesity due to excess calories; Z68.41 Body mass index [BMI] 40.0-44.9, adult | CPT/HCPCS: 83036; 96127; 99212 ==

== ENCOUNTER 2025-05-23 08:39 | Outpatient (REF) | payer OTHER, SELFPAY ==
[2025-05-23 09:20] LABS: MANUAL DIFF FLAG NO
[2025-05-23 10:28] LABS: Hematocrit 34.6 % (37.0-47.0); Hemoglobin 10.8 g/dl (12.0-16.0); Imm Gran Abs Auto 0.03 X10*3/uL (0.00-0.03); Imm Gran Pct Auto 0.4 % (0.0-0.4); Lymphocytes Absolute Auto 2.7 X10*3/uL (1.2-4.9); Mean Corpuscular HGB Conc 31.2 g/dl (31.0-35.0); Mean Corpuscular Hemoglobin 26.3 pg (27.0-33.0); Mean Corpuscular Volume 84.2 fL (80.0-98.0); NRBC Abs Auto 0.000 X10*3/uL (0.0-0.012); NRBC Pct Auto 0.0 /100WBC (0.0-0.2); Platelet Count 230 X10*3/uL (160-400); Red Blood Count 4.11 X10*6/uL (4.20-5.50); White Blood Count 7.7 X10*3/uL (4.8-10.8)
== END 2025-05-23 08:40 | disposition home or self-care (01) ==
LOC: HO.LAB 08:39
PROVIDERS: Internal Medicine; PCP Internal Medicine; Visit Provider Internal Medicine Gastroenterology
DX: K62.5 Hemorrhage of anus and rectum (principal); K52.9 Noninfective gastroenteritis and colitis, unspecified
CPT/HCPCS: 36415; 85025; 86140

== ENCOUNTER 2025-05-27 14:02 | Outpatient (REF) | payer OTHER, SELFPAY ==
[2025-05-27 15:54] LABS: Appearance Urine Cloudy; Glucose Urine UA Negative (Negative); PH 5.5 (5.0-9.0); Specific Gravity - Urine >= 1.030 (1.005-1.025)
[2025-06-01 00:44] LABS: Lactoferrin, Fecal, Quant. 9.11 mcg/mL (<7.25)
== END 2025-05-27 14:03 | disposition home or self-care (01) ==
LOC: HO.LAB 14:02
PROVIDERS: PCP Internal Medicine; Visit Provider Internal Medicine Gastroenterology
DX: K51.50 Left sided colitis without complications (principal); K52.9 Noninfective gastroenteritis and colitis, unspecified; R30.0 Dysuria
CPT/HCPCS: 81003; 83631; 99212

== ENCOUNTER 2025-05-27 14:02 | Outpatient (AMB) | payer OTHER, SELFPAY ==
--- NOTE | 2025-05-27 14:11 | A.OFFVIS_ITS ---
Vital Signs 05/27/25 14:12 Height 5 ft 4 in Weight 253 lb 8.505 oz BMI 43.5 BP 110/70 Blood Pressure Location Lt brachial Position Sitting Pulse 87 Intake Visit Reasons: 4m Intake Note: Sammi presents in the office as a 4 month follow up. CC: She states she has been feeling good - if she does not take Linzess she will have bad bloating and constipation. 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 Allergies aspirin (Aspirin) Allergy (Severe, Verified 05/27/25 14:13) HIVES/SWELLING peanut (PEANUTS) Allergy (Severe, Verified 05/27/25 14:13) ITCHING/SWELLING tree nut (TREE NUT) Allergy (Severe, Verified 05/27/25 14:13) ITCHING/SWELLING Benadryl Allergy (Unknown, Verified 05/27/25 14:13) Unknown calcium Allergy (Unknown, Verified 05/27/25 14:13) Unknown Zinc Allergy (Unknown, Uncoded 05/27/25 14:13) Unknown HPI HPI 4m: Details: 64 yr old f with hx of chely en y bypass being seen for f/u RECAP: She was c/o right sided abdominal pain, sometimes v bad, affected her ability to go to gym not associated with food, like a burning sensation, she also has mid back pain she also has tingling in right thigh, has to keep moving leg to feel better constipation good with linszess occ alcohol use sometimes makes her feel worse I thought it was musculoskeletal pain and was given gabapentin she took neurontin as given 100 mg and seems to have helped her pain a lot was increased she had covid pos test 07/2020 she was having RUQ pain and I gave her capsaicin she was given mesalamine--apriso it made her feel weird, TEST: last egd 2011-unremarkable h pylori serology was neg. u/s 06/2019-- fatty liver, F2-3 fibrosure us 04/2020--improved metavir score, fatty liver, no masses EGD--07/2019--retained marcus, removed, slight ulceration, esophagitis, mild bx;chronic GEJ inflammation, mild gastritis US 04/2021-- fatty liver, no masses EGD/[place]: 10/13 Endoscopy Findings: patulous LES possible barretts Colonoscopy Findings: colon polyps x2 internal hemorrhoids Path: Endoscopy Findings: patulous LES possible barretts Colonoscopy Findings: colon polyps x2 internal hemorrhoids Path: TA removed and focal colitis INTERIM: she is taking linaclotide and lansoprazole and both are helping she is waiting to submit stool sample no n/v no blood in stool no melena mild anemia on labs EXAM: GENERAL: The patient is well developed and nontoxic. VITAL SIGNS:see workflow HEENT: Nonicteric sclerae, PERRLA, EOMI. Oropharynx clear. Moist mucous membranes. Conjunctivae appear well perfused. No thyroid mass. CHEST: Chest wall is nontender. HEART: Regular rate and rhythm without murmurs. LUNGS: Clear to auscultation bilaterally. ABDOMEN: Soft, positive bowel sounds, RLQ tender mild, no organomegaly.no flank tenderness SKIN: No rash, no excessive bruising, petechiae, or purpura. NEUROLOGIC: Cranial nerves II-XII intact without motor/sensory deficit. Psych: normal affect Assessment (1) NAFLD (nonalcoholic fatty liver disease): (2) chronic constipation, prob related to DM, meds and colonic inertia, stable --better with linaclotide 3/ RLQ pain, mild colitis on bx--unable to tolerate budeosnide or mesalamine Plan: 1/ cont with linaclotide since helping 2/ colonoscopy rept 3-4 yrs 3/ cont lansoprazole 4/ check fecal lactoferrin and if pos then entyvio [facility] Medical History Acute respiratory disease Morbid obesity with BMI of 40.0-44.9, adult Morbid obesity with BMI of 50.0-59.9, adult Constipation, unspecified Vitamin B12 deficiency Anemia, unspecified Vitamin D deficiency Fibromyalgia Migraine without status migrainosus, not intractable GERD without esophagitis Nonintractable epilepsy without status epilepticus Moderate persistent asthma without complication Benign essential hypertension Type 2 diabetes mellitus without complication, without long-term current use of insulin Pure hypercholesterolemia Surgical History Hx of endoscopy History of colonoscopy History of removal of laparoscopic gastric banding device H/O gastric bypass Family History Father No problems noted. Mother No problems noted. Social History Household Members: Significant Other and Family Housing: Apartment Alcohol intake: current Alcohol intake frequency: holidays/special occasions only Alcohol type: wine Patient Tobacco Use Status: Never used Tobacco e-Cigarette/Vaping Use: Never Used Second Hand Smoke Exposure: Yes service: No Current occupational status: retired Current occupational exposures/hazards: No Cognitive needs: No Hearing needs: Yes Vision needs: Yes Physical Exam Vital Signs: Last Vital Signs Pulse 87 05/27/25 14:12 BP 110/70 05/27/25 14:12 BMI result Body Mass Index 43.5 Assessment & Plan Assessment & Plan (1) Colitis: Code(s): K52.9 - Noninfective gastroenteritis and colitis, unspecified Category: Medical Plan: as above Orders: Orders UA CC w/rflx Micro + Cult Today R30.0 - Dysuria Coding Level of Care Code Est Pt Level 3 (79171) Diagnoses Colitis K52.9
[2025-05-27 14:12] VITALS: BP 110/70; PULSE 87; BMI 43.5
== END 2025-05-27 14:49 | disposition home or self-care (01) ==
LOC: HO.HGI 14:03
PROVIDERS: PCP Internal Medicine; Visit Provider Internal Medicine Gastroenterology
DX: K52.9 Noninfective gastroenteritis and colitis, unspecified (principal)
CPT/HCPCS: 99213

== ENCOUNTER 2025-07-04 08:24 | Outpatient (REF) | payer OTHER, SELFPAY ==
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
== END 2025-07-04 08:25 | disposition home or self-care (01) ==
LOC: HO.HAP 08:24
PROVIDERS: Visit Provider Internal Medicine
DX: Z13.89 Encounter for screening for other disorder (principal)

== ENCOUNTER 2025-07-15 08:44 | Outpatient (AMB) | payer OTHER, SELFPAY ==
--- NOTE | 2025-07-15 08:47 | A.OFFVIS_ITS ---
Intake Visit Reasons: 6 month f/u Allergies aspirin (Aspirin) Allergy (Severe, Verified 07/15/25 08:52) HIVES/SWELLING peanut (PEANUTS) Allergy (Severe, Verified 07/15/25 08:52) ITCHING/SWELLING tree nut (TREE NUT) Allergy (Severe, Verified 07/15/25 08:52) ITCHING/SWELLING Benadryl Allergy (Unknown, Verified 07/15/25 08:52) Unknown calcium Allergy (Unknown, Verified 07/15/25 08:52) Unknown Zinc Allergy (Unknown, Uncoded 07/15/25 08:52) Unknown Medication List - Last Reconciled 07/15/25 by Hyun Rosado CNP albuterol sulfate 90 mcg/actuation (ProAir HFA) 2 puffs inhalation Q6H PRN amitriptyline 50 mg PO BEDTIME atorvastatin 40 mg PO DAILY 90 days blood sugar diagnostic (FreeStyle Lite Strips) TEST ONCE DAILY budesonide-formoterol 160-4.5 mcg/actuation (Symbicort) 2 puffs inhalation BID capsaicin 0.025% 1 appl topical TID cholecalciferol (vitamin D3) (Vitamin D3) 25 mcg PO DAILY famotidine 40 mg PO BEDTIME folic acid 1 mg PO DAILY furosemide 20 mg (1/2 x 40 mg) PO QAM gabapentin 100 mg orally 1 capsule in the morning and 3 capsules at bedtime; insulin glargine (Lantus Solostar U-100 Insulin) 10 units (0.1 mL) subcut QPM 30 days lancets (FreeStyle Lancets) TEST ONCE DAILY lansoprazole 30 mg PO DAILY lidocaine 5% 1 appl topical TID linaclotide (Linzess) 290 mcg PO DAILY lubiprostone (Amitiza) 24 mcg PO BID montelukast 10 mg PO DAILY omalizumab (Xolair) 300 mg subcut Q4W 28 days pen needle, diabetic as directed once a day phenobarbital 97.2 mg PO BEDTIME 90 days sertraline 50 mg PO DAILY sitagliptin phosphate (Januvia) 50 mg PO DAILY 30 days topiramate 200 mg PO BID HPI Comments Details: She was doing okay. No seizures. Headaches were okay with amitriptyline. She was taking gabapentin 100mg in the morning and 300mg at bedtime which was helping with pain. Pain was worse some days than others, usually worse with warmer weather. Skin was not as sensitive anymore. Some trouble falling asleep. Some ongoing stress, caring for mother. She had seizure in 08/2024. She was under a lot of stress and went to lay down. She remembers her nephew waking her up saying she was shaking. She bit her tongue and was incontinent of urine.?No missed doses of medication.? Depressed after losing her partner for 17yrs in 12/2022 from kidney failure, stroke, diabetes. Since 07/2022 she has pain in both legs and some in feet daily. Blankets bother her at night. She had redo of lap band and hernia on 06/29/16. She has morbid obesity status post lap band surgery. Had a bout of depression. [facility] Medical History Acute respiratory disease Morbid obesity with BMI of 40.0-44.9, adult Morbid obesity with BMI of 50.0-59.9, adult Constipation, unspecified Vitamin B12 deficiency Anemia, unspecified Vitamin D deficiency Fibromyalgia Migraine without status migrainosus, not intractable GERD without esophagitis Nonintractable epilepsy without status epilepticus Moderate persistent asthma without complication Benign essential hypertension Type 2 diabetes mellitus without complication, without long-term current use of insulin Pure hypercholesterolemia Surgical History Hx of endoscopy History of colonoscopy History of removal of laparoscopic gastric banding device H/O gastric bypass Family History Father No problems noted. Mother No problems noted. Social History Household Members: Significant Other and Family Housing: Apartment Alcohol intake: current Alcohol intake frequency: holidays/special occasions only Alcohol type: wine Patient Tobacco Use Status: Never used Tobacco e-Cigarette/Vaping Use: Never Used Second Hand Smoke Exposure: Yes service: No Current occupational status: retired Current occupational exposures/hazards: No Cognitive needs: No Hearing needs: Yes Vision needs: Yes Review of Systems Const Denies chills, Denies daytime sleepiness, Reports difficulty sleeping, Denies fatigue, Denies fever(s), Denies frequent falls, Reports headache(s), Denies increased appetite, Denies poor appetite, Denies snoring, Denies weakness, Denies weight gain and Denies weight loss Eyes Denies loss of vision ENT Denies vertigo, Denies dizziness, Reports headache(s) and Denies neck pain Card Denies chest pain at rest, Denies chest pain with activity, Denies syncope, Denies leg edema, Denies palpitations, Denies dyspnea and Denies dyspnea on exertion Resp Denies cough, Denies dyspnea, Denies dyspnea on exertion and Denies snoring GI Denies abdominal pain, Denies constipation, Denies heartburn, Denies diarrhea and Denies nausea Denies urinary frequency, Denies urinary incontinence and Denies urinary urgency Musc Denies abnormal gait, Denies back pain, Denies myalgias, Denies arthralgias, Denies neck pain, Denies numbness and Denies tingling Neuro Denies abnormal gait, Denies vertigo, Denies dizziness, Denies syncope, Denies frequent falls, Reports headache(s), Denies lack of coordination, Denies loss of vision, Denies memory loss, Denies numbness, Denies Other visual disturbances, Denies restless legs, Denies seizure-like activity, Denies tingling, Denies paresthesias, Denies tremor(s) and Denies weakness Psych Denies anxiety, Reports depression, Denies auditory hallucinations, Denies memory loss and Denies visual hallucinations Endo Denies fatigue and Denies palpitations Physical Exam Const Other: General Appearance:? normal, in no acute distress. Heart:? S1, S2 normal, no murmurs. Lungs:? clear anteriorly and posteriorly. Musculoskeletal:? normal. Extremities:? no edema. Psych:? alert, oriented, cognitive function intact, cooperative with exam. Neuro Other: Abnormal Neurological Findings:?none.? Mental Status: alert and oriented X 3. Normal attention, orientation, memory, and affect. Cranial Nerves: Pupils are equal, round, and reactive to light. External ocular muscles are intact. Visual garg are full, no ptosis. Face is symmetrical, no facial weakness or droop. Facial sensations are normal. Tongue protrudes in midline. Palate elevates symmetrically. Shoulder shrugging is normal Motor Examination: Normal muscle tone, bulk and strength. No atrophy or fasciculations. No drift of the extended upper extremities. DTR 2+. Plantars are flexor. Sensory Exam: Normal light touch, temperature, pinprick, vibration, and joint- position sensations. Rhomberg sign is absent. Coordination: No ataxia. No titubation. Gait Exam: Within normal limits. Cerebellar Signs: Hdfahd-my-yhvu is okay. Extrapyramidal System: No tremor, rigidity with normal facial expressions. No bradykinesia. No bradyphrenia. Normal arm swing and posture. No propulsion or retropulsion. Speech: Normal. Results Reviewed Results Reviewed: 11/29/22 NCV/EMG LE Sensory greater than motor axonal peripheral neuropathy diffusely in the lower extremities. Normal EMG in the left L4-S1 innervated muscles. Assessment & Plan Assessment & Plan (1) Seizure disorder: Code(s): G40.909 - Epilepsy, unspecified, not intractable, without status epilepticus Category: Medical Plan: Continue phenobarbital 97.2mg 1 tablet at bedtime. Continue topiramate 100mg 2 tablets twice a day. (2) Fibromyalgia: Code(s): M79.7 - Fibromyalgia Category: Medical Plan: Continue gabapentin 100mg 1 capsule in the morning and 3 capsules at bedtime. (3) Peripheral neuropathy: Code(s): G62.9 - Polyneuropathy, unspecified Category: Medical Qualifiers: Peripheral neuropathy type: polyneuropathy, unspecified Qualified Code(s): G62.9 - Polyneuropathy, unspecified (4) Tension headache: Code(s): G44.209 - Tension-type headache, unspecified, not intractable Category: Medical Plan: Continue amitriptyline 50mg 1 tablet at bedtime. Plan . Medications: Changed From gabapentin 100 mg orally 1 capsule in the morning and 3 capsules at bedtime; To gabapentin 100 mg orally 1 capsule in the morning and 3 capsules at bedtime; 360 caps 1RF 90 days From topiramate 200 mg PO BID To topiramate 200 mg (2 x 100 mg) PO BID 360 tabs 1RF 90 days From amitriptyline 50 mg PO BEDTIME To amitriptyline 50 mg PO BEDTIME 90 tabs 1RF 90 days Coding Level of Care Code Est Pt Level 4 (62032) Diagnoses Seizure disorder G40.909 Fibromyalgia M79.7 Peripheral polyneuropathy G62.9 Peripheral neuropathy type: polyneuropathy, unspecified Tension headache G44.209
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
== END 2025-07-15 09:05 | disposition home or self-care (01) ==
LOC: HO.HSM 08:45
PROVIDERS: PCP Internal Medicine; Referring Provider Internal Medicine; Visit Provider Registered Nurse
DX: G40.909 Epilepsy, unspecified, not intractable, without status epilepticus (principal); M79.7 Fibromyalgia; G62.9 Polyneuropathy, unspecified; G44.209 Tension-type headache, unspecified, not intractable
CPT/HCPCS: 99214

== ENCOUNTER → 2025-07-15 08:44 | Outpatient (BNVA) | payer OTHER, SELFPAY | PROVIDERS: PCP Internal Medicine; Referring Provider Internal Medicine; Visit Provider Registered Nurse | DX: G40.909 Epilepsy, unspecified, not intractable, without status epilepticus (principal); M79.7 Fibromyalgia; G62.9 Polyneuropathy, unspecified; G44.209 Tension-type headache, unspecified, not intractable; Z79.899 Other long term (current) drug therapy | CPT/HCPCS: 99212 ==

== ENCOUNTER 2025-07-15 09:37 | Outpatient (REF) | payer OTHER, SELFPAY | END 2025-07-15 09:38 | disposition home or self-care (01) | LOC: HO.HAP 09:37 | PROVIDERS: Visit Provider Internal Medicine | DX: Z46.1 Encounter for fitting and adjustment of hearing aid (principal); H90.6 Mixed conductive and sensorineural hearing loss, bilateral | CPT/HCPCS: V5299 ==

== ENCOUNTER 2025-07-22 11:00 | Outpatient (REF) | payer OTHER, SELFPAY ==
[2025-07-22 11:36] LABS: MANUAL DIFF FLAG NO
[2025-07-22 11:53] LABS: Hematocrit 37.6 % (37.0-47.0); Hemoglobin 11.6 g/dl (12.0-16.0); Imm Gran Abs Auto 0.05 X10*3/uL (0.00-0.03); Imm Gran Pct Auto 0.6 % (0.0-0.4); Lymphocytes Absolute Auto 2.7 X10*3/uL (1.2-4.9); Mean Corpuscular HGB Conc 30.9 g/dl (31.0-35.0); Mean Corpuscular Hemoglobin 25.8 pg (27.0-33.0); Mean Corpuscular Volume 83.6 fL (80.0-98.0); NRBC Abs Auto 0.000 X10*3/uL (0.0-0.012); NRBC Pct Auto 0.0 /100WBC (0.0-0.2); Platelet Count 262 X10*3/uL (160-400); Red Blood Count 4.50 X10*6/uL (4.20-5.50); White Blood Count 8.0 X10*3/uL (4.8-10.8)
[2025-07-22 12:52] LABS: Alanine Aminotransferase 23 U/L (0-31); Albumin Level 3.9 g/dL (3.5-5.0); Alkaline Phosphatase 188 U/L (39-117); Anion Gap 9 (12-20); Aspartate Amino Transferase 22 U/L (5-31); Blood Urea Nitrogen 14 mg/dL (9-16); Calcium 9.0 mg/dL (8.4-10.2); Carbon Dioxide 24 mmol/L (22-29); Chloride 115 mmol/L (96-108); Cholesterol 190 mg/dL (<200); Estimated Glomerular Filt Rate > 60; HDL Cholesterol 61 mg/dL (>40); Potassium 3.7 mmol/L (3.3-5.1); Sodium 144 mmol/L (135-145); Total Protein 7.0 g/dL (6.5-8.0); Triglycerides 127 mg/dL (<150)
[2025-07-22 13:49] LABS: Free T4 (Free Thyroxine) 0.79 ng/dL (0.71-1.85)
== END 2025-07-22 11:01 | disposition home or self-care (01) ==
LOC: HO.LAB 11:00
PROVIDERS: Visit Provider Internal Medicine
DX: E11.9 Type 2 diabetes mellitus without complications (principal); E78.00 Pure hypercholesterolemia, unspecified; D64.9 Anemia, unspecified
CPT/HCPCS: 36415; 80053; 80061; 83036; 84439; 84443; 85025

== ENCOUNTER 2025-07-23 14:35 | Outpatient (AMB) | payer OTHER, SELFPAY ==
--- NOTE | 2025-07-23 15:15 | MHC.PC.OV ---
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 Accompanied by: Mother Allergies aspirin (Aspirin) Allergy (Severe, Verified 07/23/25 15:59) HIVES/SWELLING peanut (PEANUTS) Allergy (Severe, Verified 07/23/25 15:59) ITCHING/SWELLING tree nut (TREE NUT) Allergy (Severe, Verified 07/23/25 15:59) ITCHING/SWELLING Benadryl Allergy (Unknown, Verified 07/23/25 15:59) Unknown calcium Allergy (Unknown, Verified 07/23/25 15:59) Unknown Zinc Allergy (Unknown, Uncoded 07/23/25 15:59) Unknown Medication List - Last Reconciled 07/23/25 by Delmar Sylvester MD albuterol sulfate 90 mcg/actuation (ProAir HFA) 2 puffs inhalation Q6H PRN amitriptyline 50 mg PO BEDTIME 90 days atorvastatin 40 mg PO DAILY 90 days blood sugar diagnostic (FreeStyle Lite Strips) TEST ONCE DAILY budesonide-formoterol 160-4.5 mcg/actuation (Symbicort) 2 puffs inhalation BID capsaicin 0.025% 1 appl topical TID cholecalciferol (vitamin D3) (Vitamin D3) 25 mcg PO DAILY famotidine 40 mg PO BEDTIME folic acid 1 mg PO DAILY furosemide 20 mg (1/2 x 40 mg) PO QAM gabapentin 100 mg orally 1 capsule in the morning and 3 capsules at bedtime; 90 days insulin glargine (Lantus Solostar U-100 Insulin) 10 units (0.1 mL) subcut QPM 30 days lancets (FreeStyle Lancets) TEST ONCE DAILY lansoprazole 30 mg PO DAILY lidocaine 5% 1 appl topical TID linaclotide (Linzess) 290 mcg PO DAILY lubiprostone (Amitiza) 24 mcg PO BID montelukast 10 mg PO DAILY omalizumab (Xolair) 300 mg subcut Q4W 28 days pen needle, diabetic as directed once a day phenobarbital 97.2 mg PO BEDTIME 90 days sertraline 50 mg PO DAILY sitagliptin phosphate (Januvia) 50 mg PO DAILY 30 days topiramate 200 mg (2 x 100 mg) PO BID 90 days Tobacco use date assessed: 07/23/25 Dental Screening Dental Screen Date: 07/23/25 HPI DM, hyperlipidemia, HTN, asthma, migraine HPI Details Patient comes in today for her follow-up visit States that she feels okay except for a small but painful cyst at the distal IP joint of her right 5th finger that she states she's had for a while now but the pain has gotten a lot worse lately and she can now hardly bend/flex her right pinky finger due to pain She denies any recent injury or trauma to her finger She denies any headaches or dizziness Denies any chest pain, no increased shortness of breath No nausea/vomiting, no abdominal pain No change in bowel habits noted Needs her Januvia Rx refilled She had her follow-up labs done yesterday - to discuss her results [facility] Medical History Acute respiratory disease Morbid obesity with BMI of 40.0-44.9, adult Morbid obesity with BMI of 50.0-59.9, adult Constipation, unspecified Vitamin B12 deficiency Anemia, unspecified Vitamin D deficiency Fibromyalgia Migraine without status migrainosus, not intractable GERD without esophagitis Nonintractable epilepsy without status epilepticus Moderate persistent asthma without complication Benign essential hypertension Type 2 diabetes mellitus without complication, without long-term current use of insulin Pure hypercholesterolemia Surgical History Hx of endoscopy History of colonoscopy History of removal of laparoscopic gastric banding device H/O gastric bypass Family History Father No problems noted. Mother No problems noted. Social History Household Members: Significant Other and Family Housing: Apartment Alcohol intake: current Alcohol intake frequency: holidays/special occasions only Alcohol type: wine Patient Tobacco Use Status: Never used Tobacco e-Cigarette/Vaping Use: Never Used Second Hand Smoke Exposure: Yes service: No Current occupational status: retired Current occupational exposures/hazards: No Cognitive needs: No Hearing needs: Yes Vision needs: Yes Questionnaire PHQ-9 Over the last 2 weeks, how often have you been bothered by any of the following problems? 1. Little interest or pleasure in doing things: not at all 2. Feeling down, depressed, or hopeless: not at all 3. Trouble falling or staying asleep, or sleeping too much: not at all 4. Feeling tired or having little energy: not at all 5. Poor appetite or overeating: not at all 6. Feeling bad about yourself - or that you are a failure or have let yourself or your family down: not at all 7. Trouble concentrating on things, such as reading the newspaper or watching television: not at all 8. Moving or speaking so slowly that other people could have noticed. Or the opposite - being so fidgety or restless that you have been moving around a lot more than usual: not at all 9. Thoughts that you would be better off or of hurting yourself in some way: not at all Total score: 0 Depression Screening Interpretation: Negative Depression Screening Done: Yes 23640 - PHQ-9 Billing: Yes Source: Developed by Drs. Lázaro Tsai, Lara Madden, Wallace Cornejo and colleagues, with an educational emmett from [employer]. Thrive Questionnaire Date Thrive assessed: 07/23/25 I am a: Patient What is your living situation today?: I have a steady place to live Within the past 12 months, did the food you bought not last and you didn't have the money to get more?: Never true Within the past 12 months, did you worry whether your food would run out before you got money to buy more?: Never true Do you have trouble paying for medicines?: No Do you have trouble getting transportation to medical appointments?: Yes Do you have trouble paying your heating and electricity bill?: No Do you have trouble taking care of your child, family member or friend?: Yes Do you have trouble with day-to-day activities such as bathing, preparing meals, shopping, managing finances, etc.?: No Are you currently unemployed and looking for a job?: No Are you interested in more education?: No Please select the resources that you would like help with: None Currently or been in a relationship where the following occur: No concerns reported THRIVE Score: 1 AUDIT C Alcohol Use Questionnaire (AUDIT-C) 1. How often do you have a drink containing alcohol?: Never 3. How often do you have six or more drinks on one occasion?: Never Total Score: 0 Score Reviewed/Action Taken: Yes ABHINAV-7 AMB Questionnaire ABHINAV-7 Date ABHINAV - 7 assessed: 07/23/25 Feeling nervous, anxious, or on edge: 0 = Not at all Not being able to stop or control worryin = Not at all Worrying too much about different things: 0 = Not at all Trouble relaxin = Not at all Being so restless that it is hard to sit still: 0 = Not at all Becoming easily annoyed or irritable: 0 = Not at all Feeling afraid as if something awful might happen: 0 = Not at all Total ABHINAV-7 score (0-4 normal; 5-9 mild; 10-14 moderate; 15-21 severe): 0 Source: Developed by Drs. Lázaro Tsai, Lara Madden, Wallace Cornejo and colleagues, with an educational emmett from [employer]. Review of Systems Const Denies chills, Reports difficulty sleeping, Reports fatigue, Denies fever(s) and Denies headache(s) ENT Denies dysphagia, Denies dizziness, Denies otalgia, Denies headache(s), Denies neck pain, Denies odynophagia and Denies sore throat Card Denies chest pain, Denies palpitations and Denies dyspnea Resp Denies chest congestion, Denies cough and Denies dyspnea GI Denies abdominal pain, Denies constipation, Denies dysphagia, Denies heartburn, Reports diarrhea, Denies nausea, Denies odynophagia and Denies vomiting Denies difficulty voiding, Denies nocturia, Denies dysuria and Denies urinary urgency Musc Details: (+) increased pain over the cyst on the distal IP joint of her right 5th finger Denies back pain and Denies neck pain Skin/Breast Denies rash Neuro Denies dizziness and Denies headache(s) Psych Reports anxiety and Reports depression (Rx helping ) Endo Reports fatigue and Denies palpitations Physical exam (Primary Care) Vital Signs: Last Vital Signs Temp 97.3 F 07/23/25 15:16 Pulse 75 07/23/25 15:16 BP 112/66 07/23/25 15:16 Pulse Ox 100 07/23/25 15:16 Oxygen Delivery Method Room Air 07/23/25 15:16 BMI result Body Mass Index 43.9 Tobacco/Smoking Status: Tobacco use Status Tobacco use date assessed 07/23/25 07/23/25 15:18 Patient Tobacco Use Status Never used Tobacco 07/23/25 15:18 e-Cigarette/Vaping Use Never Used 07/23/25 15:18 PHQ-9: PHQ-9 Score PHQ-9: Total score 0 07/23/25 16:04 Depression Screening Interpretation: Negative Thrive Assessment: Date of Thrive Assessment Date Thrive assessed 07/23/25 07/23/25 15:18 Currently or been in a relationship where the following occur: No concerns reported Const General: no acute distress and alert HENMT Throat: Yes posterior oropharynx normal and Yes tonsils normal (no TP congestion noted) Neck Neck: Yes supple and No lymphadenopathy Thyroid: Thyroid normal Resp Auscultation: clear to auscultation bilaterally, no rales and no wheezes Cardio Rate: regular rate Rhythm: regular rhythm Heart sounds: no murmurs GI Palpation (GI): Soft to palpation and nontender Auscultation: normal bowel sounds General: Yes no CVA tenderness Back/Spine/Pelvis Back: no CVA tenderness Thoracic/Lumbar Spine: No lumbar spinal tenderness Skin Rashes: no rashes Extrem General: Yes no clubbing, cyanosis or edema Left upper extremity: hand Details: tenderness Location: of the 5th digit Location: at the DIP joint ((+) small but painful cyst at the distal IP joint); no swelling Results Reviewed Results Reviewed: Laboratory Tests 05/27/25 07/22/25 15:06 11:33 WBC 8.0 Hgb 11.6 L Hct 37.6 Plt Count 262 Sodium 144 Potassium 3.7 Estimated GFR > 60 Fasting Glucose 96 Hemoglobin A1c % 6.3 H Calcium 9.0 AST 22 ALT 23 Triglycerides 127 Cholesterol 190 LDL Cholesterol, Calc 104 H HDL Cholesterol 61 TSH 6.68 H Free T4 0.79 Ur Specific [place] >= 1.030 H Urine Protein Trace Urine Glucose (UA) Negative Urine Blood Negative Urine Nitrite Negative Ur Leukocyte Esterase Negative Coding Level of Care Code Est Pt Level 4 (07215) Diagnoses Type 2 diabetes mellitus without complication, without long-term current use of insulin E11.9 Pure hypercholesterolemia E78.00 Benign essential hypertension I10 Moderate persistent asthma without complication J45.40 Nonintractable epilepsy without status epilepticus, unspecified epilepsy type G40.909 Epilepsy type: unspecified Migraine without status migrainosus, not intractable, unspecified migraine type G43.909 Migraine type: unspecified GERD without esophagitis K21.9 Constipation, unspecified constipation type K59.00 Constipation type: unspecified constipation type Fibromyalgia M79.7 Elevated TSH R79.89 Ganglion cyst of finger M67.449 Vitamin D deficiency E55.9 Anemia, unspecified type D64.9 Anemia type: unspecified type Vitamin B12 deficiency E53.8 Reactive depression F32.9 Depression Type: reactive depression Morbid obesity with BMI of 40.0-44.9, adult E66.01; Z68.41 Additional Codes PHQ-9 - 27125 - PHQ-9 Billing: Yes ([id number]) Assessment & Plan Assessment & Plan (1) Type 2 diabetes mellitus without complication, without long-term current use of insulin: Code(s): E11.9 - Type 2 diabetes mellitus without complications Category: Medical Plan: Her HgbA1c was at 6.3% on her labs done yesterday (in-office HgbA1c was previously at 6.4% a few months ago) - goal is at least <7.0% but ideally <6.5% Reinforced diabetic diet Continue Januvia 50 mg QD and Lantus 10 units Q HS - she has been doing well on her current Rx and is tolerating Lantus with no problems Per patient's request, we had her stop taking her Metformin 500 mg QD at her last visit as she felt that the Rx is not good for her liver ; she was also reportedly experiencing some recurrent abdominal pain while she was on Metformin - states that the pain has gone away since she stopped the Rx (2) Pure hypercholesterolemia: Code(s): E78.00 - Pure hypercholesterolemia, unspecified Category: Medical Plan: Results of her labs done yesterday reviewed and discussed with patient Reinforced low cholesterol diet Continue Atorvastatin 40 mg QD Will recheck her labs and fasting lipids in 3 months for follow-up (3) Benign essential hypertension: Code(s): I10 - Essential (primary) hypertension Category: Medical Plan: Reinforced low-sodium diet -? goal is systolic BP of around 120 mm or less Continue Furosemide 20 mg QD Patient states that she has not had any syncopal episodes or dizziness since her Furosemide dose was lowered to 20 mg QD last year She is reminded to continue monitoring her blood pressure regularly (4) Moderate persistent asthma without complication: Code(s): J45.40 - Moderate persistent asthma, uncomplicated Category: Medical Plan: Her asthma symptoms continue to be well-controlled on her current meds Continue Breo Ellipta 200 mcg QD, Montelukast 10 mg QD, Ventolin HFA 1 to 2 puffs Q 6 hours as needed and Xolair 300 mg SQ every 4 weeks Follow up with pulmonary as scheduled (5) Nonintractable epilepsy without status epilepticus: Code(s): G40.909 - Epilepsy, unspecified, not intractable, without status epilepticus Category: Medical Qualifiers: Epilepsy type: unspecified Qualified Code(s): G40.909 - Epilepsy, unspecified, not intractable, without status epilepticus Plan: Stable with no recent seizures Continue Phenobarbital 97.2 mg 1 tablet QD Will continue to monitor her serum phenobarbital level regularly Follow-up with neurology as scheduled (6) Migraine without status migrainosus, not intractable: Code(s): G43.909 - Migraine, unspecified, not intractable, without status migrainosus Category: Medical Qualifiers: Migraine type: unspecified Qualified Code(s): G43.909 - Migraine, unspecified, not intractable, without status migrainosus Plan: Stable/controlled on prophylactic Rx Continue Topiramate 100 mg Q HS Follow-up with neurology as scheduled (7) GERD without esophagitis: Code(s): K21.9 - Gastro-esophageal reflux disease without esophagitis Category: Medical Plan: Dietary restrictions reinforced Continue Prevacid 30 mg QD (8) Constipation, unspecified: Code(s): K59.00 - Constipation, unspecified Category: Medical Qualifiers: Constipation type: unspecified constipation type Qualified Code(s): K59.00 - Constipation, unspecified Plan: Patient is encouraged again to continue increased oral fluids and dietary fiber Continue Linzess capsule 290 mcg 1 capsule QD 30 minutes before the 1st meal of the day on an empty stomach Follow up with GI as scheduled (9) Fibromyalgia: Code(s): M79.7 - Fibromyalgia Category: Medical Plan: Patient is again also encouraged on regular exercise and physical activity to help manage her fibromyalgia symptoms better Continue Amitriptyline 50 mg Q HS (10) Elevated TSH: Code(s): R79.89 - Other specified abnormal findings of blood chemistry Category: Medical Plan: Her serum TSH was still somewhat elevated on her most recent labs done yesterday ; her free T4 level remained normal Patient currently appears clinically euthyroid Will continue to monitor her TFTs regularly (11) Ganglion cyst of finger: Comment: on the distal IP joint of the right 5th finger Code(s): M67.449 - Ganglion, unspecified hand Category: Medical Plan: Patient c/o increasing pain on the cyst of the R 5th finger lately Will refer her to orthopedics for further evaluation and management and possible aspiration/excision of the cyst, which is likely a ganglion or a synovial cyst (12) Vitamin D deficiency: Code(s): E55.9 - Vitamin D deficiency, unspecified Category: Medical Plan: Continue Vitamin D3 1000 units QD (13) Anemia, unspecified: Code(s): D64.9 - Anemia, unspecified Category: Medical Qualifiers: Anemia type: unspecified type Qualified Code(s): D64.9 - Anemia, unspecified Plan: Her Hgb was slightly low at 11.6 on her most recent labs; Hct was normal Will continue to monitor her CBC regularly (14) Vitamin B12 deficiency: Code(s): E53.8 - Deficiency of other specified B group vitamins Category: Medical Plan: Corrected - will continue to monitor her B12 level regularly (15) Depression: Code(s): F32.A - Depression, unspecified Category: Medical Qualifiers: Depression Type: reactive depression Qualified Code(s): F32.9 - Major depressive disorder, single episode, unspecified Plan: Continue Sertraline 50 mg QD (16) Morbid obesity with BMI of 40.0-44.9, adult: Comment: S/P gastric bypass surgery in 2016 Code(s): E66.01 - Morbid (severe) obesity due to excess calories; Z68.41 - Body mass index [BMI] 40.0-44.9, adult Category: Medical Plan: Reinforced diet/exercise as tolerated/lose weight Plan Follow up in 3 months Orders: Orders Hemoglobin A1c 3 Months E11.9 - Type 2 diabetes mellitus without complications Complete Blood Count Auto Diff 3 Months D64.9 - Anemia, unspecified Microalbumin, Random (w Creat) 3 Months E11.9 - Type 2 diabetes mellitus without complications UA CC w/rflx Micro + Cult 3 Months R30.0 - Dysuria Vitamin D 25-OH Total 3 Months E55.9 - Vitamin D deficiency, unspecified IRON PROFILE 3 Months D50.9 - Iron deficiency anemia, unspecified Thyroxine Binding Globulin 3 Months R79.89 - Other specified abnormal findings of blood chemistry Comprehensive [place]. Panel Fast 3 Months E78.00 - Pure hypercholesterolemia, unspecified Lipid Panel 3 Months E78.00 - Pure hypercholesterolemia, unspecified Vitamin B12 and Folate 3 Months E53.8 - Deficiency of other specified B group vitamins Free T4 (Free Thyroxine) 3 Months R79.89 - Other specified abnormal findings of blood chemistry Thyroid Stimulating Hormone 3 Months R79.89 - Other specified abnormal findings of blood chemistry Referrals Orthopedics Referral M67.449 - Ganglion, unspecified hand Medications: Changed From sitagliptin phosphate (Januvia) 50 mg PO DAILY 30 days 30 tabs 3RF To sitagliptin phosphate (Januvia) 50 mg PO DAILY 90 tabs 1RF 90 days
[2025-07-23 15:16] VITALS: BP 112/66; PULSE 75; TEMP 36.3; O2SAT 100; BMI 43.9
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
== END 2025-07-23 16:27 | disposition home or self-care (01) ==
LOC: HO.HMCH 14:35
PROVIDERS: PCP Internal Medicine; Visit Provider Internal Medicine
DX: E11.9 Type 2 diabetes mellitus without complications (principal); G40.909 Epilepsy, unspecified, not intractable, without status epilepticus; E66.01 Morbid (severe) obesity due to excess calories; Z68.41 Body mass index [BMI] 40.0-44.9, adult; E78.00 Pure hypercholesterolemia, unspecified; I10 Essential (primary) hypertension; J45.40 Moderate persistent asthma, uncomplicated; G43.909 Migraine, unspecified, not intractable, without status migrainosus; K21.9 Gastro-esophageal reflux disease without esophagitis; M67.441 Ganglion, right hand; K59.00 Constipation, unspecified; M79.7 Fibromyalgia

== ENCOUNTER → 2025-07-23 14:35 | Outpatient (BNVA) | payer OTHER, SELFPAY | PROVIDERS: PCP Internal Medicine; Visit Provider Internal Medicine | DX: I10 Essential (primary) hypertension (principal); L72.9 Follicular cyst of the skin and subcutaneous tissue, unspecified; E11.9 Type 2 diabetes mellitus without complications; E78.00 Pure hypercholesterolemia, unspecified; J45.40 Moderate persistent asthma, uncomplicated; G40.909 Epilepsy, unspecified, not intractable, without status epilepticus; G43.909 Migraine, unspecified, not intractable, without status migrainosus; K21.9 Gastro-esophageal reflux disease without esophagitis; K59.00 Constipation, unspecified; M79.7 Fibromyalgia; R79.89 Other specified abnormal findings of blood chemistry; M67.449 Ganglion, unspecified hand; E55.9 Vitamin D deficiency, unspecified; D64.9 Anemia, unspecified; E53.8 Deficiency of other specified B group vitamins; F32.9 Major depressive disorder, single episode, unspecified; E66.01 Morbid (severe) obesity due to excess calories; Z68.41 Body mass index [BMI] 40.0-44.9, adult | CPT/HCPCS: 96127; 99212 ==